=== PATIENT | female | born 1955 | race Caucasian/White ===

== ENCOUNTER → 2023-07-18 | Outpatient (CLI) | payer MEDICARE, SELFPAY ==
--- NOTE | 2023-07-18 15:58 | MRI_ITS ---
STUDY: MRI LUMBAR SPINE WITHOUT CONTRAST REASON FOR EXAM: Female, 68 years old. L3 fracture, fell x1wk ago, pain, please compare to CT TECHNIQUE: Standardized fat and water weighted pulse sequences were obtained in the sagittal and axial planes. COMPARISON: CT of the lumbar spine July 12, 2023 FINDINGS: T12-L1: Normal endplates. Normal disc height, hydration and morphology. Normal bilateral facet joints. Normal central canal and bilateral lateral recesses. Normal bilateral intervertebral neural foramina. Normal lumbar lordosis. There is no substantial scoliosis. Normal conus medullaris that terminates at T12-L1 L1-2: Degenerative endplate changes... Narrowed disc space with desiccation of the disc and minimal annular bulge. Normal bilateral facet joints. Normal central canal and bilateral lateral recesses. Normal bilateral intervertebral neural foramina. L2-3: Normal endplates. Normal disc height, hydration and morphology. Normal bilateral facet joints. Normal central canal and bilateral lateral recesses. Normal bilateral intervertebral neural foramina. L3-4: There is a burst fracture of the L3 vertebral body demonstrating intramedullary bone marrow edema. There is no retropulsion of bony fragments however there is small amount of fluid in within the anterior epidural space possibly representing prominence of the epidural vein.. Normal disc height, desiccation and normal morphology. Normal bilateral facet joints. Normal central canal and bilateral lateral recesses. Normal bilateral intervertebral neural foramina. L4-5: Normal endplates. Normal disc height, desiccation and minimal annular bulge with bilateral foraminal disc protrusions slightly larger on the left.. Facet arthropathy and mild thickening of ligamenta flava more pronounced on the left.. Normal central canal and bilateral lateral recesses. Moderate bilateral neural foraminal stenosis. L5-S1: Normal endplates. Normal disc height, hydration and morphology. Mild facet arthropathy. Normal central canal and bilateral lateral recesses. Normal bilateral intervertebral neural foramina. Normal visualized sacral ala. Normal visualized paraspinous soft tissue structures. The appearance of the L3 fracture is not changed appreciably since previous study. MRI/Spine Lumbar (Routine) IMPRESSION: Findings consistent with recent burst fracture of L3 with small amount of fluid in the anterior epidural space possibly representing prominence of the epidural vein. Spinal stenosis at L4-5 secondary to disc disease and facet arthropathy Electronically Signed: Clifford Elmore MD at 17:26 EST ,
== END | disposition home or self-care (01) ==
PROVIDERS: PCP Internal Medicine; Referring Provider Orthopaedic Surgery Orthopaedic Surgery of the Spine; Visit Provider Orthopaedic Surgery Orthopaedic Surgery of the Spine
DX: S32.039A Unspecified fracture of third lumbar vertebra, initial encounter for closed fracture (principal)
CPT/HCPCS: 72148

== ENCOUNTER 2023-07-24 05:41 | Day surgery (SDC) | payer MEDICARE, SELFPAY ==
--- NOTE | 2023-07-24 06:29 | EKG12_ITS ---
Test Reason : PRE-OP Blood Pressure : / mmHG Vent. Rate : 058 BPM Atrial Rate : 058 BPM P-R Int : 134 ms QRS Dur : 088 ms QT Int : 426 ms P-R-T Axes : -26 017 139 degrees QTc Int : 418 ms Sinus bradycardia with Premature atrial complexes T wave abnormality, consider lateral ischemia Abnormal ECG No previous ECGs available Confirmed by VANESSA SOLORIO, REZA ([id number]), scientific editor SNEHA DEAN ([id number]) on 07/26/2023 9:05:12 AM Referred By: Valente Willis Confirmed By:REZA MENDEZ MD
[2023-07-24 06:35] VITALS: BP 136/86; PULSE 55; RESP 16; TEMP 36.6; O2SAT 99; BMI 32.0
[2023-07-24] MEDS: Lactated Ringers 1,000 ML 15 ML IV (06:58)
--- NOTE | 2023-07-24 07:37 | PCM.HP.BLA ---
History and Physical MR#: [id number] Acct: [id number] Name: MARU DODSON Rep #: [id number] : 1955 Provider: Dr. Valente Willis MD Age/Sex: 68/F Location: [facility] [place].MELINDA Status: Signed Intake Vital Signs 07/14/2309:25 07/20/2410:25 Height 5 ft 2 in 5 ft 2 in Weight: 175 lb 4 oz BMI 32.0 Intake Visit Reasons: LUMBAR SPINE Chief Complaint: MRI review Is patient in pain?: Yes (lumbar spine ) Pain scale (1-10): 10 Allergies ciprofloxacin [From Cipro] Allergy (Mild, Verified 07/21/23 10:51) HivesPenicillins Allergy (Mild, Verified 07/21/23 10:51) Hives Medications amlodipine 5 mg tablet mg PO 07/14/23 [History Confirmed 07/21/23] atorvastatin 80 mg tablet mg PO 07/14/23 [History Confirmed 07/21/23] ezetimibe 10 mg tablet mg PO 07/14/23 [History Confirmed 07/21/23] levothyroxine 125 mcg tablet mcg PO 07/14/23 [History Confirmed 07/21/23] metoprolol tartrate 25 mg tablet mg PO 07/14/23 [History Confirmed 07/21/23] pantoprazole 40 mg tablet,delayed release mg PO 07/14/23 [History Confirmed 07/21/23] paroxetine HCl 10 mg tablet mg PO 07/14/23 [History Confirmed 07/21/23] polysaccharide iron complex 150 mg iron capsule mg PO 07/14/23 [History Confirmed 07/21/23] ramipril 2.5 mg capsule mg PO 07/14/23 [History Confirmed 07/21/23] acetaminophen 500 mg tablet (Tylenol Extra Strength) 1,000 mg PO Q6H PRN 07/21/23 [History Confirmed 07/21/23] oxycodone 5 mg tablet 5 mg PO Q8H PRN pain 5 days #15 tabs 07/21/23 [Rx Confirmed 07/21/23] PFSH Medical History Cancer of neck Hypertension Hypothyroid Surgical History History of open heart surgery Social History Smoking Status: Current every day smoker alcohol intake: current HPI LUMBAR SPINE Details: This documentation accurately reflects the service provided and the decisions made by me, Dr. Valente Willis MD 07/21/23 1050. Part of today?s visit was documented by [ ], acting as scribe. MARU DODSON is a 68 year old F here today for lumbar spine MRI review. She reports being in severe pain that is interfering with her daily activities. She is unable to stand, sit or lay down for periods due to the pain. She would like to discuss MRI results and next steps. Maru has had worsening pain over the last week. She is still waiting to receive the LSO brace. She continues to have pain which is midline and paraspinal in the lumbar spine. She denies any radiating pain. She has trouble getting up and standing up but when she stands up she is able to walk some distance. She is here in a wheelchair today. She was seen by me last week with the following history. 07/14/23: She reports on [facility] that she fell while fluffing a blanket and landed on her back on the hard wood floor. She complains of pain low back pain that radiates down into her right hip. The pain is constant, she has been using a heating pad and the pain medication from the ER. She reports pain with sitting and ambulation. She denies any previous low back surgery. She fell backwards. She denies any previous fractures. 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 She was seen in the ER and was investigated with a CT scan which showed a fracture and was asked to follow-up. No MRI has been done. She has history of throat cancer which was treated with chemotherapy and radiation in 2008. She is nondiabetic, non-smoker. She underwent heart surgery about a year ago. She is on baby aspirin. Ortho Exam General General: Yes no acute distress Neurologic: Yes alert and Yes oriented x3 Spine SPINE TESTING CERVICAL THORACIC LUMBAR Musculoskeletal Strength 0=absent - 5=normal Details: Examination of the back shows midline tenderness in the mid lumbar spine. Neurologic evaluation of lower extremity shows 5 x 5 power in all muscles normal sensations in all dermatomes. Coding Level of Care Code Off vis,est,level 3 Diagnoses Compression fracture of L3 vertebra, initial encounter S32.030A Encounter type: initial encounter Time Spent (min) 40 Assessment and Plan Assessment and Plan (1) Compression fracture of third lumbar vertebra: Status: Acute Qualifiers: Encounter type: initial encounter Qualified Code(s): S32.030A - Wedge compression fracture of third lumbar vertebra, initial encounter for closed fracture Medications: New oxycodone 5 mg PO Q8H 5 days PRN 15 tabs 0RF pain S32.030A - Wedge compression fracture of third lumbar vertebra, initial encounter for closed fracture Plan I again reviewed x-rays done last week and repeated new x-rays today. She also underwent MRI of lumbar spine which I reviewed. This shows L3 compression fracture without any additional pathology other than osteopenia. New x-rays show slight reduction in the height of the vertebral body at L3. In presence of severe worsening pain, I recommended option of cement augmentation with kyphoplasty. Her pain is not improving with rest analgesics and bracing. Although she did not get the LSO brace she has tried a lumbar belt by herself. I prescribed oxycodone 5 mg every 8 hour to help with the pain now. I will schedule her for kyphoplasty on an urgent basis likely Monday. All risk benefits and alternatives were discussed in detail. The risks include but are not limited to infection, bleeding, hematoma formation, cement embolism, cement extravasation, hypotension, cardiopulmonary event, DVT, pulm embolism, future additional fractures, need for future procedures, need for further procedures, incomplete pain relief, need for bracing. Patient understands and agrees to the procedure.
--- NOTE | 2023-07-24 07:45 | BONBX_PTH ---
PATHOLOGY RESULTS PATIENT: LESLEY DODSON LOC: [facility] [place] U#:[id number] AGE/SX: 68/F ROOM: RE07/24/[address]: Dr. Valente Willis MD : 1955 BED: DIS: 07/24/2023 SPEC #: [id number] RECD: 07/24/23 11:49 STATUS: FLAVIO REDannie #: [id number] LESLEY: 07/24/23 07:[address]: Valente Willis DEPT: SURGICAL PATHOLOGY RECD BY: Dena Kerr ENTERED: 07/24/23 11:51 SP TYPE: Bone OTHR DR: Dr. Almaz Chavez MD Tissues: Vertebra, NOS Procedures: Decalcification bone/plaque Surgery Specimen Level V HEADER OPERATION: Kyphoplasty PRE-OP DIAGNOSIS: Compression fracture of third lumbar vertebra TISSUE SUBMITTED: Bone biopsy left L3 MICROSCOPIC DIAGNOSIS L3 bone, core biopsy: A piece of bone with extensive callus formation and reactive changes. Negative for malignancy. See comment. AGATHA:charlie 07/25/2023 COMMENT Trilineage hematopoiesis is also noted. Clinical correlation and appropriate follow up are necessary. MICROSCOPIC DESCRIPTION Slides are reviewed. GROSS DESCRIPTION Received in fixative is one container labeled with the patient's name and designated bone biopsy L3. The specimen consists of a piece of bone with blood clot. The bone measures 1.0 cm in length and 0.2 cm in diameter. The blood clot measures 1.5 x 0.1 x 0.1 cm. The entire specimen is submitted in one cassette after decalcification. / AGATHA:charlie 07/24/2023 TC:5 CPT: 26385, 18284
[2023-07-24] MEDS: Clindamycin 600 MG/50 ML BAG 100 MG IV (08:51)
--- NOTE | 2023-07-24 08:55 | RAD_ITS ---
PROCEDURE: Fluoroscopy for vertebroplasty DATE OF EXAMINATION: 07/24/2023, 9:33 AM INDICATION: Female, 68 years old. Fluoroscopy was provided for vertebroplasty FLUOROSCOPY TIME (if supplied): (137.1 seconds) RADIATION DOSAGE (If Supplied By Facility): = ( 69.1 ) mGy FINDINGS: 3 views of the upper lumbar spine were obtained during procedure for vertebroplasty. No radiologist was present. Examination was not performed for diagnostic purposes and is not diagnostic. RAD/Lumbar Spine 2 or 3 Views IMPRESSION: Intraprocedural exam as described above. Electronically Signed: Anderson Quigley MD at 10:47 EST ,
[2023-07-24] MEDS: Lidocaine 1% (30 ml sdv) 30 ML Vial (09:45)
[2023-07-24] MEDS: Bupivacaine 0.25% 30 ML Vial (09:45)
--- NOTE | 2023-07-24 09:55 | PCM.OPRPT ---
Report of Operation Date of Procedure: 07/24/23 Description of Surgical Findings:: ATTENDING SURGEON: Valente Willis MD TEST DESIGN ENGINEER: none PREOPERATIVE DIAGNOSIS: L3 compression fracture POSTOPERATIVE DIAGNOSIS: L3 compression fracture PROCEDURE PERFORMED: L3 kyphoplasty CPT 20875 INDICATIONS FOR THE PROCEDURE: The patient is a 68-year-old lady, who presents with back pain after an injury. Imaging showed L3 compression fracture with osteopenia. After failing conservative management, the patient requested cement augmentation with kyphoplasty. Risk benefits were discussed in detail. The risks include but are not limited to infection, bleeding, hematoma formation, nerve or spinal cord injury, DVT, pulmonary embolism, cement Mollison, hypertension, cardiac arrest, persistent pain, need for further procedures, cement extravasation, future insufficiency fractures. After a discussion of the risks and benefits of the procedure, consent was signed for the procedure. DETAILS OF PROCEDURE: Patient was met in the preoperative holding area and the correct site was marked. The patient was brought back to the operative suite. Timeout was performed. Patient was carefully positioned flat James table with pillows. MAC anesthesia sedation was performed. Back was prepped and draped in usual fashion. Timeout was again performed. C-arm AP and lateral view was then taken. 2 C-arms were positioned in a way that L3 was centralized and superior endplate was parallel to the beams. Spinous process was centered between the pedicles. Point of entry was marked with skin marker. local anesthetic was injected subcutaneously. Small stab incision was placed to allow Jamshidi needle. The Jamshidi needle was then taken down up to the lateral edge of the pedicle seen on AP view and confirmed the lateral view. Jamshidi needle was then malleted into the bone up to the medial wall of the pedicle seen on AP view and confirmed on lateral view to be inside the body. This was then advanced to the anterior third of the vertebral bodies. This was done on both sides. Stylette was removed. Core biopsy was performed. Drill was utilized up to balloon size. Balloon was inserted. The balloon was inflated with radiopaque dye and evaluated on AP lateral C-arm images. Once adequate expansion of the balloon was noticed, the balloons were emptied and removed. Cement was mixed. Once the cement consistency was putty like, this was slowly inserted into the vertebral body through both Jamshidi needles. AP lateral views were confirmed to make sure no cement extravasation occurs. Once adequate cement was placed, time was given to allow cement setting. Jamshidi needles were then removed. Steri-Strips were applied along with 4 x 4 and Tegaderm. AP lateral views showed good cement fill. Patient was then taken to PACU in stable condition and will be discharged from their home. I was present for the entire case. Admit VTE Documentation VTE Mechan Device Prophylaxis: SCD's Reason prophylaxis not ordered:: Treatment Not Indicated Procedures Musculoskeletal 20xxx-29xxx: Other Procedure See Report
[2023-07-24 10:00] VITALS: BP 110/94; BP 136/86; PULSE 69; RESP 16; TEMP 36.2; O2SAT 93
[2023-07-24 10:05] VITALS: BP 101/75; BP 136/86; PULSE 76; RESP 16; O2SAT 98
[2023-07-24 10:10] VITALS: BP 116/86; BP 136/86; PULSE 74; RESP 16; O2SAT 94
[2023-07-24 10:20] VITALS: BP 112/89; BP 136/86; PULSE 75; RESP 16; TEMP 36.6; O2SAT 97
[2023-07-24] MEDS: oxyCODONE 5 MG Tablet PO (11:02)
[2023-07-24 11:08] VITALS: BP 118/75; BP 136/86; PULSE 74; RESP 16; TEMP 36.3; O2SAT 95
== END 2023-07-24 11:18 | disposition home or self-care (01) ==
LOC: SDC 05:43 → AC 05:44
PROVIDERS: PCP Internal Medicine; Referring Provider Orthopaedic Surgery Orthopaedic Surgery of the Spine; Visit Provider Orthopaedic Surgery Orthopaedic Surgery of the Spine
PROC: (CPT 22514; principal; 2023-07-24 07:30)
DX: M80.88XA Other osteoporosis with current pathological fracture, vertebra(e), initial encounter for fracture (principal); I10 Essential (primary) hypertension; E03.9 Hypothyroidism, unspecified; F41.9 Anxiety disorder, unspecified; E78.00 Pure hypercholesterolemia, unspecified; K21.9 Gastro-esophageal reflux disease without esophagitis; F32.A Depression, unspecified; I25.2 Old myocardial infarction; W19.XXXA Unspecified fall, initial encounter; Z79.899 Other long term (current) drug therapy; Z87.891 Personal history of nicotine dependence
CPT/HCPCS: 22514; 01942; 72100; 76000; 88307; 88311; 93005; J7120; J2405

== ENCOUNTER 2023-12-06 11:33 | Day surgery (SDC) | payer MEDICARE, SELFPAY ==
[2023-12-06] VITALS (9 sets, daily range): BP systolic 76–138; BP diastolic 61–97; PULSE 64–81; RESP 16; TEMP 36.6–37; O2SAT 93–100; BMI 30.7
[2023-12-06 12:06] LABS: Hematocrit 39.5 % (37-47); Mean Corp Hgb Conc 32.9 g/dL (32-36); Mean Corpuscular Hgb 29.2 pg (27.0-32.0); Mean Corpuscular Volume 88.8 fL (81-99); Platelet Count 236 K/mm3 (150-450); RBC Distribution Width CV 13.2 % (11.6-14.6); RBC Distribution Width SD 42.5 fl (35.1-43.9); Red Blood Count 4.45 M/mm3 (4.2-5.4); White Blood Count 5.7 K/mm3 (4.4-11.0)
[2023-12-06] MEDS: Lactated Ringers 1,000 ML 15 ML IV ×2 (12:10→15:48)
[2023-12-06 12:34] LABS: Anion Gap 7 (5-15); BUN 14 mg/dL (7-18); BUN/Creat Ratio 15.5 RATIO (10-20); Calcium,Total 9.5 mg/dL (8.5-10.1); Chloride 112 mmol/L (98-107); EST Glomerular Filtration Rate 66 mL/min (>60); Est Glom Filt Rate - Afr Amer 80 mL/min (>60); Estimated Creatinine Clearance 57.18 ml/min; Glucose 112 mg/dL (74-106); Potassium 4.2 mmol/L (3.5-5.1); Sodium Level 141 mmol/L (136-145); Thyroid Stim Hormone (TSH) 0.02 uIU/mL (0.358-3.74)
--- NOTE | 2023-12-06 12:58 | HP.PCM_ITS ---
HPI - General HPI Narrative LESLEY DODSON, is a 68 F who presents for left ankle open reduction internal fixation. Almost a malunion at this point. Need to correct fibular alignment. No changes to h and p. OK to proceed. Left ankle marked. RAB, post op instructions and narcotic counselling. OK to proceed, no further concerns or questions. MR#: [id number] Acct: [id number] Name: LESLEY DODSON Rep #: [id number] : 1955 Provider: Dr. Mariusz Calloway MD Age/Sex: 68/F Location: [facility] [place].MELINDA Status: Signed Intake Vital Signs 07/24/2405:35 11/27/2408:36 Height 5 ft 2 in 5 ft 2 in Weight: 160 lb BMI 29.2 Intake Visit Reasons: LEFT LEG Chief Complaint: Left Ankle/ foot Accompanied by: Granddaughter Is patient in pain?: Yes Pain scale (1-10): 1 Allergies ciprofloxacin (From Cipro) Allergy (Mild, Verified 11/28/23 09:42) HivesPenicillins Allergy (Mild, Verified 11/28/23 09:42) Hives Medications ?Medication ?Instructions ?Recorded ?Confirmed ?Type amlodipine 5 mg tablet 5 mg PO DAILY 07/14/23 11/28/23 History atorvastatin 80 mg tablet 80 mg PO QHS 07/14/23 11/28/23 History ezetimibe 10 mg tablet 10 mg PO DAILY 07/14/23 11/28/23 History levothyroxine 125 mcg tablet 125 mcg PO DAILY 07/14/23 11/28/23 History metoprolol tartrate 25 mg tablet 25 mg PO BID 07/14/23 11/28/23 History pantoprazole 40 mg tablet,delayed 40 mg PO DAILY 07/14/23 11/28/23 History release paroxetine HCl 10 mg tablet 10 mg PO DAILY 07/14/23 11/28/23 History polysaccharide iron complex 150 mg 150 mg PO BID 07/14/23 11/28/23 History iron capsule ramipril 2.5 mg capsule 2.5 mg PO DAILY 07/14/23 11/28/23 History acetaminophen 500 mg tablet 1,000 mg PO Q6H PRN pain 07/21/23 11/28/23 History (Tylenol Extra Strength) alendronate 70 mg tablet (Fosamax) 70 mg PO WE 07/21/23 11/28/23 History aspirin 81 mg tablet,delayed 81 mg PO DAILY 07/21/23 11/28/23 History release (Adult Low Dose Aspirin) cholecalciferol (vitamin D3) 50 6,000 unit PO DAILY 07/21/23 11/28/23 History mcg (2,000 unit) tablet (Vitamin D3) [facility] Medical History (Updated 11/28/23 @ 10:34 by Mariusz Calloway MD) Bimalleolar fracture of left ankle Wears dentures Post-menopausal Cancer Depression Anxiety Low iron High cholesterol Injury of back Gastric reflux Former smoker History of pain when walking History of echocardiogram History of stress test Cardiology follow-up encounter History of heart attack Fall Hypothyroid Hypertension Cancer of neck Surgical History Hx of colonoscopy History of cardiac catheterization History of neck dissection History of open heart surgery Social History Smoking Status: Former smoker alcohol intake: current HPI LEFT LEG Details: This documentation accurately reflects the service provided and the decisions made by me, Dr. Mariusz Calloway MD 11/28/23 0936. Part of today?s visit was documented by [ ], acting as scribe. LESLEY DODSON is a 68 year old F here today for L ankle fracture. was putting on a bathing suit 4 weeks ago, Ortho Exam General General: Yes no acute distress Neurologic: Yes alert and Yes oriented x3 Psychologic: Yes reasonable and appropriate Left Foot/Ankle Skin: Yes CDI and Soft Tissue Swelling; No Ecchymosis or Erythema Exam: Yes Soft tissue swelling, TTP Lateral Malleolus and TTP Medial Malleolus; No Ecchymosis, Erythema, TTP Deltoid Ligament or TTP distal 5th metatarsal Dorsiflexion 0-20: 0 degrees Plantar Flexion 0-40: 30 degrees Motor: Ankle Dorsiflextion: 4, Ankle Plantar Flexion: 4, Ankle Eversion: 4, Ankle Inversion: 4 and EHL: 4 Sensation: Deep Peroneal Nerve: I, Superficial Peroneal Nerve: I, Tibial Nerve: I, Sural Nerve: I and Saphenous Nerve: I Pulses: Dorsalis Pedis: 2 Supplemental Info X-rays of the left ankle 3 views reviewed from 11/26/2023 at outside facility 3 views of the ankle reveal displaced bimalleolar ankle fracture Marshall B of the distal fibula oblique fracture as well as a transverse medial malleoli fracture with a slight lateral talar shift. Coding Level of Care Code Off vis,new,level 4 Diagnoses Bimalleolar fracture of left ankle S82.842A Assessment and Plan Assessment and Plan (1) Bimalleolar fracture of left ankle: Status: Acute Plan: 60-year-old female with a 4 weeks old bimalleolar displaced ankle fracture on the left side. We went over the diagnosis prognosis different treatment options including doing nothing versus surgery. With nonsurgical treatment and further conservative management patient does have a lateral talar shift and displacement of the fibula fracture that would most likely predispose the patient to increased contact pressures on the cartilage of the talus and quickly developing ankle arthritis. That being said open reduction internal fixation of the left ankle fractures does have its own set of risks especially as it is already been 4 weeks this is essentially nearly a malunion at this point. Surgery would be in the form of open left ankle open reduction internal fixation. This would be to take down the callous that is already formed to correct the alignment of the fractures. The patient would have to get a cardiac clearance they do have a vp customer development as well prior to doing surgery so we will likely plan this for next week. Patient understands they will try to be nonweightbearing and elevate the ankle until that time and we will give the patient a short orthosis boot for some more support today. They understood no further questions or concerns. Pros and cons risks and benefits were discussed with the patient including but not limited to infection, pain, stiffness, bleeding, damage to surrounding structures, neurovascular injury, recurrence or retear, failure or wear of hardware or fixation, instability, fracture, deep vein thrombosis and pulmonary embolism, anesthetic risks, , patient dissatisfaction, need for further surgery and other risks. Patient understood and wished to proceed with surgery, and signed the informed consent documentation. [facility] Medical History (Updated 11/28/23 @ 10:34 by Mariusz Calloway MD) Bimalleolar fracture of left ankle Wears dentures Post-menopausal Cancer Depression Anxiety Low iron High cholesterol Injury of back Gastric reflux Former smoker History of pain when walking History of echocardiogram History of stress test Cardiology follow-up encounter History of heart attack Fall Hypothyroid Hypertension Cancer of neck Home Medications ?Medication ?Instructions ?Recorded ?Last Taken ?Type amlodipine 5 mg tablet 5 mg PO DAILY 07/14/23 12/06/23 06:00 History atorvastatin 80 mg tablet 80 mg PO QHS 07/14/23 Unknown History ezetimibe 10 mg tablet 10 mg PO DAILY 07/14/23 Unknown History levothyroxine 125 mcg tablet 125 mcg PO DAILY 07/14/23 12/06/23 03:00 History metoprolol tartrate 25 mg tablet 25 mg PO BID 07/14/23 12/06/23 06:00 History pantoprazole 40 mg tablet,delayed 40 mg PO DAILY 07/14/23 12/06/23 06:00 History release paroxetine HCl 10 mg tablet 10 mg PO DAILY 07/14/23 Unknown History polysaccharide iron complex 150 mg 150 mg PO BID 07/14/23 Unknown History iron capsule ramipril 2.5 mg capsule 2.5 mg PO DAILY 07/14/23 12/06/23 06:00 History acetaminophen 500 mg tablet 1,000 mg PO Q6H PRN pain 07/21/23 Unknown History (Tylenol Extra Strength) alendronate 70 mg tablet (Fosamax) 70 mg PO WE 07/21/23 Unknown History aspirin 81 mg tablet,delayed 81 mg PO DAILY 07/21/23 07/21/23 History release (Adult Low Dose Aspirin) cholecalciferol (vitamin D3) 50 6,000 unit PO DAILY 07/21/23 Unknown History mcg (2,000 unit) tablet (Vitamin D3) Allergy/AdvReac Type Severity Reaction Status Date / Time ciprofloxacin (From Cipro) Allergy Mild Hives Verified 12/06/23 12:02 Penicillins Allergy Mild Hives Verified 12/06/23 12:02 Surgical History (Updated 12/04/23 @ 08:28 by Kecia Goff) Hx of kyphoplasty Hx of colonoscopy History of cardiac catheterization History of neck dissection History of open heart surgery Social History Smoking Status: Former smoker alcohol intake: current Vital Signs Vital Signs Vital Signs: 12/06/23 12:04 12/06/23 12:04 Temperature 98.6 F Temperature Source Temporal Pulse Rate 64 Respiratory Rate 16 Respiratory Pattern Normal Blood Pressure 138/61 H Blood Pressure Mean 86 Blood Pressure Source Monitor Blood Pressure Position Semi-Fowlers Blood Pressure Location Left Arm Pulse Ox 100 Oxygen Delivery Method Room Air Weight Weight: 168 lb Body Mass Index (BMI) 30.7 Results Lab / Micro Data 12/06/23 11:57 12/06/23 11:57 Labs: Laboratory Results - last 24 hr 12/06/23 11:57: WBC 5.7, RBC 4.45, Hgb 13.0, Hct 39.5, MCV 88.8, MCH 29.2, MCHC 32.9, RDW Std Deviation 42.5, RDW Coeff of Gustavo 13.2, Plt Count 236, MPV 10.0, Sodium 141, Potassium 4.2, Chloride 112 H, Carbon Dioxide 22.0, Anion Gap 7, BUN 14, Creatinine 0.90, Estim Creat Clear Calc 57.18, Est GFR (MDRD) Af Amer 80, Est GFR (MDRD) Non-Af 66, BUN/Creatinine Ratio 15.5, Glucose 112 H, Calcium 9.5, TSH 0.02 L
[2023-12-06] MEDS: Cefazolin 2 GM in 0.9% Normal Saline (100mL Bag) 100 ML IV (13:34)
--- NOTE | 2023-12-06 13:48 | RAD_ITS ---
STUDY: X-RAY - LEFT ANKLE REASON FOR EXAM: Female, 68 years old. LEFT ANKLE OPEN REDUCTION INTERNAL FIXATION TECHNIQUE: 5 fluoroscopic spot films of the left ankle were obtained. COMPARISON: Left ankle radiographs dated 11/26/2023. FINDINGS: There are 2 new partially threaded screws traversing through the previously seen medial malleolar fracture. There is a new metallic reconstruction plate along the lateral aspect of the fibula, with multiple fixation screws, bridging the previously seen distal fibular fracture. Normal visualized talus and calcaneus. RAD/Ankle 2 Views IMPRESSION: New ORIF hardware in the distal tibia and fibula. Electronically Signed: Juan Simpson MD at 15:16 EDT ,
--- NOTE | 2023-12-06 15:10 | OP.PCM_ITS ---
Problems Associated Problem List Diagnoses (1) Bimalleolar fracture of left ankle: Report of Operation Date of Procedure: 12/06/23 Pre-Operative Diagnosis: L ankle fracture elizabeth (malunion) Post-Operative Diagnosis: same Surgery/Procedure Performed:: Left ankle open reduction internal fixation, take down malunion Surgeon: Mariusz Calloway Type of Anesthesia: Block,Regional and General Anesthesiologist: Dimitry Pike Estimated Blood Loss (mL): 50 Description of Procedure: Patient brought to operating room theater. Placed supine on the table. General anesthesia induced. 2 g IV Ancef administered prior to the start of the procedure. All bony prominences padded. SCD on the nonoperative leg. Tourniquet applied to the left thigh appropriately padded. Lower extremity prepped and draped in the usual sterile fashion chlorhexidine-based prep solution allowing over 3 minutes drying time prior to draping. Bump on the left hip and left lower extremity bumped up on towels. Preoperative timeout performed on the site patient and the surgery. Began by taking intraoperative radiograph to confirm the fracture site and the malunion. Slight posterior lateral incision over the distal fibula carried dissection down through skin and subcutaneous tissue achieved meticulous hemostasis. Identified the previous fracture site took down the malunion callus formation. Recreated the fracture. Next I turned my attention medially. Made a small curvilinear incision over the medial malleolus carried the dissection down through skin and subcutaneous tissue to meticulous hemostasis. Protected the saphenous vein retracted this anteriorly. Again identified the fracture site recreated that took down any callus thoroughly irrigated and debrided the fracture sites. First turned my attention of the distal fibula. Selected a Arthrex precontoured lateral distal fibular locking plate placed this on bone use direct manual pressure to reduce the fibula had to place the plate anteriorly to get good purchase into the relatively small distal fragment. Use direct visualization as well as intraoperative fluoroscopy to achieve good length of the fibula fracture. Placed 4 fully threaded 3.5mm cortical screws proximally as well as 4 locking screws distally into the distal fragment. This achieved good reduction of the mortise with no lateral talar shift and good reduction of the fibula. I then turned my attention medially. I drilled a small 2.0 mm cortical hole unicortical just proximal to the transverse medial malleolus fracture site. I used a reduction forcep clamp across this achieved good reduction and compression at the fracture site took radiographs to confirm reduction. I plac ed 2 cannulated wires colinear on both AP and lateral radiographs. I overdrilled the proximal cortex and then placed 2, 48 mm long Arthrex partially- threaded cancellous lag screws 4.0 millimeter screws. Remove the guidewires took final radiographs AP lateral and mortise view. I then did the external rotation stress test direct lateral manipulation test as well as cotton test these were all negative for syndesmosis instability or widening. Case terminated tourniquet let down wounds thoroughly irrigated. Hemostasis achieved. Subcutaneous tissue closed with 2-0 Vicryl suture skin with citlali. Skin cleaned with wet and dry dressing followed application of Adaptic 4 x 4 gauze ABD dressing sterile cast padding and a posterior fiberglass slab prefabricated posteriorly with the ankle in neutral overwrapped loosely with Felipe wrap. This was allowed to harden patient woken up from the general anesthetic transferred off the operating table and taken to postanesthetic care unit in stable condition. All sponge needle return counts were correct no complications. CPT 86592?+ [id number]? Complications none Admit VTE Documentation VTE Present on Admission: No VTE Mechan Device Prophylaxis: SCD's VTE Pharm Prophylaxis ordered?: No Reason prophylaxis not ordered:: Treatment Not Indicated Procedures Musculoskeletal [id number]: Other Procedure See Report
--- NOTE | 2023-12-06 15:21 | DCINST_ITS ---
Discharge Instructions Diet Discharge Diet: No restrictions Activity Ice area for (Minutes): 10 Weight Bearing Status: No weight bearing Keep extremity elevated above heart level: Operative Extremity Dressing / Incision Call your doctor if your incision/area has: Continuous Slow Oozing, Sudden Increased Bleeding, Increased Pain/ Swelling, Increased Redness, Foul Smelling Discharge and Swelling at the incision site Change Dressing in: leave in place till F/U Follow Up Care Please Follow Up With: Mariusz Calloway MD When: 2 days Test Results: Test results from this visit will be discussed in further detail at your follow- up appointment, if applicable. Discharge Plan Admission Attending Provider: Mariusz Calloway Primary Care Provider: Almaz Chavez Instructions Print Language: [place] Discharge Orders/Prescriptions Prescriptions: New oxycodone-acetaminophen [Percocet] 5-325 mg tablet 1 tab PO Q4H MDD 6 PRN (Reason: pain) 4 Days Qty: 20 0RF No Action ezetimibe 10 mg tablet 10 mg PO DAILY ramipril 2.5 mg capsule 2.5 mg PO DAILY Patient Comments: TAKE 1 CAPSULE BY MOUTH ONCE DAILY levothyroxine 125 mcg tablet 125 mcg PO DAILY Patient Comments: TAKE 1 TABLET BY MOUTH EVERY DAY amlodipine 5 mg tablet 5 mg PO DAILY Patient Comments: TAKE 1 TABLET BY MOUTH EVERY DAY atorvastatin 80 mg tablet 80 mg PO QHS Patient Comments: TAKE 1 TABLET BY MOUTH EVERYDAY AT BEDTIME metoprolol tartrate 25 mg tablet 25 mg PO BID Patient Comments: TAKE 1 TABLET BY MOUTH TWICE A DAY pantoprazole 40 mg tablet,delayed release (DR/EC) 40 mg PO DAILY Patient Comments: TAKE 1 TABLET BY MOUTH EVERY DAY polysaccharide iron complex 150 mg iron capsule 150 mg PO BID Patient Comments: 1 CAP(S) ORALLY 2 TIMES A DAY 30 MINUTES AFTER A MEAL paroxetine HCl 10 mg tablet 10 mg PO DAILY Patient Comments: TAKE 1 TABLET BY MOUTH EVERY DAY acetaminophen [Tylenol Extra Strength] 500 mg tablet 1,000 mg PO Q6H PRN (Reason: pain) cholecalciferol (vitamin D3) [Vitamin D3] 50 mcg (2,000 unit) tablet 6,000 unit PO DAILY alendronate [Fosamax] 70 mg tablet 70 mg PO WE aspirin [Adult Low Dose Aspirin] 81 mg tablet,delayed release (DR/EC) 81 mg PO DAILY Referrals / Follow Up: Almaz Chavez MD [Primary Care Provider] - Mariusz Calloway MD [Med Staff - Active Staff] - Disposition Disposition (needs filled in before D/C Order can be placed): Home, Self Care
== END 2023-12-06 16:45 | disposition home or self-care (01) ==
LOC: SDC 11:35 → AC 11:35
PROVIDERS: Anesthesiology; PCP Internal Medicine; Referring Provider Orthopaedic Surgery Sports Medicine; Visit Provider Orthopaedic Surgery Sports Medicine
PROC: (CPT 27726; principal; 2023-12-06 12:55)
DX: S82.842A Displaced bimalleolar fracture of left lower leg, initial encounter for closed fracture (principal); S32.030A Wedge compression fracture of third lumbar vertebra, initial encounter for closed fracture; I10 Essential (primary) hypertension; Z87.891 Personal history of nicotine dependence; E78.00 Pure hypercholesterolemia, unspecified; Z79.82 Long term (current) use of aspirin; F41.9 Anxiety disorder, unspecified; E03.9 Hypothyroidism, unspecified; I25.2 Old myocardial infarction
CPT/HCPCS: 27726; 27720; 01392; 73600; 76000; 80048; 84443; 85027; C1713; J7120; J2405

== ENCOUNTER → 2024-12-30 | Outpatient (CLI) | payer MEDICARE, SELFPAY ==
--- OUTSIDE RECORDS SUMMARY | 2024-12-30 06:25 | XMS RPT_ITS | CCD ---
Author Organization [facility] Care Team Providers [employer] Teacher Name Role Phone Scott Brasher Unavailable Unavailable Flo Pretty Unavailable Unavailable Bib Jovanni Unavailable Unavailable Scott Brasher Unavailable Unavailable Flo Pretty Unavailable Unavailable Unavailable Flo Pretty MD Primary Care Provider SHAY BRENNER Admitting Unavailable SHAY BRENNER Attending Unavailable FLO PRETTY Primary Care Unavailable JUAN MANUEL ROSA MD Consulting UnavailFlo Fitzpatrick MD Primary Care Provider Unavailable Primary Care Provider Unavailjuan suarez Unavailable Primary Care Provider UnavailMD AMRIT Bell Admitting Unavailable MD AMRIT MALONE Attending Unavailable Dr. Flo Pretty Primary Care Unavailable Dr. Flo Pretty Primary Care Unavailable MD AMRIT MALONE Admitting Unavailable MD AMRIT MALONE Attending Unavailable MD AMRIT MALONE Admitting Unavailable MD AMRIT MALONE Attending Unavailable Dr. Flo Pretty Primary Care Unavailable Dr. Flo Pretty Primary Care Unavailable SCOTT BRASHER Attending Unavailable SCOTT BRASHER Referring Unavailable Dr. Valente Willis Attending Provider Dr. Wallace Rayo Attending Provider [phone] Almaz Chavez Primary Care Provider Dr. Almaz Chavez Referring Provider [phone] Flo Pretty MD Primary Care Provider Unavailab bulmaro Mccartney MD, Jovanni Unavailable Unavailable Amrit Malone MD Unavailable FLO PRETTY Referring Unavailable FLO PRETTY Primary Care Unavailable SUKHWINDER, YATISH Referring Unavailable SUKHWINDER, YATISH Primary Care Unavailable SUKHWINDER, YATISH Primary Care Unavailable CALDERON DOMINGUEZ Attending Unavailable SUKHWINDER, YATISH Primary Care Unavailable GIRISH SOTO Attending Unavailable Sukhwinderharris SOLORIO, Ayde Unavailable Unavailable Primary Care Provider Unavailabl e Sukhwinder SOLORIO, [facility] Primary Care Provider Yasmany Malone MDh Unavailable Sukhwinder SOLORIO, Ayde Unavailable SCOTT BRASHER Attending Unavailable SUKHWINDER, YATISH Primary Care Unavailable JOSE ANGEL, AMRIT Attending Unavailable JOSE ANGEL, AMRIT Referring Unavailable SUKHWINDER, YATISH Primary Care Unavailable SUKHWINDER, YATISH Primary Care Unavailable JOSE ANGEL, AMRIT Attending Unavailable JOSE ANGEL, AMRIT Referring Unavailable SUKHWINDER, YATISH Primary Care Unavailable ELZA YUSUF MD Attending Unavail able SUKHWINDERHARRIS SOLORIO, [facility] Primary Care Unavailable SUKHWINDERHARRIS SOLORIO, [facility] Primary Care Unavailable SUKHWINDERHARRIS SOLORIO, [facility] Primary Care Unavailable ELZA YUSUF MD Attending Unavail able Sukhwinderharris SOLORIO, [facility] Primary Care Provider JOSE ANGEL, AMRIT Referring Unavailable SUKHWINDER, YATISH Primary Care Unavailable JOSE ANGEL, AMRIT Referring Unavailable SUKHWINDER, YATISH Primary Care Unavailable SUKHWINDER, YATISH Primary Care Unavailable SUKHWINDER, YATISH Referring Unavailable SUKHWINDER, YATISH Primary Care Unavailable Dr. Almaz Chavez MD Primary Care Provider Dr. Almaz Chavez MD Referring Provider Parisa Belcher Attending Provider Dr. Wallace Rayo MD Attending Provider [phone] [place], Almaz Primary Care Unavailable Wallace Rayo Attending Unavailable [place], Almaz Referring Unavailable [place], Almaz Primary Care Unavailable Maruisz Calloway Attending Unavailable [place], Almaz Primary Care Unavailable Wallace Rayo Attending Unavailable [place], Almaz Referring Unavailable [place], Almaz Primary Care Unavailable Mariusz Calloway Attending Unavailable Wallace Rayo Attending Unavailable [place], Almaz Primary Care Unavailable [place], Almaz Referring Unavailable Parisa Salinas Attending Unavailable Almaz Chavez Primary Care Unavailable Parisa Salinas Referring Unavailable Parisa Salinas Attending Unavailable FLO PRETTY Primary Care Unavailable Allergies Allergy Classification Reported Allergen(s) Allergy Type Date of Onset Reaction(s) Facility (20 sources) Ciprofloxacin; Translations: [Cipro TABS] Drug Allergy 11-30-19 11 Unknown, Hives, Other, [facility] (10 sources) Penicillins; Translations: [Penicillins] drug allergy 01-09-20 04 [facility] Repository (20 sources) cashew nut allergenic extract; Translations: [CASHEW NUT] Drug Allergy 04-18-20 22 [facility] Work Phone: (20 sources) Glucocorticoid preparation; Translations: [CORTICOSTEROIDS (GLUCOCORTICOIDS)] Propensity to adverse reactions 01-08-20 04 [facility] (20 sources) Penicillins Propensity to adverse reactions 01-09-[address] [facility] (8 sources) Ciprofloxacin; Translations: [CIPROFLOXACIN] Drug Allergy 11-30-19 11 [facility] Other [place] [facility] (3 sources) Penicillins Allergy to substance 07-21-19 24 [facility] (8 sources) tree nut, unspecified; Translations: [TREE NUTS] Drug Allergy 07-12-20 23 [facility] Work Phone: (3 sources) Penicillins Drug Allergy 01-09-20 04 [facility] Work Phone: (1 source) Penicillins Drug allergy (disorder) 12-14-19 25 [facility] Repository Medications Current Medications Medication Drug Class(es) Dates Sig (Normalized) Sig (Original) acetaminophen 500 mg oral tablet (20 sources) Start: 07-21-2023 take 2 tablets by mouth every six hours as needed for pain Acetaminophen (Tylenol Extra Strength) 500 mg tablet Active 1000 mg PO EVERY 6 HOURS as needed for pain July 21, 2023 1:00am Start: 05-17-2022 take 2 tablets enter al route every six hours as needed acetaminophen (TYLENOL) 500 mg tablet 2 tablets by ORAL/FEEDING TUBE route every 6 hours as needed for pain for up to 200 doses. 200 tablet 05/17/2022 Active Start: 05-17-2022 take 2 tablets by mo uth every six hours as needed acetaminophen (TYLENOL) 500 mg tablet 2 tablets by ORAL/FEEDING TUBE route every 6 hours as needed for pain for up to 200 doses. 200 tablet 0 05/17/2022 Active Comment on above: 2 tablets by ORAL/FE EDING TUBE route every 6 hours as needed for pain for up to 200 doses. alendronic acid 70 mg oral tablet (20 sources) Bisphosphonate Start: 03-02-2022 alendronate 70 mg tbef 70 mg. 03/02/2022 Active Start: 03-02-2022 alendronate 70 mg tablet, effervescent 70 mg. 03/02/2022 Active Start: 08-03-2021 End: 04-18-2024 Alendronate (Fosamax) 70 mg tablet Active 70 mg PO WE July 21, 2023 1:00am End: 10-10-2023 take 1 tablet by mouth in the morning alendronate (Fosamax) 70 mg tablet Take 1 tablet (70 mg) by mouth every 7 days. Take in the morning with a full glass of water, on an empty stomach, and do not take anything else by mouth or lie down for the next 30 min. 0 10/10/2023 Discontinued (Med List Cleanup) Comment on above: 70 mg. amLODIPine 5 mg oral tablet (20 sources) Dihydropyridine Calcium Channel Chavez Start: take 1 tablet by mouth once daily Amlodipine 5 mg tablet Active 5 mg PO DAILY July 14, 2023 1:00am Start: 09-05-2017 amLODIPine (No rvasc) 10 mg tablet 09/05/2017 Active End: 05-17-2022 take 2.5 mg by mouth once daily amLODIPine (NORVASC) 5 mg tablet Take 2.5 mg by mouth once daily. 0 05/17/2022 Discontinued Comment on above: Take 2.5 mg by mouth once daily. Take 5 mg by mouth o nce daily. aspirin 81 mg delayed release oral tablet (20 sources) Platelet Aggregation Inhibitor, Nonsteroidal Anti-inflammatory Drug Start: 07-21-2023 Aspirin (Adult Low Dose Aspirin) 81 mg tablet,delayed release (DR/EC) Active 81 mg PO DAILY July 21, 2023 1:00am Start: 05-17-2022 End: 10-10-2023 take 2 tablets by mouth once daily aspirin 81 mg chewable tablet Take 2 tablets by mouth once daily. 180 tablet 3 05/17/2022 Active Start: 05-01-2012 End: 10-10-2023 aspirin 81 mg capsule Take b y mouth. 0 05/01/2012 10/10/2023 Discontinued (Med List Cleanup) End: 05-17-2022 aspirin 81 mg chewable table t Chew 1 tablet (81 mg) once daily. Active Comment on above: Take 81 mg by mouth once daily. Take 2 tablets by mo uth once daily. atorvastatin 80 mg oral tablet (20 sources) HMG-CoA Reductase Inhibitor Start: take 1 tablet by mouth at bedtime Atorvastatin 80 mg tablet Active 80 mg PO AT BEDTIME July 14, 2023 1:00am Start: 01-09-2004 End: 05-17-2022 atorvastatin (LIPITOR) 80 mg tablet 80 mg. 10/17/2012 Active Comment on above: po qd 80 mg. 120 actuat budesonide 0.16 mg/actuat / formoterol fumarate 0.0048 mg/actuat / glycopyrrolate 0.009 mg/actuat metered dose inhaler (2 sources) Corticosteroid, beta2-Adrenergic Agonist Start: 05-19-2022 End: 10-10-2023 vzsmvrklrt-xoptbphq-belb oterol (Breztri Aerosphere) 160-9-4.8 mcg/actuation HFA aerosol inhaler Inhale. 0 05/19/2022 10/10/2023 Discontinued (Med List Cleanup) calcium citrate 1500 mg / cholecalciferol 200 unt oral tablet (5 sources) Vitamin D Start: 10-06-2020 calcium citrate-vitamin D3 (Citracal+D) 315 mg-5 mcg (200 unit) tablet 10/06/2020 Active ebkddvt-bksabypq-E4-K2-silic on 200 mg calcium- 200 unit tablet (4 sources) Start: 10-27-2020 End: 10-10-2023 gqcktst-qeomxxud-H0-K2-s ilicon 200 mg calcium- 200 unit tablet 630 mg. 0 10/27/2020 10/10/2023 Discontinued (Med List Cleanup) Start: 10-27-2020 calcium-minera rk-H3-T1-silicon 200 mg calcium- 200 unit tablet 630 mg. 0 10/27/2020 Active Start: 10-06-2020 End: 10-10-2023 hwuuwgj-ppwfovxg-B2-K2-silic on 200 mg calcium- 200 unit tablet Take by mouth. 0 10/06/2020 10/10/2023 Discontinued (Med List Cleanup) Start: 10-06-2020 calcium-minera tp-D5-Z7-silicon 200 mg calcium- 200 unit tablet Take by mouth. 0 10/06/2020 Active cholecalciferol 0.05 mg oral tablet (8 sources) Vitamin D Start: 07-21-2023 take 1 tablet by mouth once daily Cholecalciferol (Vitamin D3) (Vitamin D3) 50 mcg (2,000 unit) tablet Active 6000 U PO DAILY July 21, 2023 1:00am Start: 10-06-2020 cholecalcifero l (Vitamin D-3) 50 mcg (2,000 unit) capsule Take by mouth. 10/06/2020 Active docusate sodium 100 mg oral capsule (20 sources) Start: 05-17-2022 take 1 capsule by mouth every twelve hours as needed docusate sodium (COLACE) 100 mg capsule Take 1 capsule by mouth twice daily as needed for constipation. 30 capsule 05/17/2022 Active Start: 05-17-2022 take 1 capsule by [facility] every twelve hours docusate sodium (Colace) 100 mg capsule Take 1 capsule (100 mg) by mouth every 12 hours if needed. 05/17/2022 Active Comment on above: Take 1 capsule by mo [facility] twice daily as needed for constipation. esomeprazole 40 mg delayed release oral capsule (8 sources) Proton Pump Inhibitor Start: 014 take 1 capsule by mouth once daily esomeprazole (NexIUM) [address] capsule Take 1 capsule (40 mg) by mouth once daily. 08/27/2013 Active ezetimibe 10 mg oral tablet (20 sources) Dietary Cholesterol Absorption Inhibitor Start: 006 take 1 tablet by mouth once daily Ezetimibe 10 mg tablet Active 10 mg PO DAILY July 14, 2023 1:00am Comment on above: Take one(1) tablet d aily ferrous sulfate 325 mg oral tablet (9 sources) Start: End: take 1 tablet by mouth once daily ferrous sulfate 325 mg (65 mg iron) tablet Take 1 tablet by mouth once daily. 30 tablet 0 05/18/2022 06/17/2022 Active Comment on above: Take 1 tablet by mague th once daily. ibandronic acid 150 mg oral tablet (7 sources) Bisphosphonate Start: 014 ibandronate (Boniva) 150 mg tablet Take by mouth. 08/27/2013 Active iron polysaccharide complex (POLY-IRON ORAL) (5 sources) Start: 016 iron polysaccharide complex (POLY-IRON ORAL) 150, BID, Date: 05/23/2016 01:41:00 EST 05/23/2016 Active Start: 05-23-2016 iron polysacch aride complex (POLY-IRON ORAL) 150, BID, Date: 05/23/2016 01:41:00 EST 0 05/23/2016 Active iv contrast (will be provided with radiology test) (2 sources) Start: 04-29-2022 End: 04-30-2022 inject 1 dose intravenously once iv contrast (will be provided with radiology test) CTA CHEST - No IV access, insert saline lock prior to the sedation, infusion, injection for imaging exam. Discontinue saline lock post exam. If Pt. has a central line or IVAD, may access for administration according to line specific nursing protocol. Once exam is complete flush line and de-access according to line specific nursing protocol in the CT contrast administration guidelines link. 1 Each 0 04/29/2022 04/30/2022 Active Comment on above: CTA CHEST - No IV ac cess, insert saline lock prior to the sedation, infusion, injection for imaging exam. Discontinue saline lock post exam. If Pt. has a central line or IVAD, may access for administration according to line specific nursing protocol. Once exam is complete flush line and de-access according to line specific nursing protocol in the CT contrast administration guidelines link. levothyroxine sodium 0.125 mg oral tablet (20 sources) l-Thyroxine Start: 01-09-2023 End: 10-10-2023 take 1 tablet by mouth once daily Levothyroxine 125 mcg tablet Active 125 ug PO DAILY July 14, 2023 1:00am Start: 08-27-2013 take 1 tablet by mague th once daily Synthroid 112 MCG Oral Tablet TAKE 1 TABLET DAILY DIRECTED. Quantity: 0 Refills: 0 Ordered: 27-Aug-2013 DO Start : 27-Aug-2013 Active levothyroxine (S YNTHROID) 125 mcg tablet Take 112 mcg by mouth daily before breakfast. Active take 1 tablet by mague th once daily before breakfast levothyroxine (SYNTHROID) 125 mcg tablet Indications: hypothyroidism Take 125 mcg by mouth daily before breakfast. Indications: HYPOTHYROIDISM 0 Active Comment on above: Take 125 mcg by mout h daily before breakfast. Indications: HYPOTHYROIDISM Take 112 mcg by mout h daily before breakfast. metoprolol tartrate 25 mg oral tablet (20 sources) beta-Adrenergic Chavez Start: take 1 tablet by mouth twice daily Metoprolol Tartrate 25 mg tablet Active 25 mg PO TWICE A DAY July 14, 2023 1:00am Start: 05-17-2022 End: 08-15-2022 take 1 tablet by mouth every twelve hours metoprolol tartrate, short acting, (LOPRESSOR) 25 mg tablet Take 1 tablet by mouth every 12 hours. 60 tablet 2 05/17/2022 Active Start: 05-17-2022 metoprolol tar trate (Lopressor) 25 mg tablet Take 2.5 mg by mouth. 05/17/2022 Active Start: 01-09-2004 End: 05-17-2022 TOPROL XL 100MG TABLET [facility] ke one(1) tablet daily. 0 01/09/2004 05/17/2022 Discontinued End: 04-18-2024 metoprolol succinate XL (Top rol-XL) 100 mg 24 hr tablet 04/18/2024 Discontinued (Therapy completed) Comment on above: Take one(1) tablet d aily. Take 1 tablet by mague th every 12 hours. pantoprazole 40 mg delayed release oral tablet (20 sources) Proton Pump Inhibitor Start: 07-27-19 take 1 tablet by mouth once daily Pantoprazole 40 mg tablet,delayed release (DR/EC) Active 40 mg PO DAILY July 14, 2023 1:00am Comment on above: Take 40 mg by mouth once daily. PARoxetine hydrochloride 10 mg oral tablet (20 sources) Serotonin Reuptake Inhibitor Start: 05-21-20 End: 04-18-20 take 1 tablet by mouth once daily Paroxetine Hcl 10 mg tablet Active 10 mg PO DAILY July 14, 2023 1:00am Comment on above: Take one(1) tablet d aily. polysaccharide iron complex 150 mg oral capsule (9 sources) Start: 05-10-20 End: 09-15-19 take 1 capsule by mouth twice daily Polysaccharide Iron Complex 150 mg iron capsule Active 150 mg PO TWICE A DAY July 14, 2023 1:00am Start: 12-02-2021 take 1 capsule by [facility] twice daily 30 minutes after mealtime Polysaccharide Iron Complex 150 MG Oral Capsule 1 CAP(S) ORALLY 2 TIMES A DAY 30 MINUTES AFTER A MEAL Quantity: 180 Refills: 0 Ordered: 17-Jun-2022 DO Start : 02-Dec-2021 Active ramipril 2.5 mg oral capsule (20 sources) Angiotensin Converting Enzyme Inhibitor Start: 07-14-2023 take 1 capsule by mouth once daily Ramipril 2.5 mg capsule Active 2.5 mg PO DAILY July 14, 2023 1:00am Start: 06-06-2022 End: 12-03-2022 take 1 capsule by mouth once daily ramipril (ALTACE) 2.5 mg capsule Take 1 capsule by mouth once daily. 30 capsule 5 06/06/2022 Active Start: 08-02-2005 End: 04-18-2024 ramipril (Altace) 10 mg caps ule 1 capsule (10 mg). 10/17/2012 04/18/2024 Discontinued (Therapy completed) Comment on above: Take one (1) capsule daily Take 1 capsule by [facility] once daily. zolpidem tartrate 5 mg oral tablet (6 sources) gamma-Aminobutyric Acid-ergic Agonist Start: 05-10-2021 zolpidem (Ambien) 5 mg tablet 05/10/2021 Active Completed/Discontinued Medications Medication Drug Class(es) Dates Sig (Normalized) Sig (Original) acetaminophen 325 mg / oxyCODONE hydrochloride 5 mg oral tablet (7 sources) Opioid Agonist Start: 12-14-2023 End: 12-19-2023 Oxycodone-Acetamino phen (Percocet) 5-325 mg tablet Discontinued 1 {tbl} PO Q8H as needed for pain 14 5 December 14, 2023 December 18, 2023 12:00am December 19, 2023 12:04am Start: 12-06-2023 End: 01-16-2024 Oxycodone-Acetaminophen (Per cocet) 5-325 mg tablet Discontinued 1 {tbl} PO Q4H as needed for pain 03 11December 06, 2023 January 16, 2024 9:44am Start: 07-14-2023 End: 07-21-2023 Oxycodone-Acetaminophen 5-32 5 mg tablet Discontinued {tbl} PO July 14, 2023 1:00am July 21, 2023 11:51am Start: 07-14-2023 End: 07-21-2023 Oxycodone-Acetaminophen Disc ontinued TABLET PO July 14, 2023 12:00am July 21, 2023 10:51am aspirin 81 mg / calcium carbonate 777 mg oral tablet (3 sources) Platelet Aggregation Inhibitor, Nonsteroidal Anti-inflammatory Drug Start: 08-27-2013 End: 04-18-2024 take 1 tablet by mouth once daily aspirin-calcium carbonate 81 mg-300 mg calcium(777 mg) tablet Take 1 tablet by mouth once daily. 08/27/2013 04/18/2024 Discontinued (Duplicate order) clopidogrel 75 mg oral tablet (6 sources) [id number] Platelet Inhibitor Start: 08-27-2013 End: 04-18-2024 take 1 tablet by mouth once daily clopidogrel (Plavix) 75 mg tablet Take 1 tablet (75 mg) by mouth once daily. 08/27/2013 04/18/2024 Discontinued (Ineffective) doxycycline monohydrate 100 mg oral tablet (1 source) Tetracycline-class Drug Start: 12-14-2021 take 1 tablet by mouth twice daily Doxycycline Monohydrate 100 MG Oral Tablet TAKE 1 TABLET BY MOUTH TWICE A DAY Quantity: 14 Refills: 0 Ordered: 14-Dec-2021 DO Start : 14-Dec-2021 Active Ferrex 150 CAPS (1 source) Ferrex 150 CAPS Quantity: 0 Refills: 0 Ordered: 09-Aug-2022 DO Active meloxicam 7.5 mg oral tablet (2 sources) Nonsteroidal Anti-inflammatory Drug Start: 01-16-2024 End: 12-13-2024 take 1 tablet by mouth twice daily as needed for pain Meloxicam 7.5 mg tablet Discontinued 7.5 mg PO TWICE A DAY as needed for pain 30 January 16, 2024 12:00am December 13, 2024 12:55pm metoprolol tartrate, bulk, 100 % powder (3 sources) Start: 06-15-2022 End: 04-18-2024 metoprolol tartrate, bulk, 100 % powder 25 mg. 06/15/2022 04/18/2024 Discontinued (Therapy completed) Start: 06-15-2022 metoprolol tar trate, bulk, 100 % powder 25 mg. 0 06/15/2022 Active nitroglycerin 0.3 mg sublingual tablet (20 sources) Nitrate Vasodilator Start: 03-02-2022 Nitroglyce rin 0.3 MG Sublingual Tablet Sublingual DISSOLVE 1 TABLET UNDER THE TONGUE NEEDED FOR CHEST PAIN- MAY REPEAT EVERY 5 MINUTES IF NEEDED ( MAX 3 DOSES.- IF NO RELIEF CALL 911) Quantity: 100 Refills: 0 Ordered: 19-Mar-2022 DO Start : 02-Mar-2022 Active nitroglycerin (N itrolinguaL) 400 mcg/spray spray Place 1 spray under the tongue. Active End: 05-17-2022 nitroglycerin (NITROLINGUAL) 400 mcg/spray spray Dissolve 1 Allison under the tongue every 5 minutes as needed for Chest Pain. 0 05/17/2022 Discontinued Comment on above: Dissolve 1 Allison und er the tongue every 5 minutes as needed for Chest Pain. oxyCODONE hydrochloride 5 mg oral tablet (20 sources) Opioid Agonist Start: 4 End: take 1 tablet by mouth every eight hours as needed for pain Oxycodone 5 mg tablet Discontinued 5 mg PO Q8H as needed for pain 15 5 July 21, 2023 July 25, 2023 1:00am July 26, 2023 1:05am Start: 06-02-2022 End: 06-23-2022 take 1 tablet by mouth every six hours as needed for pain oxyCODONE IR (ROXICODONE) 5 mg immediate release tablet Indications: Acute post-operative pain Take 1 tablet by mouth every 6 hours as needed for pain. 28 tablet 06/02/2022 Active Start: 05-17-2022 End: 05-30-2022 take 1 tablet by mouth every six hours as needed for pain oxyCODONE IR (ROXICODONE) 5 mg immediate release tablet Indications: Acute post-operative pain Take 1 tablet by mouth every 6 hours as needed for pain for up to 7 days. 28 tablet 0 05/23/2022 05/30/2022 Active Comment on above: 1 tablet by ORAL/FEE DING TUBE route every 6 hours as needed for pain for up to 7 days. Take 1 tablet by mague th every 6 hours as needed for pain for up to 7 days. Take 1 tablet by mague th every 6 hours as needed for pain. polyethylene glycol [id number] [id number] mg / potassium chloride 2970 mg / sodium bicarbonate 6740 mg / sodium chloride 5860 mg / sodium sulfate 80230 mg powder for oral solution (3 sources) Osmotic Laxative Start: 01-03-20 End: 04-18-20 GaviLyte-G 236-22.74-6.74 -5.86 gram solution DIRECTED 01/02/2023 04/18/2024 Discontinued (Therapy completed) promethazine hydrochloride 25 mg oral tablet (3 sources) Phenothiazine Start: 01-03-20 End: 04-18-20 take 1 tablet by mouth every four to six hours as needed promethazine (Phenergan) 25 mg tablet TAKE 1 TABLET BY MOUTH EVERY FOUR TO SIX HOURS NEEDED FOR 1 DAY 01/02/2023 04/18/2024 Discontinued (Therapy completed) temazepam 15 mg oral capsule (6 sources) Benzodiazepine Start: 07-24-19 Temazepam 15 MG Oral Capsule Quantity: 30 Refills: 0 Ordered: 24-Jul-2022 DO Start : 24-Jul-2022 Active Start: 11-15-2021 temazepam (Res toril) 15 mg capsule Take by mouth. 11/15/2021 Active vitamin D3-vitamin K2 1,250- 200 mcg capsule (3 sources) Start: 03-02-2022 End: 04-18-2024 vitamin D3-vitamin K2 1,250- 200 mcg capsule 25 mcg. 03/02/2022 04/18/2024 Discontinued (Therapy completed) Start: 03-02-2022 vitamin D3-vit whalen K2 1,250-200 mcg capsule 25 mcg. 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] Onset: 1 07-12-2023 Chronic Congestive heart failure; nonhypertensive (20 sources) Congestive heart failure; Translations: [Heart failure, unspecified] Onset: 4 01-09-2004 Chronic Coronary atherosclerosis and other heart disease (20 sources) Coronary atherosclerosis; Translations: [Atherosclerotic heart disease of [place] coronary artery without angina pectoris] Onset: 6 08-02-2005 Chronic Deficiency and other anemia (8 sources) Iron deficiency anemia due to blood loss; Translations: [Iron deficiency anemia secondary to blood loss (chronic)] Onset: 3 09-15-2023 Chronic Deficiency and other anemia (3 sources) Iron deficiency anemia secondary to blood loss (chronic); Translations: [Iron deficiency anemia secondary to blood loss (chronic)] Onset: 3 Chronic Disorders of lipid metabolism (20 sources) Hyperlipidemia; Translations: [Hyperlipidemia, unspecified] Onset: 6 07-28-2005 Chronic Esophageal disorders (20 sources) Gastroesophageal reflux disease; Translations: [Gastro-esophageal reflux disease without esophagitis] Onset: 6 07-28-2005 Chronic Essential hypertension (11 sources) Essential (primary) hypertension; Translations: [Essential hypertension] Onset: 9 07-12-2023 Chronic Hypertension with complications and secondary hypertension (20 sources) Benign hypertensive heart disease without congestive heart failure; Translations: [Hypertensive heart disease without heart failure] Onset: 6 07-28-2005 Chronic Nutritional deficiencies (7 sources) Vitamin D deficiency; Translations: [Vitamin D deficiency, unspecified] Onset: 2 07-12-2023 Chronic Occlusion or stenosis of precerebral arteries (20 sources) Carotid artery stenosis; Translations: [Occlusion and stenosis of unspecified carotid artery] Onset: 2 05-06-2022 Chronic Osteoporosis (2 sources) Age-related osteoporosis without current pathological fracture; Translations: [Age-related osteoporosis without current pathological fracture] Onset: 4 Chronic Other and ill-defined heart disease (5 sources) Left ventricular cardiac dysfunction; Translations: [Heart disease, unspecified] Onset: 3 07-12-2023 Chronic Other circulatory disease (2 sources) Stenosis of left subclavian artery; Translations: [Stricture of artery] Chronic Other circulatory disease (6 sources) Personal history of other diseases of circulatory system; Translations: [Coronary Artery Disease] Episodic Other circulatory disease (3 sources) H/O: hypertension; Translations: [Personal history of other diseases of circulatory system] Episodic Other diseases of bladder and urethra (8 sources) Disorder of bladder; Translations: [Unspecified disorder of bladder] Onset: 3 07-12-2023 Chronic Other fractures (3 sources) Fracture of third lumbar vertebra; Translations: [Wedge compression fracture of third lumbar vertebra, initial encounter for closed fracture] 07-14-2023 Episodic Comment on above: Patient needs LSO br ning to facilitate healing of L3 compression fracture. Other fractures (2 sources) Wedge compression fracture of third lumbar vertebra, initial encounter for closed fracture; Translations: [Closed fracture of lumbar vertebra without mention of spinal cord injury] 07-14-2023 Episodic Other gastrointestinal disorders (1 source) Intestinal malabsorption, unspecified; Translations: [Intestinal malabsorption, unspecified] Onset: 3 Chronic Other gastrointestinal disorders (5 sources) Intestinal malabsorption; Translations: [Intestinal malabsorption, unspecified] Onset: 8 07-12-2023 Chronic Other nervous system disorders (1 source) Disease of spinal cord, unspecified; Translations: [Disease of spinal cord, unspecified] Onset: 5 Chronic Other nervous system disorders (1 source) Other acute postprocedural pain; Translations: [Acute postoperative pain] Onset: 2 Episodic Other nervous system disorders (3 sources) Acute postoperative pain; Translations: [Other acute postprocedural pain] Episodic Other nervous system disorders (2 sources) Abnormal gait; Translations: [Unspecified abnormalities of gait and mobility] 11-05-2024 Episodic Other nervous system disorders (2 sources) Impairment of balance; Translations: [Other abnormalities of gait and mobility] 11-05-2024 Episodic Other non-traumatic joint disorders (2 sources) Disorder of hip; Translations: [Other symptoms and signs involving the musculoskeletal system] 11-05-2024 Episodic Other nutritional; endocrine; and metabolic disorders (3 sources) H/O: raised blood lipids; Translations: [Personal history of other endocrine, metabolic, and immunity disorders] Episodic Other screening for suspected conditions (not mental disorders or infectious disease) (4 sources) Encounter for observation for other suspected diseases and conditions ruled out; Translations: [Suspected malignancy] Onset: 4 Episodic Peripheral and visceral atherosclerosis (2 sources) Atherosclerosis of aorta; Translations: [Atherosclerosis of aorta] Chronic Residual codes; unclassified (3 sources) Personal history of other specified conditions; Translations: [History of heartburn] Episodic Residual codes; unclassified (1 source) Postoperative state; Translations: [Other specified postprocedural states] Episodic Spondylosis; intervertebral disc disorders; other back problems (4 sources) Low back pain; Translations: [Low back pain] Onset: 5 07-14-2023 Episodic Thyroid disorders (12 sources) Hypothyroidism; Translations: [Unspecified acquired hypothyroidism] Onset: 1 07-12-2023 Chronic Unclassified (1 source) PT Eval Onset: 5 Unclassified (1 source) Low back pain, unspecified; Translations: [Low back pain, unspecified] Onset: 5 Past or Other Problems Problem Classification Problem Date Documented Da te Episodic/Chronic Deficiency and other anemia (20 sources) Iron deficiency anemia; Translations: [Iron deficiency anemia, unspecified] Onset: 8 05-06-2022 Episodic Deficiency and other anemia (1 source) Iron deficiency anemia, unspecified; Translations: [Iron deficiency anemia, unspecified] Onset: 3 Episodic Deficiency and other anemia (5 sources) Anemia; Translations: [Anemia, unspecified] Onset: 3 07-12-2023 Episodic Diabetes mellitus without complication (5 sources) Impaired fasting glycemia; Translations: [Impaired fasting glucose] Onset: 2 07-12-2023 Episodic Fracture of lower limb (7 sources) Unspecified fracture of lower end of left tibia, initial encounter for closed fracture; Translations: [Other fracture of upper and lower end of left fibula, initial encounter for closed fracture] Onset: 4 Episodic Gastrointestinal hemorrhage (18 sources) Gastrointestinal hemorrhage; Translations: [Gastrointestinal hemorrhage, unspecified] Onset: 7 Resolved: 2 03-28-2017 Episodic Other bone disease and musculoskeletal deformities (2 sources) Other specified disorders of bone density and structure, multiple sites; Translations: [Other specified disorders of bone density and structure, multiple sites] Onset: 4 Episodic Other fractures (2 sources) Stable burst fracture of unspecified lumbar vertebra, initial encounter for closed fracture; Translations: [Stable burst fracture of unspecified lumbar vertebra, initial encounter for closed fracture (Multi)] Onset: 3 Episodic Other nutritional; endocrine; and metabolic disorders (18 sources) Obesity; Translations: [Obesity, unspecified] Onset: 6 Resolved: 2 07-28-2005 Chronic Residual codes; unclassified (5 sources) Insomnia; Translations: [Insomnia, unspecified] Onset: 2 07-12-2023 Episodic Residual codes; unclassified (5 sources) Suspected malignancy; Translations: [Other general symptoms and signs] Onset: 3 07-12-2023 Episodic Screening and history of mental health and substance abuse codes (20 sources) Tobacco use and exposure - finding; Translations: [Personal history of nicotine dependence] Onset: 6 07-28-2005 Episodic Unclassified (4 sources) Onset: 4 Resolved: 5 10-10-2023 NEGATED: Highlighted row has not occurred!Residual codes; unclassified (3 sources) Disease Episodic Results Test Name Value Interpretation Reference Range Facility Cerv Spine 4 or 5 Viewson Cerv Spine 4 or 5 Views [facility] [address] [place] [address] Cerv Spine 4 or 5 Views MR#: [id number] Acct: [id number] Name: LESLEY DODSON Rep #: [id number] : 1955 F 69 From: Shorty Combs PCP: Dr. Almaz Chavez MD Status: DEP AMB Study: Cerv Spine 4 or 5 Views Date of Exam: 12/13/24 Exam# [id number] Ordering Dr: Parisa Salinas PROCEDURE: CERV SPINE 4 OR 5 VIEWS 12/13/2024 REASON FOR EXAM: CHRONIC PAIN TECHNIQUE: Five views of the cervical spine including flexion and extension views. COMPARISON: None FINDINGS: The cervical vertebral bodies are normal in height, without evidence of fracture or collapse. The cervical intervertebral discs are normal in height. Alignment is physiologic. There is no abnormal motion on flexion and extension views. The atlantoaxial relation is within normal limits to the extent visualized. Facet joint arthropathy is most pronounced in the left C4-C5 facet joint. RAD/Cerv Spine 4 or 5 Views IMPRESSION: Facet joint arthropathy is most pronounced on the left C4-C5. Reading Location: [facility] CC: MUNIR Macias; Dr. Almaz Chavez MD Business Services Officer: Signed [facility] L/S Spine Min 4 Viewson 11-16 L/S Spine Min 4 Views [facility] [address] [place] [address] L/S Spine Min 4 Views MR#: [id number] Acct: [id number] Name: LESLEY DODSON Rep #: [id number] : 1955 F 69 From: Maurilio Magaña MD PCP: Dr. Almaz Chavez MD Status: DEP AMB Study: L/S Spine Min 4 Views Date of Exam: 12/13/24 Exam# [id number] Ordering Dr: Parisa Salinas PROCEDURE: L/S SPINE MIN 4 VIEWS 12/13/2024 REASON FOR EXAM: ONGOING PAIN TECHNIQUE: Four views; AP, lateral and flexion-extension COMPARISON: None available FINDINGS: Mdwnfdvn-sr-mlwqm hiatal hernia noted. 5 xpo-gne-ootwqin lumbar vertebral body types identified. The patient appears to be leaning to the left. L3 vertebral body severe compression fracture deformity status post vertebroplasty. Faint high density along the anterior margin may represent some heterotopic bone formation. Mild step like retrolisthesis L2 on 3 and L3 on 4. L1-2 moderate disc space narrowing with degenerative endplate changes. Anterior osteophyte formation L2-3 severe disc space narrowing with degenerative endplate changes and mild retrolisthesis L3-4 severe disc space narrowing with mild retrolisthesis noted L4-5 moderate disc space narrowing with degenerative endplate changes appears greater towards the left side. Anterior osteophyte formation. Multilevel lower lumbar facet degenerative changes. No evidence of instability. Aortic atherosclerotic calcifications. RAD/L/S Spine Min 4 Views IMPRESSION: L3 vertebral body severe compression fracture deformity status post vertebroplasty. Faint high density along the anterior margin may represent some heterotopic bone formation. Multilevel spondylosis/discogenic change with spondylolisthesis as above. Bhcgryyu-fv-lvhrc hiatal hernia noted. Reading Location: [id number] CC: MUNIR Macias; Dr. Almaz Chavez MD Business Services Officer: Signed [facility] Orthopedic Visit Reporton Orthopedic Visit Report [facility] [address] [place] [address] OFFICE VISIT Date of Service: 12/13/24 MR#: [id number] Acct: [id number] Name: LESLEY DODSON Rep #: [id number] : 1955 Provider: MUNIR Macias Age/Sex: 69/F Location: [facility] – [place].MELINDA Status: Signed Intake Vital Signs 12/06/23 12:04 12/13/24 12:54 Height 5 ft 2 in 5 ft 2 in Weight: 177 lb 4 oz BMI 32.4 Intake Visit Reasons: LUMBAR SPINE Allergies ciprofloxacin (From Cipro) Allergy (Mild, Verified 12/13/24 12:54) Hives Penicillins Allergy (Mild, Verified 12/13/24 12:54) Hives Medications ???Medication ???Instructions ???Recorded ???Confirmed ???Type amlodipine 5 mg tablet 5 mg PO DAILY 07/14/23 12/13/24 Hi story atorvastatin 80 mg tablet 80 mg PO QHS 07/14/23 12/13/24 His tory ezetimibe 10 mg tablet 10 mg PO DAILY 07/14/23 12/13/24 H istory levothyroxine 125 mcg tablet 125 mcg PO DAILY 07/14/23 12/13/24 History metoprolol tartrate 25 mg tablet 25 mg PO BID 07/14/23 12/13/24 His tory pantoprazole 40 mg tablet,delayed 40 mg PO DAILY 07/14/23 12/13/24 History release paroxetine HCl 10 mg tablet 10 mg PO DAILY 07/14/23 12/13/24 H istory polysaccharide iron complex 150 mg 150 mg PO BID 07/14/23 12/13/24 History iron capsule ramipril 2.5 mg capsule 2.5 mg PO DAILY 07/14/23 12/13/24 History acetaminophen 500 mg tablet 1,000 mg PO Q6H PRN pain 07/21/23 12/13/24 History (Tylenol Extra Strength) alendronate 70 mg tablet (Fosamax) 70 mg PO WE 07/21/23 12/13/24 Hi story aspirin 81 mg tablet,delayed 81 mg PO DAILY 07/21/23 12/13/24 H istory release (Adult Low Dose Aspirin) cholecalciferol (vitamin D3) 50 6,000 unit PO DAILY 07/21/2312/13 History mcg (2,000 unit) tablet (Vitamin D3) Have you fallen in the past year?: No PFSH Medical History Bimalleolar fracture of left ankle Wears dentures Post-menopausal Cancer Depression Anxiety Low iron High cholesterol Injury of back Gastric reflux Former smoker History of pain when walking History of echocardiogram History of stress test Cardiology follow-up encounter History of heart attack Fall Hypothyroid Hypertension Cancer of neck Surgical History Hx of kyphoplasty Hx of colonoscopy History of cardiac catheterization History of neck dissection History of open heart surgery Social History Smoking Status: Former smoker alcohol intake: current HPI LUMBAR SPINE Details: This documentation accurately reflects the service provided and the decisions made by me, MUNIR Macias 12/13/24 3061. Part of today???s visit was documented by Antonia SHEPARD, acting as scribe. LESLEY DODSON is a 69 year old F here today for low back pain that she has been having for about 6 months now that only occurs when she is standing or walking. Patient presented today in a wheelchair. Says that it has been staying the same since that time. Dr. Willis did do her previous surgery on 07/24/23 L3 kyphoplasty. Says that after the kyphoplasty she had symptoms relief for 6 months. She presents in a wheelchair today but can walk with a walker and with the walker she is not limited to how much she can walk. Without her walker she is unable to hardly stand or walk. She has been having balance issues that started around the same time she started having pain. She says that the balance issues has been worsening over the last 6 months. She denies any neck pain or radicular symptoms that extend into her arms. Her lower back pain is across her lower back but more on the right side. Denies numbness, tingling or other associated symptoms. She denies having leg pain. She does have leg weakness as well as her back. About a month ago she did see a physical therapist who suggested she see a neurologist which scared her so she didn't go back. She did not go to see a neurologist. She denies injections. She denies recent imaging of her lumbar spine. Right sided low back pain denies any pain down the legs. No falls or trips. No diabetes, hx of open heart surgery, takes a baby aspirin. Takes Fosamax for osteoporosis and has been on it for the last 3 years. No dexterity issues. Midline abdominal incision. 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 Ortho Exam General General: Yes no acute distress Neurologic: Yes alert and Yes oriented x3 Spine SPINE TESTING CERVICAL THORACIC LUMBAR Musculoskeletal Strength 0=absent - 5=normal Details: Neurological exam of the upper and lower extremities shows 5X5 power. Normal sensation across all dermatomes. No hyperreflexia. Teresa's negative. No midline or par (more content not included)... [facility] CALCIUM, 24 HR URINEon 11-19 Calcium (24H U) [Mass/Time] 69.3 mg/24 hr Low 100.0-250.0 [facility] Comment on above: Order Comment: Speci men Type: URINE SPECIMEN Ordering Facility: [facility] Address: [address] [place] [address] Performed By: #### U CALCD, UCRD #### [facility] CLIA [id number] [address] [facility] CLIA [id number] [address] [place] [address] PERIOD (HRS) 24 hr Normal [facility] Comment on above: Order Comment: Speci men Type: URINE SPECIMEN Ordering Facility: [facility] Address: [address] [place] [address] Performed By: #### U CALCD, UCRD #### [facility] CLIA [id number] [address] [facility] CLIA [id number] [address] [place] [address] Performed By: #### 2 889-4 #### [facility] CLIA [id number] [address] Specimen volume (24H U) 1.1 L Normal [facility] Comment on above: Order Comment: Speci men Type: URINE SPECIMEN Ordering Facility: [facility] Address: [address] [place] [address] Performed By: #### U CALCD, UCRD #### [facility] CLIA [id number] [address] [facility] CLIA [id number] [address] [place] [address] Performed By: #### 2 889-4 #### [facility] CLIA [id number] [address] CREATININE, 24 HOUR URINEon 11-19-2024 Creatinine renal clearance/1.73 sq M (24H U+S/P) [Vol rate/Area] 0.516 g/24 hr Low 0.595-2.113 [facility] Comment on above: Order Comment: Speci men Type: URINE SPECIMEN Ordering Facility: [facility] Address: [address] [place] [address] Performed By: #### U CALCD, UCRD #### [facility] CLIA [id number] [address] STATES OF [facility] CLIA [id number] [address] [place] MONOCLONAL PROT UR W/INTERPo n 11-19-2024 STAFF REVIEW ([facility]) Reviewed by [place] M.D. Normal [facility] Comment on above: Order Comment: Speci men Type: BLOOD SPECIMEN Ordering Facility: [facility] Address: [address] [place] [address] Performed By: #### L [id number] #### [facility] CLIA [id number] [address] [place] [address] UMPA RESULT No M protein is identified. Normal No M protein is identified. [facility] Comment on above: Order Comment: Speci men Type: BLOOD SPECIMEN Ordering Facility: [facility] Address: [address] [place] [address] Performed By: #### L [id number] #### [facility] CLIA [id number] [address] [place] [address] Prot 24h Ur-mRateon 11-20-19 25 Protein (24H U) [Mass/Time] 0.06 g/24 Hr Normal <0.15 [facility] Comment on above: Order Comment: Speci men Type: URINE SPECIMEN Ordering Facility: [facility] Address: [address] [place] [address] Result Comment: Adul t Proteinuria Categories: <0.15 g/24 hours is considered normal to mildly increased 0.15 - 0.50 g/24 hours is considered moderately increased >0.50 g/24 hours is considered severely increased KDIGO. (2013). KDIGO 2012 Clinical Practice Guideline for the Evaluation and Management of Chronic Kidney Disease. Official Journal of the International Society of Nephrology, 3(1), 1-150. Performed By: #### 2 889-4 #### [facility] CLIA [id number] [address] URINE FREE CORTISOL BY LC-MS /MSon 11-19-2024 CORTISOL UG/G TEACHER EDUCATION DIRECTOR, UR (UFRCRT) 17.39 ug/g TEACHER EDUCATION DIRECTOR Normal [facility] Comment on above: Order Comment: Speci men Type: URINE SPECIMEN Ordering Facility: [facility] Address: [address] [place] [address] Result Comment: Refe rence Interval: Cortisol ug/g air launch weapons technician Female Prepubertal: Less than 25 ug/g air launch weapons technician 18 years and older: Less than 24 ug/g air launch weapons technician : Less than 59 ug/g air launch weapons technician Male Prepubertal: Less than 25 ug/g air launch weapons technician 18 years and older: Less than 32 ug/g air launch weapons technician Performed By: #### U CALCD, UCRD #### [facility] CLIA [id number] [address] [facility] CLIA [id number] [address] [place] [address] [place] CREATININE, URINE PER 24H 539 mg/d Normal 500-1400 [facility] Comment on above: Order Comment: Speci men Type: URINE SPECIMEN Ordering Facility: [facility] Address: [address] [place] [address] Performed By: #### U CALCD, UCRD #### [facility] CLIA [id number] [address] OF [facility] CLIA [id number] [address] [place] [address] [place] CREATININE, URINE PER VOLUME 49 mg/dL Normal [facility] Comment on above: Order Comment: Speci men Type: URINE SPECIMEN Ordering Facility: [facility] Address: [address] [place] [address] Performed By: #### U CALCD, UCRD #### [facility] CLIA [id number] [address] OF [facility] CLIA [id number] [address] [place] [address] [place] FREE CORTISOL UG/DAY, URINE 9.4 ug/d Normal <=45.0 [facility] Comment on above: Order Comment: Speci men Type: URINE SPECIMEN Ordering Facility: [facility] Address: [address] [place] [address] Performed By: #### U CALCD, UCRD #### [facility] CLIA [id number] [address] [facility] CLIA [id number] [address] [place] [address] [place] FREE CORTISOL UG/L, URINE 8.52 ug/L Normal [facility] Comment on above: Order Comment: Speci men Type: URINE SPECIMEN Ordering Facility: [facility] Address: [address] [place] [address] Performed By: #### U CALCD, UCRD #### [facility] CLIA [id number] [address] [facility] CLIA [id number] [address] [place] [address] HOURS COLLECTED 24 hr Normal [facility] Comment on above: Order Comment: Speci men Type: URINE SPECIMEN Ordering Facility: [facility] Address: [address] [place] [address] Result Comment: Per 24h calculations are provided to aid interpretation for collections with a duration of 24 hours and an average daily urine volume. For specimens with notable deviations in collection time or volume, ratios of analytes to a corresponding urine creatinine concentration may assist in result interpretation. Performed By: #### U CALCD, UCRD #### [facility] CLIA [id number] [address] [facility] CLIA [id number] [address] [place] [address] OF [facility] TOTAL VOLUME 1100 mL Normal [facility] Comment on above: Order Comment: Speci men Type: URINE SPECIMEN Ordering Facility: [facility] Address: [address] [place] [address] Performed By: #### U CALCD, UCRD #### [facility] CLIA [id number] [address] [facility] CLIA [id number] [address] [place] [address] UR SKIP FREE INTERP See Note Normal [facility] Comment on above: Order Comment: Speci men Type: URINE SPECIMEN Ordering Facility: [facility] Address: [address] [place] [address] Result Comment: INTE RPRETIVE INFORMATION: Cortisol Urine Free by LC-MS/MS Access complete set of age- and/or gender-specific reference intervals for this test in the [facility] Test Directory ([employer]). This test was developed and its performance characteristics determined by [employer]. It has not been cleared or approved by the [place] Food and Drug Administration. This test was performed in a CLIA certified laboratory and is intended for clinical purposes. Performed By: [facility] [facility] [address] [place] [address] Customer Experience Consultant: Kaiden Cotton MD, PhD CLIA Number: [id number] Performed By: #### Sid FELIZ [facility] #### [facility] CLIA [id number] [address] [facility] CLIA [id number] [address] URINE PROTEIN ELECTROPHORESI S RANDOM (P)on 11-19-2024 Albumin Elph (U) [Mass fraction] 59.69 % Normal [facility] Comment on above: Order Comment: Speci men Type: BLOOD SPECIMEN Ordering Facility: [facility] Address: [address] [place] [address] Performed By: #### L [id number] #### [facility] CLIA [id number] [address] [place] [address] [place] Alpha 1 globulin Elph (U) [Mass fraction] 6.52 % Normal [facility] Comment on above: Order Comment: Speci men Type: BLOOD SPECIMEN Ordering Facility: [facility] Address: [address] [place] [address] Performed By: #### L [id number] #### [facility] CLIA [id number] [address] [place] [address] [place] Alpha 2 globulin Elph (U) [Mass fraction] 12.43 % Normal [facility] Comment on above: Order Comment: Speci men Type: BLOOD SPECIMEN Ordering Facility: [facility] Address: [address] [place] [address] Performed By: #### L [id number] #### [facility] CLIA [id number] [address] [place] [address] [place] Beta globulin Elph (U) [Mass fraction] 14.96 % Normal [facility] Comment on above: Order Comment: Speci men Type: BLOOD SPECIMEN Ordering Facility: [facility] Address: [address] [place] [address] Performed By: #### L [id number] #### [facility] CLIA [id number] [address] [place] [address] [place] Gamma globulin Elph (U) [Mass fraction] 6.41 % Normal [facility] Comment on above: Order Comment: Speci men Type: BLOOD SPECIMEN Ordering Facility: [facility] Address: [address] [place] [address] Performed By: #### L [id number] #### [facility] CLIA [id number] [address] [place] [address] [place] Protein Fractions Elph Sergei (U) [Interp] No definitive M protein is identified on protein electrophoresis. Normal No definitive M protein is identified on protein electrophores is. [facility] Comment on above: Order Comment: Speci men Type: BLOOD SPECIMEN Ordering Facility: [facility] Address: [address] [place] [address] Performed By: #### L [id number] #### [facility] CLIA [id number] [address] [place] [address] OF [place] STAFF REVIEW (URINE ELECTRO) Reviewed by [place] M.D. [facility] Comment on above: Order Comment: Speci men Type: BLOOD SPECIMEN Ordering Facility: [facility] Address: [address] [place] [address] Performed By: #### L [id number] #### [facility] CLIA [id number] [address] [place] [address] [place] Calcium.ionized [Moles/Vol]o n 11-18-2024 Calcium.ionized (Bld) [Mass/Vol] 1.16 mmol/L Normal 1.08-1.30 [facility] Comment on above: Order Comment: Speci men Type: BLOOD SPECIMEN Ordering Facility: [facility] Address: [address] [place] [address] Performed By: #### 1 995-0 #### [facility] CLIA [id number] [address] [place] [address] [place] Calcium.ionized adjusted to pH 7.4 (Bld) [Moles/Vol] 1.18 mmol/L Normal 1.08-1.30 [facility] Comment on above: Order Comment: Speci men Type: BLOOD SPECIMEN Ordering Facility: [facility] Address: [address] [place] [address] Performed By: #### 1 995-0 #### [facility] CLIA [id number] [address] [place] [address] [place] Collagen crosslinked C-telop eptide [Mass/Vol]on 11-18-2024 C TELOPEPTIDE, BETA CROSS LINKED 208 pg/mL Normal 171-970 [facility] Comment on above: Order Comment: Speci men Type: BLOOD SPECIMEN Ordering Facility: [facility] Address: [address] [place] [address] Performed By: #### 4 1171-0 #### [facility] CLIA [id number] [address] [place] [place] [address] OF [place] IMMUNOFIXATION SCREEN, SERUM on 11-18-2024 MPA RESULT No M protein is identified. Normal No M protein is identified. [facility] Comment on above: Order Comment: Speci men Type: BLOOD SPECIMEN Ordering Facility: [facility] Address: [address] [place] [address] Performed By: #### I FES #### [facility] CLIA [id number] [address] [place] [address] OF [place] STAFF REVIEW (MPA) Reviewed by Dr. Jose Baez MD Normal [facility] Comment on above: Order Comment: Speci men Type: BLOOD SPECIMEN Ordering Facility: [facility] Address: [address] [place] [address] Performed By: #### I [facility] #### [facility] CLIA [id number] [address] [place] [address] [place] Magnesium SerPl-mCncon 11-18 Magnesium [Mass/Vol] 2.0 mg/dL Normal 1.7-2.3 [facility] Comment on above: Order Comment: Speci men Type: BLOOD SPECIMEN Ordering Facility: [facility] Address: [address] [place] [address] Performed By: #### L [id number] #### [facility] CLIA [id number] [address] [place] [address] [place] PROTEIN ELECTROPHORESIS SERU M (P)on 11-18-2024 Albumin [Mass/Vol] 3.79 g/dL Normal 3.43-5.41 [facility] Comment on above: Order Comment: Speci men Type: BLOOD SPECIMEN Ordering Facility: [facility] Address: [address] [place] [address] Performed By: #### L [id number] #### [facility] CLIA [id number] [address] [place] [address] [place] Alpha 1 globulin Elph [Mass/Vol] 0.36 g/dL Normal 0.18-0.43 [facility] Comment on above: Order Comment: Speci men Type: BLOOD SPECIMEN Ordering Facility: [facility] Address: [address] [place] [address] Performed By: #### L [id number] #### [facility] CLIA [id number] [address] [place] [address] [place] Alpha 2 globulin Elph [Mass/Vol] 0.70 g/dL Normal 0.42-0.98 [facility] Comment on above: Order Comment: Speci men Type: BLOOD SPECIMEN Ordering Facility: [facility] Address: [address] [place] [address] Performed By: #### L [id number] #### [facility] CLIA [id number] [address] [place] [address] [place] Beta globulin Elph [Mass/Vol] 0.71 g/dL Normal 0.61-1.17 [facility] Comment on above: Order Comment: Speci men Type: BLOOD SPECIMEN Ordering Facility: [facility] Address: [address] [place] [address] Performed By: #### L [id number] #### [facility] CLIA [id number] [address] [place] [address] [place] Gamma globulin Elph [Mass/Vol] 0.45 g/dL Low 0.53-1.51 [facility] Comment on above: Order Comment: Speci men Type: BLOOD SPECIMEN Ordering Facility: [facility] Address: [address] [place] [address] Performed By: #### L [id number] #### [facility] CLIA [id number] [address] [place] [address] [place] INTERPRETATION COMMENT FOR PROTEIN ELECTROPHORESIS Hypogammaglobulinemia is present, which can be seen in the setting of monoclonal gammopathy. If clinically indicated, monoclonal protein analysis and serum free light chain analysis are suggested to evaluate further for monoclonal gammopathy. Normal [facility] Comment on above: Order Comment: John mili Type: BLOOD SPECIMEN Ordering Facility: [facility] Address: [address] [place] [address] Performed By: #### L [id number] #### [facility] CLIA [id number] [address] [place] [address] [place] M-PROTEIN LOCATION Normal [facility] Comment on above: Order Comment: Speci mili Type: BLOOD SPECIMEN Ordering Facility: [facility] Address: [address] [place] [address] Result Comment: Not Applicable. Performed By: #### L [id number] #### [facility] CLIA [id number] [address] [place] [address] [place] Protein Fractions [Interp] No definitive M protein is identified on protein electrophoresis. Normal No definitive M protein is identified on protein electrophores is. [facility] Comment on above: Order Comment: Speci men Type: BLOOD SPECIMEN Ordering Facility: [facility] Address: [address] [place] [address] Performed By: #### L [id number] #### [facility] CLIA [id number] [address] [place] [address] [place] Protein.monoclonal Elph [Mass/Vol] 0.00 g/dL Normal <=0.00 [facility] Comment on above: Order Comment: Speci men Type: BLOOD SPECIMEN Ordering Facility: [facility] Address: [address] [place] [address] Performed By: #### L [id number] #### [facility] CLIA [id number] [address] [place] [address] [place] SPE STAFF REVIEW Reviewed by Dr. Jose Baez MD [facility] Comment on above: Order Comment: Speci men Type: BLOOD SPECIMEN Ordering Facility: [facility] Address: [address] [place] [address] Performed By: #### L [id number] #### [facility] CLIA [id number] [address] [place] [address] [place] PTH-Intact SerPl-mCncon 05-0 Parathyrin.intact [Mass/Vol] 57 pg/mL Normal 15-65 [facility] Comment on above: Order Comment: Speci men Type: BLOOD SPECIMEN Ordering Facility: [facility] Address: [address] [place] [address] Result Comment: Test methodology for this assay has moved from Siemens Centaur XP to Gen ariela 8000 effective April 19, 2022. Please note there may be a change in the reporting units and/or reference range. Performed By: #### 2 731-8 #### [facility] CLIA [id number] [address] [place] [address] [place] Prot SerPl-mCncon 11-18-2024 Protein [Mass/Vol] 6.0 g/dL Low 6.3-8.0 [facility] Comment on above: Order Comment: Speci men Type: URINE SPECIMEN Ordering Facility: [facility] Address: [address] [place] [address] Performed By: #### [facility] #### [facility] CLIA [id number] [address] [place] [address] [place] [facility] CLIA [id number] [address] [place] [address] [facility] Renal function 2000 panelon 11-18-2024 Albumin [Mass/Vol] 4.0 g/dL Normal 3.9-4.9 [facility] Comment on above: Order Comment: Speci men Type: BLOOD SPECIMEN Ordering Facility: [facility] Address: [address] [place] [address] Performed By: #### L [id number] #### [facility] CLIA [id number] [address] [place] [address] [place] Anion gap [Moles/Vol] 13 mmol/L Normal 8-15 [facility] Comment on above: Order Comment: Speci men Type: BLOOD SPECIMEN Ordering Facility: [facility] Address: [address] [place] [address] Performed By: #### L [id number] #### [facility] CLIA [id number] [address] [place] [address] [place] Calcium [Mass/Vol] 9.6 mg/dL Normal 8.5-10.2 [facility] Comment on above: Order Comment: Speci men Type: BLOOD SPECIMEN Ordering Facility: [facility] Address: [address] [place] [address] Performed By: #### L [id number] #### [facility] CLIA [id number] [address] [place], [place] [address] [place] Chloride [Moles/Vol] 104 mmol/L Normal 98-107 [facility] Comment on above: Order Comment: Speci men Type: BLOOD SPECIMEN Ordering Facility: [facility] Address: [address] [place] [address] Performed By: #### L [id number] #### [facility] CLIA [id number] [address] [place] [id number] [place] CO2 [Moles/Vol] 23 mmol/L Normal 22-30 [facility] Comment on above: Order Comment: John garces Type: BLOOD SPECIMEN Ordering Facility: [facility] Address: [address] [place] [address] Performed By: #### L [id number] #### [facility] CLIA [id number] [address] [place] [address] [place] Creatinine [Mass/Vol] 1.06 mg/dL High 0.58-0.96 [facility] Comment on above: Order Comment: Brandyi men Type: BLOOD SPECIMEN Ordering Facility: [facility] Address: [address] [place] [address] Performed By: #### L [id number] #### [facility] CLIA [id number] [facility] [address] [place] Creatinine and Glomerular filtration rate.predicted panel (S/P/Bld) 57 mL/min/1.73m??? Low >=60 [facility] Comment on above: Order Comment: John garces Type: BLOOD SPECIMEN Ordering Facility: [facility] Address: [address] [place] [address] Result Comment: Tova mated Glomerular Filtration Rate (eGFR) is calculated using the 2020 CKD-EPI creatinine equation. This equation utilizes serum creatinine, sex, and age as parameters. The creatinine assay has traceable calibration to isotope dilution-mass spectrometry. Refer to KDIGO guidelines for clinical interpretation. In patients with unstable renal function, e.g. those with acute kidney injury, the eGFR may not accurately reflect actual GFR. Performed By: #### L [id number] #### [facility] CLIA [id number] [address] [place] [address] [place] Glucose [Mass/Vol] 113 mg/dL High 74-99 [facility] Comment on above: Order Comment: Brandyi mili Type: BLOOD SPECIMEN Ordering Facility: [facility] Address: [address] [place] [address] Result Comment: The [place] Diabetes Association (ADA) provides guidance for cutoff values for fasting glucose and random glucose. The ADA defines fasting as no caloric intake for at least 8 hours. Fasting plasma glucose results between 100 to 125 mg/dL indicate increased risk for diabetes (prediabetes). Fasting plasma glucose results greater than or equal to 126 mg/dL meet the criteria for diagnosis of diabetes. In the absence of unequivocal hyperglycemia, results should be confirmed by repeat testing. In a patient with classic symptoms of hyperglycemia or hyperglycemic crisis, random plasma glucose results greater than or equal to 200 mg/dL meet the criteria for diagnosis of diabetes. Reference: Standards of Medical Care in Diabetes 2016, [place] [employer] Association. Diabetes Care. 2016.39(Suppl 1). Performed By: #### L [id number] #### [facility] CLIA [id number] [address] [place] [address] [place] Phosphate [Mass/Vol] 3.0 mg/dL Normal 2.7-4.8 [facility] Comment on above: Order Comment: John garces Type: BLOOD SPECIMEN Ordering Facility: [facility] Address: [address] [place] [address] Performed By: #### L [id number] #### [facility] CLIA [id number] [address] [place] [address] [place] Potassium [Moles/Vol] 4.2 mmol/L Normal 3.7-5.1 [facility] Comment on above: Order Comment: John garces Type: BLOOD SPECIMEN Ordering Facility: [facility] Address: [address] [place] [address] Performed By: #### L [id number] #### [facility] CLIA [id number] [facility] [place] [address] [place] Sodium [Moles/Vol] 140 mmol/L Normal 136-144 [facility] Comment on above: Order Comment: John men Type: BLOOD SPECIMEN Ordering Facility: [facility] Address: [address] [place] [address] Performed By: #### L [id number] #### [facility] CLIA [id number] [address] [place], [place] [address] [place] Urea nitrogen [Mass/Vol] 11 mg/dL Normal 7-21 [facility] Comment on above: Order Comment: Speci men Type: BLOOD SPECIMEN Ordering Facility: [facility] Address: [address] [place] [address] Performed By: #### L [id number] #### [facility] CLIA [id number] [address] [place], [place] [address] [place] [id number] 11-05-2024 [id number] HNO ID: [id number] Author: KIRT BUTTS PT Service: ? Author Type: Physical Therapist Type: [id number] Filed: 11/05/2024 18:16 Note Text: [facility] Physical Therapy Plan of Care Certification Patient Name: Lesley Dodson : 1955 [facility] #: [id number] Date: 11/05/2024 To: Flo Pretty MD From Therapist: Kirt Butts PT RE: Patient Certification/ Recertification Your review, approval and electronic signature are required in order to comply with Payor: [facility] MEDICARE / Plan: [employer] MEDICARE HMO / Product Type: HMO / regulations. The identified Physical Therapy PLAN OF CARE for the patient is as follows: R26.9 Abnormality of gait (primary encounter diagnosis) R29.898 Weakness of both hips R26.89 Imbalance PLAN OF CARE: Assessment: Lesley Dodson presents with chief complaint of gait and balance deficits that interferes with rising from a chair, standing, walking, physical activities, recreational activities . The patient presents with impairments in ADL's, balance, gait, independence in exercise, overall function, and strength. PROMIS? (Patient-Reported Outcomes Measurement Information System) scores were reviewed and identified as a rehabilitation concern. Prognosis for therapy is Good due to: positive past response to therapy, good support system/ coping skills Fair due to: clinical presentation, multiple co- morbidities, chronic nature of impairments, limited tolerance to activity, poor understanding of deficits . She is referred to PT by PCP for diagnosis of lumbar spondylosis but she presents with complaints AND deficits of LE weakness, impaired balance AND gait deficits with difficulty walking due to abnormal/ataxic gait. The patient will benefit from skilled therapy services to meet the goals established for this plan of care as noted below. She may also benefit from further assessment AND/or testing, neuro consult recommended. Goals for Episode of Care: established 11/05/24 Patient reported outcome of physical function and self-efficacy will increase T-score by a minimum 5 points. [place] in home exercise program. Patient will demonstrate increase in B LE strength to 5/5 during manual muscle testing in order to improve function for basic self-care tasks, home management tasks, leisure / recreation skills, and prior functional tasks. Normal gait. Patient will increase balance to Good/Normal with static/dynamic standing balance , 10 seconds for single limb stance on RLE and LLE, and allow patient to demonstrate appropriate balance strategies to reduce risk for falls. Patient will complete 12 reps on 30 second chair stand test to decrease risk of falls. Patient Goals: walk, get back to normal Time Frame for Goals and Treatment : 02/03/25 Planned Interventions, Frequency, and Duration: Current Frequency: 2x/week (1-2x/wk) Duration: 12 weeks Total Number of Visits Planned: 15 Planned Treatment Interventions: Therapeutic exercise (14578), Neuromuscular re-education (21774), Therapeutic activities (91905), Gait Training (96560), Patient/Family/Caregiver Education, General Conditioning PLAN FOR NEXT VISIT: address B hip strength, gait AND balance. further assess balance AND fxl performance tests Patient demonstrates good understanding of plan of care and treatment. The above goals and plan of care were discussed and agreed upon by patient/family. For further details regarding this patient refer to the Physical Therapy electronically documented visit dated 11/05/2024. Provider Attestation I have reviewed the treatment plan for Lesley Dodson, CCF# [id number] for the period of 11/05/24 -- 02/03/25, established on 11/05/2024. Signature certifies the need for therapy services. Normal [facility] CNTHERAPYon 11-05-2024 CNTHERAPY OT/PT/Speech Visit (LDPT) -------- IVORYLESLEY Moran ([id number]) 1955 F Date Time Provider Department 11/05/24 3:45 PM KIRT BUTTS Date Time Provider Department Center 11/05/2024 3:45 PM [id number] BUTTS [facility] Reason for Visit: PT Eval [747] Primary Visit Diagnosis:Abnormality of gait [R26.9] Other Visit Diagnoses:Weakness of both hips [R29.898] Imbalance [R26.89] Allergies As of Date: 11/05/2024 Noted Allergy Reaction CASHEW NUT 04/18/2022 4 - Hives CIPROFLOXACIN 11/30/2010 16 - Unknown CORTICOSTEROIDS (GLUCOCORTICOIDS) 01/09/2004 4 - Hives PENICILLINS 01/09/2004 4 - Hives Date Reviewed: 10/23/2023 Reviewed by: Jenny Lorenzo, CRYSTAL - Fully Assessed Prescriptions as of 11/05/2024 - amLODIPine (NORVASC) 5 mg tablet Take 5 mg by mouth once daily. - ramipril (ALTACE) 2.5 mg capsule Take 1 capsule by mouth once daily. - oxyCODONE IR (ROXICODONE) 5 mg immediate release tablet Take 1 tablet by mouth every 6 hours as needed for pain. - aspirin 81 mg chewable tablet Take 2 tablets by mouth once daily. - acetaminophen (TYLENOL) 500 mg tablet 2 tablets by ORAL/FEEDING TUBE route every 6 hours as needed for pain for up to 200 doses. - docusate sodium (COLACE) 100 mg capsule Take 1 capsule by mouth twice daily as needed for constipation. - metoprolol tartrate, short acting, (LOPRESSOR) 25 mg tablet Take 1 tablet by mouth every 12 hours. - atorvastatin (LIPITOR) 80 mg tablet 80 mg. - alendronate 70 mg tbef 70 mg. - pantoprazole DR (PROTONIX) 40 mg tablet Take 40 mg by mouth once daily. - levothyroxine (SYNTHROID) 125 mcg tablet Take 112 mcg by mouth daily before breakfast. - ZETIA 10 MG TAB Take one(1) tablet daily - PAXIL 10MG TABLET Take one(1) tablet daily. Letter Text Normal [facility] Office-Progress Notes-Pr glorychao 10-29-2024 [facility] Office-Progress Notes-Provider LESLEY DODSON :1955 Registration Date:10/23/2024 Chief Complaint: 6 MONTH CHECK UP History of Present Illness: Disclaimer: The content of this note was generated by an artificial intelligence (AI) language model version [email or web address] This is a follow-up visit for Mrs. Dodson and she has coronary artery disease CABG hypertension and hyperlipidemia. Back Pain The patient reports ongoing back pain at the site of a previous back fracture. She is scheduled to start physical therapy on November 05. She has been prescribed muscle relaxers and steroids. Parathyroid Issues and Cancer History The patient is under the care of an district manager in training for parathyroid issues. She suspects that her parathyroid may not be producing enough calcium, as she has been advised to consume four servings of yogurt daily. She is currently taking calcium and vitamin D3 supplements. Physical Activity Limitations Due to her back pain, the patient has not been engaging in much physical activity but she is planning a vacation to [facility]. She denies any chest pain jaw pain shoulder pain. No orthopnea no nocturnal dyspnea. No dizziness or lightheadedness. No history of any edema of the legs. She seems to be compliant with her diet and medications. Currently she weighs 175 pounds. Her blood pressure is 112/72 today ASSESSMENT AND PLAN; 1. CAD (coronary artery disease) I25.10 2. S/P CABG x 1 Z95.1: BENAVIDES-LAD 3 .History of LLV dysfunction I51.9: Her EF was 55% in 2021:clinically not in failure 4. HTN (hypertension) I10 5. HLD (hyperlipidemia) E78.5 6. She will continue current medications as specified below and see her again in six months Physical Exam: Vitals & Measurements Temperature Temporal (F): 98.5 degF (10/23/24 13:46:00) Apical Heart Rate: 73 bpm (10/23/24 13:46:00) Height/Length Measured: 157 cm (10/23/24 13:46:00) Weight Measured: 78 kg (10/23/24 13:46:00) Body Mass Index Measured: 31.64 kg/m2 (10/23/24 13:46:00) Weight Measured - lbs2: 175 lb (10/23/24 13:46:00) Height/Length Measured - in2: 62 in (10/23/24 13:46:00) Body Mass Index Measured English2: 32 kg/m2 (10/23/24 13:46:00) BSA: 1.86 m2 (10/23/24 13:46:00) Ht/Wt Measurement Refused by Patient?2: No (10/23/24 13:46:00) Depression Screening Scores: Initial Depression Screen Score: 0 (10/23/24 13:46:00) Fall Risk Assessment: Is the patient ambulatory (mobile): Yes (10/23/24:46:00) Have you had a fall within the past: No (10/23/24:46:00) Have you had 2 or more falls in the past: No (10/23/24 13:46:00) NECK: JVP is not elevated: Good carotid pulses and no bruit CVS; Normal heart sounds. No murmur and no gallop. No rub BP: 112/72 mm Hg LUNGS: No rhonchi and no wheeze: Clear breath sounds ADOMEN: Benign EXTREMITIES: Good distal pulses. No edema of legs Medication Reconciliation: What How Much When Why Instructions Unchanged amLODIPine (amLODIPine 5 mg oral tablet) 1 Tabs Oral DAILY Unchanged aspirin (aspirin 81 mg oral tablet) 1 Tabs Oral DAILY WITH EVENING MEAL Unchanged atorvastatin (Lipitor 80 mg oral tablet) 1 Tabs Oral DAILY WITH EVENING MEAL Unchanged calcium citrate 630 Milligram Oral TWICE A DAY Unchanged cholecalciferol (Vitamin D3 25 mcg (1000 intl units) oral tablet) 1 Tabs Oral DAILY Unchanged ezetimibe (Zetia 10 mg oral tablet) 1 Tabs Oral DAILY WITH EVENING MEAL Unchanged iron polysaccharide = Niferex-150 (Poly Iron) 150 TWICE A DAY Unchanged levothyroxine (Synthroid 112 mcg (0.112 mg) oral tablet) 1 Tabs Oral DAILY Unchanged metoprolol (Metoprolol Tartrate 25 mg oral tablet) 1 Tabs Oral TWICE A DAY Unchanged nitroglycerin (Nitrostat 0.3 mg sublingual tablet) 1 Tabs Sublingual EVERY FIVE MINUTES as needed for as needed for chest pain CAD (coronary artery disease) Duration: 30 Days Unchanged pantoprazole (Protonix 40 mg oral delayed release tablet) 1 Tabs Oral DAILY WITH EVENING MEAL Unchanged PARoxetine (Paxil 10 mg oral tablet) 1 Tabs Oral DAILY WITH EVENING MEAL Unchanged ramipril (ramipril 2.5 mg oral capsule) 1 Capsules Oral DAILY Problem List/Past Medical History: Ongoing Acute myocardial infarction Anemia Anxiety CAD (coronary artery disease) Carcinoma of submandibular gland Congestive heart failure Coronary atherosclerosis Disorder of bladder Gastroesophageal reflux disease Gastrointestinal hemorrhage HLD (hyperlipidemia) HLD (hyperlipidemia) HTN (hypertension) Hypothyroidism Intestinal malabsorption Iron deficiency anemia LV dysfunction Obesity S/P CABG x 1 Tobacco use and exposure - finding Procedure/Surgical History: Left Heart Catheterization, left ventriculogram.: 04/06/22 Screening mammography, bilateral (2-view study of each breast), including computer-aided detection (CAD) when performed: 05/05/20 DXA BONE DENSITY STUDY 1+ SITS AXIAL SKEL: 05/04/20 Coronary Angiograms.: 05/23/16 Percutaneous Coronary Angioplasty.: (more content not included)... Normal [facility] Provider Letter - Ambulatory on 10-29-2024 Provider Letter - Ambulatory FLO PRETTY MD [address] [place] [address] RE: LESLEY DODSON - 1955 10/23/2024 Dear FLO PRETTY MD This document is confidential and intended solely for the use of the individual or entity to which they are addressed. If you are not the named addressee, please disregard and do not disseminate, distribute or copy this information. If you are not the intended recipient you are notified that any disclosure of this information and its contents are strictly prohibited. If you have any questions about this document, please contact the office. Sincerely, Zeina Hill MA [facility] The following document(s) were included in the letter: October 23, 2024 09:29:00 EDT - (10/23/2024) *.AMB Office Visit Note Normal [facility] 25(OH)D3 SerPl-mCncon 2024 25-hydroxyvitamin D3 [Mass/Vol] 46.9 ng/mL Normal >=30.0 [facility] Comment on above: Order Comment: Speci men Type: BLOOD SPECIMEN Ordering Facility: [facility] Address: [address] [place] [address] Result Comment: Clas sification of 25 OH Vitamin D status: Deficiency: <= 20.0 ng/ml. Insufficiency: 21.0-29.0 ng/ml. Sufficiency: >= 30.0 ng/ml. Performed By: #### L [id number] #### [facility] CLIA [id number] [address] [place] [address] CELIAC SCREENon 10-08-2024 GLIAD DEAMIDATED IGA QUAL Negative Normal Negative, Test not Indicated [facility] Comment on above: Order Comment: John garces Type: URINE SPECIMEN Ordering Facility: [facility] Address: [address] [place] [address] Result Comment: This is used as an aid in diagnosis of celiac disease. Clinical correlation is required. The following results were obtained with an Upstream QUANTA Lite Gliadin IgA DENISE Gliadin. Gliadin IgA values obtained with different manufacturers' assay methods may not be used interchangeably. The magnitude of the reported IgA levels cannot be correlated to an endpoint titer. Performed By: #### U CALCD, UCRD #### [facility] CLIA [id number] [address] [facility] CLIA [id number] [address] [place] [address] Gliadin peptide IgA Qn (S) 2 Units Normal <20 [facility] Comment on above: Order Comment: John garces Type: URINE SPECIMEN Ordering Facility: [facility] Address: [address] [place] [address] Performed By: #### U CALCD, UCRD #### [facility] CLIA [id number] [address] [facility] CLIA [id number] [address] [place] [address] INTERPRETATION No serological evide nce of celiac disease, however, if celiac disease is clinically suspected and patient is not on gluten-free diet, histological diagnosis may be considered. HLA testing may help with risk assessment. Normal [facility] Comment on above: Order Comment: Speci men Type: URINE SPECIMEN Ordering Facility: [facility] Address: [address] [place] [address] Performed By: #### U CALCD, UCRD #### [facility] CLIA [id number] [address] [facility] CLIA [id number] [address] [place] [address] TRANSGLUTAMINASE IGA ABS INTERPRETATION Negative Normal Negative [facility] Comment on above: Order Comment: Speci men Type: URINE SPECIMEN Ordering Facility: [facility] Address: [address] [place] [address] Result Comment: The following results were obtained with [employer] Innotase R h-tTG IgA DENISE.???R h-tTG IgA values obtained with different manufacturers' assay methods may not be used interchangeably. The magnitude of the reported IgA levels cannot be corelated to an endpoint???concentration. This is used as an aid in diagnosis of celiac disease. Clinical correlation is required. Performed By: #### U CALCD, UCRD #### [facility] CLIA [id number] [address] [facility] CLIA [id number] [address] [place] [address] tTG IgA Qn (S) <2 Normal <4 [facility] Comment on above: Order Comment: Speci men Type: URINE SPECIMEN Ordering Facility: [facility] Address: [address] [place] [address] Performed By: #### U CALCD, UCRD #### [facility] CLIA [id number] [address] [facility] CLIA [id number] [address] [place] [address] Calcium.ionized [Moles/Vol]o n 10-08-2024 Calcium.ionized (Bld) [Mass/Vol] 1.21 mmol/L Normal 1.08-1.30 [facility] Comment on above: Order Comment: Speci men Type: BLOOD SPECIMEN Ordering Facility: [facility] Address: [address] [place] [address] Performed By: #### L [id number] #### [facility] CLIA [id number] [address] [place] [address] [place] Calcium.ionized adjusted to pH 7.4 (Bld) [Moles/Vol] 1.19 mmol/L Normal 1.08-1.30 [facility] Comment on above: Order Comment: Speci men Type: BLOOD SPECIMEN Ordering Facility: [facility] Address: [address] [place] [address] Performed By: #### L [id number] #### [facility] CLIA [id number] [address] [place] [address] [place] Collagen crosslinked C-telop eptide [Mass/Vol]on 10-08-2024 C TELOPEPTIDE, BETA CROSS LINKED 226 pg/mL Normal 171-970 [facility] Comment on above: Order Comment: Speci men Type: BLOOD SPECIMEN Ordering Facility: [facility] Address: [address] [place] [address] Performed By: #### 4 1171-0 #### [facility] CLIA [id number] [address] [place] [address] [place] IgA SerPl-mCncon 10-08-2024 IgA [Mass/Vol] 99 mg/dL Normal 70-400 [facility] Comment on above: Order Comment: Speci men Type: BLOOD SPECIMEN Ordering Facility: [facility] Address: [address] [place] [address] Performed By: #### 2 458-8 #### [facility] CLIA [id number] [address] [place], [place] [id number] [place] PTH-Intact SerPl-mCncon 09-15 Parathyrin.intact [Mass/Vol] 50 pg/mL Normal 15-65 [facility] Comment on above: Order Comment: Speci men Type: URINE SPECIMEN Ordering Facility: [facility] Address: [address] [place] [address] Result Comment: Test methodology for this assay has moved from Siemens MolecuLightaur XP to SUPR ariela 8000 effective April 19, 2022. Please note there may be a change in the reporting units and/or reference range. Performed By: #### U SHARON FELIZRD #### [facility] CLIA [id number] [address] [place] [address] [place] [facility] CLIA [id number] [address] [place] [address] [place] Phosphate SerPl-mCncon 10-08 Phosphate [Mass/Vol] 2.6 mg/dL Low 2.7-4.8 [facility] Comment on above: Order Comment: Speci men Type: BLOOD SPECIMEN Ordering Facility: [facility] Address: [address] [place] [address] Performed By: #### L [id number] #### [facility] CLIA [id number] [address] [place] [address] [place] AMB CARD Physician Progress Noteon 04-30-2024 AMB CARD Physician Progress Note LESLEY DODSON :1955 Registration Date:04/23/2024 Chief Complaint CAD, CHF History of Present Illness Mrs. Dodson is here for FUV for coronary artery disease s/p CABG, hypertension, hyperlipidemia and LV dysfunctiion. She also has known diabetes. She has no chest pain or shortness of breath no dizziness lightheadedness. She reports that she went to [place] and fell and broke her ankle, requiring surgery. SHe is back walking with a cane and report she is doing well. She is now planning a trip with family to [place]. Most recent echo in 06/07 with EF 55%. She is due for labs with Dr. Pretty in June. Blood Pressure is 114/74. She denies any chest pain jaw pain shoulder pain no lightheadedness dizziness or palpitations. Physical Exam Vitals & Measurements Temperature Temporal (F): 98.2 degF (04/23/24 16:05:00) Apical Heart Rate: 74 bpm (04/23/24 16:05:00) Height/Length Measured: 157 cm (04/23/24 16:05:00) Weight Measured: 77 kg (04/23/24 16:05:00) Body Mass Index Measured: 31.24 kg/m2 (04/23/24 16:05:00) Weight Measured - lbs2: 169 lb (04/23/24 16:05:00) Height/Length Measured - in2: 62 in (04/23/24 16:05:00) Body Mass Index Measured English2: 30.91 kg/m2 (04/23/24 16:05:00) BSA: 1.83 m2 (04/23/24 16:05:00) Ht/Wt Measurement Refused by Patient?2: No (04/23/24 16:05:00) Depression Screening Scores Initial Depression Screen Score: 0 (04/23/24 16:05:00) Fall Risk Assessment Is the patient ambulatory (mobile): Yes (04/23/24 16:05:00) Have you had a fall within the past: No (04/23/24 16:05:00) Have you had 2 or more falls in the past: No (04/23/24 16:05:00) NECK: JVP is not elevated. Good carotid pulses and no bruit. CVS: Normal heart sounds. No murmur and no gallop. No rub. LUNGS: No rhonchi and no wheeze. Clear breath sounds. ABDOMEN: Benign. EXTREMITIES: Good distal pulses. No edema of legs. Medication Reconciliation What How Much When Why Instructions Unchanged amLODIPine (amLODIPine 5 mg oral tablet) 1 Tabs Oral DAILY Contact prescribing physician if questions or concerns Unchanged aspirin (aspirin 81 mg oral tablet) 1 Tabs Oral DAILY WITH EVENING MEAL Contact prescribing physician if questions or concerns Unchanged atorvastatin (Lipitor 80 mg oral tablet) 1 Tabs Oral DAILY WITH EVENING MEAL Contact prescribing physician if questions or concerns Unchanged calcium citrate 630 Milligram Oral TWICE A DAY Contact prescribing physician if questions or concerns Unchanged cholecalciferol (Vitamin D3 25 mcg (1000 intl units) oral tablet) 1 Tabs Oral DAILY Contact prescribing physician if questions or concerns Unchanged ezetimibe (Zetia 10 mg oral tablet) 1 Tabs Oral DAILY WITH EVENING MEAL Contact prescribing physician if questions or concerns Unchanged iron polysaccharide = Niferex-150 (Poly Iron) 150 TWICE A DAY Contact prescribing physician if questions or concerns Unchanged levothyroxine (Synthroid 112 mcg (0.112 mg) oral tablet) 1 Tabs Oral DAILY Contact prescribing physician if questions or concerns Unchanged metoprolol (Metoprolol Tartrate 25 mg oral tablet) 1 Tabs Oral TWICE A DAY Contact prescribing physician if questions or concerns Unchanged nitroglycerin (Nitrostat 0.3 mg sublingual tablet) 1 Tabs Sublingual EVERY FIVE MINUTES as needed for as needed for chest pain CAD (coronary artery disease) Duration: 30 Days Contact prescribing physician if questions or concerns Unchanged pantoprazole (Protonix 40 mg oral delayed release tablet) 1 Tabs Oral DAILY WITH EVENING MEAL Contact prescribing physician if questions or concerns Unchanged PARoxetine (Paxil 10 mg oral tablet) 1 Tabs Oral DAILY WITH EVENING MEAL Contact prescribing physician if questions or concerns Unchanged ramipril (Altace 10 mg oral capsule) 1 Capsules Oral DAILY WITH EVENING MEAL Contact prescribing physician if questions or concerns Unchanged ramipril (ramipril 2.5 mg oral capsule) 1 Capsules Oral DAILY Contact prescribing physician if questions or concerns Assessment/Plan This Visit Diagnosis 1. CAD (coronary artery disease) I25.10 Stable on asa, statin, beta chavez as listed above. Ordered: 2. S/P CABG x 1 Z95.1 BENAVIDES to LAD Ordered: 3. HTN (hypertension) I10 Well controlled on amlodipine, ramipril, metoprolol Ordered: 4. HLD (hyperlipidemia) E78.2 Labs with [facility] in June. Ordered: 5. LV dysfunction I51.9 Last EF recovered at 55%. FUV 6 months. Ordered: AMB Office/Outpt Est Pt Mod MDM / 30 min 50021, 04/23/2024 16:13:00 EDT, CAD (coronary artery disease) / S/P CABG x 1 / HTN (hypertension) / HLD (hyperlipidemia) / LV dysfunction Encounter for immunization Z23 Problem List/Past Medical History Ongoing Acute myocardial infarction Anemia Anxiety CAD (coronary artery disease) Carcinoma of submandibular gland Congestive heart failure Coronary atherosclerosis Disorder of bladder Gastroesophageal reflux disease Gastroi (more content not included)... Normal [facility] Calcidiolon 04-26-2024 25-hydroxyvitamin D3 [Mass/Vol] 36 ng/mL Normal 30-100 [facility] Comment on above: Order Comment: Defic iency: < 20 ng/ml Insufficiency: 20-29 ng/ml Sufficiency: 30-100 ng/ml This assay accurately quantifies the sum of Vitamin D3, 25-Hydroxy and Vitamin D2,25-Hydroxy. Performed By: #### 1 989-3 #### GLEN GUILLEN ([id number]) [facility] ([facility]) [address] [place] [address] Collagen crosslinked C-telop eptideon 04-26-2024 Collagen crosslinked C-telopeptide [Mass/Vol] 403 pg/mL Normal [facility] Comment on above: Result Comment: Premenopausal Females: 136-689 pg/mL Postmenopausal Females: 177-1015 pg/mL REFERENCE INTERVAL: C-Telopeptide, Njkt-Uqqiy-Kyxhat, Serum Access complete set of age- and/or gender-specific reference intervals for this test in the [facility] Test Directory ([employer]). Performed By: [employer] [address] [place] [address] Customer Experience Consultant: Kaiden Cotton MD, PhD CLIA Number: [id number] Performed By: #### 4 1171-0 #### [employer] ([employer]) ([id number]) [address] [place] [address] Parathyrin.intacton 04-26-20 24 Parathyrin.intact [Mass/Vol] 112.5 pg/mL High 18.5-88.0 [facility] Comment on above: Performed By: #### 2 731-8 #### MANDIE Goyal ([id number]) [facility] ([facility]) [address] [place] [address] 31375 Renal function 2000 panelon 04-26-2024 Albumin BCP dye [Mass/Vol] 4.3 g/dL Normal 3.4-5.0 [facility] Comment on above: Performed By: #### 2 4362-6 #### GLEN GUILLEN ([id number]) [facility] ([facility]) [address] [place] [address] 16562 Anion gap [Moles/Vol] 13 mmol/L Normal 05-05 [facility] Comment on above: Performed By: #### 2 4362-6 #### GLEN GUILLEN ([id number]) [facility] ([facility]) [address] [place] [address] 86027 Calcium [Mass/Vol] 9.9 mg/dL Normal 8.6-10.3 [facility] Comment on above: Performed By: #### 2 4362-6 #### GLEN GUILLEN ([id number]) [facility] ([facility]) [address] [place] [address] 66216 Chloride [Moles/Vol] 106 mmol/L Normal 98-107 [facility] Comment on above: Performed By: #### 2 4362-6 #### GLEN GUILLEN ([id number]) [facility] ([facility]) [address] [place] [address] 77098 CO2 [Moles/Vol] 27 mmol/L Normal 21-32 [facility] Comment on above: Performed By: #### 2 4362-6 #### GLEN GUILLEN ([id number]) [facility] ([facility]) [address] [place] [address] 78719 Creatinine [Mass/Vol] 0.92 mg/dL Normal 0.50-1.05 [facility] Comment on above: Performed By: #### 2 4362-6 #### GLEN GUILLEN ([id number]) [facility] ([facility]) [address] [place] [address] 77519 Glomerular filtration rate/1.73 sq M.predicted 68 mL/min/1.73m*2 Normal >60 [facility] Comment on above: Result Comment: Calc ulations of estimated GFR are performed using the 2020 CKD-EPI Study Refit equation without the race variable for the IDMS-Traceable creatinine methods. https://jasn.asnjournals.org/content/early//ASN.1334252 988 Performed By: #### 2 4362-6 #### GLEN GUILLEN ([id number]) [facility] ([facility]) [address] [place] [address]25 Glucose [Mass/Vol] 101 mg/dL High 74-99 [facility] Comment on above: Performed By: #### 2 4362-6 #### GLEN GUILLEN ([id number]) [facility] ([facility]) [address] [place] [address] Phosphate [Mass/Vol] 3.9 mg/dL Normal 2.5-4.9 [facility] Comment on above: Result Comment: The performance characteristics of phosphorus testing in heparinized plasma have been validated by the individual laboratory site where testing is performed. Testing on heparinized plasma is not approved by the FDA; however, such approval is not necessary. Performed By: #### 2 4362-6 #### GLEN GUILLEN ([id number]) [facility] ([facility]) [address] [place] [address] 46790 Potassium [Moles/Vol] 4.8 mmol/L Normal 3.5-5.3 [facility] Comment on above: Performed By: #### 2 4362-6 #### GLEN GUILLEN ([id number]) [facility] ([facility]) [address] [place] [address] 14537 Sodium [Moles/Vol] 141 mmol/L Normal 136-145 [facility] Comment on above: Performed By: #### 2 4362-6 #### GLEN GUILLEN ([id number]) [facility] ([facility]) [address] [place] [address] 42824 Urea nitrogen [Mass/Vol] 17 mg/dL Normal 6-23 [facility] Comment on above: Performed By: #### 2 4362-6 #### GLEN GUILLEN ([id number]) [facility] ([facility]) [address] [place] [address] 46701 Comprehensive Intake - Texto n 04-23-2024 Comprehensive Intake - Text Comprehensive Intake Entered On: 04/23/2024 16:07 EDT Performed On: 04/23/2024 16:05 EDT by Zeina iHll MA Summary Chief Complaint : CAD, CHF Advance Directive : No Bladder Control Issues? : No Urine Leakage? : No Presence or absence of urinary incontinence assessed : Yes CPT-II Medication list doc'd in medical record : Yes Influenza immunization administered or previously received : Yes Pneumococcal vaccine administered or previously received : Yes Zeina Hill MA - 04/23/2024 16:05 EDT Measurements Ht/Wt Measurement Refused by Patient? : No Weight Measured : 77 kg(Converted to: 169 lb 12 oz, 169.756 lb) Height/Length Measured : 157 cm(Converted to: 5 ft 2 in, 61.81 in) Body Mass Index Measured : 31.24 kg/m2 Body Mass Index documented : Yes Weight Measured - lbs : 169 lb(Converted to: 169 lb 0 oz, 77 kg) Height/Length Measured - in : 62 in(Converted to: 5 ft 2 in, 157 cm) Body Mass Index Measured Qatari : 30.91 kg/m2 BSA Qatari : 1.83 m2 Kathryn Hill MAh - 04/23/2024 16:05 EDT Vitals Require BP : No Apical Heart Rate : 74 bpm Temperature Temporal (F) : 98.2 degF(Converted to: 37 degC) Pain Present : No actual or suspected pain Pain : 0 Pain severity quantified : No pain present Libra Hill MAorah - 04/23/2024 16:05 EDT Infection Screening Travel outside [place] within past 21 days : No Positive COVID test in the last 10 days? : No Exposure to and/or close contact with a person who has a laboratory-confirmed COVID test within the last 48 hours. : No Sergio IYERZeina - 04/23/2024 16:05 EDT Depression Screening Is patient currently : None of the Below Feeling Down, Depressed, Hopeless : Not at all Little Interest - Pleasure in Activities : Not at all Initial Depression Screen Score : 0 Depression Screening Score 0 : No Libra Hill MAorah - 04/23/2024 16:05 EDT Problems (As Of: 04/23/2024 16:07:09 EDT) Problems(Active) Acute myocardial infarction (SNOMED CT :81429201 ) Name of Problem: Acute myocardial infarction ; Onset Date: 12/24/2003 ; Recorder: Hina Drake MA; Confirmation: Confirmed ; Classification: Medical ; Code: [id number] ; Contributor System: PolySuite ; Last Updated: 11/04/2019 10:12 EDT ; Life Cycle Date: 11/04/2019 ; Life Cycle Status: Active ; Responsible Provider: Hina Drake MA; Vocabulary: SNOMED CT Anemia (SNOMED CT :772282193 ) Name of Problem: Anemia ; Recorder: BAHMAN SOLORIO, ELZA; Confirmation: Confirmed ; Classification: Medical ; Code: [id number] ; Contributor System: PowerChart ; Last Updated: 05/31/2016 13:23 EST ; Life Cycle Date: 05/31/2016 ; Life Cycle Status: Active ; Responsible Provider: ELZA YUSUF MD; Vocabulary: SNOMED CT Anxiety (SNOMED CT :14780238 ) Name of Problem: Anxiety ; Recorder: Hina Drake MA; Confirmation: Confirmed ; Classification: Medical ; Code: [id number] ; Contributor System: PowerChart ; Last Updated: 10/27/2020 13:33 EDT ; Life Cycle Date: 10/27/2020 ; Life Cycle Status: Active ; Responsible Provider: Hina Drake MA; Vocabulary: SNOMED CT At risk for falls (SNOMED CT :104780668 ) Name of Problem: At risk for falls ; Recorder: SYSTEM; Confirmation: Confirmed ; Classification: Nursing ; Code: [id number] ; Last Updated: 05/23/2016 00:57 EST ; Life Cycle Date: 05/23/2016 ; Life Cycle Status: Active ; Vocabulary: SNOMED CT ; Comments: 05/23/2016 0:57 - SYSTEM Problem added automatically by system based on documentation of a admission to the hospital. CAD (coronary artery disease) (SNOMED CT :9333034262 ) Name of Problem: CAD (coronary artery disease) ; Recorder: ELZA YUSUF MD; Confirmation: Confirmed ; Classification: Medical ; Code: [id number] ; Contributor System: PowerChart ; Last Updated: 05/31/2016 13:22 EST ; Life Cycle Date: 05/31/2016 ; Life Cycle Status: Active ; Responsible Provider: ELZA YUSUF MD; Vocabulary: SNOMED CT Carcinoma of submandibular gland (SNOMED CT :164891393 ) Name of Problem: Carcinoma of submandibular gland ; Recorder: Hina Drake MA; Confirmation: Confirmed ; Classification: Medical ; Code: [id number] ; Contributor System: Txt4Chart ; Last Updated: 10/27/2020 13:33 EDT ; Life Cycle Date: 10/27/2020 ; Life Cycle Status: Active ; Responsible Provider: Hina Drake MA; Vocabulary: SNOMED CT Congestive heart failure (SNOMED CT :46384445 ) Name of Problem: Congestive heart failure ; Recorder: Hina Drake MA; Confirmation: Confirmed ; Classification: Medical ; Code: [id number] ; Contributor System: PolySuite ; Last Updated: 11/04/2019 10:12 EDT ; Life Cycle Date: 11/04/2019 ; Life Cycle Status: Active ; Responsible Provider: Hina Drake MA; Vocabulary: SNOMED CT Coronary atherosclerosis (SNOMED CT :5421209209 ) Name of Problem: Coronary atherosclerosis ; Onset Date: 07/28/2005 ; Recorder: Hina Drake MA; Confirmation: Confirmed ; Classification: Medical ; Code: [id number] ; Contributor Syst (more content not included)... Normal [facility] Ankle min 3 Viewson 02-20-20 Ankle min 3 Views [facility] [address] [place] [address] Ankle min 3 Views MR#: [id number] Acct: [id number] Name: LESLEY DODSON Dean Rep #: [id number] : 1955 F 68 From: [facility] PCP: Dr. Almaz Chavez MD Status: DEP AMB Study: Ankle min 3 Views Date of Exam: 02/20/24 Exam# [id number] Ordering Dr: Mariusz Calloway MD [id number] STUDY: X-RAY - LEFT ANKLE REASON FOR EXAM: Female, 68 years old. fu TECHNIQUE: 3 view(s) of the ankle. COMPARISON: January 16, 2024. FINDINGS: Placement screws distal fibula. 2 screws medial malleolar fracture. Nondisplaced fracture through the malleolus. Normal medial and lateral malleoli. Normal tibiotalar articulation and ankle mortise. Normal visualized talus and calcaneus. The visualized subtalar, talonavicular, calcaneocuboid and tarsal articulations are normal. The soft tissue structures are unremarkable. RAD/Ankle min 3 Views IMPRESSION: Status post ORIF bimalleolar fractures incompletely healed Electronically Signed: Tho Collazo MD at 23:33 EDT , CC: Dr. Almaz Chavez MD; Dr. Mariusz Calloway MD Business Services Officer: Signed [facility] Orthopedic Visit Reporton Orthopedic Visit Report [facility] [address] [place] [address] [address] [place] [address] OFFICE VISIT Date of Service: 02/20/24 MR#: [id number] Acct: [id number] Name: LESLEY DODSON Rep #: [id number] : 1955 Provider: Dr. Mariusz craven MD Age/Sex: 68/F Location: [facility] Status: Signed Intake Vital Signs 12/06/23 12:04 Height 5 ft 2 in Intake Visit Reasons: LEFT ANKLE Chief Complaint: post op Left Ankle Accompanied by: Self Is patient in pain?: No Allergies ciprofloxacin (From Cipro) Allergy (Mild, Verified 02/20/24 09:45) Hives Penicillins Allergy (Mild, Verified 02/20/24 09:45) Hives Medications ???Medication ???Instructions ???Recorded ???Confirmed ???Type amlodipine 5 mg tablet 5 mg PO DAILY 07/14/23 02/20/24 History atorvastatin 80 mg tablet 80 mg PO QHS 07/14/23 02/20/24 History ezetimibe 10 mg tablet 10 mg PO DAILY 07/14/23 02/20/24 History levothyroxine 125 mcg tablet 125 mcg PO DAILY 07/14/23 02/20/24 History metoprolol tartrate 25 mg tablet 25 mg PO BID 07/14/23 02/20/24 History pantoprazole 40 mg tablet,delayed 40 mg PO DAILY 07/14/23 02/20/24 History release paroxetine HCl 10 mg tablet 10 mg PO DAILY 07/14/23 02/20/24 History polysaccharide iron complex 150 mg 150 mg PO BID 07/14/23 02/20/24 History iron capsule ramipril 2.5 mg capsule 2.5 mg PO DAILY 07/14/23 02/20/24 History acetaminophen 500 mg tablet 1,000 mg PO Q6H PRN pain 07/21/23 02/20/24 History (Tylenol Extra Strength) alendronate 70 mg tablet (Fosamax) 70 mg PO WE 07/21/23 02/20/24 History aspirin 81 mg tablet,delayed 81 mg PO DAILY 07/21/23 02/20/24 History release (Adult Low Dose Aspirin) cholecalciferol (vitamin D3) 50 6,000 unit PO DAILY 07/21/23 02/20/24 History mcg (2,000 unit) tablet (Vitamin D3) meloxicam 7.5 mg tablet 7.5 mg PO BID PRN pain 2 weeks #30 01/16/24 02/20/24 Rx tabs Have you fallen in the past year?: Yes PFSH Medical History Bimalleolar fracture of left ankle Wears dentures Post-menopausal Cancer Depression Anxiety Low iron High cholesterol Injury of back Gastric reflux Former smoker History of pain when walking History of echocardiogram History of stress test Cardiology follow-up encounter History of heart attack Fall Hypothyroid Hypertension Cancer of neck Surgical History Hx of kyphoplasty Hx of colonoscopy History of cardiac catheterization History of neck dissection History of open heart surgery Social History Smoking Status: Former smoker alcohol intake: current HPI LEFT ANKLE Details: This documentation accurately reflects the service provided and the decisions made by me, Dr. Mariusz Calloway MD 02/20/24 0940. Part of today???s visit was documented by [ ], acting as scribe. LELSEY DODSON is a 68 year old F here today for 3 months follow-up left ankle open reduction internal fixation. Patient doing well walking normally some mild pain posteriorly in the ankle no crepitus catching or locking. The patient was walking independently. Happy with how things are going. Ortho Exam General General: Yes no acute distress Neurologic: Yes alert and Yes oriented x3 Psychologic: Yes reasonable and appropriate Left Foot/Ankle Skin: Yes CDI and healed; No Ecchymosis, Soft Tissue Swelling or Erythema Exam: Yes eversion normal and inversion normal; No Ecchymosis, Soft tissue swelling, Erythema, tender to palpate - over fracture site, TTP Lateral Malleolus, TTP ATFL, TTP Medial Malleolus, TTP Deltoid Ligament, TTP Lisfranc Joint or peroneal snapping Compartments: soft Dorsiflexion 0-20: 5 degrees Plantar Flexion 0-40: 40 degrees ROM: No pain with range of motion or crepitus with range of motion Anterior Drawer: 0 Tests: Hopson Test: 1 and Squeeze Test: 1 Motor: Ankle Dorsiflextion: 5, Ankle Plantar Flexion: 5, Ankle Eversion: 5, Ankle Inversion: 5 and EHL: 5 Sensation: Deep Peroneal Nerve: I, Superficial Peroneal Nerve: I, Tibial Nerve: I, Sural Nerve: I and Saphenous Nerve: I Pulses: Dorsalis Pedis: 2 and Posterior Tibial: 2 ANKLE: Normal gait no pain full range of motion Supplemental Info Radiographs show good alignment of the mortise and no change in the fracture alignment no hardware complications. Coding Level of Care Code Global Post Op Diagnoses Bimalleolar fracture of left ankle S82.842A Assessment and Plan Assessment and Plan (1) Bimalleolar fracture of left ankle: Status: Acute Plan: LESLEY DODSON is a 68 year old F here today for 3 months follow-up left ankle open reduction internal fixation. Patient doing well progressing as expected. Asked the p (more content not included)... [facility] Ankle min 3 Viewson 01-16-20 Ankle min 3 Views [facility] [address] [place] [address] Ankle min 3 Views MR#: [id number] Acct: [id number] Name: LESLEY DODSON Rep #: [id number] : 1955 F 68 From: Dale Connor MD PCP: Dr. Almaz Chavez MD Status: DEP AMB Study: Ankle min 3 Views Date of Exam: 01/16/24 Exam# [id number] Ordering Dr: Mariusz Calloway MD [id number] STUDY: X-RAY - LEFT ANKLE REASON FOR EXAM: Female, 68 years old. Follow-up surgery. TECHNIQUE: 3 view(s) of the ankle. COMPARISON: December 19, 2023 FINDINGS: Osteopenia with stable cancellus screw placement in the medial malleolus with near anatomic alignment at the fracture site and lateral plate and screw fixation of the distal fibula with anatomic alignment. No complicating features. Soft tissue swelling unchanged. RAD/Ankle min 3 Views IMPRESSION: Stable ORIF of ankle with no complicating features. Electronically Signed: Dale Connor MD at 10:35 EDT , CC: Dr. Almaz Chavez MD; Dr. Mariusz Calloway MD Business Services Officer: Signed [facility] Orthopedic Visit Reporton Orthopedic Visit Report [facility] [address] [place] [address] OFFICE VISIT Date of Service: 01/16/24 MR#: [id number] Acct: [id number] Name: LESLEY DODSON Rep #: [id number] : 1955 Provider: Dr. Mariusz craven MD Age/Sex: 68/F Location: [facility] [place].[facility] Status: Signed Intake Vital Signs 12/06/23 12:04 Height 5 ft 2 in Intake Visit Reasons: LEFT ANKLE Chief Complaint: post op Left Ankle Is patient in pain?: Yes (2-3) Allergies ciprofloxacin (From Cipro) Allergy (Mild, Verified 01/16/24 09:42) Hives Penicillins Allergy (Mild, Verified 01/16/24 09:42) Hives Medications ???Medication ???Instructions ???Recorded ???Confirmed ???Type amlodipine 5 mg tablet 5 mg PO DAILY 07/14/23 01/16/24 History atorvastatin 80 mg tablet 80 mg PO QHS 07/14/23 01/16/24 History ezetimibe 10 mg tablet 10 mg PO DAILY 07/14/23 01/16/24 History levothyroxine 125 mcg tablet 125 mcg PO DAILY 07/14/23 01/16/24 History metoprolol tartrate 25 mg tablet 25 mg PO BID 07/14/23 01/16/24 History pantoprazole 40 mg tablet,delayed 40 mg PO DAILY 07/14/23 01/16/24 History release paroxetine HCl 10 mg tablet 10 mg PO DAILY 07/14/23 01/16/24 History polysaccharide iron complex 150 mg 150 mg PO BID 07/14/23 01/16/24 History iron capsule ramipril 2.5 mg capsule 2.5 mg PO DAILY 07/14/23 01/16/24 History acetaminophen 500 mg tablet 1,000 mg PO Q6H PRN pain 07/21/23 01/16/24 History (Tylenol Extra Strength) alendronate 70 mg tablet (Fosamax) 70 mg PO WE 07/21/23 01/16/24 History aspirin 81 mg tablet,delayed 81 mg PO DAILY 07/21/23 01/16/24 History release (Adult Low Dose Aspirin) cholecalciferol (vitamin D3) 50 6,000 unit PO DAILY 07/21/23 01/16/24 History mcg (2,000 unit) tablet (Vitamin D3) Have you fallen in the past year?: No (??) PFSH Medical History Bimalleolar fracture of left ankle Wears dentures Post-menopausal Cancer Depression Anxiety Low iron High cholesterol Injury of back Gastric reflux Former smoker History of pain when walking History of echocardiogram History of stress test Cardiology follow-up encounter History of heart attack Fall Hypothyroid Hypertension Cancer of neck Surgical History Hx of kyphoplasty Hx of colonoscopy History of cardiac catheterization History of neck dissection History of open heart surgery Social History Smoking Status: Former smoker alcohol intake: current HPI LEFT ANKLE Details: This documentation accurately reflects the service provided and the decisions made by me, Dr. Mariusz Calloway MD 01/16/24 0937. Part of today???s visit was documented by [ ], acting as scribe. LESLEY DODSON is a 68 year old F here today for 6 weeks follow-up left ankle open reduction internal fixation for malunion. Patient is doing well the patient has some mild swelling about the ankle. The patient has begun trying to put a little bit more pressure through the ankle. Ortho Exam General General: Yes no acute distress Neurologic: Yes alert and Yes oriented x3 Psychologic: Yes reasonable and appropriate Left Foot/Ankle Skin: Yes CDI, healed and Soft Tissue Swelling; No Ecchymosis or Erythema Exam: Yes Soft tissue swelling, TTP Lateral Malleolus, TTP Medial Malleolus, eversion normal and inversion normal; No Ecchymosis, Erythema, TTP ATFL, TTP Deltoid Ligament, TTP Lisfranc Joint or peroneal snapping Compartments: soft Dorsiflexion 0-20: 5 degrees Plantar Flexion 0-40: 40 degrees ROM: No pain with range of motion or crepitus with range of motion Motor: Ankle Dorsiflextion: 4, Ankle Plantar Flexion: 4, Ankle Eversion: 4, Ankle Inversion: 4 and EHL: 4 Sensation: Deep Peroneal Nerve: I, Superficial Peroneal Nerve: I, Tibial Nerve: I, Sural Nerve: I and Saphenous Nerve: I Pulses: Dorsalis Pedis: 2 and Posterior Tibial: 2 Supplemental Info L ankle xr 3 views -fractures appear healed and well aligned. The fibular plate is slightly anterior on the lateral x-ray joint space is congruent no lateral talar shift Coding Level of Care Code Global Post Op Diagnoses Bimalleolar fracture of left ankle S82.842A Assessment and Plan Assessment and Plan (1) Bimalleolar fracture of left ankle: Status: Acute Plan: LESLEY DODSON is a 68 year old F here today for 6 weeks follow-up left ankle open reduction internal fixation for malunion. Radiographs appear stable there looks like progressive radiographic union at this point I recommend discontinuing the orthosis boot gradually over the next 6 weeks gradually increasing the weightbearing and follow-up at 6 weeks time. Patient understands no furth (more content not included)... [facility] ED Prov Noteon 11-26-2023 ED Prov Note ED PROVIDER NOTE [facility] EMERGENCY DEPARTMENT NAME: Lesley Dodson AGE: 68 y.o. : 1955 VISIT DATE: 11/26/2023 CSN: [id number] PCP: Flo Pretty MD Chief Complaint Patient presents with Ankle Pain History provided by: Patient Ankle Pain Location: Ankle Time since incident: 4 weeks Severity: Moderate and interfering with activities Ankle location: L ankle Pain details: Quality: Aching Severity: Mild Progression: Partially resolved Chronicity: New Associated symptoms: swelling Associated symptoms: no decreased ROM, no numbness, no stiffness and no tenderness Past Medical History: Diagnosis Date Cancer (HCC) Hypertension Myocardial infarction (HCC) Past Surgical History: Procedure Laterality Date APPENDECTOMY BACK SURGERY CARDIAC CATHETERIZATION CARDIAC SURGERY CHOLECYSTECTOMY HYSTERECTOMY (CERVIX REMAINS) History reviewed. No pertinent family history. Social History Socioeconomic History Marital status: Single Tobacco Use Smoking status: Never Smokeless tobacco: Never Vaping Use Vaping Use: Never used Substance and Sexual Activity Alcohol use: Not Currently Drug use: Never Previous Medications Medication Sig alendronate (FOSAMAX) 70 MG tablet Take 1 (one) tablet (70 mg total) by mouth every 7 days (full glass of water on an empty stomach). Remain upright and do not eat for next 30 min . amLODIPine (NORVASC) 2.5 MG tablet Take 1 (one) tablet (2.5 mg total) by mouth daily . aspirin 81 MG EC tablet Take 1 (one) tablet (81 mg total) by mouth daily . atorvastatin (LIPITOR) 80 MG tablet Take 1 (one) tablet (80 mg total) by mouth daily . cholecalciferol, vitamin D3, 1,000 unit tablet Take 1 (one) tablet (1,000 Units total) by mouth daily . ezetimibe (ZETIA) 10 mg tablet Take 1 (one) tablet (10 mg total) by mouth daily . ferrous sulfate 134 mg (27 mg iron) Tab Take 1 (one) tablet (134 mg total) by mouth 2 (two) times a day with meals . levothyroxine (SYNTHROID, LEVOTHROID) 112 MCG tablet Take 1 (one) tablet (112 mcg total) by mouth once daily . metoprolol tartrate (LOPRESSOR) 25 MG tablet Take 1 (one) tablet (25 mg total) by mouth 2 (two) times a day . pantoprazole (PROTONIX) 40 MG tablet Take 1 (one) tablet (40 mg total) by mouth daily . PARoxetine (PAXIL) 10 MG tablet Take 1 (one) tablet (10 mg total) by mouth daily . ramipriL (ALTACE) 10 MG capsule Take 1 (one) capsule (10 mg total) by mouth daily . Allergies Allergen Reactions Ciprofloxacin Rash Penicillins Rash Review of Systems Musculoskeletal: Negative for stiffness. Patient Vitals for the past 24 hrs: BP Temp Temp src Pulse Resp SpO2 Height Weight 11/26/23 1434 (!) 142/109 98.1 degrees F (36.7 degrees C) Temporal 88 18 98 % 5' 2 72.6 kg (160 lb) Physical Exam Vitals and nursing note reviewed. Constitutional: General: She is awake. She is not in acute distress. Appearance: Normal appearance. She is well-developed. She is not ill-appearing, toxic-appearing or diaphoretic. HENT: Head: Atraumatic. Nose: No congestion or rhinorrhea. Mouth/Throat: Mouth: Mucous membranes are moist. Eyes: General: No scleral icterus. Right eye: No discharge. Left eye: No discharge. Extraocular Movements: Extraocular movements intact. Conjunctiva/sclera: Conjunctivae normal. Neck: Trachea: No tracheal deviation. Cardiovascular: Rate and Rhythm: Normal rate and regular rhythm. Pulses: Normal pulses. Musculoskeletal: General: Swelling present. No tenderness, deformity or signs of injury. Cervical back: Normal range of motion. Right lower leg: No edema. Left lower leg: No edema. Left ankle: Swelling present. No deformity, ecchymosis or lacerations. No tenderness. Normal range of motion. Anterior drawer test negative. Normal pulse. Left Achilles Tendon: Normal. No tenderness or defects. Hopson's test negative. Pulmonary: Effort: Pulmonary effort is normal. No respiratory distress. Breath sounds: No stridor. Abdominal: General: There is no distension. Skin: General: Skin is warm and dry. Capillary Refill: Capillary refill takes less than 2 seconds. Coloration: Skin is not pale. Findings: No erythema. Neurological: General: No focal deficit present. Mental Status: She is alert. Motor: No abnormal muscle tone. Coordination: Coordination normal. Comments: Awake, alert and appropriate. Psychiatric: Mood and Affect: Mood normal. Behavior: Behavior normal. Behavior is cooperative. Thought Content: Thought content normal. Judgment: Judgment normal. . Laboratory & Radiographic Imaging (if done): No results found for this visit on 11/26/23. XR Ankle Left 3+ Views (Standard) Final Result Medial and lateral malleolar fractures with horizontal fracture through the medial malleolus and Marshall B fracture of the lateral malleolus. There is asymmetric widening of the medial clear sp (more content not included)... [facility] XR ANKLE LEFT 3+ VIEWS (EL AHUMADA)on 11-26-2023 XR ANKLE LEFT 3+ VIEWS (STANDARD) EXAMINATION: XR ANKLE LEFT 3+ VIEWS (STANDARD) HISTORY: Injury/Trauma or Illness?:Injury/Trauma How long have you had these symptoms (acute/chronic)?:Acute ORDERING SYSTEM PROVIDED HISTORY: ankle injury, TECHNOLOGIST PROVIDED HISTORY: Injury/Trauma Reason for exam: injury Cancer History: n Surgery, RadiationHistory: n Encounter Type: Initial Mechanism of injury: Left ankle pain x 4 weeks from rolling it on vacation. ORDERING SYSTEM PROVIDED DIAGNOSIS CODES: COMPARISON: None. IMPRESSION: Medial and lateral malleolar fractures with horizontal fracture through the medial malleolus and Marshall B fracture of the lateral malleolus. There is asymmetric widening of the medial clear space and narrowing of the lateral clear space. Small avulsion fragment near the tip of the lateral malleolus. Soft tissue swelling. Workstation ID: [id number] Dictated by: CALDERON BLANCO on [place] November 26, 2023 3:17:43 PM EDT Transcribed by: CALDERON BLANCO on [place] November 26, 2023 3:17:43 PM EDT Finalized by: CALDERON BLANCO on [place] November 26, 2023 3:17:43 PM EDT [facility] Comment on above: Order Comment: Injur y/Trauma or Illness?:Injury/Trauma How long have you had these symptoms (acute/chronic)?:Acute Reason for exam?:injury History of cancer?:n Surgeries, chemotherapy, or radiation?:n Type of Exam?:Initial Mechanism of injury?:Left ankle pain x 4 weeks from rolling it on vacation. CNCOon 10-26-2023 [facility] HNO ID: [id number] Author: COORDINATOR, MAMMOGRAPHY, ? Service: ? Author Type: Physician Type: Letter Filed: 10/26/2023 15:31 Note Text: October 27, 2023 PID: [id number] Lesley Dodson [address] [place] [address] Dear Ms. Dodson, We are pleased to inform you that the results of your recent breast imaging exam on 10/25/2023 are normal. Early detection of cancer is very important. We also understand recommendations regarding breast cancer screening are controversial. Please discuss with your primary care provider which strategy is best for you and whether a mammogram is right for you. Your imaging studies and report will be kept on file at [facility] as part of your permanent medical record and are available for your continuing care. Thank you for allowing us to help in meeting your health care needs. Sincerely, Dr. Baez Interpreting Radiologist [facility] (Normal over 40) Normal [facility] BD DXA - AXIAL SKELETONon BD DXA - AXIAL SKELETON * * *Final Report* * * DATE OF EXAM: Oct 25 2023 4:02PM CYNTHIA [id number] - BD DXA - AXIAL SKELETON B / PROCEDURE REASON: M81.0 age related osteoporosis w/o current pathological fracture * * * * Physician Interpretation * * * * EXAMINATION: DXA BONE DENSITOMETRY BD DXA - AXIAL SKELETON PATIENT DEMOGRAPHICS: Age: 68 years, Gender: Female SCANNER INFORMATION: DXA Model: My Own Crown [id number] Date Scanned: 10/25/2023 4:02 PM CLINICAL HISTORY: DIAGNOSTIC M81.0 age related osteoporosis w/o current pathological fracture. RISK FACTORS FOR OSTEOPOROSIS AND ASSOCIATED FRACTURES REPORTED BY THIS PATIENT: Please refer to Bone Health Questionnaire in the EMR CURRENT THERAPY: Please refer to Bone Health Questionnaire in the EMR TECHNICAL LIMITATIONS: Sclerotic appearing L3 vertebra. RESULTS: Lumbar Spine (L1, L2, L4): Total BMD: 0.982 g/cm2, T-score: -1.6 , Z-score: -0.3 Right Femoral Neck: 0.731 g/cm2 , T-score -2.2, Z-score -0.9 Right Total Hip: 0.796 g/cm2 , T-score -1.7, Z-score -0.6 Left Femoral Neck: 0.652 , T-score -2.8, Z-score -1.4 Left Total Hip: 0.755 g/cm2 , T-score -2.0 , Z-score -0.9 Forearm, Distal 1/3 of Radius: 0.687 g/cm2 , T-score -2.2 , Z-score -0.5 No comparison data - the patient has not had a previous bone density in the [facility] or the previous bone density was performed on a different DXA machine (new, updated model or different location) within the [facility]. VERTEBRAL FRACTURE ASSESSMENT Not performed. TRABECULAR BONE ASSESSMENT TBS score: 1.145 Bone micro-architecture: : degraded (< or = 1.230) IMPRESSION: Sclerotic appearing L3 vertebra, not present on previous abdominal image. This could be due to compression fracture, vertebral augmentation or hardware. Please correlate clinically and/or obtained lumbar series for correlation. THE LOWEST T-SCORE IS -2.8 IN THE LEFT HIP 1) DIAGNOSIS (based on BMD alone): OSTEOPOROSIS Caution: Medical conditions other than osteoporosis may cause low bone density, such as osteomalacia or renal osteodystrophy. Clinical correlation is necessary. 2) FRACTURE RISK (Based on TBS adjusted FRAX): 10-year absolute fracture risk: - major osteoporotic fracture =18.3 % - hip fracture = 5.2 % - A diagnosis of Osteoporosis, a 10 year probability of hip fracture greater than or equal to 3% or a 10 year probability of any major osteoporosis-related fracture greater than or equal to 20% should be considered for treatment. - DXA scanner generated FRAX calculations may slightly differ from online FRAX calculations due to differences in software versions. - All recommendations and calculations are to be considered as guidelines and should not replace sound clinical judgement - Caution: Fracture risk may be increased independent of BMD in patients with corticosteroid use, age greater than 65 years, or a history of prior fragility fracture. RECOMMENDATIONS: Follow-up in 2 years or as clinically indicated. Patients that are taking corticosteroids, are transplant recipients or have hyperparathyroidism should have annual follow-up. Follow-up scans should always be done on the same machine for accurate comparison. FOR MORE INFORMATION ABOUT DIAGNOSIS AND TREATMENT: [facility] Center for Osteoporosis and Metabolic Bone Disease:? www.ccf.org/arthritis/os hali National Osteoporosis Foundation:? www.nof.org International Society of Clinical Densitometry www.iscd.org Business Services Officer: KAYLEN Transcribe Date/Time: Oct 26 2023 8:02A Dictated by : SANCHEZ BOWER MD This examination was interpreted and the report reviewed and electronically signed by: SANCHEZ BOWER MD on Oct 26 2023 8:19AM EST [id number] Normal [facility] SCREENINGon 10-25-2023 [facility] SCREENING * * *Final Report* * * DATE OF EXAM: Oct 25 2023 4:02PM RICKEY [id number] - [facility] SCREENING / PROCEDURE REASON: Z12.31 SCREENING MAMMOGRAM * * * * Physician Interpretation * * * * #[id number] - [facility] SCREENING BILATERAL DIGITAL SCREENING MAMMOGRAM WITH CAD: 10/25/2023 HISTORY: Z12.31 Screening Mammogram / Screening Mammogram-Patient reports NO symptoms. RESULT: TECHNIQUE: The study was acquired using full field digital technology and interpreted from soft copy. Current study was also evaluated with a Computer Aided Detection (CAD). Comparison is made to exams dated: 05/05/2020 mammogram - [facility] and 03/06/2019 mammogram - [facility]. The breasts are almost entirely fatty. There are benign calcifications in both breasts. No significant masses, calcifications, or other findings are seen in either breast. There has been no significant interval change. IMPRESSION: BENIGN FINDING There is no mammographic evidence of malignancy. A 1 year screening mammogram is recommended. Luba Baez M.D., jr/rolanda:10/26/2023 15:31:21 Surgical Nurse(s): RT Barbara(Dean)(M), [facility] letter sent: Normal over 40 Mammogram BI-RADS: 2 Benign finding Multiple national specialty organizations have released breast cancer screening guidelines for women at average risk for developing breast cancer - guidelines that are based on both evidence and opinion, yet differ on when to start and how often to screen for breast cancer. With representation from Breast Imaging, Internal Medicine, Women's Health, Family Medicine, and Medical/Surgical Oncology, the [facility] has carefully reviewed the data and reached the following consensus: 1) All women should engage in shared decision-making with their providers to decide when to start and how often to screen; 2) All women should have the opportunity to start screening mammography at age 40; 3) For women ages 45-55, we recommend annual screening mammograms; 4) For women ages 55 and over, we support both the transition from an annual to a biennial interval if this aligns more with patient's values and preferences, or continuation with annual screening; 5) All women should discuss with their providers when to stop screening mammograms. Business Services Officer: Rolanda Transcribe Date/Time: Oct 25 2023 3:00P Dictated by : LUBA BAEZ MD This examination was interpreted and the report reviewed and electronically signed by: LUBA BAEZ MD on Oct 26 2023 3:31PM EST [id number] [facility] CT LUMBAR SPINE WO IV CONTRA STon 07-12-2023 CT LUMBAR SPINE WO IV CONTRAST STUDY: CT Lumbar Spine without IV Contrast; 07/12/2023, 10:03AM. INDICATION: Low back pain post fall. COMPARISON: None. ACCESSION NUMBER(S): [id number] ORDERING CLINICIAN: GIRISH SOTO TECHNIQUE: CT of the lumbar spine was performed without intravenous or intrathecal contrast. Sagittal and coronal reconstructions were generated. Automated mA/kV exposure control was utilized and patient examination was performed in strict accordance with principles of ALARA. FINDINGS: The alignment is anatomic. There is a burst fracture involving the L3 vertebral body with accompanying 40-50% loss of height centrally 4 to 5 mm of posterior retropulsion of the inferior endplate of L3 posteriorly.. Moderate to severe disc space narrowing at L4-5 and L1-2. No significant central canal stenosis is demonstrated. Broad-based disc bulges throughout the lumbar spine. Mild neuroforaminal narrowing at L4-5 bilaterally.. The paravertebral soft tissues are within normal limits. The visualized abdomen is unremarkable. IMPRESSION: Burst fracture involving the L3 vertebral body with accompanying 40-50% loss of height centrally 4 to 5 mm of posterior retropulsion of the inferior endplate of L3 posteriorly. Signed by Catarino Rojas MD [facility] XR HIP RIGHT WITH PELVIS WHE N PERFORMED 2 OR 3 VIEWSon 07-12-2023 XR HIP RIGHT WITH PELVIS WHEN PERFORMED 2 OR 3 VIEWS STUDY: Pelvis and Right Hip Radiographs; 07/12/2023, 10:06AM. INDICATION: Pain post fall. COMPARISON: None. ACCESSION NUMBER(S): [id number] ORDERING CLINICIAN: GIRISH SOTO TECHNIQUE: AP view of the pelvis and two view(s) of the right hip. FINDINGS: PELVIS: The pelvic ring is intact. There is no acute fracture. RIGHT HIP: There is no displaced fracture. The alignment is anatomic. No soft tissue abnormality is seen. IMPRESSION: No acute osseous abnormality. Signed by Catarino Rojas MD [facility] Clinic Note - Heme Onc Sched roshnion 02-02-2023 Clinic Note - Heme Onc Scheduling Retrieve Patient Instructions: Patient Instructions: Patient Instructions: RetrievePatient Instructions Instructions Typenutrition Instructions CBC, CMP, Iron indices, VitB12, Folate, RTC 6 months Return Appointment: Physician/Dept/ServiceDr Daxa Malone Appointment Date & [id number] 01:00 [phone] Comments6 Month Follow up/arrive at 12:40 for intake Treatment Center Appointment: Commentslabs to be done prior to next MD appt End of Visit Documentation: Clinic Location/Phone Number: Clinic Location/Phone Number: [place] [phone] End Of Visit MU Report Item: Visit Summary given or mailed to patientyes Electronic Signatures: Yolette Valdes (Rev Cycl Spec) (Signed 02-Feb-2023 13:43) Authored: Retrieve Patient Instructions, RETURN VISITS, TREATMENT CENTER APPOINTMENTS, End of Visit Documentation Last Updated: 02-Feb-2023 13:43 by Yolette Valdes (Rev Cycl Spec) Normal [facility] Clinic Note - Heme Onc-Follo w Up Visiton 02-02-2023 Clinic Note - Heme Onc-Follow Up Visit Patient Visit Information: Visit Type: Follow Up Visit History of Present Illness: ID Statement: LESLEY DODSON is a 67 year old Female Chief Complaint: follow-up Interval History: The patient had come for a follow up on 02/02/23 regarding her history of LEYLA. She is on oral iron replacement therapy and is feeling better compared to previous evaluation. Denies any new symptoms. The patient is sad due to recent demise of her sister in a car accident. Past medical history: 1. Hypertension 2. Hyperlipidemia 3. Anemia 4. Coronary artery disease with anterior wall myocardial infarction, left ventricular ejection fraction 40-45%. Status post CABG in May 2022 Past surgical history/procedure history 1. Coronary angiogram on May 23, 2016 at 60 years 2. Percutaneous coronary angioplasty on May 23, 2016 at 60 years 3. Drug eluting stent on May 23, 2016 at 60 years 4. Neck dissection 5. Appendectomy 6. Cholecystectomy 7. Hysterectomy 8. Right rotator cuff surgery 9. CABG on May 02, 2022. Colonoscopy: January 30, 2023 Review of Systems: System ReviewAll other systems have been reviewed and are negative for complaint. ConstitutionalNEGATIVE: Fever, Chills, Anorexia, Weight Loss, Malaise EyesNEGATIVE: Blurry Vision, Drainage, Diploplia, Redness, Vision Loss/ Change ENMTNEGATIVE: Nasal Discharge, Nasal Congestion, Ear Pain, Mouth Pain, Throat Pain RespiratoryNEGATIVE: Dry Cough, Productive Cough, Hemoptysis, Wheezing, Shortness of Breath CardiologyNEGATIVE: Chest Pain, Dyspnea on Exertion, Orthopnea, Palpitations, Syncope GastrointestinalNEGATIVE : Abdominal Pain, Constipation, Diarrhea, Nausea, Vomiting GenitourinaryNEGATIVE: Discharge, Dysuria, Flank Pain, Frequency, Hematuria MusculoskeletalNEGATIVE: Decreased ROM, Pain, Swelling, Stiffness, Weakness NeurologicalNEGATIVE: Dizziness, Confusion, Headache, Seizures, Syncope PsychiatricNEGATIVE: Mood Changes, Anxiety, Hallucinations, Sleep Changes, Suicidal Ideas SkinNEGATIVE: Mass, Pain, Pruritus, Rash, Ulcer EndocrineNEGATIVE: Heat Intolerance, Cold Intolerance, Sweat, Polyuria, Thirst Hematologic/LymphNEGATIV E: Anemia, Bruising, Easy Bleeding, Night Sweats, Petechiae Allergic/ImmunologicNEGA TIVE: Anaphylaxis, Itchy/ Teary Eyes, Itching, Sneezing, Swelling BreastNEGATIVE: Pain, Mass, Discharge, Nipple Itching, Gynecomastia Allergies and Intolerances: Allergies: penicillin: Drug, Rash, Active Cipro: Drug, Swelling/Edema, Facial Swelling, Rash, Hives/Urticaria, Active Outpatient Medication Profile: * Patient Currently Takes Medications as of 12-Aug-2022 14:31 documented in Structured Notes Ferrex-150 oral capsule: 1 cap(s) orally 2 times a day 30 minutes after a meal , Start Date: 02-Dec-2021 Vitamin D3 2000 intl units (50 mcg) oral tablet: One tab, once a day. amLODIPine 2.5 mg oral tablet: 1 tab(s) orally once a day Zetia 10 mg oral tablet: 1 tab(s) orally once a day Lipitor 80 mg oral tablet: 1 tab(s) orally once a day (at bedtime) pantoprazole 40 mg oral delayed release tablet: 1 tab(s) orally once a day PARoxetine 10 mg oral tablet: 1 tab(s) orally once a day ramipril 10 mg oral capsule: 1 cap(s) orally once a day Boniva 150 mg oral tablet: 1 tab(s) orally once a month aspirin 81 mg oral tablet: 1 tab(s) orally once a day metoprolol tartrate 100 mg oral tablet: 1 tab(s) orally once a day Feraheme: 510 milligram(s) intravenous x2 doses Medical History: Hiatal hernia: ICD-10: K44.9, Status: Active CAD (coronary artery disease): ICD-10: I25.10, Status: Active HLD (hyperlipidemia): ICD-10: E78.5, Status: Active HTN (hypertension): ICD-10: I10, Status: Active Iron deficiency anemia: ICD-10: D50.9, Status: Active Surg History: H/O: hysterectomy: ICD-10: Z90.710, Status: Active History of appendectomy: ICD-10: Z90.49, Status: Active Social History: Social Substance History: Social Historydenies smoking, alcohol and drug use Smoking Statusnever smoker (1) Tobacco Usedenies Alcohol Usedenies Drug Usedenies Physical Exam: Constitutional: Well developed, awake/alert/oriented x3, no distress, alert and cooperative Eyes: PERRL, EOMI, clear sclera ENMT: mucous membranes moist, no apparent injury, no lesions seen Head/Neck: Neck supple, no apparent injury, thyroid without mass or tenderness, No JVD, trachea midline, no bruits Respiratory/Thorax: Patent airways, CTAB, normal breath sounds with good chest expansion, thorax symmetric Cardiovascular: Regular, rate and rhythm, no murmurs, 2+ equal pulses of the extremities, normal S 1and S 2 Gastrointestinal: Nondistended, soft, non-tender, no rebound tenderness or guarding, no masses palpable, no organomegaly, +BS, no bruits Genitourinary: No Discharge, vesicles or other abnormalities Musculoskeletal: ROM intact, no joint swelling, n (more content not included)... Normal [facility] Clinic Note - Intakeon 02-02 Clinic Note - Intake Patient Visit Information: Visit TypeFollow Up Visit Patient Statesfollow up Source of Informationpatient Admission Information: Admission Since Last VisitNo Vital Signs: Temp (degrees C)36.5 degrees C Temperaturecore Heart Rate (beats/min)73 beats per minute Respiration (breaths/min)20 breath per minute BP Systolic (mm Hg)Image has been removed. 186 mmHg BP Diastolic (mm Hg)Image has been removed. 103 mmHg BP Mean (mm Hg)Image has been removed. 130 mmHg Height in cm154 centimeter(s) Heightstanding Weight in kg80.1 kilogram(s) Weightstanding BMI (kg/m2)33.7 kg/M2 BSA (m2)1.85 M2 Second Set of Vitals/Vitals Ohgbiww482/92 manual Last 3 Weights & HeightsDate: Weight/Scale Type:Height: 12-Aug-2022 14:1876.3 kg 154 cm 25-Mar-2022 13:2473.5 kg 154 cm SpO2 (%)99 % SpO2 Patient Onroom air Pain Screening: Patient States Painno (0) [employer] Manager for intimate exam offered to patient: Patient hasdeclined Allergies: penicillin: Drug, Rash, Active Cipro: Drug, Swelling/Edema, Facial Swelling, Rash, Hives/Urticaria, Active Outpatient Medication Profile: * Patient Currently Takes Medications as of 02-Feb-2023 13:37 documented in Structured Notes Ferrex-150 oral capsule: Last Dose Taken: , 1 cap(s) orally 2 times a day 30 minutes after a meal , Start Date: 02-Dec-2021 Vitamin D3 2000 intl units (50 mcg) oral tablet: Last Dose Taken: , One tab, once a day. amLODIPine 2.5 mg oral tablet: Last Dose Taken: , 1 tab(s) orally once a day Zetia 10 mg oral tablet: Last Dose Taken: , 1 tab(s) orally once a day Lipitor 80 mg oral tablet: Last Dose Taken: , 1 tab(s) orally once a day (at bedtime) pantoprazole 40 mg oral delayed release tablet: Last Dose Taken: , 1 tab(s) orally once a day PARoxetine 10 mg oral tablet: Last Dose Taken: , 1 tab(s) orally once a day ramipril 10 mg oral capsule: Last Dose Taken: , 1 cap(s) orally once a day Boniva 150 mg oral tablet: Last Dose Taken: , 1 tab(s) orally once a month aspirin 81 mg oral tablet: Last Dose Taken: , 1 tab(s) orally once a day metoprolol tartrate 100 mg oral tablet: Last Dose Taken: , 1 tab(s) orally once a day Feraheme: Last Dose Taken: , 510 milligram(s) intravenous x2 doses Notification: NotificationsAnnual Screens Due Dates Advanced Directives: Aug 12, 2023 Family Violence: Aug 12, 2023 Depression (Due every 6 months for ONC only; all others use Annual date): Feb 08, 2023 Substance Use - Alcohol: Aug 12, 2023 Substance Use - Drugs: Aug 12, 2023 Nutrition: Feb 02, 2024 Learning: Feb 02, 2024 Travel History: COVID-19 Screening Completedno exposure or symptoms Travel or ExposureNO travel to International locations in the past 30 days Falls: Have you fallen in the last 6 monthsno Do you have a fear of fallingno Do you feel you need assistanceno Is the patient using an assistive deviceno Not a falls riskimplement environmental risk factors interventions Oncology Nutrition: During the past 2 weeks, weight has(0) not changed Intake past month, compared to normal intake(0) unchanged Problems keeping me from eating past 2 weeks (0) no problem eating In the past month, my activity/functioning rating is(0) normal with no limitations Clinician notifiedno Score 6 or > notify clinician0 Nutrition/Learning: In the past month, was there any day when you or anyone in your family went hungry because you didn't have enough foodno Primary LanguageEnglish Do you, or others today, need extra help due to problems with hearing,speaking, seeing, moving around or learningno Electronic Signatures: Zully Marti) (Signed 02-Feb-2023 13:38) Authored: Patient Visit Information, Vital Signs, [employer] Manager, Allergies, Outpatient Medication Profile, Notification, Travel History, Falls, Oncology Nutrition, Nutrition/Learning Mandie Elizabeth) (Signed 02-Feb-2023 13:42) Authored: Vital Signs, Notification Last Updated: 02-Feb-2023 13:42 by Mandie ElizabethRN) Normal [facility] CBC AND DIFFERENTIALon 11-16 % AUTOMATED IMMATURE GRAN 0.4 % Normal 0.0 - 0.9 [facility] Comment on above: Result Comment: Gme ture Granulocyte Count (IG) includes promyelocytes, myelocytes and metamyelocytes but does not include bands. Percent differential counts (%) should be interpreted in the context of the absolute cell counts (cells/L). Performed By: #### C BCDF #### [address] [address] Basophils (Bld) [#/Vol] 0.04 10*3/uL Normal 0.00 - 0.10 [facility] Comment on above: Performed By: #### C BCDF #### [address] [address] Basophils/100 WBC (Bld) 0.7 % Normal 0.0 - 2.0 [facility] Comment on above: Performed By: #### C BCDF #### [address] [address] Eosinophils (Bld) [#/Vol] 0.06 10*3/uL Normal 0.00 - 0.70 [facility] Comment on above: Performed By: #### C BCDF #### [address] [address] Eosinophils/100 WBC (Bld) 1.1 % Normal 0.0 - 6.0 [facility] Comment on above: Performed By: #### C BCDF #### [address] [address] Erythrocyte distribution width (RBC) [Ratio] 14.8 % High 11.5 - 14.5 [facility] Comment on above: Performed By: #### C BCDF #### [address] [address] Hematocrit (Bld) [Volume fraction] 40.4 % Normal 36.0 - 46.0 [facility] Comment on above: Performed By: #### C BCDF #### [address] [address] Hemoglobin (Bld) [Mass/Vol] 12.8 g/dL Normal 12.0 - 16.0 [facility] Comment on above: Performed By: #### C BCDF #### [address] [address] Lymphocytes (Bld) [#/Vol] 0.93 10*3/uL Low 1.20 - 4.80 [facility] Comment on above: Performed By: #### C BCDF #### [address] [address] Lymphocytes/100 WBC (Bld) 16.9 % Normal 13.0 - 44.0 [facility] Comment on above: Performed By: #### C BCDF #### [address] [address] MCHC (RBC) [Mass/Vol] 31.7 g/dL Low 32.0 - 36.0 [facility] Comment on above: Performed By: #### C BCDF #### [address] [address] MCV (RBC) [Entitic vol] 84 fL Normal 80 - 100 [facility] Comment on above: Performed By: #### C BCDF #### [address] [address] Monocytes (Bld) [#/Vol] 0.52 10*3/uL Normal 0.10 - 1.00 [facility] Comment on above: Performed By: #### C BCDF #### [address] [address] Monocytes/100 WBC (Bld) 9.4 % Normal 2.0 - 10.0 [facility] Comment on above: Performed By: #### C BCDF #### [address] [address] Neutrophils (Bld) [#/Vol] 3.94 10*3/uL Normal 1.20 - 7.70 [facility] Comment on above: Result Comment: Perc ent differential counts (%) should be interpreted in the context of the absolute cell counts (cells/L). Performed By: #### C BCDF #### [address] [address] Neutrophils/100 WBC (Bld) 71.5 % Normal 40.0 - 80.0 [facility] Comment on above: Performed By: #### C BCDF #### [address] [address] Platelets (Bld) [#/Vol] 265 10*3/uL Normal 150 - 450 [facility] Comment on above: Performed By: #### C BCDF #### [address] [address] RBC 4.81 x10E12/L Normal 4.00 - 5.20 [facility] Comment on above: Performed By: #### C BCDF #### [address] [address] WBC (Bld) [#/Vol] 5.5 10*3/uL Normal 4.4 - 11.3 [facility] Comment on above: Performed By: #### C BCDF #### [address] [address] COMPREHENSIVE PANELon 2022 Albumin [Mass/Vol] 4.1 g/dL Normal 3.4 - 5.0 [facility] Comment on above: Performed By: #### C MP ####[address] [address] ALP [Catalytic activity/Vol] 87 U/L Normal 33 - 136 [facility] Comment on above: Performed By: #### C MP ####[address] [address] ALT [Catalytic activity/Vol] 16 U/L Normal 7 - 45 [facility] Comment on above: Result Comment: Belem ents treated with Sulfasalazine may generate falsely decreased results for ALT. Performed By: #### C MP ####[address] [address] Anion gap [Moles/Vol] 11 mmol/L Normal 10 - 20 [facility] Comment on above: Performed By: #### C MP ####[address] [address] AST [Catalytic activity/Vol] 16 U/L Normal 9 - 39 [facility] Comment on above: Performed By: #### C MP ####[address] [address] Bilirubin [Mass/Vol] 0.5 mg/dL Normal 0.0 - 1.2 [facility] Comment on above: Performed By: #### C MP ####[address] [address] Calcium [Mass/Vol] 9.7 mg/dL Normal 8.6 - 10.3 [facility] Comment on above: Performed By: #### C MP ####[address] [address] Chloride [Moles/Vol] 103 mmol/L Normal 98 - 107 [facility] Comment on above: Performed By: #### C MP ####[address] [address] Creatinine [Mass/Vol] 0.87 mg/dL Normal 0.50 - 1.05 [facility] Comment on above: Performed By: #### C MP ####[address] [address] GFR/1.73 sq M.predicted among non-blacks MDRD (S/P/Bld) [Vol rate/Area] 73 mL/min/{1.73_m2} Normal >90 [facility] Comment on above: Result Comment: CALC ULATIONS OF ESTIMATED GFR ARE PERFORMED USING THE 2020 CKD-EPI STUDY REFIT EQUATION WITHOUT THE RACE VARIABLE FOR THE IDMS-TRACEABLE CREATININE METHODS. https://jasn.asnjournals.org/content/early//ASN.9185872 988 Performed By: #### C MP ####[address] [address] Glucose [Mass/Vol] 94 mg/dL Normal 74 - 99 [facility] Comment on above: Performed By: #### C MP ####[address] [address] HCO3 (Bld) [Moles/Vol] 30 mmol/L Normal 21 - 32 [facility] Comment on above: Performed By: #### C MP ####[address] [address] Potassium [Moles/Vol] 4.5 mmol/L Normal 3.5 - 5.3 [facility] Comment on above: Performed By: #### C MP ####[address] [address] Protein [Mass/Vol] 6.9 g/dL Normal 6.4 - 8.2 [facility] Comment on above: Performed By: #### C MP ####[address] [address] Sodium [Moles/Vol] 139 mmol/L Normal 136 - 145 [facility] Comment on above: Performed By: #### C MP ####[address] [address] Urea nitrogen [Mass/Vol] 17 mg/dL Normal 6 - 23 [facility] Comment on above: Performed By: #### C MP ####[address] [address] FERRITINon 11-16-2022 FERRITIN 27 ug/L Normal 8 - 150 [facility] Comment on above: Performed By: #### F ERRI #### [address] [address] IRON + TIBCon 11-16-2022 % SATURATION 18 % Low 25 - 45 [facility] Comment on above: Performed By: #### I RONT #### [address] [address] Iron [Mass/Vol] 69 ug/dL Normal 35 - 150 [facility] Comment on above: Performed By: #### I RONT #### [address] [address] TIBC 373 ug/dL Normal 240 - 445 [facility] Comment on above: Performed By: #### I SERENA #### [id number] [place] [address] Clinic Note - Heme Onc Sched ulingon 08-12-2022 Clinic Note - Heme Onc Scheduling Retrieve Patient Instructions: Patient Instructions: Patient Instructions: RetrievePatient Instructions Instructions Typenutrition Instructions CBC, CMP, iron indices RTC 4 months. Please have lab work done one week prior to doctor visit Return Appointment: Physician/Dept/YahairaIn ammy & Dr Malone Appointment Date & [id number] 12:40 [facility] Documentation: Clinic Location/Phone Number: Clinic Location/Phone Number: [place] End Of Visit MU Report Item: Visit Summary given or mailed to patientyes Given to patient Electronic Signatures: Arianne Mauricio (SEC) (Signed 12-Aug-2022 14:57) Authored: Retrieve Patient Instructions, RETURN VISITS, End of Visit Documentation Last Updated: 12-Aug-2022 14:57 by Arianne Mauricio (SEC) [facility] Clinic Note - Heme Onc-Follo w Up Visiton 08-12-2022 Clinic Note - Heme Onc-Follow Up Visit Patient Visit Information: Visit Type: Follow Up Visit History of Present Illness: ID Statement: LESLEY DODSON is a 67 year old Female Chief Complaint: follow-up Interval History: The patient had come for a follow up on 08/12/22 regarding her history of LEYLA. She is on oral iron replacement therapy and is feeling better compared to previous evaluation. Denies any new symptoms. The patient is sad due to recent demise of her sister in a car accident. Review of systems: Gen.: No weight loss, fever, chills, or night sweats. EENT: No visual changes, eye pain, ear pain, changes in hearing, sore throat, or hoarseness. Cardiac: No chest pain or palpitations. Pulmonary: No shortness of breath, wheezing, or cough. Heme: No easy bleeding or bruising. GI: No abdominal pain. No n/v/d. : No burning with urination or increased frequency. No hematuria. Musculoskeletal: No joint swelling or joint pains. Skin: No rashes or lesions. Neck: No lumps or swollen glands. Breast: No lumps or pain. Neuro: No headaches, seizures, or tremor. Psychiatry: No anxiety, depression, or insomnia. Past medical history: 1. Hypertension 2. Hyperlipidemia 3. Anemia 4. Coronary artery disease with anterior wall myocardial infarction, left ventricular ejection fraction 40-45%. Status post CABG in May 2022 Past surgical history/procedure history 1. Coronary angiogram on May 23, 2016 at 60 years 2. Percutaneous coronary angioplasty on May 23, 2016 at 60 years 3. Drug eluting stent on May 23, 2016 at 60 years 4. Neck dissection 5. Appendectomy 6. Cholecystectomy 7. Hysterectomy 8. Right rotator cuff surgery Review of Systems: System ReviewAll other systems have been reviewed and are negative for complaint. ConstitutionalNEGATIVE: Fever, Chills, Anorexia, Weight Loss, Malaise EyesNEGATIVE: Blurry Vision, Drainage, Diploplia, Redness, Vision Loss/ Change ENMTNEGATIVE: Nasal Discharge, Nasal Congestion, Ear Pain, Mouth Pain, Throat Pain RespiratoryNEGATIVE: Dry Cough, Productive Cough, Hemoptysis, Wheezing, Shortness of Breath CardiologyNEGATIVE: Chest Pain, Dyspnea on Exertion, Orthopnea, Palpitations, Syncope GastrointestinalNEGATIVE : Abdominal Pain, Constipation, Diarrhea, Nausea, Vomiting GenitourinaryNEGATIVE: Discharge, Dysuria, Flank Pain, Frequency, Hematuria MusculoskeletalNEGATIVE: Decreased ROM, Pain, Swelling, Stiffness, Weakness NeurologicalNEGATIVE: Dizziness, Confusion, Headache, Seizures, Syncope PsychiatricNEGATIVE: Mood Changes, Anxiety, Hallucinations, Sleep Changes, Suicidal Ideas SkinNEGATIVE: Mass, Pain, Pruritus, Rash, Ulcer EndocrineNEGATIVE: Heat Intolerance, Cold Intolerance, Sweat, Polyuria, Thirst Hematologic/LymphNEGATIV E: Anemia, Bruising, Easy Bleeding, Night Sweats, Petechiae Allergic/ImmunologicNEGA TIVE: Anaphylaxis, Itchy/ Teary Eyes, Itching, Sneezing, Swelling BreastNEGATIVE: Pain, Mass, Discharge, Nipple Itching, Gynecomastia Allergies and Intolerances: Allergies: penicillin: Drug, Rash, Active Cipro: Drug, Swelling/Edema, Facial Swelling, Rash, Hives/Urticaria, Active Outpatient Medication Profile: * Patient Currently Takes Medications as of 12-Aug-2022 14:31 documented in Structured Notes Ferrex-150 oral capsule: Last Dose Taken: , 1 cap(s) orally 2 times a day 30 minutes after a meal , Start Date: 02-Dec-2021 Vitamin D3 2000 intl units (50 mcg) oral tablet: Last Dose Taken: , One tab, once a day. amLODIPine 2.5 mg oral tablet: Last Dose Taken: , 1 tab(s) orally once a day Zetia 10 mg oral tablet: Last Dose Taken: , 1 tab(s) orally once a day Lipitor 80 mg oral tablet: Last Dose Taken: , 1 tab(s) orally once a day (at bedtime) pantoprazole 40 mg oral delayed release tablet: Last Dose Taken: , 1 tab(s) orally once a day PARoxetine 10 mg oral tablet: Last Dose Taken: , 1 tab(s) orally once a day ramipril 10 mg oral capsule: Last Dose Taken: , 1 cap(s) orally once a day Boniva 150 mg oral tablet: Last Dose Taken: , 1 tab(s) orally once a month aspirin 81 mg oral tablet: Last Dose Taken: , 1 tab(s) orally once a day metoprolol tartrate 100 mg oral tablet: Last Dose Taken: , 1 tab(s) orally once a day Feraheme: Last Dose Taken: , 510 milligram(s) intravenous x2 doses Medical History: Hiatal hernia: ICD-10: K44.9, Status: Active CAD (coronary artery disease): ICD-10: I25.10, Status: Active HLD (hyperlipidemia): ICD-10: E78.5, Status: Active HTN (hypertension): ICD-10: I10, Status: Active Iron deficiency anemia: ICD-10: D50.9, Status: Active Surg History: H/O: hysterectomy: ICD-10: Z90.710, Status: Active History of appendectomy: ICD-10: Z90.49, Status: Active Family History: No Family History items are recorded in the problem list. Social History: Social Substance History: Social Historydenies smoking, alcohol and drug us (more content not included)... Normal [facility] Clinic Note - Intakeon 08-12 Clinic Note - Intake Patient Visit Information: Visit TypeFollow Up Visit Patient Statesfollow up Source of Informationpatient Admission Information: Admission Since Last VisitNo Vital Signs: Temp (degrees C)36.8 degrees C Temperaturecore Heart Rate (beats/min)64 beats per minute Respiration (breaths/min)16 breath per minute BP Systolic (mm Hg)Image has been removed. 167 mmHg BP Diastolic (mm Hg)Image has been removed. 104 mmHg BP Mean (mm Hg)Image has been removed. 125 mmHg Height in cm154 centimeter(s) Heightstanding Weight in kg76.3 kilogram(s) Weightstanding BMI (kg/m2)32.1 kg/M2 BSA (m2)1.8 M2 Last 3 Weights & HeightsDate: Weight/Scale Type:Height: 25-Mar-2022 13:2473.5 kg 154 cm 02-Dec-2021 13:4172.7 kg 154 cm SpO2 (%)100 % SpO2 Patient Onroom air Pain Screening: Patient States Painno (0) [employer] Manager for intimate exam offered to patient: Patient hasdeclined Allergies: penicillin: Drug, Rash, Active Cipro: Drug, Swelling/Edema, Facial Swelling, Rash, Hives/Urticaria, Active Outpatient Medication Profile: * Patient Currently Takes Medications as of 12-Aug-2022 14:31 documented in Structured Notes Ferrex-150 oral capsule: Last Dose Taken: , 1 cap(s) orally 2 times a day 30 minutes after a meal , Start Date: 02-Dec-2021 Vitamin D3 2000 intl units (50 mcg) oral tablet: Last Dose Taken: , One tab, once a day. amLODIPine 2.5 mg oral tablet: Last Dose Taken: , 1 tab(s) orally once a day Zetia 10 mg oral tablet: Last Dose Taken: , 1 tab(s) orally once a day Lipitor 80 mg oral tablet: Last Dose Taken: , 1 tab(s) orally once a day (at bedtime) pantoprazole 40 mg oral delayed release tablet: Last Dose Taken: , 1 tab(s) orally once a day PARoxetine 10 mg oral tablet: Last Dose Taken: , 1 tab(s) orally once a day ramipril 10 mg oral capsule: Last Dose Taken: , 1 cap(s) orally once a day Boniva 150 mg oral tablet: Last Dose Taken: , 1 tab(s) orally once a month aspirin 81 mg oral tablet: Last Dose Taken: , 1 tab(s) orally once a day metoprolol tartrate 100 mg oral tablet: Last Dose Taken: , 1 tab(s) orally once a day Feraheme: Last Dose Taken: , 510 milligram(s) intravenous x2 doses Notification: NotificationsAnnual Screens Due Dates Advanced Directives: Aug 12, 2023 Family Violence: Aug 12, 2023 Depression (Due every 6 months for ONC only; all others use Annual date): Feb 08, 2023 Substance Use - Alcohol: Aug 12, 2023 Substance Use - Drugs: Aug 12, 2023 Nutrition: Aug 12, 2023 Learning: Aug 12, 2023 Travel History: COVID-19 Screening Completedno exposure or symptoms Travel or ExposureNO travel to International locations in the past 30 days Falls: Have you fallen in the last 6 monthsno Do you have a fear of fallingno Do you feel you need assistanceno Is the patient using an assistive deviceno Not a falls riskimplement environmental risk factors interventions Spiritual/Procedural: Spiritual/cultural/relig ious practices important for us to knowno Oncology Nutrition: During the past 2 weeks, weight has(0) not changed Intake past month, compared to normal intake(0) unchanged Problems keeping me from eating past 2 weeks (0) no problem eating In the past month, my activity/functioning rating is(0) normal with no limitations Clinician notifiedno Score 6 or > notify clinician0 Adv Dir: Living [facility] POAyes Living Will Formsdocument already in EMR Healthcare POA Formsdocument already in EMR Violence: Are you or have you been threatened or abused physically,emotionally or sexually abused by anyoneno Do you feel UNSAFE going back to the place you are livingno Depression: Past 2 wks: Crozier down, depressed or hopelessno Past 2 wks: Crozier little interest/pleasure doing thingsno Any Thoughts of Harming Othersno In the Past Month: Have you wished you were or could go to sleep and not wake upno In the Past Month: Have you had any actual thoughts of killing yourselfno Substance: How many times in the past year have you had 4 or more drinks within 24 hours0 How many times in past year have you used recreational or prescription drugs for non-medical reasons0 Nutrition/Learning: In the past month, was there any day when you or anyone in your family went hungry because you didn't have enough foodno Primary LanguageEnglish Do you, or others today, need extra help due to problems with hearing,speaking, seeing, moving around or learningno Electronic Signatures: Zully Marti) (Signed 12-Aug-2022 14:34) Authored: Patient Visit Information, Vital Signs, [employer], Allergies, Outpatient Medication Profile, Notification, Travel History, Falls, Spiritual/Procedural, Oncology Nutrition, Adv Dir, Violence, Depression, Substance, Nutrition/Learning Last Updated: 12-Aug-2022 14:34 by Zully Marti) Normal [facility] Established Visit (Otolaryng ology)on 08-09-2022 Established Visit (Otolaryngology) Diagnoses/Problems 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 Hypothyroidism for which she is on Synthroid. I will see her in one year. Provider Impressions No obvious evidence of any recurrence of the patient's previously treated submandibular gland cancer. Hypothyroidism for which she is on Synthroid. I will see her in one year. 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 This was treated surgically followed by radiation therapy. She has no issues are related to the head neck. She is hypothyroid and takes Synthroid the 112 mcg. her TSH is being followed at home. The last TSH in April 2022 was normal. She had a chest x-ray in May 2022 which was negative. Since I last saw her she had heart surgery. She seems to be recovering well. 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) Hypothyroidism (244.9) (E03.9) Observation for suspected malignant neoplasm (V71.1) (Z03.89) Past Medical History History of Acute Myocardial Infarction (V12.59) History of Anxiety (300.00) (F41.9) History of Bladder disorder (596.9) (N32.9) History of Coronary Artery Disease (V12.59) History of heartburn (V12.79) (Z87.898) History of hyperlipidemia (V12.29) (Z86.39) History of hypertension (V12.59) (Z86.79) Surgical History History of Appendectomy History of Cath Stent Placement Resolved Date: 24 Dec 2003 History of Gallbladder Surgery History of Hysterectomy History of Surgery Excision Of Parotid Tumor/Gland History of Tonsillectomy Family History Family history of Arthritis (V17.7) Family history of Gastric Rupture Family history of Respiratory Arrest Family history of Laryngeal Cancer (V16.2) Family history of Alcohol Family history of Arthritis (V17.7) Family history of Drug Use prescription drugs Family history of Fibromyalgia Family history of Stroke Syndrome (V17.1) Family history of Systemic Lupus Erythematosus Family history of Family Health Status Of Father - Family history of Family Health Status Of Mother - Family history of Family Health Status Of Sister - Social History Being A Social Drinker Former smoker (V15.82) (Z87.891) Marital History - (V61.03) 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 Boniva 150 MG TABSTAKE 1 TABLET ONCE MONTHLY. [facility] Aspirin Adult Low Dose 81 MG Oral Tablet ChewableTAKE 2 TABLETS BY MOUTH EVERY DAY Docusate Sodium 100 MG Oral CapsuleTAKE 1 CAPSULE BY MOUTH TWICE DAILY NEEDED FOR CONSTIPATION. Doxycycline Monohydrate 100 MG Oral TabletTAKE 1 TABLET BY MOUTH TWICE A DAY Ferrous Sulfate 325 (65 Fe) MG Oral TabletTAKE 1 TABLET BY MOUTH EVERY DAY Lipitor 80 MG Oral TabletTAKE 1 TABLET DAILY. Metoprolol Tartrate 25 MG Oral TabletTAKE 1 TABLET BY MOUTH EVERY 12 HOURS NexIUM 40 MG Oral Capsule Delayed ReleaseTAKE 1 CAPSULE DAILY. Nitroglycerin 0.3 MG Sublingual Tablet SublingualDISSOLVE 1 TABLET UNDER THE TONGUE NEEDED FOR CHEST PAIN- MAY REPEAT EVERY 5 MINUTES IF NEEDED ( MAX 3 DOSES.- IF NO RELIEF CALL 911) oxyCODONE HCl - 5 MG Oral TabletTAKE 1 TABLET BY MOUTH EVERY 6 HOURS NEEDED FOR PAIN FOR UP TO 7 DAYS. Paxil 10 MG Oral TabletTAKE 1 TABLET DAILY DIRECTED. Plavix 75 MG Oral TabletTAKE 1 TABLET DAILY. Polysaccharide Iron Complex 150 MG Oral Capsule1 CAP(S) ORALLY 2 TIMES A DAY 30 MINUTES AFTER A MEAL Ramipril 2.5 MG Oral CapsuleTAKE 1 CAPSULE BY MOUTH ONCE DAILY Synthroid 112 MCG Oral TabletTAKE 1 TABLET DAILY DIRECTED. Temazepam 15 MG Oral Capsule Zetia 10 MG Oral TabletTAKE 1 TABLET DAILY. Zolpidem Tartrate 5 MG Oral TabletTAKE 1 TABLET BY MOUTH EVERY DAY AT BEDTIME Physical Exam On examination the oral cavity and oropharynx are within normal limits. Palpation of the parotid and neck fails to show any worrisome masses or adenopathies. She does have weakness of the marginal branch of the facial which has been present all along. She is status post neck dissection on the left side. 'Scores and Scales' Signatures Electronically signed by : Scott Brasher MD; Aug 09 2022 8:59AM EST (Author) Normal [employer] Tobacco Screening.on 023 Fall risk assessment a) No falls within the last year [facility]-Otolaryng ology-[facility] Work Phone: Tobacco use status [facility] b) No Break Media-Otolaryng ology-[facility] Work Phone: CBC AND DIFFERENTIALon 08-08 % AUTOMATED IMMATURE GRAN 0.2 % Normal 0.0 - 0.9 [facility] Comment on above: Result Comment: Gem ture Granulocyte Count (IG) includes promyelocytes, myelocytes and metamyelocytes but does not include bands. Percent differential counts (%) should be interpreted in the context of the absolute cell counts (cells/L). Performed By: #### C BCDF #### [address] [address] Basophils (Bld) [#/Vol] 0.07 10*3/uL Normal 0.00 - 0.10 [facility] Comment on above: Performed By: #### C BCDF #### [address] [address] Basophils/100 WBC (Bld) 1.3 % Normal 0.0 - 2.0 [facility] Comment on above: Performed By: #### C BCDF #### [address] [address] Eosinophils (Bld) [#/Vol] 0.09 10*3/uL Normal 0.00 - 0.70 [facility] Comment on above: Performed By: #### C BCDF #### [address] [address] Eosinophils/100 WBC (Bld) 1.7 % Normal 0.0 - 6.0 [facility] Comment on above: Performed By: #### C BCDF #### [address] [address] Erythrocyte distribution width (RBC) [Ratio] 12.4 % Normal 11.5 - 14.5 [facility] Comment on above: Performed By: #### C BCDF #### [address] [address] Hematocrit (Bld) [Volume fraction] 39.6 % Normal 36.0 - 46.0 [facility] Comment on above: Performed By: #### C BCDF #### [address] [address] Hemoglobin (Bld) [Mass/Vol] 12.4 g/dL Normal 12.0 - 16.0 [facility] Comment on above: Performed By: #### C BCDF #### [address] [address] Lymphocytes (Bld) [#/Vol] 0.99 10*3/uL Low 1.20 - 4.80 [facility] Comment on above: Performed By: #### C BCDF #### [address] [address] Lymphocytes/100 WBC (Bld) 18.5 % Normal 13.0 - 44.0 [facility] Comment on above: Performed By: #### C BCDF #### [address] [address] MCHC (RBC) [Mass/Vol] 31.3 g/dL Low 32.0 - 36.0 [facility] Comment on above: Performed By: #### C BCDF #### [address] [address] MCV (RBC) [Entitic vol] 87 fL Normal 80 - 100 [facility] Comment on above: Performed By: #### C BCDF #### [address] [address] Monocytes (Bld) [#/Vol] 0.55 10*3/uL Normal 0.10 - 1.00 [facility] Comment on above: Performed By: #### C BCDF #### [address] [address] Monocytes/100 WBC (Bld) 10.3 % Normal 2.0 - 10.0 [facility] Comment on above: Performed By: #### C BCDF #### [address] [address] Neutrophils (Bld) [#/Vol] 3.65 10*3/uL Normal 1.20 - 7.70 [facility] Comment on above: Result Comment: Perc ent differential counts (%) should be interpreted in the context of the absolute cell counts (cells/L). Performed By: #### C BCDF #### [address] [address] Neutrophils/100 WBC (Bld) 68.0 % Normal 40.0 - 80.0 [facility] Comment on above: Performed By: #### C BCDF #### [address] [address] Platelets (Bld) [#/Vol] 268 10*3/uL Normal 150 - 450 [facility] Comment on above: Performed By: #### C BCDF #### [address] [address] RBC 4.57 x10E12/L Normal 4.00 - 5.20 [facility] Comment on above: Performed By: #### C BCDF #### [address] [address] WBC (Bld) [#/Vol] 5.4 10*3/uL Normal 4.4 - 11.3 [facility] Comment on above: Performed By: #### C BCDF #### [address] [address] COMPREHENSIVE PANELon 2022 Albumin [Mass/Vol] 4.1 g/dL Normal 3.4 - 5.0 [facility] Comment on above: Performed By: #### C MP #### [address] [address] ALP [Catalytic activity/Vol] 97 U/L Normal 33 - 136 [facility] Comment on above: Performed By: #### C MP #### [address] [address] ALT [Catalytic activity/Vol] 15 U/L Normal 7 - 45 [facility] Comment on above: Result Comment: Belem ents treated with Sulfasalazine may generate falsely decreased results for ALT. Performed By: #### C MP #### [address] [address] Anion gap [Moles/Vol] 10 mmol/L Normal 10 - 20 [facility] Comment on above: Performed By: #### C MP #### [address] [address] AST [Catalytic activity/Vol] 15 U/L Normal 9 - 39 [facility] Comment on above: Performed By: #### C MP #### [address] [address] Bilirubin [Mass/Vol] 0.4 mg/dL Normal 0.0 - 1.2 [facility] Comment on above: Performed By: #### C MP #### [address] [address] Calcium [Mass/Vol] 9.9 mg/dL Normal 8.6 - 10.3 [facility] Comment on above: Performed By: #### C MP #### [address] [address] Chloride [Moles/Vol] 106 mmol/L Normal 98 - 107 [facility] Comment on above: Performed By: #### C MP #### [address] [address] Creatinine [Mass/Vol] 0.88 mg/dL Normal 0.50 - 1.05 [facility] Comment on above: Performed By: #### C MP #### [address] [address] GFR/1.73 sq M.predicted among non-blacks MDRD (S/P/Bld) [Vol rate/Area] 72 mL/min/{1.73_m2} Normal >90 [facility] Comment on above: Result Comment: CALC ULATIONS OF ESTIMATED GFR ARE PERFORMED USING THE 2020 CKD-EPI STUDY REFIT EQUATION WITHOUT THE RACE VARIABLE FOR THE IDMS-TRACEABLE CREATININE METHODS. https://jasn.asnjournals.org/content/early//ASN.7605128 988 Performed By: #### C MP #### [address] [address] Glucose [Mass/Vol] 81 mg/dL Normal 74 - 99 [facility] Comment on above: Performed By: #### C MP #### [address] [address] HCO3 (Bld) [Moles/Vol] 28 mmol/L Normal 21 - 32 [facility] Comment on above: Performed By: #### C MP #### [address] [address] Potassium [Moles/Vol] 4.1 mmol/L Normal 3.5 - 5.3 [facility] Comment on above: Performed By: #### C MP #### [address] [address] Protein [Mass/Vol] 6.6 g/dL Normal 6.4 - 8.2 [facility] Comment on above: Performed By: #### C MP #### [address] [address] Sodium [Moles/Vol] 140 mmol/L Normal 136 - 145 [facility] Comment on above: Performed By: #### C MP #### [address] [address] Urea nitrogen [Mass/Vol] 15 mg/dL Normal 6 - 23 [facility] Comment on above: Performed By: #### C MP #### [facility] [address] [id number] Complete Blood Count + Diffe james 08-08-2022 Basophils/100 WBC (Bld) 1.3 % 0.0 - 2.0 [facility]jani[facility] Micaela peterson Work Phone: Erythrocyte distribution width (RBC) [Ratio] 12.4 % See Below [facility]-Otjaniyag travis-Barbara peterson Work Phone: Comment on above: Reference Range: 11. 5 - 14.5 Hematocrit (Bld) [Volume fraction] 39.6 % See Below NewvemGildag travis-Barbara peterson Work Phone: Comment on above: Reference Range: 36. 0 - 46.0 Hemoglobin (Bld) [Mass/Vol] 12.4 g/dL See Below [employer]-Ottrinaynjose robles-Barbara peterson Work Phone: Comment on above: Reference Range: 12. 0 - 16.0 Lymphocytes/100 WBC (Bld) 18.5 % See Below evolsoTriny roblesNewvemBarbara peterson Work Phone: Comment on above: Reference Range: 13. 0 - 44.0 MCHC (RBC) [Mass/Vol] 31.3 g/dL below low threshold See Below MG-Otjaniyag Micaela peterson Work Phone: Comment on above: Reference Range: 32. 0 - 36.0 MCV (RBC) [Entitic vol] 87 fL 80 - 100 -Otcory roblesNewvemBarbara peterson Work Phone: Monocytes/100 WBC (Bld) 10.3 % 2.0 - 10.0 [facility]-Otolaryng travis-Barbara peterson Work Phone: Neutrophils/100 WBC (Bld) 68.0 % See Below MGNewvemGildag travisNewvemBarbara peterson Work Phone: Comment on above: Reference Range: 40. 0 - 80.0 Platelets (Bld) [#/Vol] 268 10*3/uL 150 - 450 VetCloudcory SchoolnethectorNewvemBarbara peterson Work Phone: RBC (Bld) [#/Vol] 4.57 {x10E12/L} See Below Lakalacory bondChorushectorNewvemBarbara peterson Work Phone: Comment on above: Reference Range: 4.0 0 - 5.20 WBC (Bld) [#/Vol] 5.4 10*3/uL 4.4 - 11.3 VetCloudformerly [facility] MValve technologiesjoseNewvemBarbara lensgen Work Phone: Complete Blood Count + Differential 0.07 {x10E9/L} See Below VetCloudcory bondChorushectorNewvemBarbara peterson Work Phone: Comment on above: Reference Range: 0.0 0 - 0.10 Complete Blood Count + Differential 0.09 {x10E9/L} See Below VetCloudtrinaMississippi ALF Investorjose [place] Mul[employer] CompanyBarbara lensgen Work Phone: Comment on above: Reference Range: 0.0 0 - 0.70 Complete Blood Count + Differential 0.55 {x10E9/L} See Below VetCloudcory [place] Mul[employer] CompanyBarbara lensgen Work Phone: Comment on above: Reference Range: 0.1 0 - 1.00 Complete Blood Count + Differential 0.99 {x10E9/L} below low threshold See Below VetCloudtrinaIEC Technology CoBarbara lensgen Work Phone: Comment on above: Reference Range: 1.2 0 - 4.80 Complete Blood Count + Differential 3.65 {x10E9/L} See Below HabetBarbara lensgen Work Phone: Comment on above: Reference Range: 1.2 0 - 7.70 Percent differential counts (%) should be interpreted in the context of the absolute cell counts (cells/L). Complete Blood Count + Differential 1.7 % 0.0 - 6.0 [facility] Work Phone: Complete Blood Count + Differential 0.2 % 0.0 - 0.9 [facility] Work Phone: [phone] Comment on above: Immature Granulocyte Count (IG) includes promyelocytes, myelocytes and metamyelocytes but does not include bands. Percent differential counts (%) should be interpreted in the context of the absolute cell counts (cells/L). FERRITINon 08-08-2022 FERRITIN 17 ug/L Normal 8 - 150 [facility] Comment on above: Performed By: #### F ERRI #### [address] [address] Ferritin, Serumon 08-08-2022 Ferritin [Mass/Vol] 17 ug/L 8 - 150 [facility] Work Phone: IRON + TIBCon 08-08-2022 % SATURATION 16 % Low 25 - 45 [facility] Comment on above: Performed By: #### I SERENA ####[address] [address] Iron [Mass/Vol] 62 ug/dL Normal 35 - 150 [facility] Comment on above: Performed By: #### I SHERIET ####[address] [address] TIBC 380 ug/dL Normal 240 - 445 [facility] Comment on above: Performed By: #### I SERENA ####[address] [address] Laboratory - Chemistry and C hemistry - challengeon 08-08-2022 Albumin BCP dye [Mass/Vol] 4.1 g/dL 3.4 - 5.0 [facility] Work Phone: ALP [Catalytic activity/Vol] 97 U/L 33 - 136 [facility] Work Phone: ALT With P-5'-P [Catalytic activity/Vol] 15 U/L 7 - 45 [facility] Work Phone: Comment on above: Patients treated wit h Sulfasalazine may generate falsely decreased results for ALT. Anion gap [Moles/Vol] 10 mmol/L 10 - 20 [facility]tolaryng olnortheastern [facility]ahGigantt[facility] Work Phone: AST With P-5'-P [Catalytic activity/Vol] 15 U/L 9 - 39 [facility]-Otolaryng MValve technologiesnortheastern health system [facility]ahGigantt[facility] Work Phone: Bilirubin [Mass/Vol] 0.4 mg/dL 0.0 - 1.2 MG-O tolaryng MValve technologiesnortheastern health system [facility]ahGigantt[facility] Work Phone: Calcium [Mass/Vol] 9.9 mg/dL 8.6 - 10.3 MG-[place] laryng MValve technologiesnortheastern health [facility]ahGigantt[facility] Work Phone: Chloride [Moles/Vol] 106 mmol/L 98 - 107 MG-O tolaryng MValve technologiesnortheastern health system [facility]ahG[facility] Work Phone: CO2 [Moles/Vol] 28 mmol/L 21 - 32 MG-Otolar yng MValve technologiesnortheastern health system [facility]ahG[facility] Work Phone: Creatinine [Mass/Vol] 0.88 mg/dL See Below MG-Otolaryng MValve technologiesNOC2 Healthcarevirgin[facility] Work Phone: Comment on above: Reference Range: 0.5 0 - 1.05 Glucose [Mass/Vol] 81 mg/dL 74 - 99 [facility]-[place] laryng olyGiganttmn lensgen Work Phone: Iron [Mass/Vol] 62 ug/dL 35 - 150 MG-Otolar yng MValve technologiesnort[facility] Work Phone: Iron binding capacity [Mass/Vol] 380 ug/dL 240 - 445 MG-Otolaryng MValve technologiesnortheastern health system – tahlequahGiganttmn lensgen Work Phone: Potassium [Moles/Vol] 4.1 mmol/L 3.5 - 5.3 MG-Otolaryng MValve technologiesnortheastern health system [facility]ahG[facility] Work Phone: Protein [Mass/Vol] 6.6 g/dL 6.4 - 8.2 [facility] laryng ology-Westla ke Work Phone: Sodium [Moles/Vol] 140 mmol/L 136 - 145 [facility] laryng ology-[facility] ke Work Phone: Urea nitrogen [Mass/Vol] 15 mg/dL 6 - 23 [facility]-Otolaryng ology-Westla nicholas Work Phone: No Panel Informationon 08-08 16 % below low threshold 25 - 45 [facility]-Otolaryng ology-[facility] Work Phone: 72 {mL/min/1.73m2} >90 [facility] laryng ology-Westla ke Work Phone: Comment on above: CALCULATIONS OF TOVA MATED GFR ARE PERFORMED USING THE 2020 CKD-EPI STUDY REFIT EQUATION WITHOUT THE RACE VARIABLE FOR THE IDMS-TRACEABLE CREATININE METHODS.https://jasn.asnjournals.org/content/early/ASN .5361659663 XR CHEST 2V FRONTAL/LATon [facility] XR CHEST 2V FRONTAL/LATon [facility] ALLIED HEALTHon 05-17-2022 ALLIED HEALTH HNO ID: [id number] Author: RT Nohemi(Dean) Service: ? Author Type: Technologist Type: Allied Health Filed: 05/17/2022 1:08 PM Note Text: Radiology Service Progress Note PATIENT NAME: Lesley Dodson DATE OF SERVICE: May 17, 2022 TIME: 1:08 PM PATIENT IDENTITY VERIFICATION COMPLETED USING TWO (2) IDENTIFIERS: Name and Date of confirmed by patient verbally and Name and Date of confirmed by identification band. FALL SCREENING: Has the patient had 2 falls in the last year or 1 fall with injury or currently using an Ambulatory Assistive Device (Walker, Cane, Wheelchair, Crutches, etc.)? Inpatient: Screened on floor PATIENT GENDER DATA: Female. status: : No status: NO. PATIENT RELEVANT IMPLANT DATA REVIEWED: Not Applicable RADIOLOGY DEPARTMENT: General X-ray: Exam(s) Completed: Chest X-Ray PERIPHERAL IV DATA: Not applicable SIGNED BY: RT Nohemi(R) May 17, 2022 1:08 PM Normal [facility] CASE MANAGEMon 05-17-2022 CASE MANAGEM HNO ID: [id number] Author: DARRICK Olson Service: ? Author Type: Vehicle Service Attendant Type: Care Mgt Progress Note Filed: 05/17/2022 12:18 PM Note Text: CARE MANAGEMENT PROGRESS NOTE SERVICE DATE: 05/17/2022 SERVICE TIME: 12:16 PM LOS: 5 days Admission Date: 05/12/2022 DISCHARGE ARRANGEMENT (list agency and phone number) Discharge Arrangement: Home with Home Health Provider Name: Dr. Pretty CAREGIVER ASSESSMENT: Caregiver is ready, willing and able to meet the patient's needs as recommended by the inter-professional team:: Yes HANDOFF COMMUNICATION: Handoff to: Primary Care Physician Primary Care Physician Name/Phone: Dr. Pretty [phone] TRANSPORTATION ARRANGEMENTS: Transportation Arrangements: Car ADDITIONAL CONTACT RESOURCES: Discharge Information Row Name Admission (Current) from 05/12/[address] [facility] ready for discharge. Pt will start care with [facility]. Will need f2f prior to discharge. Family will transport. SIGNATURE: DARRICK Olson PATIENT NAME: Lesley Dodson DATE: May 17, 2022 TIME: 12:16 PM PAGER/CONTACT #: [phone] Normal [facility] CBC panel Auto (Bld)on 05-17 Erythrocyte distribution width (RBC) [Ratio] 13.6 % Normal 11.5-15.0 [facility] Comment on above: Order Comment: Speci men Type: BLOOD SPECIMENOrdering Facility: [facility] Address: [address] [place], [place] [id number] Performed By: #### 5 8410-2 ####[facility] LABORATORYCLIA [id number] [place] [address] [place] Hematocrit (Bld) [Volume fraction] 24.3 % Low 36.0-46.0 [facility] Comment on above: Order Comment: Speci men Type: BLOOD SPECIMENOrdering Facility: [facility] Address: [address] [place] [address] Performed By: #### 5 8410-2 ####[facility] LABORATORYCLIA [id number] [address] Hemoglobin (Bld) [Mass/Vol] 8.2 g/dL Low 11.5-15.5 [facility] Comment on above: Order Comment: Speci men Type: BLOOD SPECIMENOrdering Facility: [facility] Address: [address] [address] Performed By: #### 5 8410-2 ####[facility] LABORATORYCLIA [id number] [address] MCH (RBC) [Entitic mass] 29.6 pg Normal 26.0-34.0 [facility] Comment on above: Order Comment: Speci men Type: BLOOD SPECIMENOrdering Facility: [facility] Address: [address] [address] Performed By: #### 5 8410-2 ####[facility] LABORATORYCLIA [id number] [address] MCHC (RBC) [Mass/Vol] 33.7 g/dL Normal 30.5-36.0 [facility] Comment on above: Order Comment: Speci men Type: BLOOD SPECIMENOrdering Facility: [facility] Address: [address] [place] [address] Performed By: #### 5 8410-2 ####[facility]ERIN LABORATORYCLIA [id number] [address] [place] [facility] MCV (RBC) [Entitic vol] 87.7 fL Normal 80.0-100.0 [facility] Comment on above: Order Comment: Speci men Type: BLOOD SPECIMENOrdering Facility: [facility] Address: [address] [place] [address] Performed By: #### 5 8410-2 ####KATHERIN LABORATORYCLIA [id number] [place] [address] [place] Nucleated RBC (Bld) [#/Vol] 0.02 10*3/uL High <0.01 [facility] Comment on above: Order Comment: Speci men Type: BLOOD SPECIMENOrdering Facility: [facility] Address: [address] [address] Performed By: #### 5 8410-2 ####[facility] LABORATORYCLIA [id number] [place] [id number] [place] Platelet mean volume (Bld) [Entitic vol] 10.0 fL Normal 9.0-12.7 [facility] Comment on above: Order Comment: Speci men Type: BLOOD SPECIMENOrdering Facility: [facility] Address: [address] [place] [address] Performed By: #### 5 8410-2 ####[facility] LABORATORYCLIA [id number] [place] [address] [place] Platelets (Bld) [#/Vol] 168 10*3/uL Normal 150-400 [facility] Comment on above: Order Comment: Speci men Type: BLOOD SPECIMENOrdering Facility: [facility] Address: [address] [address] Performed By: #### 5 8410-2 ####[facility] LABORATORYCLIA [id number] [place] [address] [place] RBC (Bld) [#/Vol] 2.77 10*6/uL Low 3.90-5.20 [facility] Comment on above: Order Comment: Speci men Type: BLOOD SPECIMENOrdering Facility: [facility] Address: [address] [address] Performed By: #### 5 8410-2 ####[facility] LABORATORYCLIA [id number] [place] [address] [place] WBC (Bld) [#/Vol] 5.25 10*3/uL Normal 3.70-11.00 [facility] Comment on above: Order Comment: Speci men Type: BLOOD SPECIMENOrdering Facility: [facility] Address: [address] [place] [address] Performed By: #### 5 8410-2 ####[facility] [id number] [address] CNDSon 05-17-2022 CNDS HNO ID: [id number] Author: Dulce Burrell PA-C Service: Cardiac Surgery Author Type: Physician Hardwood Sawyer Type: Discharge Summary Filed: 05/17/2022 3:43 PM Note Text: -------- Attestation signed by Shay Brenner MD at 05/19/2022 2:33 PM Attending Note I have personally performed a face to face assessment of the patient and have reviewed the LACHELLE note. Signature: Shay Brenner MD Date: 05/19/2022 Time: 2:33 PM -------- Department of Cardiothoracic Surgery Discharge Summary (Template ID [id number]) PATIENT NAME: Lesley Dodson ADMISSION DATE: 05/12/2022 DISCHARGE DATE: 05/17/2022 Attending Physician/Surgeon: Shay Brenner MD Primary Service: Code Status: Not on file [facility] Primary Mine Supervisor: Juan Manuel Rosa MD Admission Diagnosis: CAD Discharge Diagnosis: CAD s/p CABG Reason for Hospitalization: This 66-year-old patient with known history of coronary artery disease with stent placement to the LAD x2, presented with recurrent exertional chest pain. Coronary angiography showed slight in-stent restenosis and she was recommended to undergo bypass surgery. The risks and benefits of this were discussed with her and she consented to proceed. Operations during Hospitalization: Coronary artery bypass grafting x1 with BENAVIDES to LAD (on pump) Hospital Course: * How was the Reason for Hospitalization Addressed: Patient underwent coronary artery bypass grafting x 1 with BENAVIDES to LAD (on pump) on 05/12/22, without complication. Patient admitted post-operatively to ICU for hemodynamic monitoring, require pressor support for blood pressure. Progressed out of ICU to nursing floor POD #2. Chest tubes and epicardial pacing wires removed POD #2. Patient experienced 2 successive instances of 3 second SVT run while coughing. Cardiology consulted with recommendation of increase in Lopressor dosage, as tolerated. No recurrence for remainder of inpatient stay. Patient walking the halls with minimal assistance, not requiring supplemental oxygen, eating meals, and moving bowels. Patient is medically cleared as discussed and approved by the attending physician, and will be discharged home with [facility] [facility] on in stable condition. Patient discharged on ASA, beta chavez, and anti-lipid therapy. Thorough discharge instructions were provided and personally reviewed with the patient. * What were the Active Issues: Hypotension, anemia * Surgical Pathology/Microbiology: N/A * Hospital Course Complicated by: N/A * Extended Hospital Stay Due to: N/A * Specific Medication Changes: See complete list of medication changes below * Pain: Controlled. PO pain medication on discharge * Surgical Incisions/Wounds: c/d/I without signs of infection, dehiscence, or discharge * Patient Condition at Discharge: Stable * Disposition: Home with Home Health Home with Home Health Problem List: Patient Active Hospital Problem List: CAD in quileute artery (05/12/2022) General: AANDO x 3, NAD, cooperative Skin: Skin color and texture normal. No rashes or lesions Sternum: Stable. Sternotomy incision c/d/i without signs of infection or dehiscence Cardiovascular: RRR w/o murmur, rub, or gallop. No LE pitting edema Pulmonary: Bibasilar rales. No rhonchi or wheeze Abd: Soft, non-tender, no distention, BS x 4 Extremities: Warm, good capillary refill Neuro: Grossly normal cognition, motor/sensory function DATA: Recent Labs 05/17/22 0758 05/16/22 0557 05/15/22 0646 WBC 5.25 4.84 7.51 HB 8.2* 8.5* 8.6* HCT 24.3* 24.5* 25.6* PLT 168 151 91* NA -- -- 134* K -- -- 4.2 CHLOR -- -- 103 CO2 -- -- 23 BUN -- -- 9 CREAT -- -- 0.76 GLUC -- -- 125* CA -- -- 8.4* MG -- -- 2.0 Recent Labs 05/17/22 1215 05/17/22 0835 05/16/22202605/16/22 1706 05/16/22 1211 05/16/22 0950 05/15/22203505/15/22 1708 PCGLUCOSE 120* 105* 116* 134* 126* 105* 117* 102* Consults: Cardiology Procedures Performed and Major Radiology: Chest tube and epicardial pacing wire removal Information Provided to the Patient: Patient given copy of After Visit Summary which included activity instructions, diet instructions, wound care instructions, medication instructions and follow up appointment. Weight AND Temperature: -Take your temperature and weigh yourself before brushing teeth, eating, or drinking at the same time every morning for 2 weeks. -Record your weight and temperature on the log provided and bring the log with you to your follow-up appointment -Call cardiothoracic surgery office if there is an increase of 2 lbs or more in 24 hours, or if you experience a temperature of 101 or more for two days Blood Pressure: Check BP multiple times a day. If systolic blood pressure (top number) is 140 or greater, please call clinic office numb (more content not included)... [facility] NURSING PROGon 05-17-2022 NURSING PROG HNO ID: [id number] Author: Nayely Lopez, RN Service: Nursing Author Type: Registered Nurse Type: Nursing Progress Note Filed: 05/17/2022 4:37 PM Note Text: Other: 1540- pk 214 - Lesley Dodson- I saw you added ATB for pt. it was reconciled in d/c. do you want pt on this medication? if so can ya reconcile and get it sent to pharmacy. thanks Nayely [phone] 1636- pt d/c via wheelchair with transport. Discharge instructions discussed. Belongings in hand. No further questions or concerns. Prescription given. [facility] XR CHEST 2V FRONTAL/LATon XR CHEST 2V FRONTAL/LAT * * *Final Report* * * DATE OF EXAM: May 17 2022 1:08PM FVX [id number] - XR CHEST 2V FRONTAL/LAT / PROCEDURE REASON: Post-operative / post-procedure assessment, asymptomatic * * * * Physician Interpretation * * * * EXAMINATION: CHEST RADIOGRAPH (2 VIEW FRONTAL and LATERAL) CLINICAL HISTORY: Post-operative / post-procedure assessment, asymptomatic MQ: [id number]_6 EXAM DATE/TIME: 05/17/2022 1:08 PM COMPARISON: X-ray 05/15/2022 RESULT: Lines, tubes, and devices: Sternotomy wires Lungs and pleura: Trace left apical pneumothorax appears mildly improved since prior study. Small bilateral pleural effusions. No focal consolidation. Possible hiatal hernia Cardiomediastinal silhouette: Cardiomegaly Bones and soft tissues: Degenerative changes of the thoracic spine. IMPRESSION: 1. Trace left apical pneumothorax, improved from prior study. 2. Trace pleural effusions. Business Services Officer: PSCLinda Transcribe Date/Time: May 17 2022 2:11P Dictated by : MIGDALIA CHIU MD This examination was interpreted and the report reviewed and electronically signed by: MIGDALIA CHIU MD on May 17 2022 2:13PM EST [id number] Normal [facility] CBC panel Auto (Bld)on 05-16 Erythrocyte distribution width (RBC) [Ratio] 13.6 % Normal 11.5-15.0 [facility] Comment on above: Order Comment: Speci men Type: BLOOD SPECIMEN [facility] Address: [address] [place] [address] Performed By: #### 5 8410-2 #### [facility] CLIA [id number] [address] [place] [address] [place] Hematocrit (Bld) [Volume fraction] 24.5 % Low 36.0-46.0 [facility] Comment on above: Order Comment: Speci men Type: BLOOD SPECIMEN [facility]ing Facility: [facility] Address: [address] [place] [address] Performed By: #### 5 8410-2 #### [facility] CLIA [id number] [address] [place] [address] OF [facility] Hemoglobin (Bld) [Mass/Vol] 8.5 g/dL Low 11.5-15.5 [facility] Comment on above: Order Comment: Speci men Type: BLOOD SPECIMEN [facility]ing Facility: [facility] Address: [address] [address] Performed By: #### 5 8410-2 #### [facility] CLIA [id number] [address] [place] [address] [place] MCH (RBC) [Entitic mass] 29.9 pg Normal 26.0-34.0 [facility] Comment on above: Order Comment: Speci men Type: BLOOD SPECIMEN [facility] Facility: [facility] Address: [address] [place] [address] Performed By: #### 5 8410-2 #### [facility] CLIA [id number] [address] [place] [address] MCHC (RBC) [Mass/Vol] 34.7 g/dL Normal 30.5-36.0 [facility] Comment on above: Order Comment: Speci men Type: BLOOD SPECIMEN [facility]: [facility] Address: [address] [place] [address] Performed By: #### 5 8410-2 #### [facility] CLIA [id number] [address] [place] [address] MCV (RBC) [Entitic vol] 86.3 fL Normal 80.0-100.0 [facility] Comment on above: Order Comment: Speci men Type: BLOOD SPECIMEN [facility]: [facility] Address: [address] [place] [address] Performed By: #### 5 8410-2 #### [facility] CLIA [id number] [address] [place] [address] Nucleated RBC (Bld) [#/Vol] 10*3/uL Normal <0.01 [facility] Comment on above: Order Comment: Speci men Type: BLOOD SPECIMEN [facility] Facility: [facility] Address: [address] [place] [address] Performed By: #### 5 8410-2 #### [facility] CLIA [id number] [address] [place] [address] [place] Platelet mean volume (Bld) [Entitic vol] 11.1 fL Normal 9.0-12.7 [facility] Comment on above: Order Comment: Speci men Type: BLOOD SPECIMEN [facility]: [facility] Address: [address] [place] [address] Performed By: #### 5 8410-2 #### [facility] CLIA [id number] [address] [place] [address] [place] Platelets (Bld) [#/Vol] 151 10*3/uL Normal 150-400 [facility] Comment on above: Order Comment: Speci men Type: BLOOD SPECIMEN [facility]: [facility] Address: [address] [place] [address] Performed By: #### 5 8410-2 #### [facility] CLIA [id number] [address] [place] [address] [place] RBC (Bld) [#/Vol] 2.84 10*6/uL Low 3.90-5.20 [facility] Comment on above: Order Comment: Speci men Type: BLOOD SPECIMEN [facility] Address: [address] [place] [address] Performed By: #### 5 8410-2 #### [facility] CLIA [id number] [address] [place] [address] [place] WBC (Bld) [#/Vol] 4.84 10*3/uL Normal 3.70-11.00 [facility] Comment on above: Order Comment: Speci men Type: BLOOD SPECIMEN [facility] Address: [address] [place] [address] Performed By: #### 5 8410-2 #### [facility] CLIA [id number] [place] [address] OF [place] CONSULTon 05-16-2022 CONSULT HNO ID: [id number] Author: Luc Lemus MD Service: Cardiovascular Medicine Author Type: Physician Type: Consults Filed: 05/16/2022 3:58 PM Note Text: CONSULT: CARDIOLOGY SERVICE SERVICE DATE: 05/16/2022 SERVICE TIME: 2:04 PM CONSULTING PHYSICIAN: Flora Faith PCP: Flo Pretty MD ATTENDING: Shay Brenner MD REASON FOR CONSULT: post op CABG Subjective CHIEF COMPLAINT: CAD (coronary artery disease) [I25.10] CAD in quileute artery [I25.10] HISTORY OF PRESENT ILLNESS: Ms. Dodson is a 66 year old female who presents for past medical history of VT, CAD sp stents to LAD in 2003, 2016,HFpEF, GERD, GIB, HTN, HLD, hypothyroid, chronic anemia who presented to for elective cardiac bypass surgery on 05/12/[address] Brenner for Cabg x 1 with BENAVIDES to LAD. Patient had chest tubes removed today. C/o non productive cough. Telemetry show bursts of SVT, she denies palpitations, lightheadedness, dizziness. Up ambulating in unit with walker, tolerating well. PAST MEDICAL HISTORY Diagnosis Date Acute myocardial infarction, unspecified site 12/24/2003 Myocardial Infarction CAD (coronary artery disease) Carcinoma of submandibular gland (HCC) CHF (congestive heart failure) (HCC) Disorder of bladder Esophageal reflux Gastroesophageal reflux Former smoker Gastrointestinal hemorrhage 2016 Generalized anxiety disorder GERD (gastroesophageal reflux disease) HLD (hyperlipidemia) HTN (hypertension) Hypothyroidism Intestinal malabsorption Iron deficiency anemia PAST SURGICAL HISTORY Procedure Laterality Date ANGIOPLASTY PCI 2016 LAD - HECTOR CHOLECYSTECTOMY 07/17/1976 Cholecystectomy CHOLECYSTECTOMY HX HYSTERECTOMY HX PAST SURGICAL HISTORY OF 07/17/1987 removal of parotid gland tumor PERC TRANSL COR ANGIO o stenting x2 LAD and first diagn TOTAL ABDOMINAL HYSTERECT W/WO RMVL TUBE OVARY Hysterectomy, partial FAMILY HISTORY Problem Relation Age of Onset other (other) Mother 79 bowel obstruction Heart Father [place] Age 63 Cancer Father 70 esophageal Stroke Sister 45 Drug abuse Sister 63 Drug abuse Brother No Known Problems Brother No Known Problems Brother Social History Tobacco Use Smoking status: Former Packs/day: 0.50 Types: Cigarettes Quit date: 11/17/2003 Years since quittin.5 Passive exposure: Past Smokeless tobacco: Never Substance Use Topics Alcohol use: Yes Comment: social Prior to Admission Medications Prescriptions Last Dose Informant Patient Reported? Taking? ALTACE 10 MG CAP 05/11/2022 No Yes Sig: Take one (1) capsule daily LIPITOR 80MG TABLET 05/11/2022 No Yes Sig: po qd PAXIL 10MG TABLET 05/11/2022 No Yes Sig: Take one(1) tablet daily. TOPROL XL 100MG TABLET SA 05/11/2022 No Yes Sig: Take one(1) tablet daily. ZETIA 10 MG TAB 05/11/2022 No Yes Sig: Take one(1) tablet daily alendronate 70 mg tbef 05/11/2022 Yes Yes Si mg. amLODIPine (NORVASC) 5 mg tablet 05/11/2022 Yes Yes Sig: Take 2.5 mg by mouth once daily. aspirin 81 mg chewable tablet 05/11/2022 Yes Yes Sig: Take 81 mg by mouth once daily. atorvastatin (LIPITOR) 80 mg tablet 05/11/2022 Yes Yes Si mg. levothyroxine (SYNTHROID) 125 mcg tablet 05/12/2022 Yes Yes Sig: Take 112 mcg by mouth daily before breakfast. nitroglycerin (NITROLINGUAL) 400 mcg/spray spray Yes No Sig: Dissolve 1 Allison under the tongue every 5 minutes as needed for Chest Pain. pantoprazole DR (PROTONIX) 40 mg tablet 05/11/2022 Yes Yes Sig: Take 40 mg by mouth once daily. Facility-Administered Medications: None Current Facility-Administered Medications Medication Dose Route Frequency levothyroxine 112 mcg tab(s) (SYNTHROID) 112 mcg ORAL BEFORE BREAKFAST DAILY sodium chloride 0.9 % (flush) 3-5 mL (BD POSIFLUSH) 3-5 mL INTRAVENOUS q 12 H dextrose 10% iv bolus 12.5-25 g INTRAVENOUS PRN dextrose 40 % 15 g 15 g ORAL PRN Or glucagon 1 mg injection 1 mg INTRAMUSCULAR PRN Or dextrose 10% iv bolus 12.5 g INTRAVENOUS PRN albuterol 2.5 mg /3 mL (0.083 %) 2.5 mg (PROVENTIL) 2.5 mg INHALATION q 2 H PRN docusate sodium 100 mg cap(s) (COLACE) 100 mg ORAL BID pantoprazole [address] 40 mg tab(s) (PROTONIX) 40 mg ORAL DAILY (6 AM) Or pantoprazole 40 mg oral liquid (PROTONIX) 40 mg ORAL/FEEDING TUBE DAILY (6 AM) ondansetron (PF) 4 mg injection (ZOFRAN) 4 mg INTRAVENOUS q 6 H PRN acetaminophen 1,000 mg tab(s) (TYLENOL) 1,000 mg ORAL/FEEDING TUBE q 6 HR atorvastatin 80 mg tab(s) (LIPITOR) 80 mg ORAL/FEEDING TUBE DAILY ezetimibe 10 mg tab(s) (ZETIA) 10 mg ORAL/FEEDING TUBE DAILY PARoxetine 10 mg tab(s) (PAXIL) 10 mg ORAL/FEEDING TUBE DAILY aluminum-magnesium hydroxide-simethicone 200-200-20 mg/5 mL 30 mL (MAALOX,MYLANTA,MAG-AL PLUS) 30 mL ORAL q 4 H PRN magnesium hydroxide 400 mg/5 mL 30-60 mL (MOM) 30-60 mL ORAL q 8 H PRN bisacodyl 10 mg suppository (DULCOLAX) 10 mg RECTAL PRN insulin lispro injection (rapid acting) (ADMELOG) SUBCUTANEOUS w MEALS (more content not included)... Normal [facility] NURSING PROGon 05-16-2022 NURSING PROG HNO ID: [id number] Author: Amaris Ha RN Service: ? Author Type: Registered Nurse Type: Nursing Progress Note Filed: 05/16/2022 7:44 PM Note Text: 1420: Pt had 2 short episodes of SVT (3 secs) while coughing without any symptoms. Denies any palpitations or dizziness or lightheadedness. BP 125/67. And pt remains in [place] 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 Wanted to given pt an extra dose of Metoprolol 12.5 and increase the doses to 25mg q12h, but Cardiothoracic PA (Oralia Burrell) updated and ordered to hold the medication for now, and he would check her BP later today and see if he wants to increase the doses, as pt has a historically soft BP. Will continue to observe. 1930: No further episodes of SVT since the last. Pt stated that she was coughing when it happened. Pt had several soft large BMs this afternoon (had MOM 60cc early am for constipation). Lungs clear with diminished bases. + pedals with no noted edema. Abdomen soft with active BSP x 4 quads. MUNIR Chew removed her prevena this afternoon. No noted bleeding or leakage along incision site. CT dressing clean, dry and intact. Given Oxy IR 5mg po twice today for c/o incisional pain. Will continue as ordered. [facility] NUTRITIONon 05-16-2022 NUTRITION HNO ID: [id number] Author: Chely Alfaro DTR Service: Nutrition Therapy Author Type: Preventive Medicine Officer Type: Nutrition Filed: 05/16/2022 11:42 AM Note Text: NUTRITION THERAPY [employer] NOTE SERVICE DATE: 05/16/2022 SERVICE TIME: 10:00 AM Visit Type: Length of Stay;Diet Education Plan of Care: Follow[facility]: [facility] Reassessment Nursing Admission Assessment Malnutrition Score: 0 Nutrition Intake: Diet Orders (From admission, onward) Start Ordered 05/15/221714 DIET HEART HEALTHY START NOW Question: Heart Healthy Answer: 4 GM SODIUM (LOW SAT FAT) 05/15/221709 Appetite: Good Supplements: declined GI Symptoms: None Anthropometrics: Weight: 78.6 kg (173 lb 4.8 oz) Body mass index is 33.85 kg/m?. Loss of lean body mass/visual muscle wasting: No Weight Change: Stable MNT Billing: $ Routine Care : 16-30 minutes SIGNATURE: Chely Alfaro DTR PATIENT NAME: Lesley Dodson DATE: May 16, 2022 TIME: 11:41 AM [facility] PT EDon 05-16-2022 PT ED HNO ID: [id number] Author: Chely Alfaro DTR Service: Nutrition Therapy Author Type: Preventive Medicine Officer Type: Patient Education Filed: 05/16/2022 11:43 AM Note Text: NUTRITION THERAPY PATIENT EDUCATION SERVICE DATE: 05/16/2022 SERVICE TIME: 10:00 AM TOPIC: Diet: Heart Healthy LEARNING ASSESSMENT Individuals Assessed: Patient Preferred Learning Method: No Preference Barriers to Learning: None Evident LEARNING RESPONSE Instruction Provided to: Patient Patient / Family Response: Verbalizes Understanding Method of Instruction: Written instruction - handouts Verbal instruction Material(s) Provided to Patient: Mediterranean Diet Guidelines Follow-Up Plan: Patient instructed to call with any further issues Referral (Recommendation): Nutrition - Inpatient and Nutrition - Outpatient MNT Billing: $ Routine Care : 16-30 minutes SIGNATURE: Chely Alfaro DTR PATIENT NAME: Lesley Dodson DATE: May 16, 2022 TIME: 11:42 AM PAGER: [facility] PT ED HNO ID: [id number] Author: Mikayla Remy RN Service: Cardiac Rehab Author Type: Registered Nurse Type: Patient Education Filed: 05/16/2022 11:09 AM Note Text: CARDIAC REHABILITATION PATIENT EDUCATION PROGRESS NOTE Name: Lesley Dodson Date of Service: 05/16/2022 Time of Service: 11:07 AM ASSESSMENT: Risk Factors Identified: Hyperlipidemia Hypertension Smoker: # of packs per day: 1/2. Total Years of Smoking: ?. Reformed Smoker: Year Quit: 2003. Significant Medical History: VT, CHF, GERD, PCI x 2 RECOMMENDATIONS: Patient interested in Phase II Outpatient Cardiac Rehab: Yes. Facility Preferred: [facility] DIAGNOSIS: Open Heart Surgery: CABG Open Heart Surgery Teaching Points: -Basic Anatomy and Disease Process -Personal Modifiable Risk Factor Identification -Activity/Physical Exercise Recommendations -Prescribed Medication Reviewed -When patient should call provider -Outpatient Cardiac Rehabilitation READINESS TO LEARN: Cognitive Ability: Alert and Oriented Motivation to Learn: Interested Family Support: None - Unavailable/disintereste d Instruction Provided To: Patient Patient Learns Best By: Individual Instruction, Written Instruction - Hand-outs, and Verbal Instruction Factors Affecting Learning: None Physical Limitations Affecting Learning: None LEARNING RESPONSE: Method Of Instruction: Individual instruction Patient/Family Response: Verbalizes understanding of: all recommendations Follow-up Plan: No further educational needs identified at this time. Instructional Aids Used: Anatomical Model/Drawing Cardiac Rehabilitation Brochure Educational Binder [facility] Cardiac Rehab Programs Outpatient Diet/Nutrition Class Invitation Signature: Mikayla remy RN Pager: yamile Date: May 16, 2022 Time: 11:07 AM [facility] THERAPY NTon 05-16-2022 THERAPY NT HNO ID: [id number] Author: Maryam Patel PT Service: Physical Therapy Author Type: Physical Therapist Type: Therapy (PT/OT/Speech/Resp) Filed: 05/16/2022 2:00 PM Note Text: Physical Therapy Treatment SERVICE DATE: 05/16/2022 SERVICE TIME: 1324 to 1335 ROOM: [place] [address] Recommended Discharge Disposition: Home Anticipated Discharge Needs: Physical Assist at Home Physical Assist at Home for: Cleaning;Laundry;Shoppin g;Transportation;Meals Recommended Discharge Equipment: Wheeled Walker PT 6 Clicks Score: 24 Precautions/Activity Restrictions: Fall Risk;Lines/Tubes/Drains; Sternal;Cardiac Precaution/Activity Restriction Comments: mobilize pt Isolation Type: None Current Hospital Course: 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 Reason for Hospital Admission: Pt admitted for sx Relevant Past Medical History: HTN, HLD, CAD, CHF, VT, OA, refer to chart for full pmh Response to Therapy Interventions: Good participation in activities Continue skilled needs due to: Functional mobility/skill impairments Physical Therapy Problem List: Functional Mobility Impairment Treatment Interventions: Education;Strengthening; Functional Mobility Training;Balance Training;Energy Conservation Training Plan for next visit: Gait training, Standing Tolerance Home Environment Patient Lives With: Significant Other Assistance Available: Part-Time Entry To Home: Stairs;With Rail Number Of Stairs Into Home: 3 Number Of Stairs To Bed/Bath: 1st floor bed and bath Tub/Shower Type: tub shower Laundry: 1st floor Equipment Owned: Commode-Bedside Prior Functional Level: Within Functional Limits Prior Functional Level Comments: Ind ambulator without AD, ind with ADL's, and IADL's. Pt works Baseline Cognition: Oriented to self;Oriented to place;Oriented to time Patient Report: pt pleasant and cooperative CURRENT FUNCTIONAL STATUS: Most recent performance Current Functional Mobility Assist Level Additional Information Rolling Supine to Sit Sit to Supine Scooting Supervision Sit to Stand Supervision Stand to Sit Supervision Bed to Chair Toilet/Commode Supervision Gait Supervision Gait Device: Wheeled Walker Gait Distance (feet): 250' Stairs Supervision Stairs Device: Rail Number of Stairs: 4 Curb Step Car Transfer Blank pace indicate activity not attempted General Deviations/Observations: (slow and steady) Balance: Static Sitting;Static Standing;Dynamic Standing Static Sitting Balance: Good Patient able to maintain balance without handhold support, limited postural sway Static Standing Balance: Good Patient able to maintain balance without handhold support, limited postural sway Dynamic Standing Balance: Fair Patient accepts minimal challenge, able to maintain balance while turning head/trunk JH-HLM: 8: Walk 250 feet or more Learning/Educational Needs: Functional Activities/Mobility;Safe ty Goals for Plan of Care: Patient /Caregiver Goals: Go Home Goals: Patient will demonstrate progress with functional mobility to allow safe discharge to home with available support and/or physical assistance. Progress Toward Goals: Progressing as expected Rehab Potential: Excellent Patient will be discontinued from Physical Therapy when no further skilled needs are identified in this setting. PLAN: PT Frequency: 3 times per week (+1prn visit) Plan of Care developed with: Patient TREATMENT INTERVENTIONS: Therapy Diagnosis: General symptoms and signs-other Interventions Provided: Gait Training (87275) Gait Training (89937) Treatment Minutes: 11 $ Gait Training (41708) Billed Units: 1 unit Training AND education provided in: Assistive device use, Energy conservation, Gait pattern, reduction of deviations, Stair navigation, Precautions/restrictions , Home safety, Home set-up/modifications The following therapeutic skills were used: Activity dosing, Cues for sequencing/proper technique for activity, Postural alignment correction Timed Code Treatment (minutes): 11 Skilled Treatment Time (minutes): 11 Please see discipline specific clinical documentation flowsheet for complete details for this therapy evaluation/treatment. SIGNATURE: Maryam Patel PT PATIENT NAME: Lesley Dodson DATE: May 16, 2022 TIME: 2:00 PM [facility] 05-15-2022 [facility] HNO ID: [id number] Author: RT Varinder(R) Service: Radiology Author Type: Technologist Type: Allied Health Filed: 05/15/2022 1:16 PM Note Text: Radiology Service Progress Note PATIENT NAME: Lesley Dodson DATE OF SERVICE: May 15, 2022 TIME: 1:16 PM PATIENT IDENTITY VERIFICATION COMPLETED USING TWO (2) IDENTIFIERS: Name and Date of confirmed by patient verbally and Name and Date of confirmed by identification band. FALL SCREENING: Has the patient had 2 falls in the last year or 1 fall with injury or currently using an Ambulatory Assistive Device (Walker, Cane, Wheelchair, Crutches, etc.)? Inpatient: Screened on floor PATIENT GENDER DATA: Female. status: : No status: N/A PATIENT RELEVANT IMPLANT DATA REVIEWED: Not Applicable RADIOLOGY DEPARTMENT: General X-ray: Exam(s) Completed: Chest X-Ray PERIPHERAL IV DATA: Not applicable SIGNED BY: RT Varinder(R) May 15, 2022 1:16 PM [facility] Basic metabolic 2000 panelon 05-15-2022 Anion gap [Moles/Vol] 8 mmol/L Low 9-18 [facility] Comment on above: Order Comment: Speci men Type: BLOOD SPECIMENOrdering Facility: [facility] Address: [address] [place] [address] Performed By: #### 2 4321-2, ####[facility] LABORATORYCLIA [id number] [place] [id number] [place] Calcium [Mass/Vol] 8.4 mg/dL Low 8.5-10.2 [facility] Comment on above: Order Comment: Speci men Type: BLOOD SPECIMENOrdering Facility: [facility] Address: [address] [place] [address] Performed By: #### 2 432-2, ####[facility]ER[facility] LABORATORYCLIA [id number] [place] [address] [place] Chloride [Moles/Vol] 103 mmol/L Normal 97-105 [facility] Comment on above: Order Comment: Speci men Type: BLOOD SPECIMENOrdering Facility: [facility] Address: [address] [place] [address] Performed By: #### 2 2, ####[facility]ER[facility] LABORATORYCLIA [id number] [place] [address] [place] CO2 [Moles/Vol] 23 mmol/L Normal 22-30 [facility] Comment on above: Order Comment: Speci men Type: BLOOD SPECIMENOrdering Facility: [facility] Address: [address] [place] [address] Performed By: #### 2 2, ####K[facility]ER[facility] LABORATORYCLIA [id number] [place] [address] [place] Creatinine [Mass/Vol] 0.76 mg/dL Normal 0.58-0.96 [facility] Comment on above: Order Comment: Speci men Type: BLOOD SPECIMENOrdering Facility: [facility] Address: [address] [address] Performed By: #### 2 432 ####[facility] LABORATORYCLIA [id number] [place] [address] [place] ESTIMATED GLOMERULAR FILTRATION RATE 87 mL/min/1.73m??? Normal >=60 [facility] Comment on above: Order Comment: John garces Type: BLOOD SPECIMENOrdering Facility: [facility] Address: [address] [place] [address] Result Comment: Tova mated Glomerular Filtration Rate (eGFR) is calculated using the 2020 CKD-EPI creatinine equation. This equation utilizes serum creatinine, sex, and age as parameters. The creatinine assay has traceable calibration to isotope dilution-mass spectrometry. Refer to KDIGO guidelines for clinical interpretation. In patients with unstable renal function, e.g. those with acute kidney injury, the eGFR may not accurately reflect actual GFR. Performed By: #### 2 432-, ####[facility] LABORATORYCLIA [id number] [place] [address] [place] Glucose [Mass/Vol] 125 mg/dL High 74-99 [facility] Comment on above: Order Comment: John mili Type: BLOOD SPECIMENOrdering Facility: [facility] Address: [address] [place] [address] Result Comment: The [place] Diabetes Association (ADA) provides guidance for cutoff values for fasting glucose and random glucose. The ADA defines fasting as no caloric intake for at least 8 hours. Fasting plasma glucose results between 100 to 125 mg/dL indicate increased risk for diabetes (prediabetes). Fasting plasma glucose results greater than or equal to 126 mg/dL meet the criteria for diagnosis of diabetes. In the absence of unequivocal hyperglycemia, results should be confirmed by repeat testing. In a patient with classic symptoms of hyperglycemia or hyperglycemic crisis, random plasma glucose results greater than or equal to 200 mg/dL meet the criteria for diagnosis of diabetes. Reference: Standards of Medical Care in Diabetes 2016, [place] [employer]. Diabetes Care. 2016.39(Suppl 1). Performed By: #### 2 4320-2, ####K[facility] LABORATORYCLIA [id number] [place] [address] [place] Potassium [Moles/Vol] 4.2 mmol/L Normal 3.7-5.1 [facility] Comment on above: Order Comment: Speci men Type: BLOOD SPECIMENOrdering Facility: [facility] Address: [address] [address] Performed By: #### 2 4320-2, ####KATHERIN LABORATORYCLIA [id number] [place] [address] [place] Sodium [Moles/Vol] 134 mmol/L Low 136-144 [facility] Comment on above: Order Comment: Speci men Type: BLOOD SPECIMENOrdering Facility: [facility] Address: [address] [address] Performed By: #### 2 4320-2, ####KATHERIN LABORATORYCLIA [id number] [place] [address] [place] Urea nitrogen [Mass/Vol] 9 mg/dL Normal 7-21 [facility] Comment on above: Order Comment: Speci men Type: BLOOD SPECIMENOrdering Facility: [facility] Address: [address] [address] Performed By: #### 2 2, ####KATHERIN LABORATORYCLIA [id number] [place] [address] [place] CBC W Auto Differential pane l (Bld)on 05-15-2022 Basophils (Bld) [#/Vol] 0.00 10*3/uL Normal <0.11 [facility] Comment on above: Order Comment: Speci men Type: BLOOD SPECIMEN [facility] Address: [address] [address] Performed By: #### 2 4320-2, #### [facility] CLIA [id number] [place] [address] [place] Basophils/100 WBC (Bld) 0.0 % Normal [facility] Comment on above: Order Comment: Speci men Type: BLOOD SPECIMEN [facility]ing [facility]: [facility] Address: [address] [address] Performed By: #### 2 4320-2, #### [facility] CLIA [id number] [address] [place] [address] [place] Differential cell count method Nom (Bld) Manual Normal [facility] Comment on above: Order Comment: Speci men Type: BLOOD SPECIMEN [facility]: [facility] Address: [address] [place] [address] Performed By: #### 2 2, #### [facility] CLIA [id number] [address] [place] [address] [place] Eosinophils (Bld) [#/Vol] 0.00 10*3/uL Normal <0.46 [facility] Comment on above: Order Comment: Speci men Type: BLOOD SPECIMEN [facility] Facility: [facility] Address: [address] [place] [address] Performed By: #### 2 4320-08, #### [facility] CLIA [id number] [address] [place] [address] [place] Eosinophils/100 WBC (Bld) 0.0 % Normal [facility] Comment on above: Order Comment: Speci men Type: BLOOD SPECIMEN [facility]ing [facility]: [facility] Address: [address] [place] [address] Performed By: #### 2 4320-08, #### [facility] CLIA [id number] [address] [place] [address] [place] Erythrocyte distribution width (RBC) [Ratio] 13.3 % Normal 11.5-15.0 [facility] Comment on above: Order Comment: Speci men Type: BLOOD SPECIMEN [facility]: [facility] Address: [address] [place] [address] Performed By: #### 2 4320-08, #### [facility] CLIA [id number] [address] [place] [address] [place] Hematocrit (Bld) [Volume fraction] 25.6 % Low 36.0-46.0 [facility] Comment on above: Order Comment: Speci men Type: BLOOD SPECIMEN [facility]ing Facility: [facility] Address: [address] [place], [place] [address] Performed By: #### 2 4320-, #### [facility] CLIA [id number] [address] [place] [address] [place] Hemoglobin (Bld) [Mass/Vol] 8.6 g/dL Low 11.5-15.5 [facility] Comment on above: Order Comment: Speci men Type: BLOOD SPECIMEN [facility]ing Facility: [facility] Address: [address] [place] [address] Performed By: #### 2 4320-08, #### [facility] CLIA [id number] [address] [place] [address] [place] Lymphocytes (Bld) [#/Vol] 0.15 10*3/uL Low 1.00-4.00 [facility] Comment on above: Order Comment: Speci men Type: BLOOD SPECIMEN [facility]: [facility] Address: [address] [place] [address] Performed By: #### 2 4320-08, #### [facility] CLIA [id number] [address] [place] [address] [place] Lymphocytes/100 WBC (Bld) 2.0 % Normal [facility] Comment on above: Order Comment: Speci men Type: BLOOD SPECIMEN [facility]: [facility] Address: [address] [place] [address] Performed By: #### 2 4320-08, #### [facility] CLIA [id number] [address] [place] [address] [place] MCH (RBC) [Entitic mass] 29.6 pg Normal 26.0-34.0 [facility] Comment on above: Order Comment: Speci men Type: BLOOD SPECIMEN [facility]: [facility] Address: [address] [place] [address] Performed By: #### 2 4320-08, #### [facility] CLIA [id number] [address] [place], [place] [address] [place] MCHC (RBC) [Mass/Vol] 33.6 g/dL Normal 30.5-36.0 [facility] Comment on above: Order Comment: Speci men Type: BLOOD SPECIMEN [facility] Facility: [facility] Address: [address] [place] [address] Performed By: #### 2 4320-2, #### [facility] CLIA [id number] [address] [place] [address] [place] MCV (RBC) [Entitic vol] 88.0 fL Normal 80.0-100.0 [facility] Comment on above: Order Comment: Speci men Type: BLOOD SPECIMEN [facility] Facility: [facility] Address: [address] [place] [address] Performed By: #### 2 2, #### [facility] CLIA [id number] [address] [place] [address] [place] Monocytes (Bld) [#/Vol] 0.38 10*3/uL Normal <0.87 [facility] Comment on above: Order Comment: Speci men Type: BLOOD SPECIMEN [facility]ing Facility: [facility] Address: [address] [place] [address] Performed By: #### 2 4320-08, #### [facility] CLIA [id number] [address] [place] [address] [place] Monocytes/100 WBC (Bld) 5.0 % Normal [facility] Comment on above: Order Comment: Speci men Type: BLOOD SPECIMEN [facility]ing Facility: [facility] Address: [address] [place] [address] Performed By: #### 2 2, #### [facility] CLIA [id number] [address] [place] [address] [place] Neutrophils (Bld) [#/Vol] 6.98 10*3/uL Normal 1.45-7.50 [facility] Comment on above: Order Comment: Speci men Type: BLOOD SPECIMEN Order[facility] Facility: [facility] Address: [address] Performed By: #### 2 4320-08, #### [facility] CLIA [id number] [address] [place] [address] [place] Neutrophils/100 WBC (Bld) 93.0 % Normal [facility] Comment on above: Order Comment: Speci men Type: BLOOD SPECIMEN Order[facility] Facility: [facility] Address: [address] [place], [place] [address] Performed By: #### 2 4320-08, #### [facility] CLIA [id number] [address] [place] [address] [place] Nucleated RBC (Bld) [#/Vol] 10*3/uL Normal <0.01 [facility] Comment on above: Order Comment: Speci men Type: BLOOD SPECIMEN [facility] Facility: [facility] Address: [address] [place] [address] Performed By: #### 2 4320-08, #### [facility] CLIA [id number] [address] [place] [address] [place] Nucleated RBC/100 WBC (Bld) [Ratio] 0.0 /100 WBC Normal [facility] Comment on above: Order Comment: Speci men Type: BLOOD SPECIMEN [facility]: [facility] Address: [address] [place] [address] Performed By: #### 2 4320-08, #### [facility] CLIA [id number] [address] [place] [address] [place] Ovalocytes LM Ql (Bld) Few Normal [facility] Comment on above: Order Comment: Speci men Type: BLOOD SPECIMEN [facility]: [facility] Address: [address] [place], [place] [address] Performed By: #### 2 4320-08, #### [facility] CLIA [id number] [address] [place] [address] [place] Platelet mean volume (Bld) [Entitic vol] 10.9 fL Normal 9.0-12.7 [facility] Comment on above: Order Comment: Speci men Type: BLOOD SPECIMEN [facility]: [facility] Address: [address] [place] [address] Performed By: #### 2 4321-2, #### [facility] CLIA [id number] [address] [place] [address] [place] Platelets (Bld) [#/Vol] 91 10*3/uL Low 150-400 [facility] Comment on above: Order Comment: Speci men Type: BLOOD SPECIMEN [facility]: [facility] Address: [address] [place] [address] Result Comment: Plat elet count confirmed by manual review of peripheral blood smear. Sample checked for clot Performed By: #### 2 4321-2, #### [facility] CLIA [id number] [address] [place] [address] [place] Platelets Estimate (Bld) [#/Vol] Decreased Normal [facility] Comment on above: Order Comment: Speci men Type: BLOOD SPECIMEN [facility]: [facility] Address: [address] [place] [address] Performed By: #### 2 4320-2, #### [facility] CLIA [id number] [address] [place] [address] [place] RBC (Bld) [#/Vol] 2.91 10*6/uL Low 3.90-5.20 [facility] Comment on above: Order Comment: Speci men Type: BLOOD SPECIMEN [facility] Address: [address] [place] [address] Performed By: #### 2 4321-2, #### [facility] CLIA [id number] [address] [place] [address] [place] RED CELL MORPH Reviewed: see result s of individual morphologies Normal [facility] Comment on above: Order Comment: Speci men Type: BLOOD SPECIMEN [facility]ing Facility: [facility] Address: [address] [place] [address] Performed By: #### 2 4321-2, #### [facility] CLIA [id number] [address] [place] [id number] [place] WBC (Bld) [#/Vol] 7.51 10*3/uL Normal 3.70-11.00 [facility] Comment on above: Order Comment: Speci men Type: BLOOD SPECIMEN [facility] Facility: [facility] Address: [address] [place] [address] Performed By: #### 2 4321-2, #### [facility] CLIA [id number] [address] [place] [id number] [facility] ECG COMPLETEon 05-15-2022 ECG COMPLETE Ventricular Rate : 1 02 BPM Atrial Rate : 102 BPM P-R Interval : 145 ms QRS Duration : 81 ms Q-T Interval : 348 ms QTC Calculation(Bazett) : 454 ms Calculated P [place] : 29 degrees Calculated R [place] : 10 degrees Calculated T [place] : 34 degrees Sinus tachycardia Ventricular premature complex Low voltage, precordial leads Borderline T wave abnormalities Borderline ECG Confirmed by JUAN MANUEL ROSA MD ([id number]) on 05/22/2022 8:05:11 PM NAME : LESLEY DODSON PID : [id number] : 1955 Gender : Female Race : ORD : [id number] Procedure Date : May 15 2022 08:38:24 Edit Date : May 22 2022 20:05:14 Diagnosis: Sinus tachycardia Ventricular premature complex Low voltage, precordial leads Borderline T wave abnormalities Borderline ECG Confirmed by JUAN MANUEL ROSA MD ([id number]) on 05/22/2022 8:05:11 PM Test Reason : Post-OP Location : 400 : FVEKG PK2B Overread By : JUAN MANUEL ROSA MD Edited By : JUAN MANUEL ROSA MD Referred By : , Acquired by : LUCY CONNORS [facility] Magnesium SerPl-mCncon 05-15 Magnesium [Mass/Vol] 2.0 mg/dL Normal 1.7-2.3 [facility] Comment on above: Order Comment: Speci men Type: BLOOD SPECIMENOrdering Facility: [facility] Address: [address] [id number] Performed By: #### 2 4321-2, 93500-0 ####[facility]ATORYCLIA [id number] [address] [place] NURSING PROGon 05-15-2022 NURSING PROG HNO ID: [id number] Author: Edilma Hazel RN Service: ? Author Type: Registered Nurse Type: Nursing Progress Note Filed: 05/15/2022 6:15 PM Note Text: Daily Note: 0830: Pt tolerated swallowing pills whole in water. 1000: Pt upgraded to clear liquid diet, okay to increase diet if tolerated by patient per Dulce Burrell PA-C. 1230: Chest tubes and A-wires pulled on patient, pt on bedrest and telemon applied. 1700: Pt diet upgraded to heart healthy. Normal [facility] THERAPY NTon 05-15-2022 THERAPY NT HNO ID: [id number] Author: Yvrose Ayoub OT/L Service: Occupational Therapy Author Type: Occupational Therapist Type: Therapy (PT/OT/Speech/Resp) Filed: 05/15/2022 2:41 PM Note Text: Occupational Therapy Evaluation SERVICE DATE: 05/15/2022 SERVICE TIME: 1410 to 1433 ROOM: [place] [address] Recommended Discharge Disposition: Home Recommended Discharge Disposition Comments: with assist for IADLs as needed Anticipated Discharge Needs: Physical Assist at Home Physical Assist at Home for: Cleaning;Laundry;Shoppin g;Transportation;Meals Recommended Discharge Equipment: No equipment needs anticipated OT 6 Clicks Score: 24 Precautions/Activity Restrictions: Fall Risk;Lines/Tubes/Drains; Sternal;Cardiac Precaution/Activity Restriction Comments: mobilize pt Isolation Type: None Current Hospital Course: 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 Reason for Hospital Admission: Pt admitted for sx Relevant Past Medical History: HTN, HLD, CAD, CHF, VT, OA, refer to chart for full pmh Response to Therapy Interventions: Good participation in activities Occupational Therapy Problem List: Impaired Self Care;Functional Mobility Impairment Cognition/Communication Deficits Responsiveness: Awake, Alert Follows Commands: 3-step Commands Home Environment Patient Lives With: Significant Other Assistance Available: Part-Time Entry To Home: Stairs;With Rail Number Of Stairs Into Home: 3 Number Of Stairs To Bed/Bath: 1st floor bed and bath Tub/Shower Type: tub shower Laundry: 1st floor Equipment Owned: Commode-Bedside Prior Functional Level: Within Functional Limits Prior Functional Level Comments: Ind ambulator without AD, ind with ADL's, and IADL's. Pt works Baseline Cognition: Oriented to self;Oriented to place;Oriented to time Patient Report: I'll have help at home. CURRENT FUNCTIONAL STATUS: Most recent performance Current Activities of Daily Living Assist Level Additional Information Feeding Independent Grooming Modified Independent Bathing Upper Body Modified Independent Bathing Lower Body Stand By Assistance Dressing Upper Body Modified Independent Dressing Lower Body Stand By Assistance Toileting Stand By Assistance Instrumental Activities of Daily Living Assist Level Additional Information Meal/Beverage Prep Cleaning Laundry Medication Management with Strategies Functional Mobility Assist Level Additional Information Rolling Supine to Sit Modified Independent Sit to Supine Scooting Sit to Stand Supervision Stand to Sit Supervision Bed to Chair Supervision Stepping Toilet/Commode Shower Functional Mobility Stand By Assistance None Blank pace indicate activity not attempted Balance: Static Sitting;Dynamic Sitting;Static Standing;Dynamic Standing Static Sitting Balance: Normal Patient able to maintain steady balance without handhold support Dynamic Sitting Balance: Good Patient accepts moderate challenge, able to maintain balance while picking up object off floor Static Standing Balance: Good Patient able to maintain balance without handhold support, limited postural sway Dynamic Standing Balance: Fair Patient accepts minimal challenge, able to maintain balance while turning head/trunk Learning/Educational Needs: Discharge Plan Goals for Plan of Care: Patient will be discontinued from Occupational Therapy when no further skilled needs are identified in this setting. PLAN: OT Frequency: Discontinue therapy services Reasons Therapy Services Discontinued: Goals met Plan of Care developed with: Patient;Family TREATMENT INTERVENTIONS: Therapy Diagnosis: Reduced mobility-other;Decreased activities of daily living (ADL) Interventions Provided: Evaluation;Self Residential Management (86813) $ Evaluation-Moderate (48000) Billed Units: 1 unit Self Residential Management (09144) Treatment Minutes: 8 $ Self Residential Management (47412) Billed Units: 1 unit Training AND education provided in: Activity adaption / compensatory strategies, Benefits of in-hospital mobility, Discharge planning, Energy conservation, Lower extremity dressing, Precautions/restrictions , Role of Occupational Therapy, Sitting balance to improve independence with ADLs/self-care, Standing balance to improve independence with ADLs/self-care, Transfer - Bed to chair, Transfer - Sit to stand The following therapeutic skills were used: Cuing verbal, Activity dosing, Cues for sequencing/proper technique for activity, Cuing visual, Therapeutic use of self, Dual task activities Timed Code Treatment (minutes): 8 Skilled Treatment Time (minutes): 23 Please see discipline specific clinical documentation flowsheet for complete details for this therapy evaluation/treatment. SIGNATURE: Yvrose Ayoub OT/L PATIENT NAME: Lesley Dodosn DATE: May 15, 2022 TIME: 2:41 PM [facility] XR CHEST 1V FRONTAL PORTon 1 XR CHEST 1V FRONTAL PORT * * *Final Report* * * DATE OF EXAM: May 15 2022 1:19PM FVX 5376 - XR CHEST 1V FRONTAL PORT / PROCEDURE REASON: Post-operative / post-procedure assessment, asymptomatic * * * * Physician Interpretation * * * * EXAMINATION: CHEST RADIOGRAPH (PORTABLE SINGLE VIEW AP) Exam Date/Time: 05/15/2022 1:19 PM CLINICAL HISTORY: Post-operative / post-procedure assessment, asymptomatic MQ: XCPR_5 Comparison: 05/14/2022 RESULT: Lines, tubes, and devices: The patient is status post sternotomy and CABG, stable. The right IJ Quinton-Shanelle catheter, left chest and mediastinal drainage tubes have been removed since 05/14/2022. Lungs and pleura: There is small left apical pneumothorax, new since 05/14/2022. There is mild bibasilar atelectasis, stable. Cardiomediastinal silhouette: Stable cardiomediastinal silhouette. Other: Large retrocardiac hiatal hernia is stable. IMPRESSION: SMALL LEFT APICAL PNEUMOTHORAX, NEW SINCE 05/14/2022. MILD BIBASILAR ATELECTASIS, STABLE. COMMUNICATION: COMMUNICATED WITH DULCE BURRELL ON 05/15/2022 1:52 PM VIA [employer] STAFF MESSAGE OR PHONE MESSAGE BY IMAGING SERVICES NAVIGATOR. Business Services Officer: KAYLEN Transcribe Date/Time: May 15 2022 1:49P Dictated by : RONAK BLANCA MD This examination was interpreted and the report reviewed and electronically signed by: RONAK BLANCA MD on May 15 2022 2:21PM EST [id number] Normal [facility] ALLIED HEALTHon 05-14-2022 ALLIED HEALTH HNO ID: [id number] Author: Loc Sauceda Service: ? Author Type: Horticulture Superintendent Type: Allied Health Filed: 05/14/2022 7:06 AM Note Text: Radiology Service Progress Note PATIENT NAME: Lesley Dodson DATE OF SERVICE: May 14, 2022 TIME: 7:06 AM PATIENT IDENTITY VERIFICATION COMPLETED USING TWO (2) IDENTIFIERS: Name and Date of confirmed by identification band. FALL SCREENING: Has the patient had 2 falls in the last year or 1 fall with injury or currently using an Ambulatory Assistive Device (Walker, Cane, Wheelchair, Crutches, etc.)? Inpatient: Screened on floor PATIENT GENDER DATA: Female. status: : No status: NO. PATIENT RELEVANT IMPLANT DATA REVIEWED: Not Applicable RADIOLOGY DEPARTMENT: General X-ray: Exam(s) Completed: Chest X-Ray PERIPHERAL IV DATA: Not applicable SIGNED BY: Loc Sauceda May 14, 2022 7:06 AM Normal [facility] Basic metabolic 2000 panelon 05-14-2022 Anion gap [Moles/Vol] 9 mmol/L Normal 9-18 [facility] Comment on above: Order Comment: Speci men Type: BLOOD SPECIMENOrdering Facility: [facility] Address: [address] [place] [address] Performed By: #### 2 432 ####[facility] LABORATORYCLIA [id number] [place] [address] [place] Calcium [Mass/Vol] 8.2 mg/dL Low 8.5-10.2 [facility] Comment on above: Order Comment: Speci men Type: BLOOD SPECIMENOrdering Facility: [facility] Address: [address] [address] Performed By: #### 2 43207-18, ####[facility] LABORATORYCLIA [id number] [place] [address] [place] Chloride [Moles/Vol] 104 mmol/L Normal 97-105 [facility] Comment on above: Order Comment: Speci men Type: BLOOD SPECIMENOrdering Facility: [facility] Address: [address] [address] Performed By: #### 2 2, ####[facility] LABORATORYCLIA [id number] [place] [id number] [place] CO2 [Moles/Vol] 22 mmol/L Normal 22-30 [facility] Comment on above: Order Comment: Speci men Type: BLOOD SPECIMENOrdering Facility: [facility] Address: [address] [address] Performed By: #### 2 2, ####[facility] LABORATORYCLIA [id number] [place] [address] [place] Creatinine [Mass/Vol] 0.71 mg/dL Normal 0.58-0.96 [facility] Comment on above: Order Comment: Speci men Type: BLOOD SPECIMENOrdering Facility: [facility] Address: [address] [place] [address] Performed By: #### 2 4320-08, ####[facility] LABORATORYCLIA [id number] [place] [address] [place] ESTIMATED GLOMERULAR FILTRATION RATE 94 mL/min/1.73m??? Normal >=60 [facility] Comment on above: Order Comment: Speci men Type: BLOOD SPECIMENOrdering Facility: [facility] Address: [address] [place] [address] Result Comment: Tova mated Glomerular Filtration Rate (eGFR) is calculated using the 2020 CKD-EPI creatinine equation. This equation utilizes serum creatinine, sex, and age as parameters. The creatinine assay has traceable calibration to isotope dilution-mass spectrometry. Refer to KDIGO guidelines for clinical interpretation. In patients with unstable renal function, e.g. those with acute kidney injury, the eGFR may not accurately reflect actual GFR. Performed By: #### 2 1-2, ####[facility] LABORATORYCLIA [id number] [place] [id number] [place] Glucose [Mass/Vol] 127 mg/dL High 74-99 [facility] Comment on above: Order Comment: Speci men Type: BLOOD SPECIMENOrdering Facility: [facility] Address: [address] [id number] Result Comment: The [place] Diabetes [employer] (ADA) provides guidance for cutoff values for fasting glucose and random glucose. The ADA defines fasting as no caloric intake for at least 8 hours. Fasting plasma glucose results between 100 to 125 mg/dL indicate increased risk for diabetes (prediabetes). Fasting plasma glucose results greater than or equal to 126 mg/dL meet the criteria for diagnosis of diabetes. In the absence of unequivocal hyperglycemia, results should be confirmed by repeat testing. In a patient with classic symptoms of hyperglycemia or hyperglycemic crisis, random plasma glucose results greater than or equal to 200 mg/dL meet the criteria for diagnosis of diabetes. Reference: Standards of Medical Care in Diabetes 2016, [place] [employer]. Diabetes Care. 2016.39(Suppl 1). Performed By: #### 2 4320-, ####[facility] LABORATORYCLIA [id number] [place] [address] [place] Potassium [Moles/Vol] 4.2 mmol/L Normal 3.7-5.1 [facility] Comment on above: Order Comment: John mili Type: BLOOD SPECIMENOrdering Facility: [facility] Address: [address] Performed By: #### 2 4320-08, ####[facility] LABORATORYCLIA [id number] [place] [address] [place] Sodium [Moles/Vol] 135 mmol/L Low 136-144 [facility] Comment on above: Order Comment: Speci men Type: BLOOD SPECIMENOrdering Facility: [facility] Address: [address] Performed By: #### 2 4320-08, ####[facility] LABORATORYCLIA [id number] [place] [address] [place] Urea nitrogen [Mass/Vol] 9 mg/dL Normal 7-21 [facility] Comment on above: Order Comment: Speci men Type: BLOOD SPECIMENOrdering Facility: [facility] Address: [address] [address] Performed By: #### 2 4321-2, 82079-6 ####[facility] LABORATORYCLIA [id number] [address] OF [facility] CBC panel Auto (Bld)on 05-14 Erythrocyte distribution width (RBC) [Ratio] 13.6 % Normal 11.5-15.0 [facility] Comment on above: Order Comment: Speci men Type: BLOOD SPECIMEN [facility] Facility: [facility] Address: [address] [address] Performed By: #### 5 8410-2 #### [facility] CLIA [id number] [address] [place] [address] Hematocrit (Bld) [Volume fraction] 25.4 % Low 36.0-46.0 [facility] Comment on above: Order Comment: Speci men Type: BLOOD SPECIMEN [facility]ing Facility: [facility] Address: [address] [address] Performed By: #### 5 8410-2 #### [facility] CLIA [id number] [address] [place] [address] [place] Hemoglobin (Bld) [Mass/Vol] 8.5 g/dL Low 11.5-15.5 [facility] Comment on above: Order Comment: Speci men Type: BLOOD SPECIMEN [facility] Facility: [facility] Address: [address] [address] Performed By: #### 5 8410-2 #### [facility] CLIA [id number] [address] [place] [address] [place] MCH (RBC) [Entitic mass] 29.4 pg Normal 26.0-34.0 [facility] Comment on above: Order Comment: Speci men Type: BLOOD SPECIMEN [facility] Facility: [facility] Address: [address] [address] Performed By: #### 5 8410-2 #### [facility] CLIA [id number] [address] [place] [address] [place] MCHC (RBC) [Mass/Vol] 33.5 g/dL Normal 30.5-36.0 [facility] Comment on above: Order Comment: Speci men Type: BLOOD SPECIMEN [facility]: [facility] Address: [address] [address] Performed By: #### 5 8410-2 #### [facility] CLIA [id number] [address] [place] [address] [place] MCV (RBC) [Entitic vol] 87.9 fL Normal 80.0-100.0 [facility] Comment on above: Order Comment: Speci men Type: BLOOD SPECIMEN [facility]ing Facility: [facility] Address: [address] [address] Performed By: #### 5 8410-2 #### [facility] CLIA [id number] [address] [place] [address] [place] Nucleated RBC (Bld) [#/Vol] 10*3/uL Normal <0.01 [facility] Comment on above: Order Comment: Speci men Type: BLOOD SPECIMEN [facility] Facility: [facility] Address: [address] [address] Performed By: #### 5 8410-2 #### [facility] CLIA [id number] [address] [place] [address] [place] Platelet mean volume (Bld) [Entitic vol] 10.5 fL Normal 9.0-12.7 [facility] Comment on above: Order Comment: Speci men Type: BLOOD SPECIMEN [facility] Address: [address] [address] Performed By: #### 5 8410-2 #### [facility] CLIA [id number] [address] [place] [address] [place] Platelets (Bld) [#/Vol] 81 10*3/uL Low 150-400 [facility] Comment on above: Order Comment: Speci men Type: BLOOD SPECIMEN [facility] Address: [address] [place] [address] Result Comment: Resu lts checked and verified. No clot detected Performed By: #### 5 8410-2 #### [facility] CLIA [id number] [place] [address] [place] RBC (Bld) [#/Vol] 2.89 10*6/uL Low 3.90-5.20 [facility] Comment on above: Order Comment: Speci men Type: BLOOD SPECIMEN [facility] Address: [address] [place] [address] Performed By: #### 5 8410-2 #### [facility] [place] [id number] [address] [place] [address] [place] WBC (Bld) [#/Vol] 8.44 10*3/uL Normal 3.70-11.00 [facility] Comment on above: Order Comment: Speci men Type: BLOOD SPECIMEN [facility] Address: [address] [place] [address] Performed By: #### 5 8410-2 #### [facility] IA [id number] [address] [place] [address] [place] Magnesium SerPl-mCncon 05-14 Magnesium [Mass/Vol] 1.8 mg/dL Normal 1.7-2.3 [facility] Comment on above: Order Comment: Speci men Type: BLOOD SPECIMENOrdering Facility: [facility] Address: [address] [place] [address] Performed By: #### 2 4321-2, 39949-8 ####[facility] LABORATORYIA [id number] [place] [address] [place] NURSING PROGon 05-14-2022 NURSING PROG HNO ID: [id number] Author: Edilma Hazel RN Service: ? Author Type: Registered Nurse Type: Nursing Progress Note Filed: 05/14/2022 6:37 PM Note Text: Transfer Note: 1630: Patient transferred into room/unit [id number] in stable condition. Actions taken: pt oriented to call light and room. 1745: Pt c/o unable to swallow. Bedside swallow was performed, pt was unable to swallow and had to suction water from the back of her throat. Call out to CT surgery. 1800: Dulce Burrell PA-C, called back. Pt to be NPO except meds and sips of water. Ok to give patient meds crushed in applesauce/pudding if tolerated. Speech therapy consult placed. [facility] THERAPY NTon 05-14-2022 THERAPY NT HNO ID: [id number] Author: Truong Ramirez, PT Service: Physical Therapy Author Type: Physical Therapist Type: Therapy (PT/OT/Speech/Resp) Filed: 05/14/2022 2:06 PM Note Text: Physical Therapy Evaluation SERVICE DATE: 05/14/2022 SERVICE TIME: 899 to 937 ROOM: [place] [address] Recommended Discharge Disposition: Home PT Anticipated Discharge Needs: Physical Assist at Home Physical Assist at Home for: Cleaning;Laundry;Meals;S hopping;Transportation Recommended Discharge Equipment: To Be Determined PT 6 Clicks Score: 18 Precautions/Activity Restrictions: Fall Risk;Lines/Tubes/Drains; Sternal;Cardiac Precaution/Activity Restriction Comments: mobilize pt Current Hospital Course: 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 Reason for Hospital Admission: Pt admitted for sx Relevant Past Medical History: HTN, HLD, CAD, CHF, VT, OA, refer to chart for full pmh Response to Therapy Interventions: Good participation in activities Continue skilled needs due to: Functional mobility/skill impairments, Continued monitoring of vital signs during mobility required Physical Therapy Problem List: Decreased Activity Tolerance;Decreased Strength;Functional Mobility Impairment;Balance Impaired Treatment Interventions: Education;Strengthening; Functional Mobility Training;Balance Training;Energy Conservation Training Plan for next visit: Bed mobility, Gait training, Sit to Stand Transfers, Standing Balance, Standing Tolerance Home Environment Patient Lives With: Significant Other Assistance Available: Part-Time Entry To Home: Stairs;With Rail Number Of Stairs Into Home: 3 Number Of Stairs To Bed/Bath: 1st floor bed and bath Tub/Shower Type: tub Laundry: 1st floor Equipment Owned: Commode-Bedside Prior Functional Level: Within Functional Limits Prior Functional Level Comments: Ind ambulator without AD, ind with ADL's, and IADL's. Pt works CURRENT FUNCTIONAL STATUS: Most recent performance Current Functional Mobility Assist Level Additional Information Rolling Supine to Sit Sit to Supine Minimal Assistance Scooting Stand By Assistance Sit to Stand Contact Guard Assistance Stand to Sit Contact Guard Assistance Bed to Chair Toilet/Commode Gait Contact Guard Assistance Gait Device: Wheeled Walker Gait Distance (feet): 114 Stairs Curb Step Car Transfer Blank pace indicate activity not attempted General Deviations/Observations: Ruth decreased;Flexed trunk posture;Step length decreased (no LOB, O2 desaturation with exertion nut improved with rest) Balance: Static Sitting;Static Standing;Dynamic Standing Static Sitting Balance: Good Patient able to maintain balance without handhold support, limited postural sway Static Standing Balance: Good Patient able to maintain balance without handhold support, limited postural sway Dynamic Standing Balance: Fair Patient accepts minimal challenge, able to maintain balance while turning head/trunk -HLM: 7: Walk 25 feet or more Learning/Educational Needs: Functional Activities/Mobility Goals for Plan of Care: Patient /Caregiver Goals: Go Home Goals: Patient will demonstrate progress with functional mobility to allow safe discharge to home with available support and/or physical assistance. Rehab Potential: Excellent Patient will be discontinued from Physical Therapy when no further skilled needs are identified in this setting. PLAN: PT Frequency: 3 times per week (+1prn visit) Plan of Care developed with: Patient TREATMENT INTERVENTIONS: Therapy Diagnosis: Reduced mobility-other;Muscle Weakness (generalized) Interventions Provided: Evaluation;Gait Training (35102);Therapeutic Activity (06822) $ Evaluation-Moderate (82436) Billed Units: 1 unit Therapeutic Activity (27540) Treatment Minutes: 13 $ Therapeutic Activity (68554) Billed Units: 1 unit Gait Training (79128) Treatment Minutes: 10 $ Gait Training (28430) Billed Units: 1 unit Training AND education provided in: Assistive device use, Bed mobility, Benefits of in-hospital mobility, Discharge planning, Disease specific education, Energy conservation, Equipment, Exercise program, Handout issued, Gait pattern, reduction of deviations, Positioning, Precautions/restrictions , Pre-gait activities, Role of Physical Therapy, Standing balance, Transfers The following therapeutic skills were used: Activity dosing, Assessment of tolerance including vitals response to activity, Cues for sequencing/proper technique for activity, Cuing tactile, Cuing verbal, Cuing visual, Management of critical lines, tubes and/or drains, Physical assist Timed Code Treatment (minutes): 23 Skilled Treatment Time (minutes): 38 Please see discipline specific clinical documentation flowsheet for complete details for this therapy evaluation/treatment. SIGNATURE: Truong Ramirez, PT PATIENT NAME: Lesley Dodson DATE: May 14, 2022 TIME: 2:06 PM [facility] XR CHEST 1V FRONTAL PORTon 1 XR CHEST 1V FRONTAL PORT * * *Final Report* * * DATE OF EXAM: May 14 2022 6:27AM FVX 5376 - XR CHEST 1V FRONTAL PORT / PROCEDURE REASON: Post-operative / post-procedure assessment, asymptomatic * * * * Physician Interpretation * * * * EXAMINATION: CHEST RADIOGRAPH (PORTABLE SINGLE VIEW AP) Exam Date/Time: 05/14/2022 6:27 AM CLINICAL HISTORY: Post-operative / post-procedure assessment, asymptomatic MQ: XCPR_5 Comparison: Chest x-ray 05/13/2022 RESULT: Lines, tubes, and devices: Right-sided Quinton-Shanelle catheter tip overlying the main pulmonary artery. Left-sided chest tube. Mediastinal drain. Sternotomy wires. Lungs and pleura: No pneumothorax. Trace left pleural effusion. Atelectasis in the lung bases. Likely retrocardiac hiatal hernia. Cardiomediastinal silhouette: Cardiomegaly Other: . IMPRESSION: Trace left pleural effusion. Atelectasis in the lung bases. Life support devices. Business Services Officer: PSCB Transcribe Date/Time: May 14 2022 3:51P Dictated by : MIGDALIA CHIU MD This examination was interpreted and the report reviewed and electronically signed by: MIGDALIA CHIU MD on May 14 2022 3:53PM EST [id number] [facility] ALLIED HEALTHon 05-13-2022 ALLIED HEALTH HNO ID: [id number] Author: Chaplain Amparo Service: Spiritual Care Author Type: Cable Splicer Helper Type: Allied Health Filed: 05/13/2022 1:14 PM Note Text: SPIRITUALCARE Spiritual Care Visit- Brief Note Name: Lesley Dodson Date: May 13, 2022 Notes: While engaging in spiritual care rounds on the SICU unit, I visited the patient and I provided spiritual presence and bucolic support through empathetic care and through prayers at the bedside. Cable Splicer Helper Signature: Chaplain Amparo To contact the Spiritual Care Department: Please call [phone] or Page the On-Call Cable Splicer Helper at pager [phone]. Thank you for the opportunity to be of service. This is an electronically created document. IF PRINTED, PLEASE DO NOT REMOVE FROM THE CHART OR MODIFY PRINTED COPY. Normal [facility] ALLIED HEALTH HNO ID: [id number] Author: RT Luis(R) Service: Radiology Author Type: Technologist Type: Allied Health Filed: 05/13/2022 5:57 AM Note Text: Radiology Service Progress Note PATIENT NAME: Lesley Dodson DATE OF SERVICE: May 13, 2022 TIME: 5:57 AM PATIENT IDENTITY VERIFICATION COMPLETED USING TWO (2) IDENTIFIERS: Name and Date of confirmed by identification band and Name and Date of obtained from a relative, guardian or prior caregiver.. FALL SCREENING: Has the patient had 2 falls in the last year or 1 fall with injury or currently using an Ambulatory Assistive Device (Walker, Cane, Wheelchair, Crutches, etc.)? Inpatient: Screened on floor PATIENT GENDER DATA: Female. status: : No status: N/A PATIENT RELEVANT IMPLANT DATA REVIEWED: Not Applicable RADIOLOGY DEPARTMENT: General X-ray: Exam(s) Completed: Chest X-Ray PERIPHERAL IV DATA: Not applicable SIGNED BY: RT Luis(R) May 13, 2022 5:57 AM Normal [facility] Basic metabolic 2000 panelon 05-13-2022 Anion gap [Moles/Vol] 12 mmol/L Normal 9-18 [facility] Comment on above: Order Comment: John garces Type: BLOOD SPECIMEN Ordering Facility: [facility] Address: [address] [id number] Performed By: #### 2 4321-2, 42376-8 #### [facility] CLIA [id number] [address] [place] [address] [place] Calcium [Mass/Vol] 8.6 mg/dL Normal 8.5-10.2 [facility] Comment on above: Order Comment: John garces Type: BLOOD SPECIMEN Ordering Facility: [facility] Address: [address] Performed By: #### 2 4321-2, #### [facility] CLIA [id number] [address] [place] [address] [place] Chloride [Moles/Vol] 109 mmol/L High 97-105 [facility] Comment on above: Order Comment: Speci men Type: BLOOD SPECIMEN Ordering Facility: [facility] Address: [address] [place] [address] Performed By: #### 2 4321-2, #### [facility] CLIA [id number] [address] [place] [address] [place] CO2 [Moles/Vol] 21 mmol/L Low 22-30 [facility] Comment on above: Order Comment: Speci men Type: BLOOD SPECIMEN Ordering Facility: [facility] Address: [address] [place] [address] Performed By: #### 2 4321-2, #### [facility] CLIA [id number] [address] [place] [address] OF [facility] Creatinine [Mass/Vol] 0.73 mg/dL Normal 0.58-0.96 [facility] Comment on above: Order Comment: Speci men Type: BLOOD SPECIMEN Ordering Facility: [facility] Address: [address] [place] [address] Performed By: #### 2 4322, #### [facility] CLIA [id number] [address] [place] [address] ESTIMATED GLOMERULAR FILTRATION RATE 91 mL/min/1.73m??? Normal >=60 [facility] Comment on above: Order Comment: Speci men Type: BLOOD SPECIMEN Ordering Facility: [facility] Address: [address] [place] [address] Result Comment: Tova mated Glomerular Filtration Rate (eGFR) is calculated using the 2020 CKD-EPI creatinine equation. This equation utilizes serum creatinine, sex, and age as parameters. The creatinine assay has traceable calibration to isotope dilution-mass spectrometry. Refer to KDIGO guidelines for clinical interpretation. In patients with unstable renal function, e.g. those with acute kidney injury, the eGFR may not accurately reflect actual GFR. Performed By: #### 2 4320-08, #### [facility] CLIA [id number] [address] [place] [address] [place] Glucose [Mass/Vol] 109 mg/dL High 74-99 [facility] Comment on above: Order Comment: John garces Type: BLOOD SPECIMEN Ordering Facility: [facility] Address: [address] [place] [address] Result Comment: The [place] [employer] (ADA) provides guidance for cutoff values for fasting glucose and random glucose. The ADA defines fasting as no caloric intake for at least 8 hours. Fasting plasma glucose results between 100 to 125 mg/dL indicate increased risk for diabetes (prediabetes). Fasting plasma glucose results greater than or equal to 126 mg/dL meet the criteria for diagnosis of diabetes. In the absence of unequivocal hyperglycemia, results should be confirmed by repeat testing. In a patient with classic symptoms of hyperglycemia or hyperglycemic crisis, random plasma glucose results greater than or equal to 200 mg/dL meet the criteria for diagnosis of diabetes. Reference: Standards of Medical Care in Diabetes 2016, [place] [employer]. Diabetes Care. 2016.39(Suppl 1). Performed By: #### 2 4320-08, #### [facility] CLIA [id number] [address] [place] [address] [place] Potassium [Moles/Vol] 4.0 mmol/L Normal 3.7-5.1 [facility] Comment on above: Order Comment: John garces Type: BLOOD SPECIMEN Ordering Facility: [facility] Address: [address] [place] [address] Performed By: #### 2 4320-08, #### [facility] CLIA [id number] [address] [place] [address] [place] Sodium [Moles/Vol] 142 mmol/L Normal 136-144 [facility] Comment on above: Order Comment: John garces Type: BLOOD SPECIMEN Ordering Facility: [facility] Address: [address] [place] [address] Performed By: #### 2 #### [facility] CLIA [id number] [address] [place] [address] [place] Urea nitrogen [Mass/Vol] 9 mg/dL Normal 7-21 [facility] Comment on above: Order Comment: Speci men Type: BLOOD SPECIMEN Ordering Facility: [facility] Address: [address] [place] [address] Performed By: #### 2 432-2, #### [facility] CLIA [id number] [address] [place] [address] [place] CBC panel Auto (Bld)on 05-13 Erythrocyte distribution width (RBC) [Ratio] 13.5 % Normal 11.5-15.0 [facility] Comment on above: Order Comment: Speci men Type: BLOOD SPECIMEN Ordering Facility: [facility] Address: [address] [place] [address] Performed By: #### 2 2, #### [facility] CLIA [id number] [address] [place] [address] [place] Hematocrit (Bld) [Volume fraction] 25.6 % Low 36.0-46.0 [facility] Comment on above: Order Comment: Speci men Type: BLOOD SPECIMEN Ordering Facility: [facility] Address: [address] [place] [address] Performed By: #### 2 2, #### [facility] CLIA [id number] [address] [place] [address] [place] Hemoglobin (Bld) [Mass/Vol] 9.0 g/dL Low 11.5-15.5 [facility] Comment on above: Order Comment: Speci men Type: BLOOD SPECIMEN Ordering Facility: [facility] Address: [address] [place] [address] Performed By: #### 2 2, #### [facility] CLIA [id number] [address] [place] [address] [place] MCH (RBC) [Entitic mass] 29.9 pg Normal 26.0-34.0 [facility] Comment on above: Order Comment: Speci men Type: BLOOD SPECIMEN Ordering Facility: [facility] Address: [address] [place] [address] Performed By: #### 2 4320-08, #### [facility] CLIA [id number] [address] [place] [address] [facility] MCHC (RBC) [Mass/Vol] 35.2 g/dL Normal 30.5-36.0 [facility] Comment on above: Order Comment: Speci men Type: BLOOD SPECIMEN Ordering Facility: [facility] Address: [address] [place] [address] Performed By: #### 2 4320-08, #### [facility] CLIA [id number] [address] [place] [address] [place] MCV (RBC) [Entitic vol] 85.0 fL Normal 80.0-100.0 [facility] Comment on above: Order Comment: Speci men Type: BLOOD SPECIMEN Ordering Facility: [facility] Address: [address] [place] [address] Performed By: #### 2 4320-08, #### [facility] CLIA [id number] [address] [place] [address] [facility] Nucleated RBC (Bld) [#/Vol] 10*3/uL Normal <0.01 [facility] Comment on above: Order Comment: Speci men Type: BLOOD SPECIMEN Ordering Facility: [facility] Address: [address] [place] [address] Performed By: #### 2 4320-08, #### [facility] CLIA [id number] [address] [place] [address] [place] Platelet mean volume (Bld) [Entitic vol] 10.5 fL Normal 9.0-12.7 [facility] Comment on above: Order Comment: Speci men Type: BLOOD SPECIMEN Ordering Facility: [facility] Address: [address] [place] [address] Performed By: #### 2 4320-08, #### [facility] CLIA [id number] [address] [place] [address] [place] Platelets (Bld) [#/Vol] 121 10*3/uL Low 150-400 [facility] Comment on above: Order Comment: Speci men Type: BLOOD SPECIMEN Ordering Facility: [facility] Address: [address] [place] [address] Result Comment: Resu lts checked and verified. No clot detected Performed By: #### 2 4320-, #### [facility] CLIA [id number] [address] [place] [address] [place] RBC (Bld) [#/Vol] 3.01 10*6/uL Low 3.90-5.20 [facility] Comment on above: Order Comment: Speci men Type: BLOOD SPECIMEN Ordering Facility: [facility] Address: [address] [place] [address] Performed By: #### 2 4320-08, #### [facility] CLIA [id number] [address] [place] [address] [place] WBC (Bld) [#/Vol] 5.58 10*3/uL Normal 3.70-11.00 [facility] Comment on above: Order Comment: Speci men Type: BLOOD SPECIMEN Ordering Facility: [facility] Address: [address] [place] [address] Performed By: #### 2 4320-08, #### [facility] CLIA [id number] [address] [place] [address] [place] Magnesium SerPl-mCncon 05-13 Magnesium [Mass/Vol] 2.3 mg/dL Normal 1.7-2.3 [facility] Comment on above: Order Comment: Speci men Type: BLOOD SPECIMEN Ordering Facility: [facility] Address: [address] [place] [address] Performed By: #### 2 4320-08, #### [facility] CLIA [id number] [place] NURSING PROGon 05-13-2022 NURSING PROG HNO ID: [id number] Author: Miko Kincaid RN Service: ? Author Type: Registered Nurse Type: Nursing Progress Note Filed: 05/13/2022 7:41 AM Note Text: 1900 Received report from Xochilt ROJAS. 2000 Assessment and documentation in the flow sheet,open heart today, remain intubated overnight. 0000 Reassessment completed 0400 Reassessment completed 0700 Report given to kyler RN. [facility] THERAPY NTon 05-13-2022 THERAPY NT HNO ID: [id number] Author: Truong Ramirez PT Service: Physical Therapy Author Type: Physical Therapist Type: Therapy (PT/OT/Speech/Resp) Filed: 05/13/2022 5:24 PM Note Text: PHYSICAL THERAPY MISSED VISIT SERVICE DATE: 05/13/2022 SERVICE TIME: 0835 to 0835 ROOM: [place] [address] Patient not seen due to Illness. SIGNATURE: Truong Ramirez, PT PATIENT NAME: Lesley Dodson DATE: May 13, 2022 TIME: 5:23 PM [facility] XR CHEST 1V FRONTAL PORTon 1 XR CHEST 1V FRONTAL PORT * * *Final Report* * * DATE OF EXAM: May 13 2022 5:56AM FVX 5376 - XR CHEST 1V FRONTAL PORT / PROCEDURE REASON: Post-operative / post-procedure assessment, asymptomatic * * * * Physician Interpretation * * * * EXAMINATION: CHEST RADIOGRAPH (PORTABLE SINGLE VIEW AP) Exam Date/Time: 05/13/2022 5:56 AM CLINICAL HISTORY: Post-operative / post-procedure assessment, asymptomatic MQ: XCPR_5 Comparison: 05/12/2022 RESULT: Lines, tubes, and devices: The patient is status post sternotomy and CABG, stable. The endotracheal, nasogastric tubes, right IJ Quinton-Shanelle catheter, left chest and mediastinal drainage tubes are again identified. Lungs and pleura: There is small left pleural effusion and mild left basilar atelectasis, mildly improved since 05/12/2022. Cardiomediastinal silhouette: Stable cardiomediastinal silhouette. Other: No bony abnormalities. IMPRESSION: SMALL LEFT PLEURAL EFFUSION AND MILD LEFT BASILAR ATELECTASIS, MILDLY IMPROVED SINCE 05/12/2022. Business Services Officer: PSCB Transcribe Date/Time: May 13 2022 5:38P Dictated by : RONAK BLANCA MD This examination was interpreted and the report reviewed and electronically signed by: RONAK BLANCA MD on May 13 2022 5:39PM EST [id number] [facility] HNO ID: [id number] Author: RT Carlotta(R) Service: Radiology Author Type: Technologist Type: [facility] Filed: 05/12/2022 8:32 PM Note Text: Radiology Service Progress Note PATIENT NAME: Lesley Dodson DATE OF SERVICE: May 12, 2022 TIME: 8:31 PM PATIENT IDENTITY VERIFICATION COMPLETED USING TWO (2) IDENTIFIERS: Name and Date of confirmed by patient verbally and Name and Date of confirmed by identification band. FALL SCREENING: Has the patient had 2 falls in the last year or 1 fall with injury or currently using an Ambulatory Assistive Device (Walker, Cane, Wheelchair, Crutches, etc.)? Inpatient: Screened on floor PATIENT GENDER DATA: Female. status: : No status: NO. PATIENT RELEVANT IMPLANT DATA REVIEWED: Not Applicable RADIOLOGY DEPARTMENT: General X-ray: Exam(s) Completed: Chest X-Ray PERIPHERAL IV DATA: Not applicable SIGNED BY: RT Carlotta(R) May 12, 2022 8:31 PM [facility] HNO ID: [id number] Author: RT Дмитрий(R) Service: ? Author Type: Technologist Type: [facility] Filed: 05/12/2022 2:30 PM Note Text: Radiology Service Progress Note PATIENT NAME: Lesley Dodson DATE OF SERVICE: May 12, 2022 TIME: 2:30 PM PATIENT IDENTITY VERIFICATION COMPLETED USING TWO (2) IDENTIFIERS: Name and Date of confirmed by patient verbally. FALL SCREENING: Has the patient had 2 falls in the last year or 1 fall with injury or currently using an Ambulatory Assistive Device (Walker, Cane, Wheelchair, Crutches, etc.)? Inpatient: Screened on floor PATIENT GENDER DATA: Female. status: : No status: NO. PATIENT RELEVANT IMPLANT DATA REVIEWED: Not Applicable RADIOLOGY DEPARTMENT: General X-ray: Exam(s) Completed: Chest X-Ray Abdomen X-Ray: Abdomen PERIPHERAL IV DATA: Not applicable SIGNED BY: RT Дмитрий(R) May 12, 2022 2:30 PM [facility] HNO ID: [id number] Author: Sarah Armas Analytical Lab Technician Service: Cardiac Rehab Author Type: Analytical Lab Technician Type: [facility] Filed: 05/12/2022 6:54 AM Note Text: CARDIAC REHABILITATION PATIENT 5 METER WALK TEST NOTE Name: Lesley Dodson Date of Service: 05/12/2022 Time of Service: 6:40am ASSESSMENT: 5 Meter Walk Test 5 Meter Walk Test Completed: Yes Trial 1 # of Seconds: 4.2 Trial 1 Assistive Device: None Trial 2 # of Seconds: 4.08 Trial 2 Assistive Device: None Trial 3 # of Seconds: 4.16 Trial 3 Assistive Device: None Signature: Malick Acuna Physiologist Pager: [phone] Date: May 12, 2022 Time: 6:54 AM [facility] ANES POSTPROC EVALon ANES POSTPROC EVAL HNO ID: [id number] Author: Wilbert Nazario MD Service: Anesthesiology Author Type: Anesthesiologist Type: Anesthesia Postprocedure Evaluation Filed: 05/13/2022 12:30 PM Note Text: POST ANESTHESIA EVALUATION NOTE : 1955 Procedure Summary Date: 05/12/22 Room / Location: OR / OR Anesthesia Start: 817 Anesthesia Stop: 1356 Procedure: BYPASS GRAFT ARTERY CORONARY ON-PUMP SINGLE CORONARY ARTERIAL GRAFT (Cardiac) Diagnosis: CAD (coronary artery disease) (CAD (coronary artery disease) [I25.10]) Surgeons: Shay Brenner MD Responsible Provider: Wilbert Nazario MD Anesthesia Type: general ASA Status: 2 Anesthesia Type: general Airway Type: ETT Last Vitals Vitals Value Taken Time BP 92/64 05/13/22 1200 Temp 37.4 ?C (99.3 ?F) 05/13/22 1135 Pulse 88 05/13/22 1228 Resp 11 05/13/22 1228 SpO2 96 % 05/13/22 1228 Vitals shown include unvalidated device data. Post Anesthesia Patient Status Patient Evaluation: ICU. PACU/ICU Patient Condition: stable. Anticipated Disposition: ICU planned admission. Neurological Status: aware and responsive. Pulmonary Status: breathing comfortably on room air Airway Control: returned to baseline unsupported. Cardiovascular Status: stable. Pain Management: clinically adequate - multimodal analgesia pain management approach Postoperative Hydration: acceptable. Intraoperative Events: no significant anesthesia events Recommendation: continue current plan of care and further care per PACU/ICU/floor team. Anesthesia Observations No Documentation SIGNATURE: Wilbert Nazario MD PATIENT NAME: Lesley Dodson DATE: May 12, 2022 TIME: 2:29 PM CSN: [id number] [facility] ANES PRE-OPon 05-12-2022 ANES PRE-OP HNO ID: [id number] Author: Wilbert Nazario MD Service: Anesthesiology Author Type: Anesthesiologist Type: Anesthesia Preprocedure Evaluation Filed: 05/12/2022 7:36 AM Note Text: ANESTHESIOLOGY DAY OF SURGERY NOTE : 1955 Procedure Information Date/Time: 05/12/22 0800 Procedure: BYPASS GRAFT ARTERY CORONARY ON-PUMP SINGLE CORONARY ARTERIAL GRAFT (Cardiac) - CABG x 1 Rx: O.H. kit needed Location: [place] [address] / OR Surgeons: Shay Brenner MD Estimated body mass index is 32.61 kg/m? as calculated from the following: Height as of 05/06/22: 152.4 cm (5'). Weight as of 05/06/22: 75.8 kg (167 lb). Most recent hematocrit and potassium results: Hematocrit 45.3 04/27/2022 Potassium 4.6 04/27/2022 Relevant Problems CARDIO (+) Acute myocardial infarction, unspecified site (+) CHF (congestive heart failure) (HCC) (+) Carotid artery stenosis (+) Coronary Artery Disease GI (+) GERD I - PHYSICAL EVALUATION AIRWAY Patient intubated: No. Tracheostomy tube not present Mallampati: II. TM distance: >3 FB. Neck ROM: full ROM without neurological symptoms. Mouth opening: adequate. Short neck: no. Thick neck: no DENTAL Dental findings: teeth intact. Dentures, upper: complete. Dentures, lower: complete. Additional exam findings: no II - ANESTHESIA PLAN ASA Score: 2 Anesthetic Plan: general Airway type: ETT The patient is not a current smoker. NPO Status: adequate Monitoring plan: Standard ASA.Anesthetic plan additional comments: Symptoms of Sleep Apnea: Denies Previous Anesthesia: No history of adverse event Family history of anesthetic problems: None Functional Capacity Assessment: Chest pain at rest. Positive stress led to cath. History of GERD: Yes- Well controlled with no positional symptoms Most recent lab results: HGB 15.2 04/27/2022 Hematocrit 45.3 04/27/2022 Potassium 4.6 04/27/2022 Platelet Count 274 04/27/2022 PT Sec 9.8 04/27/2022 APTT 23.6 04/27/2022 PT INR 1.0 04/27/2022 Creatinine 0.94 04/27/2022 . Postoperative analgesic plan: parenteral or oral opioids and multimodal analgesia. Informed Consent Anesthetic risks, benefits, alternatives, personnel and consent discussed: yes. Patient / Responsible Democrat agrees to proceed: yes Patient / Surrogate agrees to blood products: yes DNR status not reviewed with patient and/or family prior to surgery. Significant changes in the patient condition since the History and Physical, not otherwise documented in primary service progress note: no. Potential Anesthesia issues that may suggest increased risk of complications or contraindication to planned procedure: none. Vitals Value Taken Time BP 138/93 05/12/22656 Pulse 95 05/12/22656 Resp 18 05/12/22656 Temp 37.1 ?C (98.8 ?F) 05/12/22656 SpO2 99 % 05/12/22656 No current facility-administered medications on file as of 05/12/2022. Outpatient Medications as of 05/12/2022 Medication Sig - atorvastatin (LIPITOR) 80 mg tablet 80 mg. - alendronate 70 mg tbef 70 mg. - amLODIPine (NORVASC) 5 mg tablet Take 2.5 mg by mouth once daily. - pantoprazole DR (PROTONIX) 40 mg tablet Take 40 mg by mouth once daily. - aspirin 81 mg chewable tablet Take 81 mg by mouth once daily. - levothyroxine (SYNTHROID) 125 mcg tablet Take 112 mcg by mouth daily before breakfast. - ALTACE 10 MG CAP Take one (1) capsule daily - ZETIA 10 MG TAB Take one(1) tablet daily - PAXIL 10MG TABLET Take one(1) tablet daily. - LIPITOR 80MG TABLET po qd - TOPROL XL 100MG TABLET SA Take one(1) tablet daily. - nitroglycerin (NITROLINGUAL) 400 mcg/spray spray Dissolve 1 Allison under the tongue every 5 minutes as needed for Chest Pain. I have interviewed and examined the patient. I have reviewed the medical record and/or the pre-anesthesia evaluation, pertinent labs, and test results. This contains updated information obtained within 48 hours of Surgery/Procedure. SIGNATURE: Wilbert Nazario MD PATIENT NAME: Lesley Dodson DATE: May 12, 2022 TIME: 7:33 AM CSN: [id number] Normal [facility] ARTERIAL BLOOD GASESon 05-12 Base deficit (BldA) [Moles/Vol] -5 mmol/L Low -2-0 [facility] Comment on above: Order Comment: Speci men Type: ARTERIAL BLOOD SPECIMEN Ordering Facility: [facility] Address: [address] [place] [address] Performed By: #### A LLBG #### [facility] CLIA [id number] [address] [place] [address] [place] Body temperature 97.16 [degF] Normal [facility] Comment on above: Order Comment: Speci men Type: ARTERIAL BLOOD SPECIMEN Ordering Facility: [facility] Address: [address] [place] [address] Performed By: #### A LLBG #### [facility] CLIA [id number] [address] [place] [address] [place] Calcium.ionized (Bld) [Mass/Vol] 1.26 mmol/L Normal 1.08-1.30 [facility] Comment on above: Order Comment: Speci men Type: ARTERIAL BLOOD SPECIMEN Ordering Facility: [facility] Address: [address] [address] Performed By: #### A LLBG #### [facility] CLIA [id number] [address] [place] [address] [place] Calcium.ionized adjusted to pH 7.4 (BldA) [Moles/Vol] 1.23 mmol/L Normal 1.08-1.30 [facility] Comment on above: Order Comment: Speci men Type: ARTERIAL BLOOD SPECIMEN Ordering Facility: [facility] Address: [address] [place] [address] Performed By: #### A LLBG #### [facility] CLIA [id number] [address] [place] [address] [place] Carboxyhemoglobin (BldA) [Mass fraction] <1.0 Normal 0.0-2.0 [facility] Comment on above: Order Comment: Speci men Type: ARTERIAL BLOOD SPECIMEN Ordering Facility: [facility] Address: [address] [place] [address] Result Comment: Carb oxyhemoglobin Reference Range for Smokers: 2.0-8.0% Performed By: #### A LLBG #### [facility] CLIA [id number] [address] [place] [address] [place] Chloride [Moles/Vol] 110 mmol/L High 97-105 [facility] Comment on above: Order Comment: Speci men Type: ARTERIAL BLOOD SPECIMEN Ordering Facility: [facility] Address: [address] [place] [address] Performed By: #### A LLBG #### [facility] CLIA [id number] [address] [place] [address] [place] CO2 (Bld) [Partial pressure] 36 mm Hg Normal 36-46 [facility] Comment on above: Order Comment: Speci men Type: ARTERIAL BLOOD SPECIMEN Ordering Facility: [facility] Address: [address] [place] [address] Performed By: #### A LLBG #### [facility] CLIA [id number] [address] [place] [address] [place] CO2 [Moles/Vol] 20 mmol/L Low 22-28 [facility] Comment on above: Order Comment: Speci men Type: ARTERIAL BLOOD SPECIMEN Ordering Facility: [facility] Address: [address] [place] [address] Performed By: #### A LLBG #### [facility] CLIA [id number] [address] [place] [address] [place] CO2 adjusted to patient's actual temperature (Bld) [Partial pressure] Normal [facility] Comment on above: Order Comment: Speci men Type: ARTERIAL BLOOD SPECIMEN Ordering Facility: [facility] Address: [address] [place] [address] Performed By: #### A LLBG #### [facility] CLIA [id number] [address] [place] [address] [place] Glucose [Mass/Vol] 132 mg/dL High 60-105 [facility] Comment on above: Order Comment: Speci men Type: ARTERIAL BLOOD SPECIMEN Ordering Facility: [facility] Address: [address] [place] [address] Performed By: #### A LLBG #### [facility] CLIA [id number] [address] [place] [address] [place] [place] HCO3 (Bld) [Moles/Vol] 19 mmol/L Low 22-26 [facility] Comment on above: Order Comment: Speci men Type: ARTERIAL BLOOD SPECIMEN Ordering Facility: [facility] Address: [address] [place] [address] Performed By: #### A LLBG #### [facility] CLIA [id number] [address] [place] [address] [place] Hematocrit (Bld) [Volume fraction] 30.3 % Low 36.0-46.0 [facility] Comment on above: Order Comment: Speci men Type: ARTERIAL BLOOD SPECIMEN Ordering Facility: [facility] Address: [address] [place] [address] Performed By: #### A LLBG #### [facility] CLIA [id number] [address] [place] [address] [place] Hemoglobin (Bld) [Mass/Vol] 9.8 g/dL Low 11.5-15.5 [facility] Comment on above: Order Comment: Speci men Type: ARTERIAL BLOOD SPECIMEN Ordering Facility: [facility] Address: [address] [place] [address] Performed By: #### A LLBG #### [facility] CLIA [id number] [address] [place] [address] [place] Lactate [Moles/Vol] 6.2 mmol/L High 0.5-2.2 [facility] Comment on above: Order Comment: Speci men Type: ARTERIAL BLOOD SPECIMEN Ordering Facility: [facility] Address: [address] [place] [address] Performed By: #### A LLBG #### [facility] CLIA [id number] [address] [place] [address] [place] Methemoglobin (Bld) [Mass fraction] 1.6 % High 0.0-1.5 [facility] Comment on above: Order Comment: Speci men Type: ARTERIAL BLOOD SPECIMEN Ordering Facility: [facility] Address: [address] [place] [address] Performed By: #### A LLBG #### [facility] [place] [id number] [address] [place] [address] [place] O2 THERAPY Ventilator Normal [facility] Comment on above: Order Comment: Speci men Type: ARTERIAL BLOOD SPECIMEN Ordering Facility: [facility] Address: [address] [place] [address] Performed By: #### A LLBG #### [facility] CLIA [id number] [address] [place] [address] [place] Oxygen (Bld) [Partial pressure] 226 mm Hg High 85-95 [facility] Comment on above: Order Comment: Speci men Type: ARTERIAL BLOOD SPECIMEN Ordering Facility: [facility] Address: [address] [place] [address] Performed By: #### A LLBG #### [facility] CLIA [id number] [address] [place] [address] [place] Oxygen adjusted to patient's actual temperature (Bld) [Partial pressure] Normal [facility] Comment on above: Order Comment: Speci men Type: ARTERIAL BLOOD SPECIMEN Ordering Facility: [facility] Address: [address] [place] [address] Performed By: #### A LLBG #### [facility] CLIA [id number] [address] [place] [address] [place] Oxyhemoglobin (BldA) [Mass fraction] 97 % Normal 95-98 [facility] Comment on above: Order Comment: Speci men Type: ARTERIAL BLOOD SPECIMEN Ordering Facility: [facility] Address: [address] [place] [address] Performed By: #### A LLBG #### [facility] CLIA [id number] [address] [place] [address] [place] pH (Bld) 7.35 [pH] Normal 7.35-7.45 [facility] Comment on above: Order Comment: Speci men Type: ARTERIAL BLOOD SPECIMEN Ordering Facility: [facility] Address: [address] [place] [address] Performed By: #### A LLBG #### [facility] CLIA [id number] [address] [place] [address] [place] pH adjusted to patient's actual temperature (Bld) Normal [facility] Comment on above: Order Comment: Speci men Type: ARTERIAL BLOOD SPECIMEN Ordering Facility: [facility] Address: [address] [place] [address] Performed By: #### A LLBG #### [facility] CLIA [id number] [address] [place] [address] [place] Potassium [Moles/Vol] 3.5 mmol/L Normal 3.5-5.0 [facility] Comment on above: Order Comment: Speci men Type: ARTERIAL BLOOD SPECIMEN Ordering Facility: [facility] Address: [address] [place] [address] Performed By: #### A LLBG #### [facility] CLIA [id number] [address] [place] [address] [place] Sodium [Moles/Vol] 140 mmol/L Normal 136-144 [facility] Comment on above: Order Comment: Speci men Type: ARTERIAL BLOOD SPECIMEN Ordering Facility: [facility] Address: [address] [place] [address] Performed By: #### A LLBG #### [facility] CLIA [id number] [address] [place] [address] [place] BRIEF OP NOTon 05-12-2022 BRIEF OP NOT HNO ID: [id number] Author: Shay Brenner MD Service: Cardiac Surgery Author Type: Physician Type: Brief Op Note Filed: 05/12/2022 1:12 PM Note Text: BRIEF OPERATIVE / PROCEDURE NOTE LOG ID: [id number] SURGERY/PROCEDURE DATE: 05/12/2022 INCISION/PROCEDURE START TIME: 9:35 AM INCISION CLOSE/PROCEDURE END TIME: SURGEON(S)/PROCEDURALIST (S) AND ADMITTING COORDINATOR(S): Surgeon(s) and Role: * Shay Brenner MD - Primary Physician Hardwood Sawyer: Golden Aviles PA-C; Bon Vazquez PA-C SURGERY/PROCEDURE(S): [id number] ANESTHESIA: General FINDINGS: cad ESTIMATED BLOOD LOSS: 200 mls SPECIMENS: None COMPLICATIONS: None PRE-OP/PRE-PROCEDURE DIAGNOSIS: cad POST-OP/POST-PROCEDURE DIAGNOSIS: Same as Preop SIGNATURE: Shay Brenner MD PATIENT NAME: Lesley Dodson DATE: May 12, 2022 TIME: 1:11 PM Normal [facility] Basic metabolic 2000 panelon 05-12-2022 Anion gap [Moles/Vol] 13 mmol/L Normal 9-18 [facility] Comment on above: Order Comment: Speci men Type: BLOOD SPECIMEN Ordering Facility: [facility] Address: [address] [place] [address] Performed By: #### 2 4321-2, 75480-9 #### [facility] CLIA [id number] [address] [place] [address] [place] Calcium [Mass/Vol] 8.7 mg/dL Normal 8.5-10.2 [facility] Comment on above: Order Comment: Speci men Type: BLOOD SPECIMEN Ordering Facility: [facility] Address: [address] [place] [address] Performed By: #### 2 4321-2, #### [facility] CLIA [id number] [address] [place] [address] [place] Chloride [Moles/Vol] 104 mmol/L Normal 97-105 [facility] Comment on above: Order Comment: Speci men Type: BLOOD SPECIMEN Ordering Facility: [facility] Address: [address] [place] [address] Performed By: #### 2 4321-2, #### [facility] CLIA [id number] [address] [place] [address] [place] CO2 [Moles/Vol] 19 mmol/L Low 22-30 [facility] Comment on above: Order Comment: Speci men Type: BLOOD SPECIMEN Ordering Facility: [facility] Address: [address] [place] [address] Performed By: #### 2 4321-2, #### [facility] CLIA [id number] [address] [place] [address] [place] [facility] Creatinine [Mass/Vol] 0.79 mg/dL Normal 0.58-0.96 [facility] Comment on above: Order Comment: Speci men Type: BLOOD SPECIMEN Ordering Facility: [facility] Address: [address] [place] [address] Performed By: #### 2 4322, #### [facility] CLIA [id number] [address] [place] [address] [place] ESTIMATED GLOMERULAR FILTRATION RATE 83 mL/min/1.73m??? Normal >=60 [facility] Comment on above: Order Comment: Speci men Type: BLOOD SPECIMEN Ordering Facility: [facility] Address: [address] [place] [address] Result Comment: Tova mated Glomerular Filtration Rate (eGFR) is calculated using the 2020 CKD-EPI creatinine equation. This equation utilizes serum creatinine, sex, and age as parameters. The creatinine assay has traceable calibration to isotope dilution-mass spectrometry. Refer to KDIGO guidelines for clinical interpretation. In patients with unstable renal function, e.g. those with acute kidney injury, the eGFR may not accurately reflect actual GFR. Performed By: #### 2 4320-08, #### [facility] CLIA [id number] [address] [place] [address] [place] Glucose [Mass/Vol] 151 mg/dL High 74-99 [facility] Comment on above: Order Comment: John garces Type: BLOOD SPECIMEN Ordering Facility: [facility] Address: [address] [place] [address] Result Comment: The [place] [employer] (ADA) provides guidance for cutoff values for fasting glucose and random glucose. The ADA defines fasting as no caloric intake for at least 8 hours. Fasting plasma glucose results between 100 to 125 mg/dL indicate increased risk for diabetes (prediabetes). Fasting plasma glucose results greater than or equal to 126 mg/dL meet the criteria for diagnosis of diabetes. In the absence of unequivocal hyperglycemia, results should be confirmed by repeat testing. In a patient with classic symptoms of hyperglycemia or hyperglycemic crisis, random plasma glucose results greater than or equal to 200 mg/dL meet the criteria for diagnosis of diabetes. Reference: Standards of Medical Care in Diabetes 2016, [place] [employer]. Diabetes Care. 2016.39(Suppl 1). Performed By: #### 2 #### [facility] CLIA [id number] [address] [place] [address] [place] Potassium [Moles/Vol] 4.2 mmol/L Normal 3.7-5.1 [facility] Comment on above: Order Comment: John garces Type: BLOOD SPECIMEN Ordering Facility: [facility] Address: [address] [place] [address] Performed By: #### 2 #### [facility] CLIA [id number] [address] [place] [address] [place] Sodium [Moles/Vol] 136 mmol/L Normal 136-144 [facility] Comment on above: Order Comment: John garces Type: BLOOD SPECIMEN Ordering Facility: [facility] Address: [address] [place] [address] Performed By: #### 2 4320-08, #### [facility] CLIA [id number] [address] [place] [address] [place] Urea nitrogen [Mass/Vol] 12 mg/dL Normal 7-21 [facility] Comment on above: Order Comment: Speci men Type: BLOOD SPECIMEN Ordering Facility: [facility] Address: [address] [place] [address] Performed By: #### 2 4321-2, #### [facility] CLIA [id number] [address] [place] [address] [place] Anion gap [Moles/Vol] 12 mmol/L Normal 9-18 [facility] Comment on above: Order Comment: Speci men Type: BLOOD SPECIMEN Ordering Facility: [facility] Address: [address] [place] [address] Performed By: #### 2 4321-2, #### [facility] CLIA [id number] [address] [place] [address] [place] Calcium [Mass/Vol] 8.9 mg/dL Normal 8.5-10.2 [facility] Comment on above: Order Comment: Speci men Type: BLOOD SPECIMEN Ordering Facility: [facility] Address: [address] [place] [address] Performed By: #### 2 4321-2, #### [facility] CLIA [id number] [address] [place] [address] [place] Chloride [Moles/Vol] 108 mmol/L High 97-105 [facility] Comment on above: Order Comment: Speci men Type: BLOOD SPECIMEN Ordering Facility: [facility] Address: [address] [place], [place] [address] Performed By: #### 2 4321-2, #### [facility] CLIA [id number] [address] [place] [address] [place] CO2 [Moles/Vol] 21 mmol/L Low 22-30 [facility] Comment on above: Order Comment: Speci men Type: BLOOD SPECIMEN Ordering Facility: [facility] Address: [address] [place] [address] Performed By: #### 2 4321-2, #### [facility] CLIA [id number] [address] [place] [id number] [place] Creatinine [Mass/Vol] 0.74 mg/dL Normal 0.58-0.96 [facility] Comment on above: Order Comment: John garces Type: BLOOD SPECIMEN Ordering Facility: [facility] Address: [address] [place] [address] Performed By: #### 2 432-2, #### [facility] CLIA [id number] [address] [place] [address] [place] ESTIMATED GLOMERULAR FILTRATION RATE 89 mL/min/1.73m??? Normal >=60 [facility] Comment on above: Order Comment: John garces Type: BLOOD SPECIMEN Ordering Facility: [facility] Address: [address] [place] [address] Result Comment: Tova mated Glomerular Filtration Rate (eGFR) is calculated using the 2020 CKD-EPI creatinine equation. This equation utilizes serum creatinine, sex, and age as parameters. The creatinine assay has traceable calibration to isotope dilution-mass spectrometry. Refer to KDIGO guidelines for clinical interpretation. In patients with unstable renal function, e.g. those with acute kidney injury, the eGFR may not accurately reflect actual GFR. Performed By: #### 2 432-2, #### [facility] CLIA [id number] [address] [place] [address] [place] Glucose [Mass/Vol] 118 mg/dL High 74-99 [facility] Comment on above: Order Comment: John garces Type: BLOOD SPECIMEN Ordering Facility: [facility] Address: [address] [place] [address] Result Comment: The [place] Diabetes Association (ADA) provides guidance for cutoff values for fasting glucose and random glucose. The ADA defines fasting as no caloric intake for at least 8 hours. Fasting plasma glucose results between 100 to 125 mg/dL indicate increased risk for diabetes (prediabetes). Fasting plasma glucose results greater than or equal to 126 mg/dL meet the criteria for diagnosis of diabetes. In the absence of unequivocal hyperglycemia, results should be confirmed by repeat testing. In a patient with classic symptoms of hyperglycemia or hyperglycemic crisis, random plasma glucose results greater than or equal to 200 mg/dL meet the criteria for diagnosis of diabetes. Reference: Standards of Medical Care in Diabetes 2016, [place] [employer]. Diabetes Care. 2016.39(Suppl 1). Performed By: #### 2 1-2, #### [facility] CLIA [id number] [place] [address] [place] Potassium [Moles/Vol] 4.8 mmol/L Normal 3.7-5.1 [facility] Comment on above: Order Comment: Speci men Type: BLOOD SPECIMEN Ordering Facility: [facility] Address: [address] [place] [address] Performed By: #### 2 4320-08, #### [facility] CLIA [id number] [address] [place] [address] [place] Sodium [Moles/Vol] 141 mmol/L Normal 136-144 [facility] Comment on above: Order Comment: Speci men Type: BLOOD SPECIMEN Ordering Facility: [facility] Address: [address] [place] [address] Performed By: #### 2 4320-08, #### [facility] CLIA [id number] [address] [place] [address] [place] Urea nitrogen [Mass/Vol] 12 mg/dL Normal 7-21 [facility] Comment on above: Order Comment: Speci men Type: BLOOD SPECIMEN Ordering Facility: [facility] Address: [address] [place] [address] Performed By: #### 2 4320-08, #### [facility] CLIA [id number] [address] [place] [address] [place] CBC panel Auto (Bld)on 05-12 Erythrocyte distribution width (RBC) [Ratio] 13.3 % Normal 11.5-15.0 [facility] Comment on above: Order Comment: Speci men Type: BLOOD SPECIMEN Ordering Facility: [facility] Address: [address] [place], [place] [id number] Performed By: #### 5 8410-2 #### [facility] CLIA [id number] [address] [place] [address] [place] Hematocrit (Bld) [Volume fraction] 30.8 % Low 36.0-46.0 [facility] Comment on above: Order Comment: Speci men Type: BLOOD SPECIMEN Ordering Facility: [facility] Address: [address] [place] [address] Performed By: #### 5 8410-2 #### [facility] CLIA [id number] [address] [place] [address] [place] Hemoglobin (Bld) [Mass/Vol] 10.9 g/dL Low 11.5-15.5 [facility] Comment on above: Order Comment: Speci men Type: BLOOD SPECIMEN Ordering Facility: [facility] Address: [address] [place] [address] Performed By: #### 5 8410-2 #### [facility] CLIA [id number] [address] [place] [address] [place] MCH (RBC) [Entitic mass] 29.8 pg Normal 26.0-34.0 [facility] Comment on above: Order Comment: Speci men Type: BLOOD SPECIMEN Ordering Facility: [facility] Address: [address] [place] [address] Performed By: #### 5 8410-2 #### [facility] CLIA [id number] [address] [place] [address] [place] MCHC (RBC) [Mass/Vol] 35.4 g/dL Normal 30.5-36.0 [facility] Comment on above: Order Comment: Speci men Type: BLOOD SPECIMEN Ordering Facility: [facility] Address: [address] [place] [address] Performed By: #### 5 8410-2 #### [facility] CLIA [id number] [address] [place] [address] [place] MCV (RBC) [Entitic vol] 84.2 fL Normal 80.0-100.0 [facility] Comment on above: Order Comment: Speci men Type: BLOOD SPECIMEN Ordering Facility: [facility] Address: [address] [place] [address] Performed By: #### 5 8410-2 #### [facility] CLIA [id number] [address] [place] [address] [place] Nucleated RBC (Bld) [#/Vol] 10*3/uL Normal <0.01 [facility] Comment on above: Order Comment: Speci men Type: BLOOD SPECIMEN Ordering Facility: [facility] Address: [address] [place] [address] Performed By: #### 5 8410-2 #### [facility] CLIA [id number] [address] [place] [address] [place] Platelet mean volume (Bld) [Entitic vol] 10.4 fL Normal 9.0-12.7 [facility] Comment on above: Order Comment: Speci men Type: BLOOD SPECIMEN Ordering Facility: [facility] Address: [address] [place] [address] Performed By: #### 5 8410-2 #### [facility] CLIA [id number] [address] [place] [address] [place] Platelets (Bld) [#/Vol] 175 10*3/uL Normal 150-400 [facility] Comment on above: Order Comment: Speci men Type: BLOOD SPECIMEN Ordering Facility: [facility] Address: [address] [place], [place] [id number] Performed By: #### 5 8410-2 #### [facility] CLIA [id number] [address] [place] [address] [place] RBC (Bld) [#/Vol] 3.66 10*6/uL Low 3.90-5.20 [facility] Comment on above: Order Comment: Speci men Type: BLOOD SPECIMEN Ordering Facility: [facility] Address: [address] [place] [address] Performed By: #### 5 8410-2 #### [facility] CLIA [id number] [address] [place], [place] [address] [facility] [place] WBC (Bld) [#/Vol] 12.17 10*3/uL High 3.70-11.00 [facility] Comment on above: Order Comment: Speci men Type: BLOOD SPECIMEN Ordering Facility: [facility] Address: [address] [place] [address] Performed By: #### 5 8410-2 #### [facility] CLIA [id number] OF [place] Erythrocyte distribution width (RBC) [Ratio] 13.2 % Normal 11.5-15.0 [facility] Comment on above: Order Comment: Speci men Type: BLOOD SPECIMENOrdering Facility: [facility] Address: [address] [place] [address] Performed By: #### 5 8410-2 ####[facility] [id number] [address] Hematocrit (Bld) [Volume fraction] 29.2 % Low 36.0-46.0 [facility] Comment on above: Order Comment: Speci men Type: BLOOD SPECIMENOrdering Facility: [facility] Address: [address] [place] [address] Performed By: #### 5 8410-2 ####[facility] [id number] [address] Hemoglobin (Bld) [Mass/Vol] 10.0 g/dL Low 11.5-15.5 [facility] Comment on above: Order Comment: Speci men Type: BLOOD SPECIMENOrdering Facility: [facility] Address: [address] [place] [address] Performed By: #### 5 8410-2 ####[facility] [id number] [address] MCH (RBC) [Entitic mass] 29.6 pg Normal 26.0-34.0 [facility] Comment on above: Order Comment: Speci men Type: BLOOD SPECIMENOrdering Facility: [facility] Address: [address] [place] [address] Performed By: #### 5 8410-2 ####[facility] [id number] [address] [place] [facility] MCHC (RBC) [Mass/Vol] 34.2 g/dL Normal 30.5-36.0 [facility] Comment on above: Order Comment: Speci men Type: BLOOD SPECIMENOrdering Facility: [facility] Address: [address] [place] [address] Performed By: #### 5 8410-2 ####[facility]IA [id number] [place] [address] [place] MCV (RBC) [Entitic vol] 86.4 fL Normal 80.0-100.0 [facility] Comment on above: Order Comment: Speci men Type: BLOOD SPECIMENOrdering Facility: [facility] Address: [address] [place] [address] Performed By: #### 5 8410-2 ####[facility]IA [id number] [place] [address] [place] Nucleated RBC (Bld) [#/Vol] 10*3/uL Normal <0.01 [facility] Comment on above: Order Comment: Speci men Type: BLOOD SPECIMENOrdering Facility: [facility] Address: [address] [place] [address] Performed By: #### 5 8410-2 ####[facility] [id number] [place] [address] [place] Platelet mean volume (Bld) [Entitic vol] 10.4 fL Normal 9.0-12.7 [facility] Comment on above: Order Comment: Speci men Type: BLOOD SPECIMENOrdering Facility: [facility] Address: [address] [place] [address] Performed By: #### 5 8410-2 ####[facility] [id number] [place] [address] [place] Platelets (Bld) [#/Vol] 123 10*3/uL Low 150-400 [facility] Comment on above: Order Comment: Speci men Type: BLOOD SPECIMENOrdering Facility: [facility] Address: [address] [place] [address] Performed By: #### 5 8410-2 ####[facility] [id number] [place] [address] [place] RBC (Bld) [#/Vol] 3.38 10*6/uL Low 3.90-5.20 [facility] Comment on above: Order Comment: Speci men Type: BLOOD SPECIMENOrdering Facility: [facility] Address: [address] [place] [address] Performed By: #### 5 8410-2 ####[facility] [id number] [address] OF [facility] WBC (Bld) [#/Vol] 11.96 10*3/uL High 3.70-11.00 [facility] Comment on above: Order Comment: Speci men Type: BLOOD SPECIMENOrdering Facility: [facility] Address: [address] [place] [address] Performed By: #### 5 8410-2 ####[facility] [id number] [address] ECG COMPLETEon 05-12-2022 ECG COMPLETE Ventricular Rate : 8 0 BPM Atrial Rate : 80 BPM P-R Interval : 179 ms QRS Duration : 87 ms Q-T Interval : 566 ms QTC Calculation(Bazett) : 654 ms Calculated R [place] : -9 degrees Calculated T [place] : 73 degrees Atrial-paced rhythm Anteroseptal infarct, age indeterminate Prolonged QT interval Abnormal ECG Confirmed by Luna SETH RAVISANKAR ([id number]) on 05/13/2022 6:44:57 PM NAME : LESLEY DODSON PID : [id number] : 1955 Gender : Female Race : ORD : [id number] Procedure Date : May 12 2022 13:53:45 Edit Date : May 13 2022 18:44:58 Diagnosis: Atrial-paced rhythm Anteroseptal infarct, age indeterminate Prolonged QT interval Abnormal ECG Confirmed by Luna SETH RAVISANKAR ([id number]) on 05/13/2022 6:44:57 PM Test Reason : POST-OP Location : 400 : FVEKG [id number] Overread By : Luna SETH RAVISANKAR Edited By : Luna SETH RAVISANKAR Referred By : , Acquired by : Ameena GARCIA [facility] HISTORY PHYSICALon 2 HISTORY PHYSICAL HNO ID: [id number] Author: Alek Meyer DO Service: Critical Care Author Type: Anesthesiologist Type: HANDP Filed: 05/12/2022 4:03 PM Note Text: SICU HANDP NOTE SERVICE DATE: 05/12/2022 SERVICE TIME: 2:03 PM Subjective HPI: Lesley Dodson is a 66 year old female with past medical history s/f HTN HLD CAD s/p LAD stenting x2 (2003, 2015) hypothyroidism CHF and SHAYAN who had been experiencing 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 She underwent LHC 04/06/22 which was r/f single vessel disease in the proximal LAD with 80-90% stenosis immediately proximal to prior stents; a TTE from 05/10/22 was also r/f EF 30% with akinesis of the LV. On May 12, 2022 she underwent CABG x1 (BENAVIDES-LAD). The case was uncomplicated however she did have difficulty coming off pump, specifically worsening with the addition of epi. She arrived to the SICU intubated and sedated requiring milrinone for inotropic support PAST MEDICAL HISTORY Diagnosis Date Acute myocardial infarction, unspecified site 12/24/2003 Myocardial Infarction CAD (coronary artery disease) Carcinoma of submandibular gland (HCC) CHF (congestive heart failure) (HCC) Disorder of bladder Esophageal reflux Gastroesophageal reflux Former smoker Gastrointestinal hemorrhage 2016 Generalized anxiety disorder GERD (gastroesophageal reflux disease) HLD (hyperlipidemia) HTN (hypertension) Hypothyroidism Intestinal malabsorption Iron deficiency anemia PAST SURGICAL HISTORY Procedure Laterality Date ANGIOPLASTY PCI 2016 LAD - HECTOR CHOLECYSTECTOMY 07/17/1976 Cholecystectomy CHOLECYSTECTOMY HX HYSTERECTOMY HX PAST SURGICAL HISTORY OF 07/17/1987 removal of parotid gland tumor PERC TRANSL COR ANGIO o stenting x2 LAD and first diagn TOTAL ABDOMINAL HYSTERECT W/WO RMVL TUBE OVARY Hysterectomy, partial FAMILY HISTORY Problem Relation Age of Onset other (other) Mother 79 bowel obstruction Heart Father [place] Age 63 Cancer Father 70 esophageal Stroke Sister 45 Drug abuse Sister 63 Drug abuse Brother No Known Problems Brother No Known Problems Brother Social History Tobacco Use Smoking status: Former Packs/day: 0.50 Types: Cigarettes Quit date: 11/17/2003 Years since quittin.4 Passive exposure: Past Smokeless tobacco: Never Substance Use Topics Alcohol use: Yes Comment: social PRIOR TO ADMISSION MEDICATIONS atorvastatin (LIPITOR) 80 mg tablet, 80 mg., Disp: , Rfl: , 05/11/2022 alendronate 70 mg tbef, 70 mg., Disp: , Rfl: , 05/11/2022 amLODIPine (NORVASC) 5 mg tablet, Take 2.5 mg by mouth once daily., Disp: , Rfl: , 05/11/[address] (PROTONIX) 40 mg tablet, Take 40 mg by mouth once daily., Disp: , Rfl: , 05/11/2022 aspirin 81 mg chewable tablet, Take 81 mg by mouth once daily., Disp: , Rfl: , 05/11/2022 levothyroxine (SYNTHROID) 125 mcg tablet, Take 112 mcg by mouth daily before breakfast., Disp: , Rfl: , 05/12/2022 ALTACE 10 MG CAP, Take one (1) capsule daily, Disp: 90, Rfl: 0, 05/11/2022 ZETIA 10 MG TAB, Take one(1) tablet daily, Disp: 30, Rfl: 5, 05/11/2022 PAXIL 10MG TABLET, Take one(1) tablet daily., Disp: , Rfl: 0, 05/11/2022 LIPITOR 80MG TABLET, po qd, Disp: , Rfl: 0, 05/11/2022 TOPROL XL 100MG TABLET SA, Take one(1) tablet daily., Disp: , Rfl: 0, 05/11/2022 nitroglycerin (NITROLINGUAL) 400 mcg/spray spray, Dissolve 1 Allison under the tongue every 5 minutes as needed for Chest Pain., Disp: , Rfl: ALLERGIES Allergen Reactions Cashew Nut Hives Ciprofloxacin Unknown Corticosteroids (Gl* Hives Penicillins Hives Objective VITAL SIGNS BP 138/93 Pulse 80 Temp 37.1 ?C (98.8 ?F) (Temporal) Resp 16 SpO2 97% There is no height or weight on file to calculate BMI. PHYSICAL EXAM GENERAL: No acute distress NEURO: Alert and oriented with no gross focal deficits CARDIAC: Regular rate and rhythm LUNGS: Non labored breathing ABDOMEN: Soft EXTREMITIES: Warm and well perfused DATA: Diagnostic tests reviewed for today's visit: Most recent labs and imaging reviewed. 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 She underwent LHC 04/06/22 which was r/f single vessel disease in the proximal LAD with 80-90% stenosis immediately proximal to prior stents; a TTE from 05/10/22 was also r/f EF 30% with akinesis of the LV. On May 12, 2022 she underwent CABG x1 (BENAVIDES-LAD). REASON FOR ICU ADMISSION: Postoperative hemodynamic and respiratory monitoring. Neuro: - Pain control: tylenol, fentanyl, oxycodone - Sedation: propofol, will wean a (more content not included)... Normal [facility] HISTORY PHYSICAL HNO ID: [id number] Author: Golden Aviles PA-C Service: Cardiac Surgery Author Type: Physician Hardwood Sawyer Type: HANDP Filed: 05/12/2022 7:24 AM Note Text: UPDATED HISTORY AND PHYSICAL EXAMINATION SERVICE DATE: 05/12/2022 SERVICE TIME: 7:22 AM PHYSICAL EXAM MUST BE COMPLETED ON ADMISSION The History and Physical (completed in the past 30 days) has been reviewed and the patient has been examined. The contents accurately reflect the patient's condition with the following additions or revisions since the HANDP was completed. Examination indicates no changes. This HANDP can be found in the Electronic Medical Record dated 05/06/2022. Patient presents DOS for elective CABG. She denies AC use. She took a sip of water with synthroid this AM otherwise nothing else to eat or drink. Allergic to pcn and cipro - severe hives. She denies recent cold, cough, fever, chills, chest pain, abdominal pain, n/v, or headaches. PHYSICAL EXAMINATION: General appearance: Well appearing, alert, in no acute distress, well-hydrated, well nourished. Skin: Skin color, texture, turgor normal, no suspicious rashes or lesions Head: Normocephalic, no masses, lesions, tenderness or abnormalities Neck: Supple, no adenopathy; thyroid symmetric, normal size, no bruits Lungs: Lungs clear to auscultation. No wheezing, rhonchi, rales. Heart: RRR without murmur, gallop, or rubs. No ectopy Abdomen: Normal abdominal exam, Abdomen soft, non-tender. Bowel sounds normal. No masses, organomegaly Extremities: No deformities, edema, skin discoloration, clubbing or cyanosis. Good capillary refill. Musculoskeletal: No joint swelling, deformity, or tenderness Peripheral pulses: Normal Neuro: Gait normal. Reflexes normal and symmetric. Sensation grossly intact. SIGNATURE: Golden Aviles PA-C PATIENT NAME: Lesley Dodson DATE: May 12, 2022 TIME: 7:22 AM Normal [facility] INTRAOPERATIVE ECHO PREon INTRAOPERATIVE ECHO PRE Echocardiography Report: Intraoperative Echo Pre (BETHANY) [facility] Date of service: 05/12/2022 7:12:40 AM Indication: Chest Pain Technologist: staff Interpreting physician: Wilbert Nazario MD PATIENT: Name: LESLEY ODDSON : 1955 Age: 66 years Gender: F (PRE PROCEDURE) Color Doppler was utilized to interrogate the cardiac valves assessed in this exam. MEASUREMENTS: (PRE PROCEDURE) Value Normal Ejection Fraction 55 % (visual est.) EF > 54 FINDINGS: (PRE PROCEDURE) LEFT VENTRICLE The left ventricle is normal in size. Left ventricular systolic function is mildly decreased. Wall Motion: Pre: The entire anterior septum and entire apex are akinetic. All remaining scored segments are normal. RIGHT VENTRICLE The right ventricle is normal in size. Right ventricular systolic function is normal. LEFT ATRIUM The left atrial cavity is mildly dilated. RIGHT ATRIUM The right atrial cavity is normal in size. MITRAL VALVE [place] mitral valve. There is trace mitral valve regurgitation. TRICUSPID VALVE [place] tricuspid valve. There is trace tricuspid valve regurgitation. AORTIC VALVE There is trace aortic valve regurgitation. Tricuspid aortic valve. PULMONIC VALVE There is trace pulmonic valve regurgitation. PERICARDIUM The pericardium is normal. FINDINGS: (POST PROCEDURE) Aorta intact post decannulation. CONCLUSIONS: (PRE PROCEDURE) - Exam indication: Chest Pain - The left ventricle is normal in size. Left ventricular systolic function is mildly decreased. EF = 55 5% (visual est.) - The right ventricle is normal in size. Right ventricular systolic function is normal. - The left atrial cavity is mildly dilated. Patient with history of gastric bypass. Unable to pass probe to stomach. Poor imaging. - The patient has not had a prior CC echocardiographic exam for comparison. CONCLUSIONS: (POST PROCEDURE) Post CBP LV EF unchanged. RV function hyperdynamic. Aorta intact. Final CC [facility] [facility] Image : [id number] D See Link below for Image Normal [facility] Magnesium SerPl-mCncon 05-12 Magnesium [Mass/Vol] 2.5 mg/dL High 1.7-2.3 [facility] Comment on above: Order Comment: John garces Type: BLOOD SPECIMEN Ordering Facility: [facility] Address: [address] [place] [address] Performed By: #### 2 432 #### [facility] CLIA [id number] [place] [address] [place] Magnesium [Mass/Vol] 2.9 mg/dL High 1.7-2.3 [facility] Comment on above: Order Comment: Speci mili Type: BLOOD SPECIMEN Ordering Facility: [facility] Address: [address] [place] [address] Performed By: #### 2 [id number], #### [facility] CLIA [id number] [place] [address] [place] NURSING PROGon 05-12-2022 NURSING PROG HNO ID: [id number] Author: June Cameron RN Service: ? Author Type: Registered Nurse Type: Nursing Progress Note Filed: 05/12/2022 7:00 AM Note Text: PATIENT EDUCATION TOPIC: PROCEDURE / SURGERY: Pre-op Teaching: Logistics Protocols PATIENT NAME: Lesley Dodson PATIENT LOCATION: [facility] OR POOL/FV OR POOL READINESS TO LEARN COGNITIVE ABILITY: Alert and oriented MOTIVATION TO LEARN: Eager FAMILY SUPPORT: None - Unavailable/disintereste d INSTRUCTION PROVIDED TO: Patient PATIENT LEARNS BEST BY: Individual Instruction FACTORS AFFECTING LEARNING: None PHYSICAL LIMITATIONS AFFECTING LEARNING: None LEARNING RESPONSE DIAGNOSIS: ADULT: Well Adult PATIENT/FAMILY RESPONSE: Verbalizes understanding of: PRE-OPERATIVE INSTRUCTIONS-Correct action to take to follow pre-operative instructions METHOD OF INSTRUCTION: Individual instruction FOLLOW-UP PLAN: Complete - No need for follow-up INSTRUCTIONAL AIDS USED: NA SUPPLEMENTAL MATERIAL PROVIDED TO PATIENT: None REFERRAL (RECOMMENDATION): None Electronically Signed By: June Cameron [facility] OPERATIVE NOon 05-12-2022 OPERATIVE NO HNO ID: [id number] Author: Shay Brennre MD Service: Cardiac Surgery Author Type: Physician Type: Operative Report Filed: 05/16/2022 3:02 PM Note Text: [facility] - Operative Report LESLEY DODSON : 1955 AGE: 66. SEX: F PATIENT TYPE: I HOSP SVC: ORCA LOCATION: [facility] ATTENDING PHYSICIAN: Shay Brenner M.D. CSN NUMBER: [id number] DATE OF SURGERY/PROCEDURE: 05/12/2022 INCISION/PROCEDURE START TIME: 9:35 AM INCISION CLOSE/PROCEDURE END TIME: 1:27 PM PREOPERATIVE DIAGNOSIS: Coronary artery disease. POSTOPERATIVE DIAGNOSIS: Coronary artery disease. SURGEON: Shay Brenner M.D. ADMITTING COORDINATOR: Bon Vazquez and Golden Aviles. SURGERY/PROCEDURE: Coronary artery bypass grafting x1 with BENAVIDES to LAD (on pump). ANESTHESIA: General ANESTHESIOLOGIST: Dr. Taveras. PERFUSION: Cornel Sen. HISTORY: This 66-year-old patient with known history of coronary artery disease with stent placement to the LAD x2, presented with recurrent exertional chest pain. Coronary angiography showed slight in-stent restenosis and she was recommended to undergo bypass surgery. The risks and benefits of this were discussed with her and she consented to proceed. DESCRIPTION OF PROCEDURE: The patient was prepped and draped in the usual fashion after orotracheal intubation and after right-sided internal jugular Quinton-Shanelle catheter and a left-sided radial arterial line had been placed. An intraoperative BETHANY was done that showed she had an ejection fraction of about 45% with no valvular abnormalities. After prepping and draping, a standard sternotomy was performed. Her left internal thoracic artery was dissected as a pedicle conduits and she was heparinized. The pericardial sac was opened. She had dense pericardial adhesions from previous pericarditis. These were carefully dissected out and she was heparinized and ascending aortic and 2 stage right atrial cannulation was carried out and she was put on cardiopulmonary bypass once her ACT became adequate. Aortic cross-clamping was done with a soft padded clamp and cold blood cardioplegia was given through the aortic root to bring about cardiac standstill. The left anterior descending artery was prepared and 2 fasciotomies were carried out and then it was anastomosed to the LAD in the middle 3rd of the LAD which measured about 1.75 mm. This was a very diseased vessel and the anastomosis was done with 8-0 running Prolene suture. Transonic flow measurements were done after the anastomosis was completed, today it was in excess of 60 mL/minute. The cross-clamp was removed. She started spontaneous myocardial contractions and was weaned off cardiopulmonary bypass uneventfully on a small dose of epinephrine. Standard decannulation followed. There was troublesome bleeding at both atriotomy and aortotomy and these were controlled with pledgeted (felt) sutures. All surgical sites were inspected and found to be intact. One mediastinal and one left pleural chest tube were placed prior to closure. Two atrial pacing wires were placed prior to closure. The sternum was closed with interrupted steel wires. It was further reinforced with 2 Biomet plates. The fascia, the subcutaneous tissue, and skin were closed in layers. At the time of closure, she had a heart rate of 80 per minute. She was atrially paced, blood pressure 110/70, and PA pressures of 35/10. She made excellent urine output throughout. No blood products were used and I was present throughout the procedure. Shay Brenner M.D. IG:[id number] /[id number] Normal [facility] PT panel Coag (PPP)on 2021 INR Coag (PPP) [Relative time] 1.1 {INR} Normal 0.9-1.3 [facility] Comment on above: Order Comment: John garces Type: BLOOD SPECIMEN Ordering Facility: [facility] Address: [address] [place] [id number] Result Comment: Ele min K Antagonist (VKA) Therapeutic Range: INR 2 to 3 (Target INR of 2.5) Note: For patients treated with VKA drugs, such as warfarin, the [place] [employer] 2012 Guideline recommends a therapeutic INR range of 2 to 3 (target INR of 2.5). This recommendation includes high-risk patients with antiphospholipid syndrome with previous arterial or venous thromboembolism, current-generation mechanical or bioprosthetic aortic heart valve replacement. Note: Patients with mechanical aortic valve replacement and additional risk factors for thromboembolic events (atrial fibrillation, previous thromboembolism, LV dysfunction, hypercoagulable conditions) or an older generation mechanical AVR (i.e., ball in-Cage) or any mechanical MVR should have a INR therapeutic range of 2.5 to 3.5 (target INR of 3). Ivettett GH, et al. Chest 2012, 141:7S-47S Pamela RA, et al. JAC 2017, 70: 252-289 Performed By: #### 1 4979-9, 10950-6 #### [facility] CLIA [id number] [place] [id number] [place] PT Coag (PPP) [Time] 11.6 s Normal 9.7-13.0 [facility] Comment on above: Order Comment: John garces Type: BLOOD SPECIMEN Ordering Facility: [facility] Address: [address] [place] [address] Performed By: #### 1 4979-9, 03148-1 #### [facility] CLIA [id number] [place] [id number] [place] XR ABDOMEN 1V SUPINEon 05-12 XR ABDOMEN 1V SUPINE * * *Final Report* * * DATE OF EXAM: May 12 2022 8:30PM FVX 5289 - XR ABDOMEN 1V SUPINE / PROCEDURE REASON: Evaluate tube, line or lead position * * * * Physician Interpretation * * * * EXAMINATION: XR ABDOMEN 1V SUPINE CLINICAL HISTORY: Evaluate tube, line or lead position Technique: XR ABDOMEN 1V SUPINE -- with 1 views on 2 images Comparison: X-ray 05/12/2022, CTA chest 05/02/2022 RESULT: Enteric tube has a tortuous path but appears to be below the hemidiaphragm, tortuous path likely due to hiatal hernia seen on prior CT scan. Nonobstructive bowel gas pattern. Consolidative opacity in left lung base. IMPRESSION: Enteric tube has a tortuous path but tip is below the hemidiaphragm. Tortuous path likely due to hiatal hernia seen on CT scan. Business Services Officer: [facility] Transcribe Date/Time: May 12 2022 8:36P Dictated by : MIGDALIA CHIU MD This examination was interpreted and the report reviewed and electronically signed by: MIGDALIA CHIU MD on May 12 2022 8:42PM EST [id number] [facility] XR ABDOMEN 1V SUPINE * * *Final Report* * * DATE OF EXAM: May 12 2022 2:29PM FVX 5289 - XR ABDOMEN 1V SUPINE / PROCEDURE REASON: Evaluate tube, line or lead position * * * * Physician Interpretation * * * * EXAMINATION: XR ABDOMEN 1V SUPINE CLINICAL HISTORY: Evaluate tube, line or lead position Technique: XR ABDOMEN 1V SUPINE -- with 2 views on 2 images Comparison: None RESULT: Enteric tube is seen above the hemidiaphragm, likely in a hiatal hernia seen on prior CT scan. Nonobstructive bowel gas pattern. IMPRESSION: Enteric tube is above the hemidiaphragms, possibly in a hiatal hernia seen on prior CT scan Business Services Officer: [facility] Transcribe Date/Time: May 12 2022 2:50P Dictated by : MIGDALIA CHIU MD This examination was interpreted and the report reviewed and electronically signed by: MIGDALIA CHIU MD on May 12 2022 2:51PM EST [id number] [facility] XR CHEST 1V FRONTAL PORTon 1 XR CHEST 1V FRONTAL PORT * * *Final Report* * * DATE OF EXAM: May 12 2022 2:29PM FVX 5376 - XR CHEST 1V FRONTAL PORT / PROCEDURE REASON: Post-operative / post-procedure assessment, asymptomatic * * * * Physician Interpretation * * * * EXAMINATION: CHEST RADIOGRAPH (PORTABLE SINGLE VIEW AP) Exam Date/Time: 05/12/2022 2:29 PM CLINICAL HISTORY: Post-operative / post-procedure assessment, asymptomatic MQ: XCPR_5 Comparison: Chest x-ray 04/23/2021 RESULT: Lines, tubes, and devices: Endotracheal tube 5.1 cm above the rigo. Bilateral chest tubes. Right-sided Quinton-Shanelle catheter with tip overlying the main pulmonary artery. Enteric tube has a tortuous course with tip above the hemidiaphragms possibly in a hiatal hernia seen on prior CT scan. Surgical clips in the left hilum. Lungs and pleura: Possible loculated small pneumothorax in the left lung base.. Left retrocardiac airspace disease. Possible trace left pleural effusion. Cardiomediastinal silhouette: Cardiomegaly Other: . IMPRESSION: 1. Enteric tube has a tortuous course with tip above the hemidiaphragms, possibly in a hiatal hernia seen on prior CT scan. 2. Other life-support devices as described in the body of the report. 3. Possible small left pleural effusion with left retrocardiac airspace disease opacity. 4. Possible small loculated pneumothorax in the left lung base. Business Services Officer: [facility] Transcribe Date/Time: May 12 2022 2:47P Dictated by : MIGDALIA CHIU MD This examination was interpreted and the report reviewed and electronically signed by: MIGDALIA CHIU MD on May 12 2022 2:50PM EST [id number] Normal [facility] aPTT PPPon 05-12-2022 aPTT Coag (PPP) [Time] 22.6 s Low 23.0-32.4 [facility] Comment on above: Order Comment: Speci men Type: BLOOD SPECIMEN Ordering Facility: [facility] Address: [address] [place] [id number] Performed By: #### 1 4979-9, 27546-7 #### [facility] CLIA [id number] [place] [address] [place] Established Visit (Otolaryng ology)on 05-10-2022 Established Visit (Otolaryngology) No report was sent Normal [facility] LUNG DIFFUSION CAPACITY (ERIC O)on 04-27-2022 [facility] SPIROMETRY - BASELINE AND PO ST DILATORon 04-27-2022 DLCO (ml/min/mmHg) 17.11 ml/min/mmHg [facility] DLCO/VA (ml/min/mmHg/L) 3.60 ml/min/mmHg/L [facility] JDI24-95% POST (L/S) 1.37 L/S [facility] CKN00-28% PRE (L/S) 1.23 L/S [facility] FEV1 PRE (L) 2.32 L [facility] FEV1/FVC POST (%) 70 % [facility] FEV1/FVC PRE (%) 67 % [facility] FEV1_POST (L) 2.37 L [facility] FVC POST (L) 3.38 L [facility] FVC PRE (L) 3.45 L [facility] PEF POST (L/S) 5.93 L/S [facility] PEF PRE (L/S) 5.33 L/S [facility] VA (L) 4.75 L [facility] Clinic Note - Heme Onc Sched ulingon 03-25-2022 Clinic Note - Heme Onc Scheduling Retrieve Patient Instructions: Patient Instructions: Patient Instructions: RetrievePatient Instructions Return Appointment: Physician/Dept/Julia Malone Appointment Date & [id number] 01:[phone] Comments4 month follow up/arrive at 12:40 for intake Treatment Center Appointment: Commentslabs to be done prior to next MD appt End of Visit Documentation: Clinic Location/Phone Number: Clinic Location/Phone Number: [place] [phone] End Of Visit MU Report Item: Visit Summary given or mailed to patientyes Electronic Signatures: Yolette Valdes (Rev Cycl Spec) (Signed 25-Mar-2022 14:08) Authored: Retrieve Patient Instructions, RETURN VISITS, TREATMENT CENTER APPOINTMENTS, End of Visit Documentation Last Updated: 25-Mar-2022 14:08 by Yolette Valdes (Rev Cycl Spec) Normal [facility] Clinic Note - Heme Onc-Follo w Up Visiton 03-25-2022 Clinic Note - Heme Onc-Follow Up Visit Patient Visit Information: Visit Type: Follow Up Visit History of Present Illness: ID Statement: LESLEY DODSON is a 66 year old Female Chief Complaint: follow-up Interval History: The patient had come for a follow up on 03/25/2022 regarding her history of LEYLA. She is on oral iron replacement therapy and is feeling better compared to previous evaluation. Denies any new symptoms. Review of systems: Gen.: No weight loss, fever, chills, or night sweats. EENT: No visual changes, eye pain, ear pain, changes in hearing, sore throat, or hoarseness. Cardiac: No chest pain or palpitations. Pulmonary: No shortness of breath, wheezing, or cough. Heme: No easy bleeding or bruising. GI: No abdominal pain. No n/v/d. : No burning with urination or increased frequency. No hematuria. Musculoskeletal: No joint swelling or joint pains. Skin: No rashes or lesions. Neck: No lumps or swollen glands. Breast: No lumps or pain. Neuro: No headaches, seizures, or tremor. Psychiatry: No anxiety, depression, or insomnia. Past medical history: 1. Hypertension 2. Hyperlipidemia 3. Anemia 4. Coronary artery disease with anterior wall myocardial infarction, left ventricular ejection fraction 40-45% Past surgical history/procedure history 1. Coronary angiogram on May 23, 2016 at 60 years 2. Percutaneous coronary angioplasty on May 23, 2016 at 60 years 3. Drug eluting stent on May 23, 2016 at 60 years 4. Neck dissection 5. Appendectomy 6. Cholecystectomy 7. Hysterectomy 8. Right rotator cuff surgery Review of Systems: System ReviewAll other systems have been reviewed and are negative for complaint. ConstitutionalNEGATIVE: Fever, Chills, Anorexia, Weight Loss, Malaise EyesNEGATIVE: Blurry Vision, Drainage, Diploplia, Redness, Vision Loss/ Change ENMTNEGATIVE: Nasal Discharge, Nasal Congestion, Ear Pain, Mouth Pain, Throat Pain RespiratoryNEGATIVE: Dry Cough, Productive Cough, Hemoptysis, Wheezing, Shortness of Breath CardiologyNEGATIVE: Chest Pain, Dyspnea on Exertion, Orthopnea, Palpitations, Syncope GastrointestinalNEGATIVE : Abdominal Pain, Constipation, Diarrhea, Nausea, Vomiting GenitourinaryNEGATIVE: Discharge, Dysuria, Flank Pain, Frequency, Hematuria MusculoskeletalNEGATIVE: Decreased ROM, Pain, Swelling, Stiffness, Weakness NeurologicalNEGATIVE: Dizziness, Confusion, Headache, Seizures, Syncope PsychiatricNEGATIVE: Mood Changes, Anxiety, Hallucinations, Sleep Changes, Suicidal Ideas SkinNEGATIVE: Mass, Pain, Pruritus, Rash, Ulcer EndocrineNEGATIVE: Heat Intolerance, Cold Intolerance, Sweat, Polyuria, Thirst Hematologic/LymphNEGATIV E: Anemia, Bruising, Easy Bleeding, Night Sweats, Petechiae Allergic/ImmunologicNEGA TIVE: Anaphylaxis, Itchy/ Teary Eyes, Itching, Sneezing, Swelling BreastNEGATIVE: Pain, Mass, Discharge, Nipple Itching, Gynecomastia Allergies and Intolerances: Allergies: penicillin: Drug, Rash, Active Cipro: Drug, Swelling/Edema, Facial Swelling, Rash, Hives/Urticaria, Active Outpatient Medication Profile: * Patient Currently Takes Medications as of 25-Mar-2022 13:32 documented in Structured Notes Ferrex-150 oral capsule: Last Dose Taken: , 1 cap(s) orally 2 times a day 30 minutes after a meal , Start Date: 02-Dec-2021 Vitamin D3 2000 intl units (50 mcg) oral tablet: Last Dose Taken: , One tab, once a day. Zetia 10 mg oral tablet: Last Dose Taken: , 1 tab(s) orally once a day Lipitor 80 mg oral tablet: Last Dose Taken: , 1 tab(s) orally once a day (at bedtime) pantoprazole 40 mg oral delayed release tablet: Last Dose Taken: , 1 tab(s) orally once a day PARoxetine 10 mg oral tablet: Last Dose Taken: , 1 tab(s) orally once a day ramipril 10 mg oral capsule: Last Dose Taken: , 1 cap(s) orally once a day amLODIPine 5 mg oral tablet: Last Dose Taken: , 1 tab(s) orally once a day Boniva 150 mg oral tablet: Last Dose Taken: , 1 tab(s) orally once a month aspirin 81 mg oral tablet: Last Dose Taken: , 1 tab(s) orally once a day metoprolol tartrate 100 mg oral tablet: Last Dose Taken: , 1 tab(s) orally once a day Feraheme: Last Dose Taken: , 510 milligram(s) intravenous x2 doses Medical History: Hiatal hernia: ICD-10: K44.9, Status: Active CAD (coronary artery disease): ICD-10: I25.10, Status: Active HLD (hyperlipidemia): ICD-10: E78.5, Status: Active HTN (hypertension): ICD-10: I10, Status: Active Iron deficiency anemia: ICD-10: D50.9, Status: Active Surg History: H/O: hysterectomy: ICD-10: Z90.710, Status: Active History of appendectomy: ICD-10: Z90.49, Status: Active Social History: Social Substance History: Social Historydenies smoking, alcohol and drug use Smoking Statusnever smoker (1) Tobacco Usedenies Alcohol Usedenies Drug Usedenies Performance: ECOG Performance Status: 0 Fully Active Vitals and Measurements: (more content not included)... Normal [facility] Clinic Note - Intakeon 03-25 Clinic Note - Intake Patient Visit Information: Visit TypeFollow Up Visit Source of Informationpatient Admission Information: Admission Since Last VisitNo Vital Signs: Temp (degrees C)35.9 degrees C Temperatureskin Heart Rate (beats/min)70 beats per minute Respiration (breaths/min)18 breath per minute BP Systolic (mm Hg)Image has been removed. 166 mmHg BP Diastolic (mm Hg)Image has been removed. 95 mmHg BP Mean (mm Hg)Image has been removed. 118 mmHg Height in cm154 centimeter(s) Heightstanding Weight in kg73.5 kilogram(s) Weightstanding BMI (kg/m2)30.9 kg/M2 BSA (m2)1.77 M2 SpO2 (%)98 % SpO2 Patient Onroom air Pain Screening: Patient States Painno (0) Allergies: penicillin: Drug, Rash, Active Cipro: Drug, Swelling/Edema, Facial Swelling, Rash, Hives/Urticaria, Active Outpatient Medication Profile: * Patient Currently Takes Medications as of 25-Mar-2022 13:32 documented in Structured Notes Ferrex-150 oral capsule: Last Dose Taken: , 1 cap(s) orally 2 times a day 30 minutes after a meal , Start Date: 02-Dec-2021 Vitamin D3 2000 intl units (50 mcg) oral tablet: Last Dose Taken: , One tab, once a day. Zetia 10 mg oral tablet: Last Dose Taken: , 1 tab(s) orally once a day Lipitor 80 mg oral tablet: Last Dose Taken: , 1 tab(s) orally once a day (at bedtime) pantoprazole 40 mg oral delayed release tablet: Last Dose Taken: , 1 tab(s) orally once a day PARoxetine 10 mg oral tablet: Last Dose Taken: , 1 tab(s) orally once a day ramipril 10 mg oral capsule: Last Dose Taken: , 1 cap(s) orally once a day amLODIPine 5 mg oral tablet: Last Dose Taken: , 1 tab(s) orally once a day Boniva 150 mg oral tablet: Last Dose Taken: , 1 tab(s) orally once a month aspirin 81 mg oral tablet: Last Dose Taken: , 1 tab(s) orally once a day metoprolol tartrate 100 mg oral tablet: Last Dose Taken: , 1 tab(s) orally once a day Feraheme: Last Dose Taken: , 510 milligram(s) intravenous x2 doses Notification: NotificationsAnnual Screens Due Dates Advanced Directives: Apr 01, 2022 Family Violence: Apr 01, 2022 Depression (Due every 6 months for ONC only; all others use Annual date): Sep 28, 2021 Substance Use - Alcohol: Apr 01, 2022 Substance Use - Drugs: Apr 01, 2022 Nutrition: December 02, 2022 Learning: December 02, 2022 Travel History: COVID-19 Screening Completedno exposure or symptoms Travel or ExposureNO travel to International locations in the past 30 days Falls: Have you fallen in the last 6 monthsno Do you have a fear of fallingno Electronic Signatures: Pao Maldonado) (Signed 25-Mar-2022 13:32) Authored: Patient Visit Information, Vital Signs, Allergies, Outpatient Medication Profile, Notification, Travel History, Falls Last Updated: 25-Mar-2022 13:32 by Pao Maldonado) Normal [facility] Tobacco Screening.on 021 Fall risk assessment a) No falls within the last year [facility]: Tobacco use status [facility] b) No [facility] SCREEN[facility]on 05-05-2020 [facility] SCREENING Final Report DATE OF EXAM: May 05 2020 3:15PM LDW [id number] - [facility] SCREENING / PROCEDURE REASON: Screening Physician Interpretation #[id number] - [facility] SCREENING BILATERAL DIGITAL SCREENING MAMMOGRAM WITH CAD: 05/05/2020 HISTORY: /Screening Mammogram-patient reports no symptoms. RESULT: TECHNIQUE: The study was acquired using full field digital technology and interpreted from soft copy. Current study was also evaluated with a Computer Aided Detection (CAD). Comparison is made to exams dated: 03/06/2019 mammogram, 05/06/2016 mammogram, 05/03/2014 mammogram, 10/01/2012 mammogram, and 09/10/2011 mammogram - [facility]. The tissue of both breasts is predominantly fatty. There are benign calcifications in both breasts. No significant masses, calcifications, or other findings are seen in either breast. There has been no significant interval change. IMPRESSION: BENIGN FINDING There is no mammographic evidence of malignancy. A 1 year screening mammogram is recommended. Tyler Andres M.D. ls/penrad:05/05/2020 16:09:45 Surgical Nurse(s): Huma Real (Dean)(M), [facility] letter sent: Normal over 40 Mammogram BI-RADS: 2 Benign finding Multiple national specialty organizations have released breast cancer screening guidelines for women at average risk for developing breast cancer - guidelines that are based on both evidence and opinion, yet differ on when to start and how often to screen for breast cancer. With representation from Breast Imaging, Internal Medicine, Women's Health, Family Medicine, and Medical/Surgical Oncology, the [facility] has carefully reviewed the data and reached the following consensus: 1) All women should engage in shared decision-making with their providers to decide when to start and how often to screen; 2) All women should have the opportunity to start screening mammography at age 40; 3) For women ages 45-55, we recommend annual screening mammograms; 4) For women ages 55 and over, we support both the transition from an annual to a biennial interval if this aligns more with patient's values and preferences, or continuation with annual screening; 5) All women should discuss with their providers when to stop screening mammograms. Business Services Officer: Rolanda Transcribe Date/Time: May 05 2020 3:00P Dictated by : TYLER ANDRES MD This examination was interpreted and the report reviewed and electronically signed by: TYLER ANDRES MD on May 05 2020 4:09PM EST Normal [facility] VITAMIN D 1,25-DIHYDROXYon 0 03-20-2020 VITAMIN D 1,25-DIHYDROXY 38.8 pg/mL Normal 19.9-79.3 [facility] Comment on above: Result Comment: INTE RPRETIVE INFORMATION: Vitamin D, 1,25-Dihydroxy This test is primarily indicated during patient evaluation for hypercalcemia and renal failure. A normal result does not rule out Vitamin D deficiency. The recommended test for diagnosing Vitamin D deficiency is Vitamin D 25-hydroxy. Performed By: [facility] [address] [place] [address] Customer Experience Consultant: Jolie Crouch MD Performed By: #### V TDDI #### [employer] [address] [place] [address] CALCIUM,URINE 24HRon 020 CALCIUM, URINE 8.8 mg/dL Normal Not Established [facility] Comment on above: Performed By: #### C ALUR #### [address] [address] CALCIUM,URINE 24HR 150 mg/24h Normal 100 - 300 [facility] Comment on above: Performed By: #### C ALUR #### [address] [address] CREATININE, 24HR 0.88 g/24h Normal 0.67 - 1.59 [facility] Comment on above: Performed By: #### C ALUR #### [address] [address] CREATININE, URINE 52.0 mg/dL Normal 20.0 - 320.0 [facility] Comment on above: Performed By: #### C ALUR #### [address] [address] COLLECTION PERIOD 24 hrs Normal [facility] Comment on above: Performed By: #### C ALUR #### [address] [address] URINE VOLUME 1700 mL Normal [facility] Comment on above: Performed By: #### C ALUR #### [address] [address] PARATHYROID HORMONE,INTACTon 03-17-2020 PARATHYROID HORMONE,INTACT 68.1 pg/mL Normal 18.5 - 88.0 [facility] Comment on above: Performed By: #### P TH #### [facility] [address] [place] [address] RENAL FUNCTION PANELon 03-17 Albumin [Mass/Vol] 4.1 g/dL Normal 3.4 - 5.0 [facility] Comment on above: Performed By: #### R ENAL #### [address] [address] Anion gap [Moles/Vol] 14 mmol/L Normal 10 - 20 [facility] Comment on above: Performed By: #### R ENAL #### [address] [address] Calcium [Mass/Vol] 9.5 mg/dL Normal 8.6 - 10.3 [facility] Comment on above: Performed By: #### R ENAL #### [address] [address] Chloride [Moles/Vol] 106 mmol/L Normal 98 - 107 [facility] Comment on above: Performed By: #### R ENAL #### [address] [address] Creatinine [Mass/Vol] 0.82 mg/dL Normal 0.50 - 1.05 [facility] Comment on above: Performed By: #### R ENAL #### [address] [address] GFR- AM. >60 Normal >60 [facility] Comment on above: Result Comment: CALC ULATIONS OF ESTIMATED GFR ARE PERFORMED USING THE MDRD STUDY EQUATION FOR THE IDMS-TRACEABLE CREATININE METHODS. CLIN CHEM 2007;53:766-72 Performed By: #### R ENAL #### [address] [address] GFR-NON AM. >60 Normal >60 [facility] Comment on above: Performed By: #### R ENAL #### [address] [address] Glucose [Mass/Vol] 104 mg/dL High 74 - 99 [facility] Comment on above: Performed By: #### R ENAL #### [place] [id number] HCO3 (Bld) [Moles/Vol] 25 mmol/L Normal 21 - 32 [facility] Comment on above: Performed By: #### R ENAL #### [address] [address] Phosphate [Mass/Vol] 3.2 mg/dL Normal 2.5 - 4.9 [facility] Comment on above: Result Comment: The performance characteristics of phosphorus testing in heparinized plasma have been validated by the individual laboratory site where testing is performed. Testing on heparinized plasma is not approved by the FDA; however, such approval is not necessary. Performed By: #### R ENAL #### [address] [address] Potassium [Moles/Vol] 4.5 mmol/L Normal 3.5 - 5.3 [facility] Comment on above: Performed By: #### R ENAL #### [address] [address] Sodium [Moles/Vol] 140 mmol/L Normal 136 - 145 [facility] Comment on above: Performed By: #### R ENAL #### [address] [address] Urea nitrogen [Mass/Vol] 12 mg/dL Normal 6 - 23 [facility] Comment on above: Performed By: #### R ENAL #### [address] [address] US THYROIDon 03-17-2020 US THYROID Patient Name: LESLEY DODSON STUDY: US THYROID; 03/17/2020 10:54 am INDICATION: HYPOTHYROIDISM. COMPARISON: None. ACCESSION NUMBER(S): [id number] ORDERING CLINICIAN: KANG GREENBERG TECHNIQUE: Grayscale and color Doppler ultrasound of the thyroid. FINDINGS: Heterogenous hypoechoic thyroid gland. No nodules are demonstrated. RIGHT LOBE: 3.6 x 0.9 x 0.8 cm LEFT LOBE: 3.6 x 1.0 x 1.1 cm ISTHMUS: 0.2 cm IMPRESSION: Heterogeneous, atrophic appearing thyroid gland is consistent in appearance with a chronic, nonspecific thyroiditis. No nodules are demonstrated. Electronically signed by: ÁNGEL ROSE MD [facility] [Catalytic activity/Vol] 101 U/L Normal 45-117 [facility] Comment on above: Performed By: #### P 14 #### [facility] [address] [place], [place] [address] Bilirubin [Mass/Vol] 0.5 mg/dL Normal 0.2-1.0 [facility] Comment on above: Performed By: #### P 14 #### [facility] [address] [place], [place] [address] Protein [Mass/Vol] 7.1 g/dL Normal 6.4-8.2 [facility] Comment on above: Performed By: #### P 14 #### [facility] [address] [place], [place] [address] ALT [Catalytic activity/Vol] 30 U/L Normal 12-78 [facility] Comment on above: Performed By: #### P 14 #### [facility] [address] [place], [place] [address] AST [Catalytic activity/Vol] 19 U/L Normal 15-37 [facility] Comment on above: Performed By: #### P 14 #### [facility] [address] [place], [place] [address] Creatinine [Mass/Vol] 0.75 mg/dL Normal 0.51-0.95 [facility] Comment on above: Performed By: #### P 14 #### [facility] [address] [place], [place] [address] Albumin [Mass/Vol] 4.0 g/dL Normal 3.4-5.0 [facility] Comment on above: Performed By: #### P 14 #### [facility] [address] [place], [place] [address] Anion gap [Moles/Vol] 13 mmol/L Normal 8-16 [facility] Comment on above: Performed By: #### P 14 #### [facility] [address] [place], [place] [address] CO2 [Moles/Vol] 27 mmol/L Normal 21-32 [facility] Comment on above: Performed By: #### P 14 #### [facility] [address] [place], [place] [address] Glucose [Mass/Vol] 108 mg/dL High 70-99 [facility] Comment on above: Performed By: #### P 14 #### [facility] [address] [place], [place] [address] Urea nitrogen [Mass/Vol] 13 mg/dL Normal 7-18 [facility] Comment on above: Performed By: #### P 14 #### [facility] [address] [place], [place] [address] Calcium [Mass/Vol] 10.2 mg/dL High 8.5-10.1 [facility] Comment on above: Performed By: #### P 14 #### [facility] [address] [place], [place] [address] Chloride [Moles/Vol] 104 mmol/L Normal 98-107 [facility] Comment on above: Performed By: #### P 14 #### [facility] [address] [place], [place] [address] Potassium [Moles/Vol] 4.4 mmol/L Normal 3.5-5.1 [facility] Comment on above: Performed By: #### P 14 #### [facility] [address] [place], [place] [address] Sodium [Moles/Vol] 140 mmol/L Normal 136-145 [facility] Comment on above: Performed By: #### P 14 #### [facility] [address] [place], [place] [address] Hemogram/Diffon 06-07-2019 Abs. Baso 0.05 thou/cmm Normal 0.00-0.08 [facility] Comment on above: Performed By: #### L CBCD #### [facility] [address] [place], [place] [address] Abs. Becker 0.77 thou/cmm Normal 0.20-1.00 [facility] Comment on above: Performed By: #### L CBCD #### [facility] [address] [place], [place] [address] Abs. Neut (ANC) 5.14 thou/cmm Normal 3.00-5.67 [facility] Comment on above: Performed By: #### L CBCD #### [place] [address] Basophils/100 WBC (Bld) 0.7 % Normal [facility] Comment on above: Performed By: #### L CBCD #### [place] [address] Eosinophils (Bld) [#/Vol] 0.05 thou/cmm Normal 0.00-0.41 [facility] Comment on above: Performed By: #### L CBCD #### [place] [address] Eosinophils/100 WBC (Bld) 0.7 % Normal [facility] Comment on above: Performed By: #### L CBCD #### [place] [address] Erythrocyte distribution width (RBC) [Ratio] 14.1 % Normal 11.5-15.9 [facility] Comment on above: Performed By: #### L CBCD #### [place] [address] Hematocrit (Bld) [Volume fraction] 43.3 % Normal 37.0-47.0 [facility] Comment on above: Performed By: #### L CBCD #### [place] [address] Hemoglobin (Bld) [Mass/Vol] 14.7 g/dL Normal 12.0-16.0 [facility] Comment on above: Performed By: #### L CBCD #### [place] [address] Lymphocytes (Bld) [#/Vol] 1.09 thou/cmm Low 1.50-3.65 [facility] Comment on above: Performed By: #### L CBCD #### [facility] [address] [place], [place] [address] Lymphocytes/100 WBC (Bld) 15.4 % Normal [facility] Comment on above: Performed By: #### L CBCD #### [facility] [address] [place] [address] MCH (RBC) [Entitic mass] 30.7 pg Normal 27.0-31.0 [facility] Comment on above: Performed By: #### L CBCD #### [facility] [address] [place] [address] MCHC (RBC) [Mass/Vol] 33.9 % Normal 32.0-36.0 [facility] Comment on above: Performed By: #### L CBCD #### [place] [address] MCV (RBC) [Entitic vol] 90.4 fL Normal 81.0-99.0 [facility] Comment on above: Performed By: #### L CBCD #### [place] [address] Monocytes/100 WBC (Bld) 10.9 % Normal [facility] Comment on above: Performed By: #### L CBCD #### [place] [address] Platelet mean volume (Bld) [Entitic vol] 10.8 fL High 7.1-10.5 [facility] Comment on above: Performed By: #### L CBCD #### [facility] [address] [place] [address] Platelets (Bld) [#/Vol] 225 thou/cmm Normal 150-400 [facility] Comment on above: Performed By: #### L CBCD #### [place] [address] RBC (Bld) [#/Vol] 4.79 mil/cmm Normal 4.20-5.40 [facility] Comment on above: Performed By: #### L CBCD #### [facility] [address] [place], [place] [address] Seg Neutrophil 72.3 % Normal [facility] Comment on above: Performed By: #### L CBCD #### [facility] [address] [place], [place] [address] WBC (Bld) [#/Vol] 7.1 thou/cmm Normal 4.8-10.5 [facility] Comment on above: Performed By: #### L CBCD #### [facility] [address] [place], [place] [address] MDRD GFRon 06-07-2019 GFR/1.73 sq M predicted among non-blacks MDRD (S/P/Bld) [Vol rate/Area] mL/min/{1.73_m2} Normal >60mL/min/1.7 3m2 [facility] Comment on above: Result Comment: If t he patient is , multiply the result by 1.210. Performed By: #### G FR #### [facility] [address] [place], [place] [address] Vital Signs Date Time Vital Sign Value Performing Clinician Tee regalado 12-13-2024 12:54-0400 Body height 157.[address] Almaz Chavez MD Work Phone: [facility] 12-13-2024 12:54-0400 Body mass index (BMI) [Ratio] 32.4 kg/m2 Dr. Almaz Chavez MD Work Phone: [facility] 12-13-2024 12:54-0400 Body weight 80.[address] Almaz Chavez MD Work Phone: [facility] 10-18-2024 13:00-0400 Body mass index (BMI) [Ratio] 32.34 kg/m2 Amrit Malone MD Work Phone: [facility] 10-18-2024 13:00-0400 Body temperature 97.5 [degF] Amrit Malone MD Work Phone: [facility] 10-18-2024 13:00-0400 Body weight 80.2 kg Amrit Malone MD Work Phone: [facility] 10-18-2024 13:00-0400 Diastolic blood pressure 83 mm[Hg] Amrit Malone MD Work Phone: [facility] 10-18-2024 13:00-0400 Heart rate 87 /min Amrit Malone MD Work Phone: [facility] 10-18-2024 13:00-0400 Respiratory rate 16 /min Amrit Malone MD Work Phone: [facility] 10-18-2024 13:00-0400 SaO2% (BldA) [Mass fraction] 96 % Amrit Malone MD Work Phone: [facility] 10-18-2024 13:00-0400 Systolic blood pressure 141 mm[Hg] Amrit Malone MD Work Phone: [facility] 10-08-2024 09:56-0400 Body height 157.5 cm Scott Brasher MD Work Phone: [facility] 10-08-2024 09:56-0400 Body mass index (BMI) [Ratio] 29.63 kg/m2 Scott Brasher MD Work Phone: [facility] 10-08-2024 09:56-0400 Body weight 73.48 kg Scott Brasher MD Work Phone: [facility] 04-18-2024 14:50-0400 Body mass index (BMI) [Ratio] 30.08 kg/m2 Amrit Malone MD Work Phone: [facility] 04-18-2024 14:50-0400 Body temperature 98.6 [degF] Amrit Malone MD Work Phone: [facility] 04-18-2024 14:50-0400 Body weight 73.4 kg Amrit Malone MD Work Phone: [facility] 04-18-2024 14:50-0400 Diastolic blood pressure 104 mm[Hg] Amrit Malone MD Work Phone: [facility] 04-18-2024 14:50-0400 Heart rate 86 /min Amrit Malone MD Work Phone: [facility] 04-18-2024 14:50-0400 Respiratory rate 16 /min Amrit Malone MD Work Phone: [facility] 04-18-2024 14:50-0400 SaO2% (BldA) [Mass fraction] 97 % Amrit Malone MD Work Phone: [facility] 04-18-2024 14:50-0400 Systolic blood pressure 159 mm[Hg] Amrit Malone MD Work Phone: [facility] 10-10-2023 08:05-0400 Body height 156.2 cm Scott Brasher MD Work Phone: [facility] 10-10-2023 08:05-0400 Body mass index (BMI) [Ratio] 32.36 kg/m2 Scott Brasher MD Work Phone: [facility] 10-10-2023 08:05-0400 Body weight 78.97 kg Scott Brasher MD Work Phone: [facility] 09-15-2023 10:07-0500 Body mass index (BMI) [Ratio] 31.43 kg/m2 Amrit Malone MD Work Phone: [facility] 09-15-2023 10:07-0500 Body temperature 97.9 [degF] Amrit Malone MD Work Phone: [facility] 09-15-2023 10:07-0500 Body weight 77.95 kg Amrit Malone MD Work Phone: [facility] 09-15-2023 10:07-0500 Diastolic blood pressure 81 mm[Hg] Amrit Malone MD Work Phone: [facility] 09-15-2023 10:07-0500 Heart rate 72 /min Amrit Malone MD Work Phone: [facility] 09-15-2023 10:07-0500 Respiratory rate 16 /min Amrit Malone MD Work Phone: [facility] 09-15-2023 10:07-0500 SaO2% (BldA) [Mass fraction] 97 % Amrit Malone MD Work Phone: [facility] 09-15-2023 10:07-0500 Systolic blood pressure 133 mm[Hg] Amrit Malone MD Work Phone: [facility] 07-20-2023 11:25-0500 Body height 157.[address] Almaz Chavez Work Phone: [facility] 07-14-2023 09:25-0500 Body mass index (BMI) [Ratio] 32 kg/m2 Dr. Almaz Chavez Work Phone: [facility] 07-14-2023 09:25-0500 Body weight 79.[address] Almaz Chavez Work Phone: [facility] 09-30-2022 12:11-0400 Body height 157.5 cm Sanket Alonso Analytical Lab Technician [facility] 09-30-2022 12:11-0400 Body weight 77.7 kg Sanket Alonso Analytical Lab Technician [facility] 09-30-2022 12:11-0400 Diastolic blood pressure 66 mm[Hg] Sanket Alonso Analytical Lab Technician [facility] 09-30-2022 12:11-0400 Heart rate 54 /min Sanket Alonso Analytical Lab Technician [facility] 09-30-2022 12:11-0400 Systolic blood pressure 104 mm[Hg] Sanket Alonso Analytical Lab Technician [facility] 08-09-2022 08:53-0500 Body height 157.48 cm Flo Pretty Work Phone: [facility] [place] Work Phone: 08-09-2022 08:53-0500 Body mass index (BMI) [Ratio] 30.36 kg/m2 Flo Pretty Work Phone: [facility] [place] Work Phone: 08-09-2022 08:53-0500 Body surface area Derived from formula 1.77 m2 Flo Pretty Work Phone: -[facility] [place] Work Phone: 08-09-2022 08:53-0500 Body weight 75.3 kg Flo Pretty Work Phone: -[facility] [place] Work Phone: 07-19-2022 10:58-0500 Body height 157.5 cm Analytical Lab Technician Work Phone: [facility] 07-19-2022 10:58-0500 Body weight 74.44 kg Analytical Lab Technician Work Phone: [facility] 07-19-2022 10:58-0500 Diastolic blood pressure 98 mm[Hg] Analytical Lab Technician Work Phone: [facility] 07-19-2022 10:58-0500 Heart rate 73 /min Analytical Lab Technician Work Phone: [facility] 07-19-2022 10:58-0500 SaO2% (BldA) [Mass fraction] 99 % Analytical Lab Technician Work Phone: [facility] 07-19-2022 10:58-0500 Systolic blood pressure 152 mm[Hg] Analytical Lab Technician Work Phone: [facility] 06-06-2022 13:28-0500 Body height 157.5 cm Dulce Burrell PA-C Work Phone: [facility] 06-06-2022 13:28-0500 Body weight 72.58 kg Dulce Burrell PA-C Work Phone: [facility] 06-06-2022 13:28-0500 Diastolic blood pressure 74 mm[Hg] Dulce Burrell PA-C Work Phone: [facility] 06-06-2022 13:28-0500 Heart rate 82 /min Dulce Burrell PA-C Work Phone: [facility] 06-06-2022 13:28-0500 SaO2% (BldA) [Mass fraction] 100 % Dulce Burrell PA-C Work Phone: [facility] 06-06-2022 13:28-0500 Systolic blood pressure 136 mm[Hg] Dulce Burrell PA-C Work Phone: [facility] 05-23-2022 12:54-0500 Body height 152.4 cm Juan Manuel AMARAL-C Work Phone: [facility] 05-23-2022 12:54-0500 Body weight 73.03 kg Juan Manuel AMARAL-C Work Phone: [facility] 05-23-2022 12:54-0500 Diastolic blood pressure 85 mm[Hg] Juan Manuel Hoover PA-C Work Phone: [facility] 05-23-2022 12:54-0500 Heart rate 76 /min Juan Manuel AMARAL-C Work Phone: [facility] 05-23-2022 12:54-0500 SaO2% (BldA) [Mass fraction] 100 % Juan Manuel Hoover PA-C Work Phone: [facility] 05-23-2022 12:54-0500 Systolic blood pressure 134 mm[Hg] Juan Manuel Hoover PA-C Work Phone: [facility] 05-12-2022 14:51-0400 SaO2% (BldA) [Mass fraction] 99 % [facility] Comment on above: Order Comment: Specimen Type: ARTERIAL B LOOD SPECIMEN Ordering Facility: [facility] Address: [address] [place] [address] Performed By: #### A BG #### [facility] [id number] [place] [address] OF [facility] 05-06-2022 15:23-0400 Body height 152.4 cm Pacc 1 Work Phone: [facility] 05-06-2022 15:23-0400 Body temperature 98.4 [degF] Pacc 1 Work Phone: [facility] 05-06-2022 15:23-0400 Body weight 75.75 kg Pacc 1 Work Phone: [facility] 05-06-2022 15:23-0400 Respiratory rate 16 /min Pacc 1 Work Phone: [facility] 05-06-2022 15:23-0400 SaO2% (BldA) [Mass fraction] 97 % Pacc 1 Work Phone: [facility] 05-04-2022 14:52-0400 Diastolic blood pressure 84 mm[Hg] Jamison Loja MD Work Phone: [facility] 05-04-2022 14:52-0400 Systolic blood pressure 138 mm[Hg] Jamison Loja MD Work Phone: [facility] 05-04-2022 14:02-0400 Body height 157.5 cm Jamison Loja MD Work Phone: [facility] 05-04-2022 14:02-0400 Body weight 73.94 kg Jamison Loja MD Work Phone: [facility] 05-04-2022 14:02-0400 Heart rate 70 /min Jamison Loja MD Work Phone: [facility] 05-04-2022 14:02-0400 SaO2% (BldA) [Mass fraction] 99 % Jamison Loja MD Work Phone: [facility] 04-21-2022 15:15-0400 Body height 157.5 cm Shay Brenner MD Work Phone: [facility] 04-21-2022 15:15-0400 Body weight 73.48 kg Shay Brenner MD Work Phone: [facility] 04-21-2022 15:15-0400 Diastolic blood pressure 82 mm[Hg] Shay Brenner MD Work Phone: [facility] 04-21-2022 15:15-0400 Heart rate 57 /min Shay Brenner MD Work Phone: [facility] 04-21-2022 15:15-0400 SaO2% (BldA) [Mass fraction] 100 % Shay Brenner MD Work Phone: [facility] 04-21-2022 15:15-0400 Systolic blood pressure 152 mm[Hg] Shay Brenner MD Work Phone: [facility] 05-11-2021 10:44-0400 Body height 157.48 cm [employer] Work Phone: [facility] [place] Work Phone: 05-11-2021 10:44-0400 Body mass index (BMI) [Ratio] 29.45 kg/m2 [employer] Work Phone: [facility] [place] Work Phone: 05-11-2021 10:44-0400 Body surface area Derived from formula 1.74 m2 [employer] Work Phone: [facility] [place] Work Phone: 05-11-2021 10:44-0400 Body temperature 97 [degF] [employer] Work Phone: [facility] [place] Work Phone: 05-11-2021 10:44-0400 Body weight 73.03 kg [employer] Zamarripayal Work Phone: [facility] [place] Work Phone: 05-07-2019 [id number] BMI (Body Mass Index) 29.81 kg/m2 Scott Brasher [facility] [place] Work Phone: 05-07-2019 17:44-0400 Body weight 73.94 kg Scott Brasher [facility] [place] Work Phone: 05-07-2019 17:44-0400 BSA (Body Surface Area) 1.75 m2 Scott Brasher [facility] [place] Work Phone: 05-07-2019 17:44-0400 Height 157.48 cm Scott Brasher [facility] [place] Work Phone: Encounters Encounter Date Encounter Type Care Provider Facility Start: 12-30-2024 ambulatory Parisa Salinas Facility:[facility] Start: 12-13-2024 End: 12-13-[address] Wallace Rayo MD -[facility] Start: 12-13-2024 End: 12-13-[address] Almaz Chavez MD Work Phone: [facility] Work Phone: Start: 11-18-2024 End: 11-18-2024 ambulatory FLO PRETTY [facility] Start: 11-05-2024 End: 11-05-2024 ambulatory Kirt Butts PT Work Phone: [facility] Comment on above: Abnormality of gait (Primary Dx); Weakness of both hips; Imbalance Start: 11-05-2024 End: 11-05-2024 ambulatory FOL PRETTY [facility] Start: 10-23-2024 End: 10-23-2024 ambulatory FLO PRETTY MD Facility:[facility] Start: 10-18-2024 End: 10-18-2024 Office outpatient visit 25 minutes Amrit Malone MD Work Phone: [facility] Comment on above: Iron deficiency anem ia due to chronic blood loss Start: 10-18-2024 End: 10-18-2024 ambulatory [facility] Start: 10-08-2024 End: 10-08-2024 Office outpatient visit 15 minutes Scott Brasher MD Work Phone: [facility] Comment on above: 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); Acquired hypothyroidism Start: 10-08-2024 End: 10-08-2024 ambulatory [facility] Start: 10-08-2024 End: 10-08-2024 ambulatory [facility] Start: 04-26-2024 End: 04-26-2024 ambulatory [facility] Start: 04-23-2024 End: 04-23-2024 ambulatory ELZA YUSUF MD Facility:[facility] Start: 04-18-2024 End: 04-18-2024 Office outpatient visit 25 minutes Amrit Malone MD Work Phone: [facility] Comment on above: Iron deficiency anem ia due to chronic blood loss Start: 04-18-2024 End: 04-18-2024 ambulatory [facility] Start: 04-12-2024 End: 04-12-2024 ambulatory [facility] Facility[facility] Start: 02-20-2024 End: 02-20-2024 ambulatory Almaz [place] Facility:[facility] Start: 01-16-2024 End: 01-16-2024 ambulatory [facility] Facility:[facility] Start: 11-26-2023 End: 11-26-2023 Emergency department patient visit [facility] Start: 10-26-2023 Documentation procedure Mammog tierra Coordinator [facility] Start: 10-26-2023 Letter encounter Mammography Coordinator [facility] Department Start: 10-25-2023 ambulatory [facility] Facility:[facility] Start: 10-25-2023 End: 10-25-2023 Subsequent hospital visit by physician Screen/Diagnostic [facility]ammo [facility] Work Phone: Mammography Comment on above: Age-related osteopor osis without current pathological fracture [M81.0] Start: 10-10-2023 End: 10-10-2023 Office outpatient visit 15 minutes Scott Brasher MD Work Phone: [facility] Comment on above: Malignant neoplasm o f submandibular gland (CMS/HCC) (Primary Dx); Acquired hypothyroidism Start: 09-24-2023 Letter encounter [facility] Work Phone: Start: 09-15-2023 End: 09-15-2023 Office outpatient visit 25 minutes Amrit Malone MD Work Phone: [facility] Comment on above: Iron deficiency anem ia due to chronic blood loss (Primary Dx) Start: 07-21-2023 End: 07-21-[address] Almaz Chavez Work Phone: [facility] Work Phone: Start: 07-18-2023 End: 07-18-[address] Almaz Chavez Work Phone: [facility] Work Phone: Start: 07-18-2023 End: 07-18-[address] Almaz Chavez Work Phone: [facility] Work Phone: Start: 07-14-2023 End: 07-14-[address] Almaz Chavez Work Phone: [facility] Work Phone: Start: 07-12-2023 End: 07-12-2023 Emergency department patient visit [facility] Start: 06-17-2023 Letter encounter Shawanda ballard Start: 02-02-2023 ambulatory MD AMRIT MALONE Facilit [id number] Start: 09-30-2022 ambulatory Sanket Alonso Analytical Lab Technician [facility] Comment on above: Cardiac Rehab Start: 09-25-2022 Letter encounter Shawanda weldon Start: 09-05-2022 End: 09-05-2022 Patient encounter procedure Card Rehab Phase 2 [place] Work Phone: [facility] Comment on above: Hx of CABG (Primary Dx) Start: 08-31-2022 End: 08-31-2022 Patient encounter procedure Card Rehab Phase 2 [place] Work Phone: [facility] Comment on above: S/P CABG (coronary a rtery bypass graft) (Primary Dx) Start: 08-29-2022 End: 08-29-2022 Patient encounter procedure Card Rehab Phase 2 [place] Work Phone: [facility] Comment on above: S/P CABG (coronary a rtery bypass graft) (Primary Dx) Start: 08-24-2022 End: 08-24-2022 Patient encounter procedure Card Rehab Phase 2 [place] Work Phone: [facility] Comment on above: S/P CABG (coronary a rtery bypass graft) (Primary Dx) Start: 08-22-2022 End: 08-22-2022 Patient encounter procedure Card Rehab Phase 2 [place] Work Phone: [facility] Comment on above: Hx of CABG (Primary Dx) Start: 08-12-2022 ambulatory MD AMRIT MALONE Facilit [id number] Start: 08-09-2022 Office outpatient vi sit 15 minutes Flo Pretty Work Phone: [facility] Work Phone: Start: 08-09-[address] Flo Pretty Facili [id number] Start: 07-29-2022 End: 07-29-2022 Patient encounter procedure Card Pul Rehab Phase 2 Work Phone: [facility] Comment on above: Hx of CABG (Primary Dx) Start: 07-27-2022 End: 07-27-2022 Patient encounter procedure Card Pul Rehab Phase 2 Work Phone: [facility] Comment on above: S/P CABG (coronary a rtery bypass graft) (Primary Dx) Start: 07-20-2022 End: 07-20-2022 Patient encounter procedure Card Pul Rehab Phase 2 Work Phone: [facility] Comment on above: S/P CABG (coronary a rtery bypass graft) (Primary Dx) Start: 07-19-2022 End: 07-19-2022 Patient encounter procedure Analytical Lab Technician Work Phone: [facility] Comment on above: S/P CABG (coronary a rtery bypass graft) (Primary Dx) Start: 07-14-2022 End: 07-14-2022 Patient encounter procedure Analytical Lab Technician Work Phone: [facility] Comment on above: No Show Start: 06-19-2022 Letter encounter Shawanda weldon Start: 06-16-2022 Orders Only Juan Manuel velez PA-C Work Phone: Cardiology Comment on above: Acute post-operative pain (Primary Dx) Start: 06-15-2022 End: 06-15-2022 Subsequent hospital visit by physician [facility] Comment on above: S/P CABG (coronary a rtery bypass graft) [Z95.1] Start: 06-06-2022 End: 06-06-2022 Patient encounter procedure Dulce Burrell PA-C Work Phone: Cardiothoracic Comment on above: S/P CABG (coronary a rtery bypass graft) (Primary Dx) Start: 06-02-2022 Telephone encounter Shay Brenner MD Work Phone: Cardiothoracic Comment on above: Medication Problem Start: 05-27-2022 Telephone encounter Shay Brenner MD Work Phone: Cardiology Comment on above: Patient Update; Belem ent Question Start: 05-26-2022 Orders Only Golden Aviles PA-C Work Phone: Cardiothoracic Start: 05-23-2022 End: 05-23-2022 Orders Only Bon Vazquez PA-C Work Phone: Cardiothoracic Comment on above: Post-operative state (Primary Dx) Acute post-operative pain (Primary Dx) Start: 05-12-2022 End: 05-17-2022 Evaluation and management of inpatient [facility] Facility:[facility] Start: 05-06-2022 End: 05-06-2022 Preprocedural examination done [place] [phone] Work Phone: Pre Anesthesia Start: 05-06-2022 End: 05-06-2022 Orders Only Dulce Burrell PA-C Work Phone: Cardiothoracic Comment on above: Pre-operative cleara nce (Primary Dx) Pre-op evaluation (P rimary Dx); Anxiety; Gastroesophageal reflux disease, unspecified whether esophagitis present; Iron deficiency anemia, unspecified iron deficiency anemia type; Hyperlipidemia, unspecified hyperlipidemia type; Hypertension; Congestive heart failure, unspecified HF chronicity, unspecified heart failure type (HCC); Stenosis of carotid artery, unspecified laterality Start: 05-06-2022 Preoperative state Dulce Burrell PA-C Work Phone: Cardiothoracic Start: 05-04-2022 End: 05-04-2022 Patient encounter procedure Jamison Loja MD Work Phone: Vascular Surgery Comment on above: Subclavian artery st enosis, left (HCC) (Primary Dx) Start: 05-02-2022 End: 05-02-2022 Subsequent hospital visit by physician [facility] Work Phone: [facility] Comment on above: Atherosclerosis of a khoi (HCC) [I70.0] Start: 04-29-2022 Orders Only Golden Aviles PA-C Work Phone: Cardiothoracic Comment on above: Pre-operative cleara nce (Primary Dx) Atherosclerosis of a khoi (HCC) (Primary Dx) Subclavian artery st enosis, left (HCC) (Primary Dx) Start: 04-29-2022 Preoperative state Golden moreno PA-C Work Phone: Cardiothoracic Start: 04-27-2022 End: 04-27-2022 ambulatory Pulm Work Phone: Pulmonary Medicine Comment on above: Spirometry Start: 04-27-2022 End: 04-27-2022 Patient encounter procedure Pulm Fct Lab [facility] Work Phone: [facility] Start: 04-27-2022 End: 04-27-2022 Preoperative state Pulm Work Phone: Pulmonary Medicine Start: 04-22-2022 Orders Only Terry guidry PA-C Work Phone: Cardiothoracic Comment on above: Pre-operative cleara nce (Primary Dx) Patient Question; Pa tient Update Start: 04-22-2022 Preoperative state Terry owens PA-C Work Phone: Cardiothoracic Start: 04-21-2022 End: 04-21-2022 Patient encounter procedure Shay Brenner MD Work Phone: Cardiothoracic Comment on above: CAD in [place] artery (Primary Dx) Start: 04-18-2022 Chart abstracting Dulce OLIVARESC Work Phone: Cardiothoracic Start: 03-25-[address] Flo Pretty [facility] ty:[id number] Start: 05-11-2021 Office outpatient vi sit 15 minutes Flo Pretty Work Phone: [facility] Work Phone: Start: 05-07-2019 Patient encounter procedure Scott Brasher [facility] Work Phone: Start: 05-15-2018 Patient encounter procedure Scott Brasher XK[facility] Work Phone: Start: 05-30-2017 Patient encounter procedure Scott rBasher RL-[place]clhdlmwt[facility] Work Phone: Procedures Date Procedure Procedure Detail Performing Clinician Start: 10-25-2023 Mammography Amrit barrera MD Work Phone: Start: 07-21-2023 X-ray of lumbar spin e, two or three views Dr. Almaz Chavez Work Phone: Start: 07-18-2023 MRI of lumbar spine Dr. Almaz Chavez Work Phone: Start: 07-14-2023 X-ray of lumbar spin e, two or three views Dr. Almaz Chavez Work Phone: Start: 07-12-2023 History of coronary artery bypass grafting S/P CABG x 1 Amrit Malone MD Work Phone: Start: 07-12-2023 INSERT PERIPHERAL IV CAIN CARRASCOH SUKHWINDER Start: 07-12-2023 INITIATE REQUEST TO ANOTHER FACILITY FLO PRETTY Start: 07-12-2023 XR HIP RIGHT WITH PE LVIS WHEN PERFORMED 2 OR 3 VIEWS [facility] Start: 07-12-2023 CT LUMBAR SPINE WO I V CONTRAST [facility] Start: 06-15-2022 Radiologic exam ches t 2 views Dulce OLIVARESC Work Phone: Start: 04-27-2022 Co diffusing capacity N tenzin Mclain PA-C Work Phone: Start: 05-05-2020 Mammography Dulce AMARAL-C Work Phone: Start: 03-30-2017 Colonoscopy Dulce AMARAL-C Work Phone: Start: 08-02-2005 Lipid 1996 panel - S jacoby or Plasma Screen/Diagnostic Hosp Work Phone: Start: 07-17-1985 Surgery Excision Of Parotid Tumor/Gland Flo Pretty Work Phone: Start: 12-15-1984 Hysterectomy Flo mcnulty Work Phone: Start: 01-14-1977 Appendectomy Flo mcnulty Work Phone: Start: 01-14-1977 Gallbladder Surgery Reed divine Pretty Work Phone: End: 01-14-1977 Appendectomy Scott Brasher History of Cath Sten t Placement Scott Brasher History of coronary artery bypass grafting S/P CABG (coronary artery bypass graft) Dulce Burrell PA-C Work Phone: History of coronary artery bypass grafting S/P CABG (coronary artery bypass graft) Xr Hosp History of coronary artery bypass grafting S/P CABG (coronary artery bypass graft) Analytical Lab Technician Work Phone: History of coronary artery bypass grafting S/P CABG (coronary artery bypass graft) Card 2 Work Phone: History of coronary artery bypass grafting S/P CABG (coronary artery bypass graft) Card 2 Work Phone: History of coronary artery bypass grafting Hx of CABG Card 2 Work Phone: History of coronary artery bypass grafting Hx of CABG Card [facility] Work Phone: History of coronary artery bypass grafting S/P CABG (coronary artery bypass graft) Card [facility] Work Phone: History of coronary artery bypass grafting S/P CABG (coronary artery bypass graft) Card [facility] Work Phone: History of coronary artery bypass grafting S/P CABG (coronary artery bypass graft) Card [facility] Work Phone: History of coronary artery bypass grafting Hx of CABG Card [facility] Work Phone: End: 01-14-1977 History of Gallbladder Surgery Scott Brasher History of Surgery Excision Of Parotid Tumor/Gland Scott Brasher Comment on above: Completed: 1985 End: 12-15-1984 Hysterectomy Scott Brasher Tonsillectomy Scott Brasher Plan of Treatment Date Care Activity Detail Author Start: 10-09-2027 Diabetes Screening Diabetes Screening [facility] Start: 09-12-2026 Diabetes Screening Diabetes Screening [facility] Start: 05-15-2025 DIABETES SCREEN DIABETES SCREEN [facility] Start: 04-27-2025 DIABETES SCREEN DIABETES SCREEN [facility] Start: 04-26-2025 Creatinine measurement Creatinine Level [facility] Start: 04-26-2025 Potassium measurement Potassium Level [facility] Start: 04-19-2025 End: 10-18-2025 CBC W Auto Differential panel - Blood CBC and Auto Differential Lab Routine Iron deficiency anemia due to chronic blood loss Expected: 04/19/2025 (Approximate), Expires: 10/18/2025 [facility] Service Area Work Phone: Comment on above: Expected: 04/19/2025 (Approximate), Expi res: 10/18/2025 Start: 04-19-2025 End: 10-18-2025 Cobalamin (Vitamin B12) [Mass/volume] in Serum or Plasma Vitamin B12 Lab Routine Iron deficiency anemia due to chronic blood loss Expected: 04/19/2025 (Approximate), Expires: 10/18/2025 [facility] Work Phone: Comment on above: Expected: 04/19/2025 (Approximate), Expi res: 10/18/2025 Start: 04-19-2025 End: 10-18-2025 Comprehensive metabolic 2000 panel - Serum or Plasma Comprehensive Metabolic Panel Lab Routine Iron deficiency anemia due to chronic blood loss Expected: 04/19/2025 (Approximate), Expires: 10/18/2025 [facility] Work Phone: Comment on above: Expected: 04/19/2025 (Approximate), Expi res: 10/18/2025 Start: 04-19-2025 End: 10-18-2025 Ferritin [Mass/volume] in Serum or Plasma Ferritin Lab Routine Iron deficiency anemia due to chronic blood loss Expected: 04/19/2025 (Approximate), Expires: 10/18/2025 [facility] Work Phone: Comment on above: Expected: 04/19/2025 (Approximate), Expi res: 10/18/2025 Start: 04-19-2025 End: 10-18-2025 Folate [Mass/volume] in Serum or Plasma Folate Lab Routine Iron deficiency anemia due to chronic blood loss Expected: 04/19/2025 (Approximate), Expires: 10/18/2025 [facility] Work Phone: Comment on above: Expected: 04/19/2025 (Approximate), Expi res: 10/18/2025 Start: 04-19-2025 End: 10-18-2025 Iron and Iron binding capacity panel - Serum or Plasma Iron and TIBC Lab Routine Iron deficiency anemia due to chronic blood loss Expected: 04/19/2025 (Approximate), Expires: 10/18/2025 [facility] Work Phone: Comment on above: Expected: 04/19/2025 (Approximate), Expi res: 10/18/2025 Start: 04-19-2025 End: 10-18-2025 Parathyrin.intact [Mass/volume] in Serum or Plasma Parathyroid Hormone, Intact Lab Routine Iron deficiency anemia due to chronic blood loss Expected: 04/19/2025 (Approximate), Expires: 10/18/2025 [facility] Work Phone: Comment on above: Expected: 04/19/2025 (Approximate), Expi res: 10/18/2025 Start: 04-19-2025 End: 10-18-2025 TSH with reflex to Free T4 if abnormal TSH with reflex to Free T4 if abnormal Lab Routine Iron deficiency anemia due to chronic blood loss Expected: 04/19/2025 (Approximate), Expires: 10/18/2025 [facility] Work Phone: Comment on above: Expected: 04/19/2025 (Approximate), Expi res: 10/18/2025 Start: 03-22-2025 DIABETES SCREEN DIABETES SCREEN [facility] Start: 12-13-2024 X-ray of cervical spine Cerv Spine 4 or 5 Views [facility] Start: 12-13-2024 XR Cervical spine 4 or 5 Views [facility] Start: 12-13-2024 X-ray of lumbosacral spine L/S Spine Min 4 Views [facility] Start: 12-13-2024 XR Spine Lumbar and Sacrum GE 4 Views [facility] Start: 11-22-2024 End: 11-22-2024 Patient encounter procedure 11/22/2024 2:15 PM EDT OT/PT/Speech Visit [facility] [address] [place] [address] Arnaldo Loya, BEAD PICKER $25 consult [facility] Comment on above: $25 consult Start: 11-12-2024 End: 11-12-2024 Patient encounter procedure 11/12/2024 4:30 PM EDT OT/PT/Speech Visit [facility] [address] [place] [address] Tom Wang, BEAD PICKER [address] [place] [address] $25 consult [facility] Comment on above: $25 consult Start: 10-24-2024 Screening for malignant neoplasm of breast [facility] Start: 10-18-2024 End: 10-18-2024 Patient encounter procedure 10/18/2024 1:20 PM EDT Office Visit [facility] [address] [place] [id number] Amrit Malone MD [address] [facility] [place] [address] [facility] Start: 10-08-2024 End: 10-08-2024 Patient encounter procedure 10/08/2024 10:15 AM EDT Office Visit [facility] [address] [place] [id number] [place] [address] [place] [address] [facility] Start: 07-17-2024 Advance Directive Discussion Advance Directive Discussion [facility] Start: 03-17-2024 Covid-19 Vaccine ( season) Covid-19 Vaccine ( season) [facility] Start: 03-17-2024 COVID-19 Vaccine () COVID-19 Vaccine () [facility] Start: 03-17-2024 COVID-19 Vaccine ( season) COVID-19 Vaccine () [facility] Start: 03-17-2024 Influenza vaccination [facility] Start: 02-02-2024 End: 02-02-2024 Patient encounter procedure 02/02/2024 2:40 PM EDT Office Visit [facility] [address] [place] [id number] Amrit Malone MD [address] [facility] [place] [address] [facility] Start: 11-17-2023 Creatinine measurement Creatinine Level [facility] Start: 11-17-2023 Potassium measurement Potassium Level [facility] Start: 10-10-2023 End: 10-10-2023 Patient encounter procedure 10/10/2023 8:00 AM EDT Office Visit [facility] [address] [place] [address] [place] [address] [facility] [place] [address] [facility] Start: 08-08-2023 FUV, Provider: Scott Brasher, Status: Pen, Time: 8:00 AM FUV, Provider: Scott Brasher, Status: Pen, Time: 8:00 AM SF-Hcvngpufclcjgq-Te stlake Work Phone: Start: 07-17-2023 Advance Directive Discussion Advance Directive Discussion [facility] Start: 07-17-2023 Behavioral Health Screening Behavioral Health Screening [facility] Start: 05-06-2023 Diabetes mellitus screening Diabetes Screening [facility] Start: 03-17-2023 Covid-19 Vaccine ( season) Covid-19 Vaccine () [facility] Start: 03-17-2023 COVID-19 Vaccine ( season) COVID-19 Vaccine () [facility] Start: 03-17-2023 Influenza vaccination Influenza Vaccine (#1) [facility] Start: 07-17-2022 ADVANCE DIRECTIVE DISCUSSION ADVANCE DIRECTIVE DISCUSSION [facility] Start: 07-17-2022 DEPRESSION ASSESSMENT DEPRESSION ASSESSMENT [facility] Start: 06-07-2022 End: 07-06-2023 Radiologic exam chest 2 views XR CHEST 2V FRONTAL/LAT Radiology Routine S/P CABG (coronary artery bypass graft) Expected: 06/07/2022, Expires: 07/06/2023 [facility] Work Phone: Comment on above: Expected: 06/07/2022, Expires: 3 Start: 05-10-2022 FUV, Provider: Scott Brasher, Status: Pen, Time: 10:20 AM FUV, Provider: Scott Brasher, Status: Pen, Time: 10:20 AM NB-Yiqxlcwzvjirfw-Ez stlake Work Phone: Start: 05-06-2022 End: 07-06-2022 Hemoglobin A1c in Blood [facility] Work Phone: Comment on above: Expected: 05/06/2022, Expires: 2 Start: 04-29-2022 End: 04-29-2023 SARS-CoV-2 (COVID-19) RNA [Presence] in Respiratory specimen by CHIQUITA with probe detection PRE-PROCEDURE & PRE-OPERATIVE COVID Microbiology Routine Pre-operative clearance Expected: 04/29/2022, Expires: 04/29/2023 [facility] Work Phone: Comment on above: Expected: 04/29/2022, Expires: 3 Start: 04-22-2022 End: 06-22-2022 aPTT in Platelet poor plasma by Coagulation assay ACTIVATED PTT Lab Routine Pre-operative clearance Expected: 04/22/2022, Expires: 06/22/2022 [facility] Work Phone: Comment on above: Expected: 04/22/2022, Expires: 2 Start: 04-22-2022 End: 06-22-2022 CBC W Auto Differential panel - Blood CBC + DIFF Lab Routine Pre-operative clearance Expected: 04/22/2022, Expires: 06/22/2022 [facility] Work Phone: Comment on above: Expected: 04/22/2022, Expires: 2 Start: 04-22-2022 End: 06-22-2022 Comprehensive metabolic 2000 panel - Serum or Plasma COMP METABOLIC PANEL Lab Routine Pre-operative clearance Expected: 04/22/2022, Expires: 06/22/2022 [facility] Work Phone: Comment on above: Expected: 04/22/2022, Expires: 2 Start: 04-22-2022 End: 06-22-2022 Magnesium [Mass/volume] in Serum or Plasma MAGNESIUM BLD Lab Routine Pre-operative clearance Expected: 04/22/2022, Expires: 06/22/2022 [facility] Work Phone: Comment on above: Expected: 04/22/2022, Expires: 2 Start: 04-22-2022 End: 06-22-2022 Prealbumin [Mass/volume] in Serum or Plasma PREALBUMIN BLD Lab Routine Pre-operative clearance Expected: 04/22/2022, Expires: 06/22/2022 [facility] Work Phone: Comment on above: Expected: 04/22/2022, Expires: 2 Start: 04-22-2022 End: 06-22-2022 PT panel - Platelet poor plasma by Coagulation assay PROTHROMBIN TIME/PT Lab Routine Pre-operative clearance Expected: 04/22/2022, Expires: 06/22/2022 [facility] Work Phone: Comment on above: Expected: 04/22/2022, Expires: 2 Start: 04-22-2022 End: 04-22-2023 SARS-CoV-2 (COVID-19) RNA [Presence] in Respiratory specimen by CHIQUITA with probe detection PRE-PROCEDURE & PRE-OPERATIVE COVID Microbiology Routine Pre-operative clearance Expected: 04/22/2022, Expires: 04/22/2023 [facility] Work Phone: Comment on above: Expected: 04/22/2022, Expires: 3 Start: 04-22-2022 End: 06-22-2022 Thyrotropin [Units/volume] in Serum or Plasma TSH BLD Lab Routine Pre-operative clearance Expected: 04/22/2022, Expires: 06/22/2022 [facility] Work Phone: Comment on above: Expected: 04/22/2022, Expires: 2 Start: 04-22-2022 End: 06-22-2022 TYPE AND SCREEN,30 DAY TYPE AND SCREEN,30 DAY Blood Bank Routine Pre-operative clearance Expected: 04/22/2022, Expires: 06/22/2022 [facility] Work Phone: Comment on above: Expected: 04/22/2022, Expires: 2 Start: 04-22-2022 End: 06-22-2022 Urinalysis complete panel - Urine URINALYSIS, WITH MICROSCOPIC Lab Routine Pre-operative clearance Expected: 04/22/2022, Expires: 06/22/2022 [facility] Work Phone: Comment on above: Expected: 04/22/2022, Expires: 2 Start: 04-16-2022 Influenza vaccination Influenza Vaccine (#1) [facility] Start: 03-17-2022 Influenza vaccination INFLUENZA (#1) [facility] Start: 08-02-2021 COVID-19 VACCINE (4 - Booster for Moderna series) COVID-19 VACCINE (4 - Booster for Moderna series) [facility] Start: 07-17-2021 ADVANCE DIRECTIVE DISCUSSION ADVANCE DIRECTIVE DISCUSSION [facility] Start: 07-17-2021 DEPRESSION ASSESSMENT DEPRESSION ASSESSMENT [facility] Start: 05-05-2021 Mammography MAMMOGRAM [facility] Start: 05-05-2021 Screening for malignant neoplasm of [facility] Start: 12-04-2020 COVID-19 VACCINE (3 - Booster for Moderna series) COVID-19 VACCINE (3 - Booster for Moderna series) [facility] Start: 2020 Pneumococcal vaccination [facility] Start: 2020 PNEUMOCOCCAL: 65+ (1 - PCV) PNEUMOCOCCAL: 65+ (1 - PCV) [facility] Start: 2020 Screening for osteoporosis Bone Densitometry [facility] Start: 03-30-2018 Colonoscopy COLONOSCOPY [facility] Start: 03-30-2018 COLORECTAL CANCER SCREENING COLORECTAL CANCER SCREENING [facility] Start: 03-30-2018 Screening for malignant neoplasm of colon [facility] Start: 2015 Hepatitis B (HBV) Vaccine (optional start 60+ years) Hepatitis B (HBV) Vaccine (optional start 60+ years) [facility] Start: 2015 RSV High Risk: (Elderly (60+) or Population) (1 - Risk 60-74 years 1-dose series) RSV High Risk: (Elderly (60+) or Population) (1 - Risk 60-74 years 1-dose series) [facility] Start: 2015 RSV patients and/or patients aged 60+ years (1 - 1-dose 60+ series) RSV patients and/or patients aged 60+ years (1 - 1-dose 60+ series) [facility] Start: 2015 RSV Vaccine (1 - 1-dose 60+ series) RSV Vaccine (1 - 1-dose 60+ series) [facility] Start: 2015 RSV Vaccine (1 - Risk 60-74 years 1-dose series) RSV Vaccine (1 - Risk 60-74 years 1-dose series) [facility] Start: 2015 RSV vaccine (optional 60+ years) RSV vaccine (optional 60+ years) [facility] Start: 08-02-2010 Lipid panel Lipid Screening [facility] Start: 08-02-2010 LIPID SCREEN LIPID SCREEN [facility] Start: 08-02-2006 Hepatitis B surface antibody level LDL CHOLESTEROL [facility] Start: 2005 Measurement of occult blood in single stool specimen [facility] Start: 2005 Screening for malignant neoplasm of colon CRC Screening [facility] Start: 2005 Shingles (RZV) Vaccine (1 of 2) Shingles (RZV) Vaccine (1 of 2) [facility] Start: 2005 SHINGRIX VACCINE (1 of 2) SHINGRIX VACCINE (1 of 2) [facility] Start: 2005 Zoster Vaccines (1 of 2) Zoster Vaccines (1 of 2) [facility] Start: 2000 Cholesterol [Mass/volume] in Serum or Plasma Cholesterol [facility] Start: 2000 COLOGUARD (FIT-DNA) COLOGUARD (FIT-DNA) [facility] Start: [address] COLONOGRAPHY [facility] Start: 2000 FECAL OCCULT BLOOD FECAL OCCULT BLOOD [facility] Start: 2000 Screening for malignant neoplasm of colon [facility] Start: 2000 SIGMOIDOSCOPY SIGMOIDOSCOPY [facility] Start: 1995 Screening for malignant neoplasm of breast Mammography [facility] Start: 1977 DTaP/Tdap/Td Vaccines (1 - Tdap) DTaP/Tdap/Td Vaccines (1 - Tdap) [facility] Start: 1974 Hepatitis A (HAV) Vaccine (optional start 19+ years) Hepatitis A (HAV) Vaccine (optional start 19+ years) [facility] Start: 1974 Pneumococcal vaccination Pneumococcal Vaccine (1 of 2 - PCV) [facility] Start: 1974 Pneumococcal Vaccine: 50+ (1 of 2 - PCV) Pneumococcal Vaccine: 50+ (1 of 2 - PCV) [facility] Start: 1974 Tetanus vaccination Tetanus (Td or Tdap) Booster [facility] Start: 1974 Urine microalbumin profile [facility] Start: 1973 ANNUAL PCP TEAM CHRONIC DISEASE VISIT ANNUAL PCP TEAM CHRONIC DISEASE VISIT [facility] Start: 1973 Depression Screening Depression Screening [facility] Start: 1973 HEPATITIS C SCREENING HEPATITIS C SCREENING [facility] Start: 1973 Hepatitis C screening [facility] Start: 1973 Tetanus + diphtheria + acellular pertussis vaccine (product) Tdap Booster [facility] Start: 1961 Pneumococcal Vaccine: 65+ (1 of 2 - PCV) Pneumococcal Vaccine: 65+ (1 of 2 - PCV) [facility] Start: 1961 Pneumococcal Vaccine: 65+ Years (1 - PCV) Pneumococcal Vaccine: 65+ Years (1 - PCV) [facility] Start: 1961 Pneumococcal Vaccine: 65+ Years (1 of 2 - PCV) Pneumococcal Vaccine: 65+ Years (1 of 2 - PCV) [facility] Start: 1961 PNEUMOCOCCAL: 65+ (1 - PCV) PNEUMOCOCCAL: 65+ (1 - PCV) [facility] Start: 1955 COVID-19 VACCINE (#1) COVID-19 VACCINE (#1) [facility] Start: 1955 Echocardiography Echocardiogram [facility] Start: 1955 Lipid panel Lipid Panel [facility] Start: 1955 Medicare Annual Wellness Visit Medicare Annual Wellness Visit (AWV) [facility] Start: 1955 Screening for malignant neoplasm of colon [facility] Start: 1955 Thyroid stimulating hormone measurement TSH Level [facility] End: 09-14-2024 CBC W Auto Differential panel - Blood CBC and Auto Differential Lab Routine Iron deficiency anemia due to chronic blood loss q 4 months for 3 Occurrences starting 09/15/2023 until 09/14/2024 [facility] Service Area Work Phone: Comment on above: q 4 months for 3 Occurrences starting until 09/14/2024 End: 09-14-2024 Comprehensive metabolic 2000 panel - Serum or Plasma Comprehensive Metabolic Panel Lab Routine Iron deficiency anemia due to chronic blood loss q 4 months for 3 Occurrences starting 09/15/2023 until 09/14/2024 [facility] Work Phone: Comment on above: q 4 months for 3 Occurrences starting until 09/14/2024 End: 05-29-2023 Ct angiography chest w/contrast/noncontrast CTA CHEST (NONGATED) W IVCON Radiology Routine Atherosclerosis of aorta (HCC) 1 Occurrences starting 04/29/2022 until 05/29/2023 [facility] Work Phone: Comment on above: 1 Occurrences starting 04/29/2022 until 05/29/2023 End: 05-02-2022 Ct angiography chest w/contrast/noncontrast [facility] Work Phone: Comment on above: 1 Occurrences starting 05/02/2022 until 05/02/2022 End: 09-14-2024 Ferritin [Mass/volume] in Serum or Plasma Ferritin Lab Routine Iron deficiency anemia due to chronic blood loss q 4 months for 3 Occurrences starting 09/15/2023 until 09/14/2024 [facility] Work Phone: Comment on above: q 4 months for 3 Occurrences starting until 09/14/2024 End: 09-14-2024 Iron and Iron binding capacity panel - Serum or Plasma Iron and TIBC Lab Routine Iron deficiency anemia due to chronic blood loss q 4 months for 3 Occurrences starting 09/15/2023 until 09/14/2024 [facility] Work Phone: Comment on above: q 4 months for 3 Occurrences starting until 09/14/2024 End: 05-22-2023 LUNG DIFFUSION CAPACITY (DLCO) LUNG DIFFUSION CAPACITY (DLCO) PFT Routine Pre-operative clearance 1 Occurrences starting 04/22/2022 until 05/22/2023 [facility] Work Phone: Comment on above: 1 Occurrences starting 04/22/2022 until 05/22/2023 End: 05-22-2023 SPIROMETRY - BASELINE AND POST DILATOR SPIROMETRY - BASELINE AND POST DILATOR PFT Routine Pre-operative clearance 1 Occurrences starting 04/22/2022 until 05/22/2023 [facility] Work Phone: Comment on above: 1 Occurrences starting 04/22/2022 until 05/22/2023 STAPH AUREUS PCR STAPH AUREUS PC R Lab Routine Pre-operative clearance Ordered: 04/22/2022 [facility] Work Phone: Comment on above: Ordered: 04/22/2022 STAPH AUREUS PCR STAPH AUREUS PC R Lab Routine Pre-operative clearance Ordered: 05/06/2022 [facility] Work Phone: Comment on above: Ordered: 05/06/2022 End: 04-22-2023 US CAROTID ARTERIES [facility] US CAROTID [facility]ERIES [facility] Vascular Lab Routine Pre-operative clearance 1 Occurrences starting 04/22/2022 until 04/22/2023 [facility] Work Phone: Comment on above: 1 Occurrences starting 04/22/2022 until 04/22/2023 [facility] Immunizations Immunization Date Immunization Notes Care Provider Fa cili 04-04-2023 Flu vaccine, quadrivalent, high-dose, preservative free, age 65y+ (FLUZONE) Amrit Malone MD Work Phone: [facility] Work Phone: 04-04-2023 influenza virus vaccine, unspecified formulation Amrit Malone MD Work Phone: [facility] Work Phone: 04-04-2022 Flu vaccine, quadrivalent, high-dose, preservative free, age 65y+ (FLUZONE) Amrit Malone MD Work Phone: [facility] Work Phone: 04-12-2019 Influenza, injectabl e, Madin Penny Canine Kidney, quadrivalent with preservative Amrit Malone MD Work Phone: [facility] Work Phone: 04-12-2019 influenza virus vaccine, unspecified formulation Screen/Diagnostic Hosp Work Phone: [facility] Payers Date Payer Category Payer Self-pay 2022 Medicare (Managed Care) 1.2. [id number] 2020 Medicare [id number] 2020 Medicare [id number] 2008 Private Health Insurance 1955 Unknown [id number] [id number]. 2.356 1955 Unknown [id number] 2.16.840.1.622590.3.579. 2.356 1955 Unknown [id number] 2.16.840.1.448806.3.579. 2.356 1955 Unknown [id number] 2.16.840.1.058537.3.579. 2.356 1955 Unknown [id number] 2.16.840.1.490716.3.579. 2.902 1955 Unknown [id number] 2.16.840.1.774622.3.579. 2.1243 1955 Unknown [id number] 2.16840.1.467901.3.579. 2.1244 1955 Unknown [id number] 2.840.1.463162.3.579. 2.1245 1955 Unknown [id number] 2.840.1.039423.3.579. 2.1245 1955 Unknown [id number] 2.840.1.345424.3.579. 2.1245 1955 Unknown [id number] 2.16840.1.178348.3.579. 2.159 1955 Unknown [id number] 2.840.1.241204.3.579. 2.159 1955 Unknown [id number] 2.16840.1.483580.3.579. 2.159 Unknown [facility] Unknown [id number] 2.16840.1.822345.3.579. 2.462 Unknown [id number] 2.16840.1.539815.3.579. 2.462 Unknown [id number] 2.16840.1.335706.3.579. 2.462 Unknown [id number] 2.16840.1.413201.3.579. 2.462 Unknown [id number] 2.16.840.1.572377.3.579. 2.462 Unknown [id number] 2.16.840.1.489053.3.579. 2.462 Unknown [id number] 2.16.840.1.925617.3.579. 2.462 Social History Date Type Detail Facility Start: 04-21-2022 End: 10-24-2023 Being A Social Drinker Being A Social Drinker QG-Fbmauuxpzuundn-Nei tlake Work Phone: Comment on above: insurance; Start: 04-21-2022 End: 12-04-2023 Tobacco smoking status CAIS Ex-smoker [facility] Work Phone: End: 11-17-2003 History of tobacco use Current smoker [facility] Work Phone: End: 11-17-2003 History of tobacco use Cigarette Smoker [facility] Work Phone: Start: 04-18-2022 Alcohol intake Current non-dr grey goods marker of alcohol (finding) [facility] Start: 1955 Sex Assigned At Not on file [facility] Start: 03-12-2022 End: 10-18-2024 Exposure to SARS-CoV-2 (event) Not sure [facility] History of tobacco use Passive smoker [facility] Start: 04-21-2022 End: 10-10-2023 Tobacco use and exposure Smokeless tobacco non-user [facility] Start: 04-21-2022 End: 10-23-2023 Alcohol intake Current drinker of alcohol (finding) [facility] Start: 04-21-2022 History SDOH Alcohol Comment social [facility] Start: 05-13-2022 History SDOH Financial 5 [facility] Start: 05-13-2022 History SDOH Food Worry 1 [facility] Start: 05-13-2022 History SDOH Transport Med 2 [facility] Start: 07-21-2023 Tobacco smoking status [facility] Tobacco smoking consumption unknown [facility] Start: 1955 [facility] Start: 10-07-2022 Gender identity Identifies as female gender (finding) [facility] Start: 10-10-2023 End: 10-24-2023 Sexual orientation Not on file [facility] Start: 10-10-2023 Tobacco smoking status NHIS Never smoked tobacco [facility] How hard is it for you to pay for the very basics like food, housing, medical care, and heating Not hard at all [facility] (I/We) worried whether (my/our) food would run out before (I/we) got money to buy more. Never true [facility] In the past 12 months, was there a time when you were not able to pay the mortgage or rent on time? No [facility] NEGATED: Highlighted row - - ZP-Ddofxewggjfscb-Td angelina perez Work Phone: Medical Equipment Procedure Code Equipment Code Equipment Original Text Equipment Identifier Dates ORIF, ankle Arthrex 3.0 Lock ing Compression Screw FDA Start: 12-06-2023 ORIF, ankle Arthrex 3.5 Skip ical Screw FDA Start: 12-06-2023 ORIF, ankle Arthrex 3.5 Skip ical Screw FDA Start: 12-06-2023 ORIF, ankle Arthrex 3.5 Skip ical Screw FDA Start: 12-06-2023 ORIF, ankle Arthrex 4.0mm Qu ickFix Cannulated Screw FDA Start: 12-06-2023 ORIF, ankle Arthrex 4.0mm Qu ickFix Cannulated Screw FDA Start: 12-06-2023 ORIF, ankle Arthrex Locking Distal Fibula Plate, Left FDA Start: 12-06-2023 ORIF, ankle Synthes 2.7mm Cannulated Drill Bit, quick coupling, 160mm FDA Start: 12-06-2023 ORIF, ankle Arthrex 3.0 Lock ing Compression Screw FDA Start: 12-06-2023 ORIF, ankle Arthrex 3.5 Skip ical Screw FDA Start: 12-06-2023 ORIF, ankle Arthrex 3.5 Skip ical Screw FDA Start: 12-06-2023 ORIF, ankle Arthrex 3.5 Skip ical Screw FDA Start: 12-06-2023 ORIF, ankle Arthrex 4.0mm Qu ickFix Cannulated Screw FDA Start: 12-06-2023 ORIF, ankle Arthrex 4.0mm Qu ickFix Cannulated Screw FDA Start: 12-06-2023 ORIF, ankle Arthrex Locking Distal Fibula Plate, Left FDA Start: 12-06-2023 ORIF, ankle Synthes 2.7mm Cannulated Drill Bit, quick coupling, 160mm FDA Start: 12-06-2023 Kyphoplasty Orthopaedic ceme nt, non-antimicrobial [id number] FDA Start: 07-24-2023 Pledget Cardiova scular 3/16x.25in Thk1.65mm Rectangle Ptfe Crozier - [id number] Start: 05-12-2022 Crozier Thk1.65mm P tfe 2x2in Cardiovascular Pledget Sterile - [id number] Start: 05-12-2022 Plate Sternalock Cy Square Bone 4 Hole Sternum - [id number] Start: 05-12-2022 Screw Sternalock Cy Magenta 10mm Bone Self Drill Lock 2.7mm Primary - [id number] Start: 05-12-2022 Pledget Cardiova scular 3/16x.25in Thk1.65mm Rectangle Ptfe Crozier - [id number] Start: 05-12-2022 Crozier Thk1.65mm P tfe 2x2in Cardiovascular Pledget Sterile - [id number] Start: 05-12-2022 Plate Sternalock Cy Bone 8 Hole Straight Sternum - [id number] Start: 05-12-2022 Screw Sternalock Cy 2.4mm Gold 10mm Bone Self Drill Lock Primary Closure - [id number] Start: 05-12-2022 Screw Sternalock Cy 2.4mm Gold 12mm Bone Self Drill Lock Primary Closure - [id number] Start: 05-12-2022 Screw Sternalock Cy 2.7mm Magenta 12mm Bone Self Drill Lock Primary - [id number] Start: 05-12-2022 Screw Sternalock Cy 2.4mm Gold 14mm Bone Self Drill Lock Primary Closure - [id number] Start: 05-12-2022 Functional Status Date Assessment Result Facility 05-17-2022 Are you deaf, or do you have serious difficulty hearing No 05/17/2022 4:38 PM Nayely Francis, [facility] 05-17-2022 Are you blind, or do you have serious difficulty seeing, even when wearing glasses No 05/17/2022 4:38 PM Nayely Francis, CRYSTAL No [facility] 05-17-2022 Do you have serious difficulty walking or climbing stairs No 05/17/2022 4:38 PM Nayely Francis, CRYSTAL No [facility] 05-17-2022 Do you have difficul ty dressing or bathing No 05/17/2022 4:38 PM Nayely Francis, [facility]STAL [facility] 05-17-2022 Because of a physica l, mental, or emotional condition, do you have difficulty doing errands alone such as visiting a physician's office or shopping No 05/17/2022 4:38 PM Nayely Francis, CRYSTAL [facility] NEGATED: Highlighted row Functional performance Functional status health issues are not documented Disease OJ-Ceszgxrupntoco-Nz stlake Work Phone: Mental Status Date Assessment Result Facility 05-17-2022 Because of a physical, mental, or emotional condition, do you have serious difficulty concentrating, remembering, or making decisions No 05/17/2022 4:38 PM EDT Nayely Lopez, CRYSTAL [facility] NEGATED: Highlighted row Cognitive function [Interpretation] Cognitive status health issues are not documented Disease JO-Qgjkajxyestaeh-Hr stlake Work Phone: Clinical Notes 03-28-2017 to 11-05-2024 Kirt Butts, PT - 11/05/2024 6:05 PM Tammy Malone MD - 10/18/2024 1:20 PM Tammy Malone MD - 04/18/2024 3:30 PM EDBubba - Coordinator, Mammography - 10/26/2023 3:31 PM EDT Note Date & Type Note Facility 11-05-2024 Note HNO ID: [id number] Author: KIRT BUTTS, GLENNA Service: ? Author Type: Physical Therapist Type: Progress Notes Filed: 11/05/2024 18:17 Note Text: Episode Visit Count: 1 Therapist That Will Accept/Oversee The Plan Of Care: Maxi Butts Start of Care Date: 11/05/24 Onset Date: 08/17/23 Plan of Care Certification Date: 11/05/24 Next Certification Due Date: 02/03/25 Patient Identified by Name and Date of : Yes REHABILITATION AND SPORTS THERAPY PHYSICAL THERAPY EVALUATION PLAN OF CARE: Assessment: Lesley Dodson presents with chief complaint of gait and balance deficits that interferes with rising from a chair, standing, walking, physical activities, recreational activities . The patient presents with impairments in ADL's, balance, gait, independence in exercise, overall function, and strength. PROMIS? (Patient-Reported Outcomes Measurement Information System) scores were reviewed and identified as a rehabilitation concern. Prognosis for therapy is Good due to: positive past response to therapy, good support system/ coping skills Fair due to: clinical presentation, multiple co- morbidities, chronic nature of impairments, limited tolerance to activity, poor understanding of deficits . She is referred to PT by PCP for diagnosis of lumbar spondylosis but she presents with complaints AND deficits of LE weakness, impaired balance AND gait deficits with difficulty walking due to abnormal/ataxic gait. The patient will benefit from skilled therapy services to meet the goals established for this plan of care as noted below. She may also benefit from further assessment AND/or testing, neuro consult recommended. Goals for Episode of Care: established 11/05/24 Patient reported outcome of physical function and self-efficacy will increase T-score by a minimum 5 points. [place] in home exercise program. Patient will demonstrate increase in B LE strength to 5/5 during manual muscle testing in order to improve function for basic self-care tasks, home management tasks, leisure / recreation skills, and prior functional tasks. Normal gait. Patient will increase balance to Good/Normal with static/dynamic standing balance , 10 seconds for single limb stance on RLE and LLE, and allow patient to demonstrate appropriate balance strategies to reduce risk for falls. Patient will complete 12 reps on 30 second chair stand test to decrease risk of falls. Patient Goals: walk, get back to normal Time Frame for Goals and Treatment : 02/03/25 Planned Interventions, Frequency, and Duration: Current Frequency: 2x/week (1-2x/wk) Duration: 12 weeks Total Number of Visits Planned: 15 Planned Treatment Interventions: Therapeutic exercise (42519), Neuromuscular re-education (21387), Therapeutic activities (37432), Gait Training (85003), Patient/Family/Caregiver Education, General Conditioning PLAN FOR NEXT VISIT: address B hip strength, gait AND balance. further assess balance AND fxl performance tests Patient demonstrates good understanding of plan of care and treatment. The above goals and plan of care were discussed and agreed upon by patient/family. SUBJECTIVE: pt reports intermittent LBP with activity since last July when she strained her back AND suffered a compression fx, had vertebroplasty last July and did well. then she twisted AND broke L ankle in August (didn't know it was broke), got it checked in November and had surgery in December 2023 - was NWB for 8 weeks with [facility] (never had PT) but did well and denies ankle pain or deficits. pt says her main issue/complaint is difficulty walking AND imbalance. has been using WW/rollator for several months d/t being wobbly AND unstable. she denies dizziness or other neurological issues. 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 Pain: Pain Pain Level: 0 Pain Location: Back Description: Aching Frequency: Intermittent, Standing, Walking Detailed Pain Score: Yes Worst Pain Level: 8 PROMIS Scales 11/05/2024 Higher is Better Phys Func - T Score 30 (moderate dysfunction) Phys Func - Percentile 2 Self (more content not included)... [facility] 11-05-2024 History of Present illness Narrative Images from the original note were not included. Episode Visit Count: 1 Therapist That Will Accept/Oversee The Plan Of Care: Maxi Butts Start of Care Date: 11/05/24 Onset Date: 08/17/23 Plan of Care Certification Date: 11/05/24 Next Certification Due Date: 02/03/25 Patient Identified by Name and Date of : Yes REHABILITATION AND SPORTS THERAPY PHYSICAL THERAPY EVALUATION PLAN OF CARE: Assessment: Lesley Dodson presents with chief complaint of gait and balance deficits that interferes with rising from a chair, standing, walking, physical activities, recreational activities . The patient presents with impairments in ADL's, balance, gait, independence in exercise, overall function, and strength. PROMIS (Patient-Reported Outcomes Measurement Information System) scores were reviewed and identified as a rehabilitation concern. Prognosis for therapy is Good due to: positive past response to therapy, good support system/ coping skills Fair due to: clinical presentation, multiple co- morbidities, chronic nature of impairments, limited tolerance to activity, poor understanding of deficits . She is referred to PT by PCP for diagnosis of lumbar spondylosis but she presents with complaints & deficits of LE weakness, impaired balance & gait deficits with difficulty walking due to abnormal/ataxic gait. The patient will benefit from skilled therapy services to meet the goals established for this plan of care as noted below. She may also benefit from further assessment &/or testing, neuro consult recommended. Goals for Episode of Care: established 11/05/24 Patient reported outcome of physical function and self-efficacy will increase T-score by a minimum 5 points. [place] in home exercise program. Patient will demonstrate increase in B LE strength to 5/5 during manual muscle testing in order to improve function for basic self-care tasks, home management tasks, leisure / recreation skills, and prior functional tasks. Normal gait. Patient will increase balance to Good/Normal with static/dynamic standing balance , 10 seconds for single limb stance on RLE and LLE, and allow patient to demonstrate appropriate balance strategies to reduce risk for falls. Patient will complete 12 reps on 30 second chair stand test to decrease risk of falls. Patient Goals: walk, get back to normal Time Frame for Goals and Treatment : 02/03/25 Planned Interventions, Frequency, and Duration: Current Frequency: 2x/week (1-2x/wk) Duration: 12 weeks Total Number of Visits Planned: 15 Planned Treatment Interventions: Therapeutic exercise (35830), Neuromuscular re-education (32346), Therapeutic activities (13689), Gait Training (63126), Patient/Family/Caregiver Education, General Conditioning PLAN FOR NEXT VISIT: address B hip strength, gait & balance. further assess balance & fxl performance tests Patient demonstrates good understanding of plan of care and treatment. The above goals and plan of care were discussed and agreed upon by patient/family. SUBJECTIVE: pt reports intermittent LBP with activity since last July when she strained her back & suffered a compression fx, had vertebroplasty last July and did well. then she twisted & broke L ankle in August (didn't know it was broke), got it checked in November and had surgery in December 2023 - was NWB for 8 weeks with WW (never had PT) but did well and denies ankle pain or deficits. pt says her main issue/complaint is difficulty walking & imbalance. has been using WW/rollator for several months d/t being wobbly & unstable. she denies dizziness or other neurological issues. 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 Pain: Pain Pain Level: 0 Pain Location: Back Description: Aching Frequency: Intermittent, Standing, Walking Detailed Pain Score: Yes Worst Pain Level: 8 PROMIS Scales 11/05/2024 Higher is Better Phys Func - T Score 30 (moderate dysfunction) Phys Func - Percentile 2 Self-Eff Symptom - T Score 33 (Low) Self-Eff Symptom - Percentile 4 Proxy-reported T-scores: mean of general population = 50. 5 points is clinically meaningfully difference Percentiles provide an indication of how the patient's score ranks in relation to the general population. Higher percentile rankings indicate better function/quality of life. 50th percentile is the average of the general population and indicates half of respondents had a worse score. OBJECTIVE MEASURES WITH LEVEL OF FUNCTION: Sensory Sensory Deficits: (pt denies numbness or sensory deficits) LE AROM R LE AROM: wnl & painfree L LE AROM: wnl & painfree, L ankle symmetrical to R UE and Cervical Strength R UE Strength: grossly 4+ to 5/5 L UE Strength: grossly 4+ to 5/5 LE Strength R LE Strength: hip weakness as noted below L LE Strength: hip weakness as noted below R Hip Extension: 3+/5 R Hip Flexion (L2): 3+/5 R Hip ABduction: 3+/5 R Knee Extension (L3): 4+/5 R Knee Flexion: 4+/5 R Ankle Dorsiflexion (L4): 4+/5 R Ankle Plantar Flexion: 4+/5 L Hip Flexion (L2): 3+/5 L Hip ABduction: 3+/5 L Knee Extension (L3): 4+/5 L Knee Flexion: 4+/5 L Ankle Dorsiflexion (L4): 4+/5 L Ankle Plantar Flexion: 4+/5 Gait Gait: Modified Independent Gait Device: Rollator Gait Observation: ataxic, unsteady gait without AD & with SPC, CGA with LOB Balance Static Standing Balance: Narrow Base of Support, Tandem Stance, Single Leg Stance Narrow Base of Support: Fair-/Poor+ Tandem Stance: unable Single Leg Stance: unable R/L Functional Performance Test Results 30 Second Chair Stand Test: 5 reps Education: Education Barriers: Low activity tolerance/endurance Learning/educational needs: Safety, Home exercise program, Plan of Care, Gait Training, Body Mechanics Education Provided: Yes, see treatment interventions for education provided Education Provided To: Patient Education Mode/Type: Demonstration, Explanation/Discussion, Performance Response to Education/Teach Back: States/Identifies, Return Demonstration, Requires Review/Additional Education TREATMENT: PT Treatment Interventions: Therapeutic Exercise, Gait Training, Neuromuscular Re-Education Evaluation Therapeutic Exercise: 1: *s/l hip Abd 2#L 10x, *s/l hip ABd with orange TB 10xR 2: *ALSR 2#R/L 10xea 3: *prone SLR 2#R/L 10xea 4: discussed/demonstrated standing exercises for hip strengthening Skilled Intervention: Patient was educated in proper exercise technique and purpose for exercises. Reviewed and educated patient on additions/changes for home exercise program as above (*). Skilled judgment was used in selection of appropriate interventions. Correct performance of therapeutic exercises was facilitated with verbal and visual cuing. Educated patient on rationale for performing exercises in regards to including balance and ROM and function . Patient education as noted. Neuromuscular Re-Education: 1: static stance with perturbations, wide MELINDA 2: narrow MELINDA/feet together with difficulty/LOB 3: tandem & SLS attempted but unable 4: discussed balance deficits, recommended neuro consult Skilled Intervention: Skilled judgment used to assess appropriate program for balance and coordination activity. Patient education as noted. Gait Trainin: gait with rollator: S/mod Ind 2: gait with SPC R CGA, gait without AD: min/CGA. advised continued use of WW/rollator d/t decreased balance & safety (ataxic, unsteady gait both with/without cane) Skilled Intervention: Patient was provided contact guard assistance, supervision during pre-gait/gait training to prevent falls and insure safety. Facilitated proper gait cycle with the use of verbal and visual cues for correction of gait deviations identified in the objective section above. Skilled judgment used to assess selection, proper sizing, and proper use of assistive device. Billing * Evaluation High Complexity: 1 Unit Therapeutic Exercise Treatment Minutes: 10 Neuromuscular Re-Education Treatment Minutes: 5 Gait Training Treatment Minutes: 10 Skilled Treatment Time Minutes (timed and untimed codes): 65 Total Session Time (minutes): 65 Session Start Time : 1526 Session Stop Time : 1631 Kirt Butts PT documented in this encounter [facility] 10-18-2024 History of Present illness Narrative History of Present Illness: ID Statement: LESLEY DODSON is a 67 year old Female Chief Complaint: follow-up Interval History: The patient had come for a follow up on 04/18/24 regarding her history of LEYLA. She is on oral iron replacement therapy and is feeling better compared to previous evaluation. Denies any new symptoms. The patient is sad due to recent demise of her sister in a car accident. In June 2023 the patient fell backwards and sustained an L3 vertebral fracture. Cement was injected and the patient is feeling better. Today, the patient is asymptomatic. The patient had come for a follow up on 10/18/24 regarding her history of LEYLA. She is on oral iron replacement therapy and is feeling better compared to previous evaluation. Her DEXA scan revealed osteoporosis. The patient also has elevated parathyroid hormone levels and is being followed by endocrinology services. Denies any new symptoms. Past medical history: 1. Hypertension 2. Hyperlipidemia 3. Anemia 4. Coronary artery disease with anterior wall myocardial infarction, left ventricular ejection fraction 40-45%. Status post CABG in May 2022 5. 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 6. Elevated parathyroid hormone levels, followed up by endocrinology services. Past surgical history/procedure history 1. Coronary angiogram on May 23, 2016 at 60 years 2. Percutaneous coronary angioplasty on May 23, 2016 at 60 years 3. Drug eluting stent on May 23, 2016 at 60 years 4. Neck dissection 5. Appendectomy 6. Cholecystectomy 7. Hysterectomy 8. Right rotator cuff surgery 9. CABG on May 02, 2022. 10. Fractured left ankle in December 2023 requiring corrective surgery. Colonoscopy: January 30, 2023 Review of Systems: System Review All other systems have been reviewed and are negative for complaint. Constitutional NEGATIVE: Fever, Chills, Anorexia, Weight Loss, Malaise Eyes NEGATIVE: Blurry Vision, Drainage, Diploplia, Redness, Vision Loss/ Change ENMT NEGATIVE: Nasal Discharge, Nasal Congestion, Ear Pain, Mouth Pain, Throat Pain Respiratory NEGATIVE: Dry Cough, Productive Cough, Hemoptysis, Wheezing, Shortness of Breath Cardiology NEGATIVE: Chest Pain, Dyspnea on Exertion, Orthopnea, Palpitations, Syncope Gastrointestinal NEGATIVE: Abdominal Pain, Constipation, Diarrhea, Nausea, Vomiting Genitourinary NEGATIVE: Discharge, Dysuria, Flank Pain, Frequency, Hematuria Musculoskeletal NEGATIVE: Decreased ROM, Pain, Swelling, Stiffness, Weakness Neurological NEGATIVE: Dizziness, Confusion, Headache, Seizures, Syncope Psychiatric NEGATIVE: Mood Changes, Anxiety, Hallucinations, Sleep Changes, Suicidal Ideas Skin NEGATIVE: Mass, Pain, Pruritus, Rash, Ulcer Endocrine NEGATIVE: Heat Intolerance, Cold Intolerance, Sweat, Polyuria, Thirst Hematologic/Lymph NEGATIVE: Anemia, Bruising, Easy Bleeding, Night Sweats, Petechiae Allergic/Immunologic NEGATIVE: Anaphylaxis, Itchy/ Teary Eyes, Itching, Sneezing, Swelling Breast NEGATIVE: Pain, Mass, Discharge, Nipple Itching, Gynecomastia Allergies and Intolerances: Allergies: penicillin: Drug, Rash, Active Cipro: Drug, Swelling/Edema, Facial Swelling, Rash, Hives/Urticaria, Active Outpatient Medication Profile: * Patient Currently Takes Medications as of 12-Aug-2022 14:31 documented in Structured Notes Ferrex-150 oral capsule : 1 cap(s) orally 2 times a day 30 minutes after a meal , Start Date: 02-Dec-2021 Vitamin D3 2000 intl units (50 mcg) oral tablet: One tab, once a day. amLODIPine 2.5 mg oral tablet: 1 tab(s) orally once a day Zetia 10 mg oral tablet: 1 tab(s) orally once a day Lipitor 80 mg oral tablet: 1 tab(s) orally once a day (at bedtime) pantoprazole 40 mg oral delayed release tablet: 1 tab(s) orally once a day PARoxetine 10 mg oral tablet: 1 tab(s) orally once a day ramipril 10 mg oral capsule: 1 cap(s) orally once a day Boniva 150 mg oral tablet: 1 tab(s) orally once a month aspirin 81 mg oral tablet: 1 tab(s) orally once a day metoprolol tartrate 100 mg oral tablet: 1 tab(s) orally once a day Feraheme: 510 milligram(s) intravenous x2 doses Medical History: Hiatal hernia: ICD-10: K44.9, Status: Active CAD (coronary artery disease): ICD-10: I25.10, Status: Active HLD (hyperlipidemia): ICD-10: E78.5, Status: Active HTN (hypertension): ICD-10: I10, Status: Active Iron deficiency anemia: ICD-10: D50.9, Status: Active Surg History: H/O: hysterectomy: ICD-10: Z90.710, Status: Active History of appendectomy: ICD-10: Z90.49, Status: Active Social History: Social Substance History: Social History denies smoking, alcohol and drug use Smoking Status never smoker (1) Tobacco Use denies Alcohol Use denies Drug Use denies Physical Exam: Constitutional: Well developed, awake/alert/oriented x3, no distress, alert and cooperative Eyes: PERRL, EOMI, clear sclera ENMT: mucous membranes moist, no apparent injury, no lesions seen Head/Neck: Neck supple, no apparent injury, thyroid without mass or tenderness, No JVD, trachea midline, no bruits Respiratory/Thorax: Patent airways, CTAB, normal breath sounds with good chest expansion, thorax symmetric Cardiovascular: Regular, rate and rhythm, no murmurs, 2+ equal pulses of the extremities, normal S 1and S 2 Gastrointestinal: Nondistended, soft, non-tender, no rebound tenderness or guarding, no masses palpable, no organomegaly, +BS, no bruits Genitourinary: No Discharge, vesicles or other abnormalities Musculoskeletal: ROM intact, no joint swelling, normal strength Extremities: normal extremities, no cyanosis edema, contusions or wounds, no clubbing Neurological: alert and oriented x3, intact senses, motor, response and reflexes, normal strength Breast: No masses, tenderness, no discharge or discoloration Lymphatic: No significant lymphadenopathy Psychological: Appropriate mood and behavior Skin: Warm and dry, no lesions, no rashes Lab Results: Assessment and Plan: 1. ELYLA The patient had come for a follow up on 04/18/24.I reviewed the lab data with the patient. CBC revealed hemoglobin 13.8 g/dL. She is pleased. Continue oral iron Ferrex 150 mg p.o. bid for now. Return in 6 months. The patient had come for a follow up on 10/18/24 regarding her history of LEYLA. She is on oral iron replacement therapy and is feeling better compared to previous evaluation. Her DEXA scan revealed osteoporosis. The patient also has elevated parathyroid hormone levels and is being followed by endocrinology services. Denies any new symptoms. Previous parathyroid scan did not reveal any abnormality. May need further evaluation. Reviewed lab data with the patient. Hemoglobin on October 03, 2024 was 13.2 g/dL. To be followed clinically. Return in 6 months. 2. Hypercalcemia 3. HLD Continue Lipitor 80 mg. 4. HTN Continue amlodipine 5 mg and metoprolol 100 mg. 5. Right shoulder rotator cuff repair in 11/2018 6. Hiatal hernia 7. CAD documented in this encounter [facility] Work Phone: 04-18-2024 History of Present illness Narrative History of Present Illness: ID Statement: LESLEY DODSON is a 67 year old Female Chief Complaint: follow-up Interval History: The patient had come for a follow up on 04/18/24 regarding her history of LEYLA. She is on oral iron replacement therapy and is feeling better compared to previous evaluation. Denies any new symptoms. The patient is sad due to recent demise of her sister in a car accident. In June 2023 the patient fell backwards and sustained an L3 vertebral fracture. Cement was injected and the patient is feeling better. Today, the patient is asymptomatic. Past medical history: 1. Hypertension 2. Hyperlipidemia 3. Anemia 4. Coronary artery disease with anterior wall myocardial infarction, left ventricular ejection fraction 40-45%. Status post CABG in May 2022 Past surgical history/procedure history 1. Coronary angiogram on May 23, 2016 at 60 years 2. Percutaneous coronary angioplasty on May 23, 2016 at 60 years 3. Drug eluting stent on May 23, 2016 at 60 years 4. Neck dissection 5. Appendectomy 6. Cholecystectomy 7. Hysterectomy 8. Right rotator cuff surgery 9. CABG on May 02, 2022. 10. Fractured left ankle in December 2023 requiring corrective surgery. Colonoscopy: January 30, 2023 Review of Systems: System Review All other systems have been reviewed and are negative for complaint. Constitutional NEGATIVE: Fever, Chills, Anorexia, Weight Loss, Malaise Eyes NEGATIVE: Blurry Vision, Drainage, Diploplia, Redness, Vision Loss/ Change ENMT NEGATIVE: Nasal Discharge, Nasal Congestion, Ear Pain, Mouth Pain, Throat Pain Respiratory NEGATIVE: Dry Cough, Productive Cough, Hemoptysis, Wheezing, Shortness of Breath Cardiology NEGATIVE: Chest Pain, Dyspnea on Exertion, Orthopnea, Palpitations, Syncope Gastrointestinal NEGATIVE: Abdominal Pain, Constipation, Diarrhea, Nausea, Vomiting Genitourinary NEGATIVE: Discharge, Dysuria, Flank Pain, Frequency, Hematuria Musculoskeletal NEGATIVE: Decreased ROM, Pain, Swelling, Stiffness, Weakness Neurological NEGATIVE: Dizziness, Confusion, Headache, Seizures, Syncope Psychiatric NEGATIVE: Mood Changes, Anxiety, Hallucinations, Sleep Changes, Suicidal Ideas Skin NEGATIVE: Mass, Pain, Pruritus, Rash, Ulcer Endocrine NEGATIVE: Heat Intolerance, Cold Intolerance, Sweat, Polyuria, Thirst Hematologic/Lymph NEGATIVE: Anemia, Bruising, Easy Bleeding, Night Sweats, Petechiae Allergic/Immunologic NEGATIVE: Anaphylaxis, Itchy/ Teary Eyes, Itching, Sneezing, Swelling Breast NEGATIVE: Pain, Mass, Discharge, Nipple Itching, Gynecomastia Allergies and Intolerances: Allergies: penicillin: Drug, Rash, Active Cipro: Drug, Swelling/Edema, Facial Swelling, Rash, Hives/Urticaria, Active Outpatient Medication Profile: * Patient Currently Takes Medications as of 12-Aug-2022 14:31 documented in Structured Notes Ferrex-150 oral capsule : 1 cap(s) orally 2 times a day 30 minutes after a meal , Start Date: 02-Dec-2021 Vitamin D3 2000 intl units (50 mcg) oral tablet: One tab, once a day. amLODIPine 2.5 mg oral tablet: 1 tab(s) orally once a day Zetia 10 mg oral tablet: 1 tab(s) orally once a day Lipitor 80 mg oral tablet: 1 tab(s) orally once a day (at bedtime) pantoprazole 40 mg oral delayed release tablet: 1 tab(s) orally once a day PARoxetine 10 mg oral tablet: 1 tab(s) orally once a day ramipril 10 mg oral capsule: 1 cap(s) orally once a day Boniva 150 mg oral tablet: 1 tab(s) orally once a month aspirin 81 mg oral tablet: 1 tab(s) orally once a day metoprolol tartrate 100 mg oral tablet: 1 tab(s) orally once a day Feraheme: 510 milligram(s) intravenous x2 doses Medical History: Hiatal hernia: ICD-10: K44.9, Status: Active CAD (coronary artery disease): ICD-10: I25.10, Status: Active HLD (hyperlipidemia): ICD-10: E78.5, Status: Active HTN (hypertension): ICD-10: I10, Status: Active Iron deficiency anemia: ICD-10: D50.9, Status: Active Surg History: H/O: hysterectomy: ICD-10: Z90.710, Status: Active History of appendectomy: ICD-10: Z90.49, Status: Active Social History: Social Substance History: Social History denies smoking, alcohol and drug use Smoking Status never smoker (1) Tobacco Use denies Alcohol Use denies Drug Use denies Physical Exam: Constitutional: Well developed, awake/alert/oriented x3, no distress, alert and cooperative Eyes: PERRL, EOMI, clear sclera ENMT: mucous membranes moist, no apparent injury, no lesions seen Head/Neck: Neck supple, no apparent injury, thyroid without mass or tenderness, No JVD, trachea midline, no bruits Respiratory/Thorax: Patent airways, CTAB, normal breath sounds with good chest expansion, thorax symmetric Cardiovascular: Regular, rate and rhythm, no murmurs, 2+ equal pulses of the extremities, normal S 1and S 2 Gastrointestinal: Nondistended, soft, non-tender, no rebound tenderness or guarding, no masses palpable, no organomegaly, +BS, no bruits Genitourinary: No Discharge, vesicles or other abnormalities Musculoskeletal: ROM intact, no joint swelling, normal strength Extremities: normal extremities, no cyanosis edema, contusions or wounds, no clubbing Neurological: alert and oriented x3, intact senses, motor, response and reflexes, normal strength Breast: No masses, tenderness, no discharge or discoloration Lymphatic: No significant lymphadenopathy Psychological: Appropriate mood and behavior Skin: Warm and dry, no lesions, no rashes Lab Results: Assessment and Plan: 1. LEYLA The patient had come for a follow up on 04/18/24.I reviewed the lab data with the patient. CBC revealed hemoglobin 13.8 g/dL. She is pleased. Continue oral iron Ferrex 150 mg p.o. bid for now. Return in 6 months. 2. Hypercalcemia 3. HLD Continue Lipitor 80 mg. 4. HTN Continue amlodipine 5 mg and metoprolol 100 mg. 5. Right shoulder rotator cuff repair in 11/2018 6. Hiatal hernia 7. CAD documented in this encounter [facility] Work Phone: 10-26-2023 Miscellaneous Notes October 27, 2023 PID: [id number] Lesley Dodson [address] [place] [address] Dear Ms. Dodson, We are pleased to inform you that the results of your recent breast imaging exam on 10/25/2023 are normal. Early detection of cancer is very important. We also understand recommendations regarding breast cancer screening are controversial. Please discuss with your primary care provider which strategy is best for you and whether a mammogram is right for you. Your imaging studies and report will be kept on file at [facility] as part of your permanent medical record and are available for your continuing care. Thank you for allowing us to help in meeting your health care needs. Sincerely, Dr. Baez Interpreting Radiologist [facility] (Normal over 40) documented in this encounter [facility] 10-25-2023 Note HNO ID: [id number] Author: KIT LOJA CT Service: Radiology Author Type: Technologist Type: Progress Notes Filed: 10/25/2023 15:11 Note Text: Radiology Service Progress Note PATIENT NAME: Lesley Dodson DATE OF SERVICE: October 25, 2023 TIME: 3:11 PM PATIENT IDENTITY VERIFICATION COMPLETED USING TWO (2) IDENTIFIERS: Name and Date of confirmed by patient verbally. FALL SCREENING: Has the patient had 2 falls in the last year or 1 fall with injury or currently using an Ambulatory Assistive Device (Walker, Cane, Wheelchair, Crutches, etc.)? No PATIENT GENDER DATA: Female. status: : No status: NO. PATIENT RELEVANT IMPLANT DATA REVIEWED: Not Applicable PATIENT PRESENTS WITH AN IMPLANTABLE OR ATTACHED FRONT MAN: No RADIOLOGY DEPARTMENT: Bone Density and Mammography PERIPHERAL IV DATA: Not applicable SIGNED BY: RENA Jimenez October 25, 2023 3:11 PM [facility] 10-25-2023 History of Present illness Narrative Radiology Service Progress Note PATIENT NAME: Lesley Dodson DATE OF SERVICE: October 25, 2023 TIME: 3:11 PM PATIENT IDENTITY VERIFICATION COMPLETED USING TWO (2) IDENTIFIERS: Name and Date of confirmed by patient verbally. FALL SCREENING: Has the patient had 2 falls in the last year or 1 fall with injury or currently using an Ambulatory Assistive Device (Walker, Cane, Wheelchair, Crutches, etc.)? No PATIENT GENDER DATA: Female. status: : No status: NO. PATIENT RELEVANT IMPLANT DATA REVIEWED: Not Applicable PATIENT PRESENTS WITH AN IMPLANTABLE OR ATTACHED FRONT MAN: No RADIOLOGY DEPARTMENT: Bone Density and Mammography PERIPHERAL IV DATA: Not applicable SIGNED BY: RENA Jimenez October 25, 2023 3:11 PM documented in this encounter [facility] 10-10-2023 History of Present illness Narrative Provider Impressions No obvious evidence of any recurrence of the patient's previously treated submandibular gland cancer. Hypothyroidism for which she is on Synthroid. No significant dysphagia. I will see her in one year. 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 This was treated surgically followed by radiation therapy. She has no issues are related to the head neck. She is hypothyroid and takes Synthroid the 112 mcg. her TSH is being followed at home. She had a recent TSH at home. She had a chest x-ray in May 2022 which was negative. Since I last saw her she broke her back and seems to have recovered very nicely. She denies any significant issues with swallowing. Physical Exam On examination the oral cavity and oropharynx are within normal limits. She does have evidence of dryness. Palpation of the parotid and neck fails to show any worrisome masses or adenopathies. She does have weakness of the marginal branch of the facial which has been present all along. She is status post neck dissection on the left side. documented in this encounter [facility] Work Phone: 09-15-2023 History of Present illness Narrative History of Present Illness: ID Statement: LESLEY DODSON is a 67 year old Female Chief Complaint: follow-up Interval History: The patient had come for a follow up on 09/15/23 regarding her history of LEYLA. She is on oral iron replacement therapy and is feeling better compared to previous evaluation. Denies any new symptoms. The patient is sad due to recent demise of her sister in a car accident. Past medical history: 1. Hypertension 2. Hyperlipidemia 3. Anemia 4. Coronary artery disease with anterior wall myocardial infarction, left ventricular ejection fraction 40-45%. Status post CABG in May 2022 Past surgical history/procedure history 1. Coronary angiogram on May 23, 2016 at 60 years 2. Percutaneous coronary angioplasty on May 23, 2016 at 60 years 3. Drug eluting stent on May 23, 2016 at 60 years 4. Neck dissection 5. Appendectomy 6. Cholecystectomy 7. Hysterectomy 8. Right rotator cuff surgery 9. CABG on May 02, 2022. Colonoscopy: January 30, 2023 Review of Systems: System Review All other systems have been reviewed and are negative for complaint. Constitutional NEGATIVE: Fever, Chills, Anorexia, Weight Loss, Malaise Eyes NEGATIVE: Blurry Vision, Drainage, Diploplia, Redness, Vision Loss/ Change ENMT NEGATIVE: Nasal Discharge, Nasal Congestion, Ear Pain, Mouth Pain, Throat Pain Respiratory NEGATIVE: Dry Cough, Productive Cough, Hemoptysis, Wheezing, Shortness of Breath Cardiology NEGATIVE: Chest Pain, Dyspnea on Exertion, Orthopnea, Palpitations, Syncope Gastrointestinal NEGATIVE: Abdominal Pain, Constipation, Diarrhea, Nausea, Vomiting Genitourinary NEGATIVE: Discharge, Dysuria, Flank Pain, Frequency, Hematuria Musculoskeletal NEGATIVE: Decreased ROM, Pain, Swelling, Stiffness, Weakness Neurological NEGATIVE: Dizziness, Confusion, Headache, Seizures, Syncope Psychiatric NEGATIVE: Mood Changes, Anxiety, Hallucinations, Sleep Changes, Suicidal Ideas Skin NEGATIVE: Mass, Pain, Pruritus, Rash, Ulcer Endocrine NEGATIVE: Heat Intolerance, Cold Intolerance, Sweat, Polyuria, Thirst Hematologic/Lymph NEGATIVE: Anemia, Bruising, Easy Bleeding, Night Sweats, Petechiae Allergic/Immunologic NEGATIVE: Anaphylaxis, Itchy/ Teary Eyes, Itching, Sneezing, Swelling Breast NEGATIVE: Pain, Mass, Discharge, Nipple Itching, Gynecomastia Allergies and Intolerances: Allergies: penicillin: Drug, Rash, Active Cipro: Drug, Swelling/Edema, Facial Swelling, Rash, Hives/Urticaria, Active Outpatient Medication Profile: * Patient Currently Takes Medications as of 12-Aug-2022 14:31 documented in Structured Notes Ferrex-150 oral capsule : 1 cap(s) orally 2 times a day 30 minutes after a meal , Start Date: 02-Dec-2021 Vitamin D3 2000 intl units (50 mcg) oral tablet: One tab, once a day. amLODIPine 2.5 mg oral tablet: 1 tab(s) orally once a day Zetia 10 mg oral tablet: 1 tab(s) orally once a day Lipitor 80 mg oral tablet: 1 tab(s) orally once a day (at bedtime) pantoprazole 40 mg oral delayed release tablet: 1 tab(s) orally once a day PARoxetine 10 mg oral tablet: 1 tab(s) orally once a day ramipril 10 mg oral capsule: 1 cap(s) orally once a day Boniva 150 mg oral tablet: 1 tab(s) orally once a month aspirin 81 mg oral tablet: 1 tab(s) orally once a day metoprolol tartrate 100 mg oral tablet: 1 tab(s) orally once a day Feraheme: 510 milligram(s) intravenous x2 doses Medical History: Hiatal hernia: ICD-10: K44.9, Status: Active CAD (coronary artery disease): ICD-10: I25.10, Status: Active HLD (hyperlipidemia): ICD-10: E78.5, Status: Active HTN (hypertension): ICD-10: I10, Status: Active Iron deficiency anemia: ICD-10: D50.9, Status: Active Surg History: H/O: hysterectomy: ICD-10: Z90.710, Status: Active History of appendectomy: ICD-10: Z90.49, Status: Active Social History: Social Substance History: Social History denies smoking, alcohol and drug use Smoking Status never smoker (1) Tobacco Use denies Alcohol Use denies Drug Use denies Physical Exam: Constitutional: Well developed, awake/alert/oriented x3, no distress, alert and cooperative Eyes: PERRL, EOMI, clear sclera ENMT: mucous membranes moist, no apparent injury, no lesions seen Head/Neck: Neck supple, no apparent injury, thyroid without mass or tenderness, No JVD, trachea midline, no bruits Respiratory/Thorax: Patent airways, CTAB, normal breath sounds with good chest expansion, thorax symmetric Cardiovascular: Regular, rate and rhythm, no murmurs, 2+ equal pulses of the extremities, normal S 1and S 2 Gastrointestinal: Nondistended, soft, non-tender, no rebound tenderness or guarding, no masses palpable, no organomegaly, +BS, no bruits Genitourinary: No Discharge, vesicles or other abnormalities Musculoskeletal: ROM intact, no joint swelling, normal strength Extremities: normal extremities, no cyanosis edema, contusions or wounds, no clubbing Neurological: alert and oriented x3, intact senses, motor, response and reflexes, normal strength Breast: No masses, tenderness, no discharge or discoloration Lymphatic: No significant lymphadenopathy Psychological: Appropriate mood and behavior Skin: Warm and dry, no lesions, no rashes Lab Results: Assessment and Plan: 1. LEYLA The patient had come for a follow up on 09/15/23.I reviewed the lab data with the patient. CBC revealed hemoglobin 13.8 g/dL. She is pleased. Continue oral iron Ferrex 150 mg p.o. bid for now. Return in 6 months. 2. Hypercalcemia 3. HLD Continue Lipitor 80 mg. 4. HTN Continue amlodipine 5 mg and metoprolol 100 mg. 5. Right shoulder rotator cuff repair in 11/2018 6. Hiatal hernia 7. CAD documented in this encounter [facility] Work Phone: 07-21-2023 Note HNO ID: [id number] Author: ODALIS KOHLI PA-C Service: ? Author Type: Physician [place] Type: Progress Notes Filed: 07/21/2023 15:31 Note Text: Per Triage: Lesley Dodson is a 68 year old female that requests evaluation of spine. Per review, they have symptoms of lower back pain, right hip and right leg pain. Difficulty walking Request: First available Referring provider: TEODORO TOTH 07/12 [facility] Address: [address] [place] [address] Patient out of state: No 2nd opinion: No Prior spine surgery: No CMT: PT Oxycodone Studies (Reports unless indicated) MRI lumbar spine report 07-18-23: Findings consistent with a recent burst fracture of the L3 with small amount of fluid in the anterior epidural space possibly representing prominence of the epidural ring. Spinal stenosis at L4-5 secondary to disc disease and facet arthropathy CT lumbar spine report 07/12/2023: The alignment is anatomic. There is a burst fracture involving the L3 vertebral body with accompanying 40-50% loss of height centrally 4 to 5 mm of posterior retropulsion of the inferior endplate of L3 posteriorly.. Moderate to severe disc space narrowing at L4-5 and L1-2. No significant central canal stenosis is demonstrated. Broad-based disc bulges throughout the lumbar spine. Mild neuroforaminal narrowing at L4-5 bilaterally.. The paravertebral soft tissues are within normal limits. The visualized abdomen is unremarkable. Disposition: Based on triage, recommend patient be scheduled with surgeon first available for the burst fracture . If patient would like sooner appointment, is it okay to offer appointment with spine surgical LACHELLE No (If patient is okay to see first available surgeon, please specify dx to aid in appropriate scheduling, such as ?cervical degenerative disease,? ?scoliosis?) If VV, please advise pt to send or upload relevant outside images prior to appt so they will be available for review during the appt If office visit, please advise pt to hand carry relevant images on CD to the appt so they can be reviewed during the appt Odalis Kohli PA-C [facility] 07-12-2023 Note HNO ID: [id number] Author: ?, ?, ? Service: ? Author Type: ? Type: Progress Notes Filed: 07/21/2023 15:31 Note Text: Patient name: Lesley Dodson Are you being referred by a [place] for Spine Health Provider or Pain Management Provider at [facility]? No If answer is YES please schedule directly with surgeon, triage does not need to be completed. Is this a self-referral No If not, who is the Referring Provider ER WA 07/12 [facility] Address: [address] [place] [address] Is this a 2nd opinion from another spine surgeon? No Were you offered surgery? No MRI/CT/myelogram within 12 months? Yes If NO, please refer to medical spine or PCP to complete above imaging, triage does not need to be completed If YES,? please ask for the name/address of the facility where the MRI/CT/myelogram was completed: [facility] Address: [address] [place] [address] MRI/CT/myelogram viewable in Epic: No If not, please provide [phone] to fax in imaging reports for review. Also, please inform patient to hand carry imaging disc to appointment. XR (spine) within 12 months: Yes If YES,? please ask for the name/address of the facility where the XR was completed: Same Dr. Tiwari's patients: Have you had previous EMG/Nerve Conduction Study, Ultrasound, or MRI for these same symptoms? If YES,? please ask for the name/address of the facility where they were completed: Requested provider (First and Last name): [facility] Are you interested in a virtual visit if offered? No 1. Where are you having symptoms related to this visit? LBP Hip pain (R) Leg pain (R) Back pain Yes Leg pain Yes Arm pain No Neck pain No 2. Are you having any of the following symptoms: Difficulty walking Yes Numbness No Weakness No Trouble using your hands? No 3. Have you had any injections or physical therapy in the last 12 months? Yes If YES then please ask for the name/address of the facility where the injections and/or physical therapy was completed PT Card[facility] Have you tried any other kinds of non-surgical treatments in the last 12 months? (For example: NSAIDS, muscle relaxants, analgesics, oral steroids, Chiropractor, Acupuncture): No 4. Are you currently taking daily prescribed narcotic medications for your current symptoms (For example Oxycodone, Hydrocodone, Tramadol, Morphine, Other)? Yes Oxycodone 5. Have you had previous spinal surgery for this same symptoms? No If YES? please ask for the name of facility/address of where the surgery was completed: Additional Comments [phone] (Home Phone) [facility] 02-02-2023 Note Clinic Note: Education Assessment: Learning BarriersNo barriers TaughtPatient Primary Language of PatientEnglish Primary Language of Mike LearnerEnglish New Patient/Pre-treatment: Topic(s): New Patient Pre-Treatment Follow up plan MethodVerbal Nursing Note: Nursing NoteBP rechecked per flow sheet. Provider notified of elevated BP. Follow-up in 6 months with labs prior outside. Call back instructions reviewed. Patient verbalize understanding. Electronic Signatures: Mandie Elizabeth (CRYSTAL) (Signed 02-Feb-2023 15:47) Authored: Education Assessment, New Patient/Pre-treatment, Nursing Note Last Updated: 02-Feb-2023 15:47 by Mandie Elizabeth) [facility] 09-05-2022 History of Present illness Narrative Images from the original note were not included. Cardiac Rehabilitation Hospital Based Program Supervising Physician: Barbara Murillo Diagnosis: CABG Phase: 2 Monitor: Yes Session Number: 13 Today's exercise session was comprised of a warm-up, aerobic conditioning phase, aerobic cool-down, and free weight resistance training. Patient tolerated prescribed exercise workload. Tele SR-ST without ectopic beats. Vitals WNL for patient. No chest discomfort. No medication changes. This is a hospital based cardiac rehab program. Patient working towards exercise goals by increasing exercise duration. Patient working towards education goal by attending education sessions in cardiac rehabilitation. Patient has verbalized understanding of Diabetes education topic and the relation to disease managment. Patient's Daily Exercise Log will be scanned into [employer] once it is completed. These can be viewed by going under the Scanned Documents tab and looking for documents labeled Cardiac Rehabilitation. Daily Exercise Logs contain exercise data such as, but not limited to modality, intensity, duration and frequency of exercise, along with vital signs pre-, during, and post-exercise. Refer to patient's paper medical record for ECG rhythm strips, physician prescribed Individualized Treatment Plan, and education sessions covered. Radha Lopez informatics physician documented in this encounter [facility] 08-31-2022 History of Present illness Narrative Images from the original note were not included. Cardiac Rehabilitation [facility] Based Program Supervising Physician: Cooper Link Diagnosis: CABG Phase: 2 Monitor: Yes Session Number: 11 Today's exercise session was comprised of a warm-up, aerobic conditioning phase, aerobic cool-down, and free weight resistance training. Patient tolerated prescribed exercise workload. Tele SR-ST without ectopic beats. Vitals WNL for patient. No chest discomfort. No medication changes. This is a hospital based cardiac rehab program. Patient working towards exercise goals by sustaining exercise intensity and duration. Patient working towards education goal by attending education sessions in cardiac rehabilitation. Patient has verbalized understanding of blood pressure education topic and the relation to disease managment. Patient's Daily Exercise Log will be scanned into [employer] once it is completed. These can be viewed by going under the Scanned Documents tab and looking for documents labeled Cardiac Rehabilitation. Daily Exercise Logs contain exercise data such as, but not limited to modality, intensity, duration and frequency of exercise, along with vital signs pre-, during, and post-exercise. Refer to patient's paper medical record for ECG rhythm strips, physician prescribed Individualized Treatment Plan, and education sessions covered. Aristeo Callahan Analytical Lab Technician documented in this encounter [facility] 08-29-2022 History of Present illness Narrative Images from the original note were not included. Cardiac Rehabilitation Hospital Based Program Supervising Physician: Cooper Link Diagnosis: CABG Phase: 2 Monitor: Yes Session Number: 10 Today's exercise session was comprised of a warm-up, aerobic conditioning phase, aerobic cool-down, and free weight resistance training. Patient tolerated prescribed exercise workload. Tele SR-ST without ectopic beats. Vitals WNL for patient. No chest discomfort. No medication changes. This is a hospital based cardiac rehab program. Patient working towards exercise goals by increasing exercise duration. Patient working towards education goal by attending education sessions in cardiac rehabilitation. Patient has verbalized understanding of risk factors education topic and the relation to disease managment. Patient's Daily Exercise Log will be scanned into [employer] once it is completed. These can be viewed by going under the Scanned Documents tab and looking for documents labeled Cardiac Rehabilitation. Daily Exercise Logs contain exercise data such as, but not limited to modality, intensity, duration and frequency of exercise, along with vital signs pre-, during, and post-exercise. Refer to patient's paper medical record for ECG rhythm strips, physician prescribed Individualized Treatment Plan, and education sessions covered. Aristeo Callahan Analytical Lab Technician documented in this encounter [facility] 08-24-2022 History of Present illness Narrative Images from the original note were not included. Cardiac Rehabilitation [facility] Based Program Supervising Physician: Rodney Sarabia Diagnosis: CABG Phase: 2 Monitor: Yes Session Number: 8 Today's exercise session was comprised of a warm-up, aerobic conditioning phase, aerobic cool-down, and free weight resistance training. Patient tolerated prescribed exercise workload. Tele SR-ST without ectopic beats. Vitals WNL for patient. No chest discomfort. No medication changes. This is a hospital based cardiac rehab program. Patient working towards exercise goals by increasing exercise intensity. Patient working towards education goal by attending education sessions in cardiac rehabilitation. Patient has verbalized understanding of portion control education topic and the relation to disease managment. Patient's Daily Exercise Log will be scanned into [employer] once it is completed. These can be viewed by going under the Scanned Documents tab and looking for documents labeled Cardiac Rehabilitation. Daily Exercise Logs contain exercise data such as, but not limited to modality, intensity, duration and frequency of exercise, along with vital signs pre-, during, and post-exercise. Refer to patient's paper medical record for ECG rhythm strips, physician prescribed Individualized Treatment Plan, and education sessions covered. Aristeo Callahan Analytical Lab Technician documented in this encounter [facility] 08-22-2022 History of Present illness Narrative Images from the original note were not included. Cardiac Rehabilitation Hospital Based Program Supervising Physician: Rodney Sarabia Diagnosis: CABG Phase: 2 Monitor: Yes Session Number: 7 Today's exercise session was comprised of a warm-up, aerobic conditioning phase, aerobic cool-down, and free weight resistance training. Patient tolerated prescribed exercise workload. Tele SR-ST without ectopic beats. Vitals WNL for patient. No chest discomfort. No medication changes. This is a hospital based cardiac rehab program. Patient working towards exercise goals by sustaining exercise intensity and duration. Patient working towards education goal by attending education sessions in cardiac rehabilitation. Patient has verbalized understanding of Reading food labels education topic and the relation to disease managment. Patient's Daily Exercise Log will be scanned into [employer] once it is completed. These can be viewed by going under the Scanned Documents tab and looking for documents labeled Cardiac Rehabilitation. Daily Exercise Logs contain exercise data such as, but not limited to modality, intensity, duration and frequency of exercise, along with vital signs pre-, during, and post-exercise. Refer to patient's paper medical record for ECG rhythm strips, physician prescribed Individualized Treatment Plan, and education sessions covered. Fariha Cameron Analytical Lab Technician documented in this encounter [facility] 08-12-2022 Note Clinic Note: Education Assessment: Learning BarriersNo barriers TaughtPatient Primary Language of PatientEnglish Primary Language of Mike [facility] Visit: Topic(s): Clinic VisitFollow-up plan MethodVerbal, Teach-Back, Handout EvaluationTeaches back, States general concept Nursing Note: Nursing NotePatient saw Dr. Malone today. Patient will return to clinic in 4 months with labs prior. Patient instructed on follow up plan and understanding voiced. Call back instructions reviewed. Megan ROJAS Electronic Signatures: Buffy Joseph (RN) (Signed 12-Aug-2022 17:54) Authored: Education Assessment, Clinic Visit, Nursing Note Last Updated: 12-Aug-2022 17:54 by Buffy Joseph (RN) [facility] 07-28-2022 History of Present illness Narrative Images from the original note were not included. Cardiac Rehabilitation [facility] Supervising Physician: Rodney Sarabia Diagnosis: CABG Phase: 2 Monitor: Yes Session Number: 5 Today's exercise session was comprised of a warm-up, aerobic conditioning phase, aerobic cool-down, and free weight omitted due to surgical site tenderness. Patient tolerated prescribed exercise workload. Tele SR-ST without ectopic beats. Vitals WNL for patient. No chest discomfort. No medication changes. This is a hospital based cardiac rehab program. Patient working towards exercise goals by sustaining exercise intensity and duration. Patient working towards education goal by attending education sessions in cardiac rehabilitation. Patient has verbalized understanding of exercise education topic and the relation to disease managment. Patient's Daily Exercise Log will be scanned into [employer] once it is completed. These can be viewed by going under the Scanned Documents tab and looking for documents labeled Cardiac Rehabilitation. Daily Exercise Logs contain exercise data such as, but not limited to modality, intensity, duration and frequency of exercise, along with vital signs pre-, during, and post-exercise. Refer to patient's paper medical record for ECG rhythm strips, physician prescribed Individualized Treatment Plan, and education sessions covered. Jenny Sesay RN documented in this encounter [facility] 07-27-2022 History of Present illness Narrative Images from the original note were not included. Card[facility] Supervising Physician: Rodney Sarabia Diagnosis: CABG Phase: 2 Monitor: Yes Session Number: 4 Today's exercise session was comprised of a warm-up, aerobic conditioning phase, aerobic cool-down, and free weight resistance training. Patient tolerated prescribed exercise workload. Tele SR without ectopic beats. Vitals WNL for patient. No chest discomfort. No medication changes. This is a hospital based cardiac rehab program. Patient working towards exercise goals by increasing exercise intensity. Patient working towards education goal by attending education sessions in cardiac rehabilitation. Patient has verbalized understanding of Weight Management education topic and the relation to disease managment. Patient's Daily Exercise Log will be scanned into [employer] once it is completed. These can be viewed by going under the Scanned Documents tab and looking for documents labeled Cardiac Rehabilitation. Daily Exercise Logs contain exercise data such as, but not limited to modality, intensity, duration and frequency of exercise, along with vital signs pre-, during, and post-exercise. Refer to patient's paper medical record for ECG rhythm strips, physician prescribed Individualized Treatment Plan, and education sessions covered. Fariha Cameron Analytical Lab Technician documented in this encounter [facility] 07-20-2022 History of Present illness Narrative Images from the original note were not included. Card[facility] Rehabilitation [facility] Supervising Physician: Domo Crandall Diagnosis: CABG Phase: 2 Monitor: Yes Session Number: 1 Today's exercise session was comprised of a warm-up, aerobic conditioning phase, aerobic cool-down, and free weight resistance training. Patient tolerated prescribed exercise workload. Tele SR without ectopic beats. Vitals WNL for patient. No chest discomfort. No medication changes. This is a hospital based cardiac rehab program. Patient working towards exercise goals by increasing exercise frequency, intensity and duration. Patient working towards education goal by attending education sessions in cardiac rehabilitation. Patient has verbalized understanding of blood pressure education topic and the relation to disease managment. Patient's Daily Exercise Log will be scanned into [employer] once it is completed. These can be viewed by going under the Scanned Documents tab and looking for documents labeled Cardiac Rehabilitation. Daily Exercise Logs contain exercise data such as, but not limited to modality, intensity, duration and frequency of exercise, along with vital signs pre-, during, and post-exercise. Refer to patient's paper medical record for ECG rhythm strips, physician prescribed Individualized Treatment Plan, and education sessions covered. Aristeo Callahan Analytical Lab Technician documented in this encounter [facility] 07-19-2022 History of Present illness Narrative Patient missed appt and was rescheduled documented in this encounter [facility] 06-15-2022 History of Present illness Narrative Radiology Service Progress Note PATIENT NAME: Lesley Dodson DATE OF SERVICE: June 15, 2022 TIME: 1:44 PM PATIENT IDENTITY VERIFICATION COMPLETED USING TWO (2) IDENTIFIERS: Name and Date of confirmed by patient verbally. FALL SCREENING: Has the patient had 2 falls in the last year or 1 fall with injury or currently using an Ambulatory Assistive Device (Walker, Cane, Wheelchair, Crutches, etc.)? No PATIENT GENDER DATA: Female. status: : No status: NO. PATIENT RELEVANT IMPLANT DATA REVIEWED: Not Applicable RADIOLOGY DEPARTMENT: General X-ray: Exam(s) Completed: Chest X-Ray PERIPHERAL IV DATA: Not applicable SIGNED BY: RENA Elizondo June 15, 2022 1:44 PM documented in this encounter [facility] 06-06-2022 History of Present illness Narrative Images from the original note were not included. [facility] [place] SECTION OF CARDIOTHORACIC SURGERY OUTPATIENT VISIT DATE June 07, 2022 OUTPATIENT VISIT TYPE POSTOPERATIVE This is a 66 year old female who presents to the clinic for 3 week follow up visit s/p CABG on 05/12/[address] Brenner. Patient reports mild, intermittent sternal pain, but increases to 8/10 with movement/cough. No respiratory complaints. Using IS and ambulating often. Denies SOB, cough, wheeze. Sleeping on her back in recliner chair. Appetite improving, urinating without issue. She reports constipation - moving bowels but sometimes difficult. She is taking prescribed colace and plans to supplement with OTC stool softeners and prune juice. Denies F/C/N/V/CP, myalgia, abd pain, calf redness/pain/swelling. 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 She has an appointment with her PCP on 06/17/22. Patient did not have CXR taken prior to appointment - plans to go for imaging soon. BP 136/74 Pulse 82 Ht 157.5 cm (5' 2) Wt 72.6 kg (160 lb) SpO2 100% BMI 29.26 kg/m O2 stats on RA Pulse regular General: Alert and oriented x 3, in no acute distress Sternum: Stable. Sternotomy incision c/d/i and healing well, no sign of infection or dehiscence. Cardiovascular: RRR w/o murmur, rub, or gallop. No LE pitting edema. Lungs: CTA bilaterally. No rales, rhonchi, or wheeze. Abd: +BS, normoactive. Extremities: Warm, good capillary refill. A/P 1. Discussed with patient medications: Restart portion of home BP medication. Ramipril 2.5 mg PO daily. Continue others as prescribed 2. Discussed with patient pain medications: continue prn 3. Wound: No issues 4. Discussed with patient to increase ambulation as tolerated 5. Patient encouraged to increase PO intake and to begin heart healthy and low carbohydrate diet 6. Obtain 2V CXR 7. F/u with Cardiology 8. F/u with PCP 9. Counseled patient to schedule cardiac rehab appointment - order placed and contact information provided Dulce Burrell PA-C [facility] [place] [facility] Pager: [phone] June 07, 2022 8:54 AM documented in this encounter [facility] 06-02-2022 Miscellaneous Notes Patient called asking if she can get a refill on her pain medication. She is not due in for another visit until next week. Please advise if we can accommodate this request documented in this encounter [facility] 05-27-2022 Miscellaneous Notes I returned patients call in regards to her high BP but she states she spoke with MUNIR Franks yesterday 05/26/22 and was advised to take BP medications Amlodipine and she states this AM she has taken it and her BP in now better in the range of 120/80's. I did advise patient to make a follow up visit with her Mine Supervisor and make him aware of BP's and medication update. Aliya Johnston RN May 27, 2022 9:33 AM documented in this encounter [facility] 05-26-2022 History of Present illness Narrative TELEPHONE VISIT (audio only) PROGRESS NOTE This is a telephone encounter initiated for an established patient. The patient, parent or guardian is not originating from a related Evaluation & Management service provided within the previous 7 days nor leading to an Evaluation & Management service or procedure within the next 24 hours or soonest available appointment. Lesley Dodson has consented to this telephone encounter. Persons Present: patient and visiting nurse Chief Complaint/Reason: elevated BP HPI: 66 year old female underwent CABG x 1 05/12. Visiting nurse called as patient's BP is 160's systolic. Patient denies headaches, palpitations, chest pain, or dizzziness Assessment/plan: HTN in the settig of recent CABG -advised to take amlodipine 5 mg daily and record TID BP readings -call Dr. Brenner's office with recordings -follow up as scheduled Total Time Spent: 5-10 minutes Golden Aviles PA-C documented in this encounter [facility] 05-23-2022 History of Present illness Narrative Images from the original note were not included. [facility] [place] SECTION OF CARDIOTHORACIC SURGERY OUTPATIENT VISIT DATE May 23, 2022 OUTPATIENT VISIT TYPE POSTOPERATIVE This is a 66 year old female who presents to the clinic for 1 week follow up visit s/p Coronary artery bypass grafting x1 with BENAVIDES to LAD (on pump) on 05/12/[address] Brenner. Today pt states she is doing well overall. She endorses significant pain at the incision site which is well controlled with oxycodone and tylenol. She will need a refill shortly. She is sleeping well in a recliner. She is moving her around house with minimal SOB, although still lower than her baseline. She has no concerns aside from pain today. Current Outpatient Medications Medication Instructions acetaminophen (TYLENOL) 1,000 mg, ORAL/FEEDING TUBE, EVERY 6 HOURS NEEDED alendronate 70 mg aspirin 162 mg, ORAL, DAILY atorvastatin (LIPITOR) 80 mg docusate sodium (COLACE) 100 mg, ORAL, 2 TIMES DAILY NEEDED ferrous sulfate 325 mg, ORAL, DAILY levothyroxine (SYNTHROID) 112 mcg, ORAL, DAILY BEFORE BREAKFAST metoprolol tartrate (short acting) (LOPRESSOR) 25 mg, ORAL, EVERY 12 HOURS oxyCODONE IR (ROXICODONE) 5 mg, ORAL/FEEDING TUBE, EVERY [address] (PROTONIX) 40 mg, ORAL, DAILY PAXIL 10MG TABLET Take one(1) tablet daily. ZETIA 10 MG TAB Take one(1) tablet daily 05/23/22 1254 BP: 134/85 BP Site: Left Arm BP Position: Sitting BP Cuff Size: Regular Adult Pulse: 76 SpO2: 100% Weight: 73 kg (161 lb) Height: 152.4 cm (5') General: Alert and oriented x 3, in no acute distress Sternum: Stable. Sternotomy incision c/d/i and healing well, no sign of infection or dehiscence. Cardiovascular: RRR w/o murmur, rub, or gallop. no LE pitting edema. Lungs: CTA bilaterally. No rales, rhonchi, or wheeze. Abd: +BS, normoactive. Extremities: Warm, good capillary refill. 2V CXR Frontal/Lateral: 05/23/22 No pneumothorax is seen at this time. Small left pleural effusion. A/P 1. Discussed with patient medications: continue as prescribed 2. Discussed with patient pain medications: continue prn 3. Wound: No issues 4. Discussed with patient to increase ambulation as tolerated 5. Patient encouraged to increase PO intake and to begin heart healthy and low carbohydrate diet 6. F/u in 2 weeks Juan Manuel Hoover PA-C Thoracic Surgery [id number] DATE: May 23, 2022 TIME: 1:27 PM documented in this encounter [facility] 05-16-2022 Note HNO ID: [id number] Author: DARRICK Sagastume Service: Care Management Author Type: Vehicle Service Attendant Type: Care Mgt Progress Note Filed: 05/16/2022 10:35 AM Note Text: CARE MANAGEMENT PROGRESS NOTE SERVICE DATE: 05/16/2022 SERVICE TIME: 10:34 AM LOS: 4 days Needs Prior to Discharge: Accepting Facility;Home Care Order;Discharge Prescriptions Several referrals sent for [facility]. Pt lives with sig other Ed [phone] at home, he will transport. Anticipate d/c tomorrow, F2F needed for SN/PT/OT. Awaiting accepting agency. SW/CM to continue to follow. SIGNATURE: ANDREW Sagastume PATIENT NAME: Lesley Dodson DATE: May 16, 2022 TIME: 10:34 AM PAGER/CONTACT #: [phone] [facility] 05-16-2022 Note HNO ID: [id number] Author: Dulce Burrell PA-C Service: Cardiac Surgery Author Type: Physician Hardwood Sawyer Type: Progress Notes Filed: 05/16/2022 8:46 AM Note Text: [facility] POSTOP PROGRESS NOTE Day of Surgery:05/12/2022 S/P SURGERY: Coronary artery bypass grafting x1 with BENAVIDES to LAD (on pump). INTERVAL EVENTS / PERTINENT ROS: Coronary artery bypass grafting x1 with BENAVIDES to LAD (on pump). NAEO. AVSS. Thrombocytopenia has resolved. No recurrence of dysphagia throughout the day yesterday. Diet progressed throughout the day, now tolerating heart healthy diet without issue. She reports 4/10 sternotomy pain, but otherwise states she feels better than she did prior to surgery. No respiratory complaints. Using IS and ambulating with minimal assistance. Appetite fine, passing flatus, urinating without issue. No BM since surgery. Denies F/C/N/V/CP/SOB, myalgia, abd pain, calf redness/pain/swelling. Rhythm: NSR The following results were reviewed: EKG, TELE, and CXR PHYSICAL EXAM: BP 116/67 Pulse 77 Temp 37.2 ?C (98.9 ?F) (Oral) Resp 18 Ht 152.4 cm (5') Wt 78.6 kg (173 lb 4.8 oz) SpO2 98% BMI 33.85 kg/m? Invasive Hemodynamics: Most Recent Range Past 24hrs SVO2 No data recorded CVP No data recorded PA No data recorded PA Mean No data recorded CO No data recorded CI No data recorded SVR No data recorded General: AANDO x 3, NAD, cooperative Skin: Skin color and texture normal. No rashes or lesions Sternum: Stable. Sternotomy incision covered with Prevena dressing Cardiovascular: RRR w/o murmur, rub, or gallop. No LE pitting edema Pulmonary: Bibasilar rales. No rhonchi or wheeze Abd: Soft, non-tender, no distention, BS x 4 Extremities: Warm, good capillary refill Neuro: Grossly normal cognition, motor/sensory function Chest tube: No Pacer wires: No DATA: Tmax: 98.9F/24h Recent Labs 05/16/22 0557 05/15/22 0646 05/14/22 0413 WBC 4.84 7.51 8.44 HB 8.5* 8.6* 8.5* HCT 24.5* 25.6* 25.4* PLT 151 91* 81* NA -- 134* 135* K -- 4.2 4.2 CHLOR -- 103 104 CO2 -- 22 BUN -- 9 9 CREAT -- 0.76 0.71 GLUC -- 125* 127* CA -- 8.4* 8.2* MG -- 2.0 1.8 Recent Labs 05/15/22 2036 05/15/22 1708 05/15/22 1241 05/15/22 0730 05/15/22 0011 05/14/22 2243 05/14/22 1158 05/14/22 0745 PCGLUCOSE 117* 102* 110* 122* 128* 122* 119* 125* Intake/Output Summary (Last 24 hours) at 05/16/2022 0841 Last data filed at 05/16/2022 0400 Gross per 24 hour Intake 1260 ml Output 160 ml Net 1100 ml HISTORY, ASSESSMENT AND PLAN: 66 y/o female POD #4 s/p CABGx1 -AVSS -progress diet today as tolerated -continue CT to suction, likely remove today Acute Blood Loss Anemia -stable A-fib ppx -metoprolol -optimize electrolytes: K>4, Mg>2 Hyperlipidemia -Lipitor Hypertension -stable Post-operative Atelectasis -aggressive bronchopulmonary hygiene -oxygen management per RT protocol -incr IS use -OOB as tolerated Stress Hyperglycemia -lispro sliding scale Post-operative Pain -scheduled acetaminophen -oxycodone PRN Volume Overload -Lasix, Kdur, mag-ox GI Prophylaxis -Protonix Thrombocytopenia -resolved Thrombosis Prophylaxis -asa and subq heparin -compression stockings during the day -encourage ambulation Discharge tomorrow AM. DAILY STEP DOWN CHECKLIST FOR CATHETER RELATED INFECTION PREVENTION CVC, PICC, Flaquita and/or Permacath present? No Does the patient have a urinary catheter beyond POD 2? No VTE Risk Assessment: High risk VTE Mechanical and/or Pharmacologic Prophylaxis: asa, compression stockings, ambulation Labs and medications reviewed in Epic DRIPS: None Case discussed in depth with: Dr. Brenner Plan of care discussed with: Provider, RN, Patient. Dulce Burrell PA-C [facility] [place] [facility] Pager: [phone] May 16, 2022 8:46 AM [facility] 05-15-2022 Note HNO ID: [id number] Author: Dulce Burrell PA-C Service: Cardiac Surgery Author Type: Physician Hardwood Sawyer Type: Procedures Filed: 05/15/2022 12:33 PM Note Text: UNIVERSAL PROTOCOL / SAFETY CHECKLIST Procedure to be Performed: Chest Tube and Epicardial Pacing Wire Removal Sign In: A Moment of CARE was completed. Personnel directly involved with the procedure wore the appropriate PPE (Personal Protective Equipment). Patient/Surrogate Stated/Verified: PATIENT VERIFIED: Patient name, Date of , Relevant allergies and The intended procedure Time Out Communication: Intended patient and procedure match the source documents. Consent documented and matches the intended procedure. EPW Removal - Patient placed in supine position - Skin surrounding EP wires swabbed with betadine solution - Sutures affixing EPWs to skin were cut at level of the skin and removed - Skin swabbed again with betadine solution - Wires cut below skin surface at point of resistance - No complications, procedure well tolerated - Patient instructed to lay supine for 2 hours - VS to be monitored per protocol [address] Removal x 2 - Chest tube atrium removed from suction - Air leak check via patient valsalva - Area surrounding chest tube sutures swabbed with betadine solution - Sutures affixing chest tubes cut at level of the skin and freed from attachment to skin - Xeroform dressing placed over top of chest tubes in configuration to create seal - Xeroform covered in gauze pads and taped over at cephalic and lateral sides - Chest tubes removed under forced valsalva - Pressure placed on dressing during and immediately after pull to ensure air seal - Remaining side taped while holding pressure on dressing - Well-tolerated, no complications - CXR pending Sign Out: SIGN OUT: All instruments, equipment, possible retained foreign bodies accounted for. Dulce Burrell PA-C [facility] [place] [facility] Pager: [phone] May 15, 2022 12:15 PM [facility] 05-15-2022 Note HNO ID: [id number] Author: Dulce Burrell PA-C Service: Cardiac Surgery Author Type: Physician Hardwood Sawyer Type: Progress Notes Filed: 05/15/2022 10:18 AM Note Text: [facility] POSTOP PROGRESS NOTE Day of Surgery:05/12/2022 S/P SURGERY: Coronary artery bypass grafting x1 with BENAVIDES to LAD (on pump). INTERVAL EVENTS / PERTINENT ROS: Patient transferred from SICU to [facility] yesterday afternoon. Nursing reported an incident of dysphagia while drinking water. Patient attributes it acid reflux, as she felt a burning sensation in her throat just before taking a drink of water and was not able to swallow. She used her bedside Yankauer suction to removed the water from her mouth. Speech pathology consulted but not available until Monday. Patient trialed and able to swallow oral medications in applesauce without issue later in the day. She reports no issues swallowing water overnight or this morning, is hopeful to be able to eat solid foods today. Minimal sternal pain at rest, worsened with movement. No respiratory complaints. Denies cough, SOB, wheeze. Appetite fine, urinating without issue. Passing flatus, no BM since surgery. Of note, chest tube was found to be placed to water seal this morning. Chest tube placed to -20 mmHg. Denies F/C/N/V/CP, myalgia, abd pain, calf redness/pain/swelling. Rhythm: NSR The following results were reviewed: EKG, TELE, and CXR PHYSICAL EXAM: BP 124/75 Pulse 108 Temp 37.1 ?C (98.8 ?F) (Oral) Resp 16 Ht 152.4 cm (5') Wt 79.7 kg (175 lb 12.8 oz) SpO2 92% BMI 34.33 kg/m? General: AANDO x 3, NAD, cooperative Skin: Skin color and texture normal. No rashes or lesions Sternum: Stable. Sternotomy incision covered with Prevena dressing Cardiovascular: RRR w/o murmur, rub, or gallop. No LE pitting edema Pulmonary: Bibasilar rales. No rhonchi or wheeze Abd: Soft, non-tender, no distention, BS x 4 Extremities: Warm, good capillary refill Neuro: Grossly normal cognition, motor/sensory function Chest tube: Yes: Greater than 200 mL output per 24 hours Pacer wires: Yes DATA: Recent Labs 05/15/22 0646 05/14/22 0413 05/13/22 0320 05/12/22 1810 05/12/22 1349 WBC 7.51 8.44 5.58 < > 11.96* HB 8.6* 8.5* 9.0* < > 10.0* HCT 25.6* 25.4* 25.6* < > 29.2* PLT 91* 81* 121* < > 123* INR -- -- -- -- 1.1 APTT -- -- -- -- 22.6* NA 134* 135* 142 < > 141 K 4.2 4.2 4.0 < > 4.8 CHLOR 103 104 109* < > 108* CO2 23 22 21* < > 21* BUN 9 9 9 < > 12 CREAT 0.76 0.71 0.73 < > 0.74 GLUC 125* 127* 109* < > 118* CA 8.4* 8.2* 8.6 < > 8.9 MG 2.0 1.8 2.3 < > 2.9* < > = values in this interval not displayed. Recent Labs 05/12/22 1251 LACT 6.2* Recent Labs 05/12/22 1257 05/12/22 1251 05/12/22 1227 05/12/22 1221 PH 7.368 7.35 7.238* 7.237* PCO2 36.3 36 48.3* 43.4 PO2 247* 226* 276* 246* BE -4* -- -7* -9* HCO3 20.9* 19* 20.6* 18.5* CO2CT -- 20* -- -- O2HB -- 97 -- -- COHB -- <1.0 -- -- MHGB -- 1.6* -- -- Recent Labs 05/15/22 0730 05/15/22 0011 05/14/22 2243 05/14/22 1158 05/14/22 0745 05/14/22 0639 05/14/22 0002 05/13/22 1712 PCGLUCOSE 122* 128* 122* 119* 125* 110* 123* 141* Intake/Output Summary (Last 24 hours) at 05/15/2022 1011 Last data filed at 05/15/2022 0900 Gross per 24 hour Intake 250 ml Output 995 ml Net -745 ml UOP: Approximately 1100 mL/24h. CT output: Approximately 40 mL overnight, 440 mL/24h. Serosanguinous. No air leak. Intake/Output Summary (Last 24 hours) at 05/15/2022 1003 Last data filed at 05/15/2022 0900 Gross per 24 hour Intake 250 ml Output 995 ml Net -745 ml HISTORY, ASSESSMENT AND PLAN: 66 y/o female POD #3 s/p CABGx1 -AVSS -progress diet today as tolerated -continue CT to suction, likely remove today Acute Blood Loss Anemia -stable A-fib ppx -metoprolol -optimize electrolytes: K>4, Mg>2 Hyperlipidemia -Lipitor Hypertension -stable Post-operative Atelectasis -aggressive bronchopulmonary hygiene -oxygen management per RT protocol -incr IS use -OOB as tolerated Stress Hyperglycemia -lispro sliding scale Post-operative Pain -scheduled acetaminophen -oxycodone PRN Volume Overload -Lasix, Kdur, mag-ox GI Prophylaxis -Protonix Thrombocytopenia -improving, 91k today -asa 81mg PO daily -holding SQ heparin Thrombosis Prophylaxis -asa -compression stockings during the day -encourage ambulation DAILY STEP DOWN CHECKLIST FOR CATHETER RELATED INFECTION PREVENTION CVC, PICC, Flaquita and/or Permacath present? No Does the patient have a urinary catheter beyond POD 2? No VTE Risk Assessment: High risk VTE Mechanical and/or Pharmacologic Prophylaxis: asa, compression stockings, ambulation Labs and medications reviewed in Epic DRIPS: None Case discussed in depth with: Dr. Brenner Plan of care discussed with: Provider, RN, Patient. Dulce Burrell PA-C Heart[facility] [place] (more content not included)... [facility] 05-14-2022 Note HNO ID: [id number] Author: Brandon Cano DO Service: Critical Care Author Type: Anesthesiologist Type: Progress Notes Filed: 05/14/2022 11:44 AM Note Text: SURGICAL INTENSIVE CARE UNIT PROGRESS NOTE Patient Name: Lesley Dodson Admission Date: 05/12/2022 Date of Evaluation: May 14, 2022 Events from the last 12-24 hours reviewed. Registered Nurse, Pharmacist and Residents performed multidisciplinary rounds. 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 She underwent LHC 04/06/22 which was r/f single vessel disease in the proximal LAD with 80-90% stenosis immediately proximal to prior stents; a TTE from 05/10/22 was also r/f EF 30% with akinesis of the LV. On May 12, 2022 she underwent CABG x1 (BENAVIDES-LAD). HOSPITAL COURSE: - 05/13: admitted to SICU postoperatively for continuous hemodynamic and respiratory monitoring CURRENT CONDITION: Stable OVERNIGHT EVENTS/INTERVAL HISTORY: No acute overnight events Working on IS this AM Reports minimal pain Levo overnight weaned off Good UOP, Cr normal PHYSICAL EXAM: BP 110/76 Pulse 91 Temp 36.6 ?C (97.8 ?F) (Oral) Resp 14 Ht 152.4 cm (5') Wt 81 kg (178 lb 9.2 oz) SpO2 97% BMI 34.88 kg/m? Body mass index is 34.88 kg/m?. GENERAL: No acute distress NEURO: Alert and oriented with no gross focal deficits CARDIAC: Regular rate and rhythm LUNGS: Non labored breathing ABDOMEN: Soft EXTREMITIES: Warm and well perfused LABS: CBC, Coags, BMP, Mg, Phos Recent Labs 05/14/22 0413 05/13/22 0320 05/12/22 1810 05/12/22 1349 WBC 8.44 5.58 12.17* 11.96* HB 8.5* 9.0* 10.9* 10.0* HCT 25.4* 25.6* 30.8* 29.2* PLT 81* 121* 175 123* INR -- -- -- 1.1 APTT -- -- -- 22.6* NA 135* 142 136 141 K 4.2 4.0 4.2 4.8 CHLOR 104 109* 104 108* CO2 22 21* 19* 21* BUN 9 9 12 12 CREAT 0.71 0.73 0.79 0.74 GLUC 127* 109* 151* 118* CA 8.2* 8.6 8.7 8.9 MG 1.8 2.3 2.5* 2.9* Liver Function, Amylase, AND Lipase Recent Labs 05/12/22 1251 LACT 6.2* Cardiac Labs No results for input(s): CKTEST, CKMB, CKMBP, TROPT, PBNP in the last 168 hours. INTAKE/OUTPUT: Date 05/13/22699 - 05/14/2265805/14/22699 - 05/15/22 0659 Shift 0223-3369 2773-8054 5683-3400 24 Hour Total 6332-8268 0190-3525 1819-5718 24 Hour Total INTAKE IV 2501 2501 Volume (mL) (lactated ringers iv infusion) 2501 2501 Shift Total 2501 2501 OUTPUT Urine 615 173 445 9787 Output ( Indwelling Urinary Catheter 05/12/22 0903 Temperature Monitoring 16 Fr) 615 930 995 8165 Chest Tube 30 125 75 230 Chest Tube Output (Chest Tube 05/12/22 Mediastinal 32 Fr) 30 125 75 230 Shift Total 645 076 642 8272 Weight (kg) 79.1 79.1 81 81 81 81 81 81 CURRENT MEDS: Current Facility-Administered Medications Medication Dose Route Frequency levothyroxine 112 mcg tab(s) (SYNTHROID) 112 mcg ORAL BEFORE BREAKFAST DAILY heparin 5,000 Units injection 5,000 Units SUBCUTANEOUS q 12 H sodium chloride 0.9 % (flush) 3-5 mL (BD POSIFLUSH) 3-5 mL INTRAVENOUS q 12 H sodium chloride 0.9 % (flush) 10 mL (BD POSIFLUSH) 10 mL INTRAVENOUS q 12 H sodium chloride 0.9 % (flush) 20 mL (BD POSIFLUSH) 20 mL INTRAVENOUS PRN NaCl 0.9% iv flush bag 20 mL INTRAVENOUS PRN lactated ringers iv infusion 75 mL/hr INTRAVENOUS CONTINUOUS dextrose 10% iv bolus 12.5-25 g INTRAVENOUS PRN dextrose 40 % 15 g 15 g ORAL PRN Or glucagon 1 mg injection 1 mg INTRAMUSCULAR PRN Or dextrose 10% iv bolus 12.5 g INTRAVENOUS PRN albuterol 2.5 mg /3 mL (0.083 %) 2.5 mg (PROVENTIL) 2.5 mg INHALATION q 2 H PRN EPINEPHrine iv infusion 4 mg in D5W 250 mL 0.6-10 mcg/min INTRAVENOUS CONTINUOUS nitroglycerin 50 mg in D5W 250 mL 5-200 mcg/min INTRAVENOUS CONTINUOUS NORepinephrine 16 mg in D5W 250 mL (LEVOPHED) 0.6-15 mcg/min INTRAVENOUS CONTINUOUS docusate sodium 100 mg cap(s) (COLACE) 100 mg ORAL BID Or docusate 100 mg oral liquid (COLACE) 100 mg [address]OGASTRIC BID pantop[address]ole [address] 40 mg tab(s) (PROTONIX) 40 mg ORAL DAILY (6 AM) Or pantoprazole 40 mg oral liquid (PROTONIX) 40 mg ORAL/FEEDING TUBE DAILY (6 AM) ondansetron (PF) 4 mg injection (ZOFRAN) 4 mg INTRAVENOUS q 6 H PRN potassium chloride iv piggyback 20 mEq/100 mL 20 mEq INTRAVENOUS PRN magnesium sulfate 2 g in sterile water 50 ml 2 g INTRAVENOUS PRN(NO DISPENSE) acetaminophen 1,000 mg tab(s) (TYLENOL) 1,000 mg ORAL/FEEDING TUBE q 6 HR aspirin 162 mg chewable tab(s) 162 mg ORAL/FEEDING TUBE DAILY vancomycin iv piggyback 1 g in D5W 200 mL (VANCOCIN) 1 g INTRAVENOUS q 12 HR propofol infusion (DIPRIVAN) 5-60 mcg/kg/min (Order-Specific) INTRAVENOUS CONTINUOUS milrinone 20 mg in D5W 100 mL (PRIMACOR) 0.125 mcg/kg/min (Ord (more content not included)... [facility] 05-13-2022 Note HNO ID: [id number] Author: DARRICK Hong Service: Care Management Author Type: Vehicle Service Attendant Type: Care Mgt Initial Assessment Filed: 05/13/2022 1:43 PM Note Text: CARE MANAGEMENT: ASSESSMENT AND DISCHARGE PLAN SERVICE DATE: May 13, 2022 SERVICE TIME: 1:30 PM PRIMARY CARE PHYSICIAN: Flo Pretty MD Primary Contact: Extended Emergency Contact Information Primary Emergency Contact: Cara Rangel Mobile Relation: Daughter Secondary Emergency Contact: hunter parry Relation: Significant other ADMISSION STATUS: Inpatient Insurance Provider: UHC AARP MEDICARE HMO NEEDS PRIOR TO DISCHARGE Needs Prior to Discharge: To Be Determined POTENTIAL TRANSITION PLANS Home Care;To Be Determined Based on clinical judgement, Care Management will address the following needs: Medical Patient's perception of need for this admission: Agreeable to admission for CABG ADVANCE DIRECTIVES Current Advance Directive: Health Care Power of Stud Driver In Chart: No MS/BEHAVIOR Baseline Mental Status Prior to this Illness what was the patient's Baseline Mental Status?: Alert AND Oriented Prior to this illness, has anyone described the patient having any of the following behaviors?: Not Applicable Relationship of the informant to the patient:: Self;Significant Other Name of Informant: : Salud READMISSION Last Discharge Date: 04/23/21 Is this Within the Past 30 days? 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 scores in the EMR?: No Any potential risks related to substance abuse and/or behavioral health?: No Based on clinical judgement, Care Management will address the following needs: Medical CAREGIVER ASSESSMENT Caregiver is ready, willing and able to meet the patient's needs as recommended by the inter-professional team:: Yes Name of Caregiver: Family Patient's transition needs and plan for meeting these needs: [facility] at the minimum MEDICAL Medical Needs: Two or more chronic diseases Health Issues Impacting Discharge Plan: (CABG) Medication Adherance I am convinced of the importance of my prescription medication: 0 - Agree Completely I worry that my prescription medication will do more harm than good to me : 0 - Disagree Mostly I feel financially burdened by my [id number] expenses for my prescription medication:: 0 - Disagree Mostly Risk Score: 0 Patient is categorized as: Low risk < 2 SOCIAL Living Arrangements: Home Lives With: Partner/Significant Other Financial Resources: Retired Supportive Patient Contact:: Yes Contact Resources: Family Is Patient Psychosocially Complex?: No Contact Resources: Family Health Literacy How often do you need to have someone help you when you read instructions, pamphlets, or other written material from your doctor or pharmacy? : 1 - Never How confident are you filling out medical forms by yourself?: 2 - Quite a bit Food Insecurity: No Food Insecurity Worried About Running Out of Food in the Last Year: Never true Ran Out of Food in the Last Year: Never true Financial Resource Strain: Low Risk Difficulty of Paying Living Expenses: Not hard at all Transportation Needs: No Transportation Needs Lack of Transportation (Medical): No Lack of Transportation (Non-Medical): No Housing Stability: Unknown Unable to Pay for Housing in the Last Year: No Number of Places Lived in the Last Year: Not on file Unstable Housing in the Last Year: No BEHAVIORAL/COGNITIVE Psychosocial Psychosocial Needs: None FUNCTIONAL How do you manage to accomplish the following: Independent: Ambulation;Transportation to appointments/community;Bathe/Show er;Dress;Meals/Meal Prep;Going to the bathroom;Medication Management Services/Needs//Equipment Does Patient Currently Receive Any Community Services or Home Care?: None Equipment Prior to Admission: None Has the Patient Been in a Senior Living Facility in the Past 30 days?: No FREEDOM OF CHOICE EXPLAINED: [place] of Choice Given: Yes Level of Care Discussed: Home Care Financial Disclosure Provided: Yes Provider List: Home Care Provider list within the patient's requested geographic area shared with the patient/family: Yes within: 10 miles of zip code: [address] Quality and resource use metrics shared with the patient that are relevant to the patient's goals of care and treatment prefere (more content not included)... [facility] 05-13-2022 Note HNO ID: [id number] Author: Brandon Cano DO Service: Critical Care Author Type: Anesthesiologist Type: Progress Notes Filed: 05/13/2022 2:37 PM Note Text: SURGICAL INTENSIVE CARE UNIT PROGRESS NOTE Patient Name: Lesley Dodson Admission Date: 05/12/2022 Date of Evaluation: May 13, 2022 Events from the last 12-24 hours reviewed. Registered Nurse, Pharmacist and Residents performed multidisciplinary rounds. 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 She underwent LHC 04/06/22 which was r/f single vessel disease in the proximal LAD with 80-90% stenosis immediately proximal to prior stents; a TTE from 05/10/22 was also r/f EF 30% with akinesis of the LV. On May 12, 2022 she underwent CABG x1 (BENAVIDES-LAD). HOSPITAL COURSE: - 05/13: admitted to SICU postoperatively for continuous hemodynamic and respiratory monitoring CURRENT CONDITION: Stable OVERNIGHT EVENTS/INTERVAL HISTORY: No acute overnight events Stable hemodynamics with milrinone weaned off this am CI: 2-2.5 Prop increased to 60 this am due to overbreathing vent Excellent uop overnight PHYSICAL EXAM: BP 92/64 Pulse 94 Temp 37.4 ?C (99.3 ?F) (Core) Resp 16 Ht 152.4 cm (5') Wt 79.1 kg (174 lb 6.1 oz) SpO2 94% BMI 34.06 kg/m? Body mass index is 34.06 kg/m?. GENERAL: No acute distress NEURO: Alert and oriented with no gross focal deficits CARDIAC: Regular rate and rhythm LUNGS: Non labored breathing ABDOMEN: Soft EXTREMITIES: Warm and well perfused LABS: CBC, Coags, BMP, Mg, Phos Recent Labs 05/13/22 0320 05/12/22 1810 05/12/22 1349 WBC 5.58 12.17* 11.96* HB 9.0* 10.9* 10.0* HCT 25.6* 30.8* 29.2* PLT 121* 175 123* INR -- -- 1.1 APTT -- -- 22.6* NA 142 136 141 K 4.0 4.2 4.8 CHLOR 109* 104 108* CO2 21* 19* 21* BUN 9 12 12 CREAT 0.73 0.79 0.74 GLUC 109* 151* 118* CA 8.6 8.7 8.9 MG 2.3 2.5* 2.9* Liver Function, Amylase, AND Lipase Recent Labs 05/12/22 1251 LACT 6.2* Cardiac Labs No results for input(s): CKTEST, CKMB, CKMBP, TROPT, PBNP in the last 168 hours. INTAKE/OUTPUT: Date 05/12/22699 - 05/13/22 0659 05/13/22 07 - 05/14/22 0659 Shift 5900-8476 7245-1201 6286-0014 24 Hour Total 1470-9270 3951-6876 8102-4270 24 Hour Total INTAKE IV 3567.5 984.6 4552.1 Volume (mL) 43.5 43.5 Volume (mL) 105 105 Volume (mL) 14.8 14.8 Volume (mL) 8 8 Volume (mL) 6.3 6.3 Volume (mL) (albumin (5%) 25 g infusion) 500 500 Volume (mL) (vancomycin iv piggyback 1 g in D5W 200 mL (VANCOCIN)) 200 200 Volume (mL) (tranexamic acid (CYKLOKAPRON) in NaCl 0.7%) 45.5 45.5 Volume (mL) (magnesium sulfate 2 g in NaCl 0.9% 100 mL) 100 100 Volume (mL) (prime solution for cardiopulmonary bypass) 472 472 Volume (mL) (potassium chloride iv piggyback 20 mEq/100 mL) 100 100 Volume (mL) (lactated ringers iv infusion) 800 800 Volume (mL) (electrolyte-a iv infusion (PLASMA-LYTE A)) 1600 1600 Volume (mL) (NaCl 0.9% iv infusion) 250 250 Volume (mL) (lactated ringers iv infusion) 307 307 Blood Products 316 316 Cell Saver Returned Volume 316 316 Bolus 344 344 Cardioplegia Crystalloid Delivered Volume 344 344 Shift Total 4227.5 984.6 5212.1 OUTPUT Urine 345 257 6767 2315 555 555 OR Urine Output 440 440 Output ( Indwelling Urinary Catheter 05/12/22 0903 Temperature Monitoring 16 Fr) 865 1010 1875 555 555 Chest Tube 50 130 140 320 30 30 Chest Tube Output (Chest Tube 05/12/22 Mediastinal 32 Fr) 50 130 140 320 30 30 # of BMs Number of BMs 0 x 0 x Blood 150 150 RAP 150 150 Shift Total 553 082 5374 2785 585 585 Weight (kg) 79.1 79.1 79.1 79.1 79.1 79.1 79.1 79.1 CURRENT MEDS: Current Facility-Administered Medications Medication Dose Route Frequency levothyroxine 112 mcg tab(s) (SYNTHROID) 112 mcg ORAL BEFORE BREAKFAST DAILY heparin 5,000 Units injection 5,000 Units SUBCUTANEOUS q 12 H sodium chloride 0.9 % (flush) 3-5 mL (BD POSIFLUSH) 3-5 mL INTRAVENOUS q 12 H sodium chloride 0.9 % (flush) 10 mL (BD POSIFLUSH) 10 mL INTRAVENOUS q 12 H sodium chloride 0.9 % (flush) 20 mL (BD POSIFLUSH) 20 mL INTRAVENOUS PRN NaCl 0.9% iv flush bag 20 mL INTRAVENOUS PRN lactated ringers iv infusion 75 mL/hr INTRAVENOUS CONTINUOUS dextrose 10% iv bolus 12.5-25 g INTRAVENOUS PRN dextrose 40 % 15 g 15 g ORAL PRN Or glucagon 1 mg injection 1 mg INTRAMUSCULAR PRN Or dextrose 10% iv bolus 12.5 g INTRAVENOUS PRN albuterol 2.5 mg /3 mL (0.083 %) 2.5 mg (PROVENTIL) 2.5 mg INHALATION q 2 H PRN EPINEPHrine iv infusion 4 mg in D5W 250 mL 0.6-10 mcg/min INTRAVENOUS CONTINUOUS nitroglycerin 50 mg in D5W 250 mL 5-200 mcg/min INTRAVENOUS CONTINUOUS NORepinephrine 16 mg i (more content not included)... [facility] 05-12-2022 Note HNO ID: [id number] Author: Lorena Streeter APRN.CNP Service: Critical Care Author Type: Nurse Practitioner Type: Progress Notes Filed: 05/12/2022 7:01 PM Note Text: Non- Violent / Non- Self Destructive Restraint Assessment Patient assessed by a COMMUTATOR PRESSER. Assessment must include all areas listed below: Patient's immediate situation: Confused Patient's reaction to restraint: Cooperative Patient's medical condition: Stable Evaluation and assessment of the need to : Continue restraint while confused and pulling at lines. Lorena Streeter APRN.CNP 7:01 PM [facility] 05-12-2022 Note HNO ID: [id number] Author: Mithc Ladd APRN.CRNA Service: Anesthesiology Author Type: Nurse Card Painter Type: Anesthesia Procedure Notes Filed: 05/12/2022 10:09 AM Note Text: ANESTHESIOLOGY PROCEDURE NOTE PA Catheter General Information Procedure Start Time/Medication Administration: 05/12/2022 9:00 AM Patient location during procedure: OR Consent Obtained: Yes Staffing Anesthesiologist: Wilbert Nazario MD SRNA: VITOR Calloway Performed by: VITOR Preparation Sterility Preparation: gown used during line insertion, sterile drape used during line insertion, skin prep agent completely dried prior to procedure Site Prep: Chloraprep Procedure Details New Introducer Placed: Yes Introducer Details Catheter Size: 8.5 Fr Number of Lumens: Single lumen Ultrasound Guided: Yes Image in Chart: Yes Sites: potential access sites evaluated, selected vessel patent, concurrent real time ultrasound visualization of vascular needle entry Vessel: target vessel identified and guidewire advanced into vessel Number of Attempts: 1 Number of Guidewires Used: 1 Number of Guidewires Removed Intact: 1 Post Insertion Ports and Catheter: all ports aspirate easily, all ports flush easily and ports flushed with saline Catheter Secured: suture(s) and antimicrobial dressing applied Events Events: patient tolerated procedure well with no complications PA Catheter Size: 7 Fr PA Catheter Length: 110 cm PA Catheter Side: right PA Catheter Site: internal jugular Indications: cardiac surgery Ports Flushed: Yes Distance inserted prior to balloon inflation: 20 cm Ballon inflated with: air PA waveform obtained: 45 cm Events PA Catheter events: patient tolerated procedure well with no complications and balloon deflated at conclusion of procedure SIGNATURE: Mitch Ladd APRN.CRNA PATIENT NAME: Lesley Dodson DATE: May 12, 2022 TIME: 10:07 AM CSN: [id number] [facility] 05-12-2022 Note HNO ID: [id number] Author: Mitch Ladd APRN.CRNA Service: Anesthesiology Author Type: Nurse Card Painter Type: Anesthesia Procedure Notes Filed: 05/12/2022 9:27 AM Note Text: ANESTHESIOLOGY PROCEDURE NOTE PIV General Information Procedure Start Time/Medication Administration: 05/12/2022 8:38 AM Patient Location: OR Staffing GENERAL SUPERINTENDENT: Mitch Ladd APRN.GENERAL SUPERINTENDENT Performed by: TALIB Preparation Sterility Preparation: hand hygiene performed prior to procedure Site Prep: chlorhexidine Procedure Details Indication: need for IV access Needle Size/Type: 16 gauge angiocath Orientation: Right Location: Forearm Imaging Guidance Used: No SIGNATURE: Mitch Ladd APRN.CRNA PATIENT NAME: Lesley Dodson DATE: May 12, 2022 TIME: 9:26 AM CSN: [id number] [facility] 05-12-2022 Note HNO ID: [id number] Author: Mitch Ladd APRN.GENERAL SUPERINTENDENT Service: Anesthesiology Author Type: Nurse Card Painter Type: Anesthesia Procedure Notes Filed: 05/12/2022 9:26 AM Note Text: ANESTHESIOLOGY PROCEDURE NOTE A-Line General Information Procedure Start Time/Medication Administration: 05/12/2022 8:33 AM Consent Obtained: Yes Indications: continuous blood pressure monitoring Staffing SRNA: VITOR Calloway Performed by: VITOR Preparation Sterility Preparation: sterile drape used during line insertion, skin prep agent completely dried prior to procedure Site Prep: Chlorhexidine Procedure Details Catheter Type: arterial line Catheter Size: 20 G Catheter Length: 12 cm Guidewire Used: Yes Guidewire Removed Intact: Yes Laterality: left Site: radial artery Ultrasound Guided: No Line Secured: occlusive biodressing Events Events: patient tolerated procedure well with no complications SIGNATURE: Mitch Ladd APRN.CRNA PATIENT NAME: Lesley Dodson DATE: May 12, 2022 TIME: 9:25 AM CSN: [id number] [facility] 05-12-2022 Note HNO ID: [id number] Author: Mitch Ladd APRN.CRNA Service: Anesthesiology Author Type: Nurse Card Painter Type: Anesthesia Procedure Notes Filed: 05/12/2022 9:24 AM Note Text: ANESTHESIOLOGY PROCEDURE NOTE Airway General Information Procedure Start Time/Medication Administration: 05/12/2022 8:38 AM Patient location during procedure: OR Timeout Performed Pre-procedure: timeout performed Consent Obtained: Yes Patient identity confirmed: arm band, care stationary steam engineer and patient Staffing GENERAL SUPERINTENDENT: Mitch Ladd APRN.GENERAL SUPERINTENDENT SRNA: VITOR Calloway Performed by: VITOR Indications and Patient Condition Indications for airway management: anesthesia Preoxygenated: yes anesthesia circuit Patient position: sniffing Method: asleep Cricoid Pressure: No Manual In-Line Stabilization: No Difficult Mask: No Final Airway Details Final airway type: endotracheal airway Final Endotracheal Airway: ETT Cuffed: yes Successful intubation technique: video laryngoscopy Devices used: Trustribe Endotracheal tube insertion site: oral Blade: Annalee Blade size: #4 ETT size (mm): 7.5 Measured from: gums Measurement (cm): 21 Placement verified by: chest auscultation and capnometry Cormack-Lehane Classification: grade I - full view of glottis Number of attempts at approach: 1 Airway not difficult SIGNATURE: Mitch Ladd APRN.CRNA PATIENT NAME: Lesley Dodson DATE: May 12, 2022 TIME: 9:23 AM CSN: [id number] [facility] 05-10-2022 Note HNO ID: [id number] Author: Golden Aviles PA-C Service: Cardiac Surgery Author Type: Physician Hardwood Sawyer Type: Progress Notes Filed: 05/10/2022 12:09 PM Note Text: STS SCORE: Risk of Mortality: 0.511% Renal Failure: 0.383% Permanent Stroke: 0.533% Prolonged Ventilation: 2.363% DSW Infection: 0.091% Reoperation: 1.093% Morbidity or Mortality: 4.110% Short Length of Stay: 69.269% Long Length of Stay: 1.086% [facility] 05-06-2022 Instructions Isabel Oconnell APRN.GAS OR WATER METER INSTALLER - 05/06/2022 4:27 PM EDT PATIENT PREOPERATIVE INSTRUCTIONS Dr.Gill anthony lee MD has scheduled you for your procedure at this surgery center: [facility]: [phone] --[id number] [address]. Please check in on the 1st floor at registration desk 6. Please read below carefully for your personalized instructions. Dietary Restrictions: - No solid food after midnight. - You may have 12 ounces of clear liquids (water, clear juices such as apple juice or gatorade, carbonated beverages, clear tea, black coffee, jello) until 2 hours before scheduled arrival at facility. - Do not drink any alcohol after midnight the night before your surgery. Medications: Unless instructed differently below, stay on all of your medications until your surgery. Approved medications to take the morning of surgery with a sip of water: amlodipine (norvasc), aspirin, atorvastatin (lipitor), levothyroxine (synthoid), pantoprazole (protonix), paxil, toprol, and zetia If you start any new medications after today's visit, please contact the surgeon's office. Blood Thinning Medications: - Stop NSAIDS (Ibuprofen, Advil, Aleve, Motrin, Celebrex, Mobic, etc.) 7 days before surgery, as directed by your surgeon. - Stop Vitamin E, ALL multi-vitamins, herbals and dietary supplements 7 days before surgery. - You may take Tylenol (Acetaminophen) or any of your pain medications that do not contain aspirin or NSAIDS as needed. Important Reminders: - Candy, mints, and tobacco products are NOT permitted the morning of surgery. - Hearing aids, dentures and glasses may be worn the morning of surgery. - NO jewelry, body piercings, makeup, hairpins or contacts are to be worn the day of surgery. If you develop symptoms such as a fever, cold, or flu, or have other changes to your health within TWO DAYS of scheduled surgery or the morning of surgery, please contact the surgery center above. Personal Belongings: -Please have photo ID and insurance cards. -If you do not have a copy of advance directives on file with us, please bring a copy with you on the day of surgery. - Leave ALL valuables and money at home or with family members. For Outpatient Procedures: - YOU MUST HAVE A RESPONSIBLE TORTS LAW PROFESSOR TAKE YOU HOME. A MIDDLE SCHOOL READING TEACHER OR PAPERHANGER SUPERVISOR CANNOT BE MADE A RESPONSIBLE TORTS LAW PROFESSOR. - We recommend that a responsible person stays with you overnight to take care of you. - You cannot stay in a hotel alone after outpatient surgery. You will not be permitted to have your surgery, if you do not have someone to take care of you. Arrival Time for Surgery: - The Surgery Center or hospital where you are having surgery will call the afternoon before surgery (or Monday for Monday surgery) with a scheduled arrival time. - If you have not heard by 4 pm, please contact the surgery center above. Please be aware that emergency situations arise, which may delay or change your surgical time. If this happens, we will notify you as soon as possible and regret any inconvenience. If you already have an Advance Directive, please fax a copy to [phone] or email to for it to be added to your chart. If you do not have an Advance Directive, you can find the appropriate form and more information at [email or web address]. We recommend that you complete the Advance Directive form found on the website and bring it with you the day of your surgery. It can be witnessed and scanned into your chart that day. Isabel Oconnell APRN.NIECY documented in this encounter [facility] [facility] 05[facility] History and physical note Images from the original note were not included. HISTORY AND PHYSICAL EXAMINATION SERVICE DATE: 05/06/2022 SERVICE TIME: 4:12 PM PRIMARY CARE PHYSICIAN: Flo Pretty MD REASON FOR VISIT: Lesley Dodson is a 66 year old female who is scheduled for Procedure(s) with comments: BYPASS GRAFT ARTERY CORONARY ON-PUMP SINGLE CORONARY ARTERIAL GRAFT (N/A) - CABG x 1 Rx: O.H. kit needed at the request of Dr. Shay Brenner MD for consultation. My final recommendation will be communicated back to the requesting physician by way of shared medical record or letter. Subjective The patient has the following: ACTIVE PROBLEM LIST Acute Myocardial Infarction, Unspecified Site Chf (Congestive Heart Failure) (Hcc) Coronary Artery Disease Hld (Hyperlipidemia) GERD Hx of Tobacco Abuse Hypertension Anxiety Leyla (Iron Deficiency Anemia) Carotid Artery Stenosis COVID-19 Immunization Status Overdue - COVID-19 VACCINE (4 - Booster for Moderna series) Overdue since 08/02/2021 06/07/2021 Outside Immunization: SARS-CoV-2 (COVID-19, MODERNA) [id number] 10/09/2020 Outside Immunization: SARS-CoV-2 (COVID-19, MODERNA) [id number] 09/08/2020 Outside Immunization: SARS-CoV-2 (COVID-19, MODERNA) [id number] CHIEF COMPLAINT: Pre-op evaluation HPI: 66 year old female here for pre-op evaluation. H/o cardiac stent placement in 2003 and 2015. Patient follows with with recent chest pressure and SOB. With recent abnormal stress test and LHC showing LAD 80-90% occluded and EF of 30%. Patient has a very active job and overall is doing very well. She is status post L radical neck dissection and XRT for throat cancer in 2008. Continues to follow with her oncologist yearly. Carotid US 04/27 with right and left ICA 20-39% stenosis and Left subclavian 50-99% stenosis and had recent vascular consult. REVIEW OF SYSTEMS: General: No weight loss, malaise or fevers. Neurological: No history of TIA's, stroke, INSPECTOR CLIP ON SUNGLASSES tumor, impaired sensorium, hemiplegia, paraplegia or quadraplegia. No neurological symptoms or problems. Respiratory: Positive for: dyspnea. Negative for: asthma, COPD, orthopnea, tobacco use and obstructive sleep apnea. Cardiovascular: Carotid stenosis Positive for: angina, CAD, CHF, hyperlipidemia and hypertension Negative for: arrhythmia, atrial fibrillation, DVT/PE and murmur/valvular heart disease. GI: Positive for: GERD Negative for: abdominal pain, dysphagia, liver disease, nausea and vomiting. : No history of dysuria, frequency or incontinence, stones or chronic kidney disease. No difficulty urinating, nocturia > 1 time per night or hematuria. DECK MOLDER: Negative for abnormal vaginal bleeding, abnormal vaginal discharge. Endocrine: No history of diabetes. Has not taken steroids within the past 30 days. No history of endocrinological symptoms or problems. Hematology: Positive for: anemia. Negative for: bruises/bleeds easily. Oncology: H/o cancer of submandibular gland Psych: Positive for: anxiety. Negative for: depression. Musculoskeletal: Negative for joint pain or swelling, back pain or muscle pain. Skin: Negative for lesions, rash and itching. PAST MEDICAL HISTORY Diagnosis Date Acute myocardial infarction, unspecified site 12/24/2003 Myocardial Infarction CAD (coronary artery disease) Carcinoma of submandibular gland (HCC) CHF (congestive heart failure) (HCC) Disorder of bladder Esophageal reflux Gastroesophageal reflux Former smoker Gastrointestinal hemorrhage 2017 Generalized anxiety disorder GERD (gastroesophageal reflux disease) HLD (hyperlipidemia) HTN (hypertension) Hypothyroidism Intestinal malabsorption Iron deficiency anemia PAST SURGICAL HISTORY Procedure Laterality Date ANGIOPLASTY PCI 2016 LAD - HECTOR CHOLECYSTECTOMY 07/17/1976 Cholecystectomy CHOLECYSTECTOMY HX HYSTERECTOMY HX PAST SURGICAL HISTORY OF 07/17/1987 removal of parotid gland tumor PERC TRANSL COR ANGIO o stenting x2 LAD and first diagn TOTAL ABDOMINAL HYSTERECT W/WO RMVL TUBE OVARY Hysterectomy, partial FAMILY HISTORY Problem Relation Age of Onset other (other) Mother 79 bowel obstruction Heart Father [place] Age 63 Cancer Father 70 esophageal Stroke Sister 45 Drug abuse Sister 63 Drug abuse Brother No Known Problems Brother No Known Problems Brother Social History Tobacco Use Smoking status: Former Packs/day: 0.50 Types: Cigarettes Quit date: 11/17/2003 Years since quittin.4 Passive exposure: Past Smokeless tobacco: Never Substance Use Topics Alcohol use: Yes Comment: social Prior to Admission medications as of 05/06/22 1607 Medication Sig Last Dose Taking atorvastatin (LIPITOR) 80 mg tablet 80 mg. Taking Yes alendronate 70 mg tbef 70 mg. Taking Yes amLODIPine (NORVASC) 5 mg tablet Take 2.5 mg by mouth once daily. Taking Yes pantoprazole DR (PROTONIX) 40 mg tablet Take 40 mg by mouth once daily. Taking Yes aspirin 81 mg chewable tablet Take 81 mg by mouth once daily. Taking Yes nitroglycerin (NITROLINGUAL) 400 mcg/spray spray Dissolve 1 Allison under the tongue every 5 minutes as needed for Chest Pain. Taking Yes levothyroxine (SYNTHROID) 125 mcg tablet Take 112 mcg by mouth daily before breakfast. Taking Yes ALTACE 10 MG CAP Take one (1) capsule daily Taking Yes ZETIA 10 MG TAB Take one(1) tablet daily Taking Yes PAXIL 10MG TABLET Take one(1) tablet daily. Taking Yes LIPITOR 80MG TABLET po qd Taking Yes TOPROL XL 100MG TABLET SA Take one(1) tablet daily. Taking Yes No medication comments found. ALLERGIES Allergen Reactions Cashew Nut Hives Ciprofloxacin Unknown Corticosteroids (Gl* Hives Penicillins Hives Objective PHYSICAL EXAM: General: alert and oriented and obese. Pertinent negatives noted - not distressed. Skin: normal color, no rash or lesions. HEENT: pupils equal round and pupils reactive to light. Pertinent negatives noted - no carotid bruit. Cardiovascular: regular rate and rhythm, normal S1 and S2, no rub, murmurs, or gallop. Respiratory: normal breath sounds, no wheezes or crackles. Abdomen: soft. Pertinent negatives noted - not tender. Extremities: no deformity, no edema or tenderness, no joint swelling or clubbing. Neurological: normal cognition and motor skills. Gait normal. No weakness or sensory deficit. PAIN ASSESSMENT: VITALS: Temp (Src) 98.4 (Temporal) Resp 16 Ht 5' 0 (1.52m) Wt 167 lb (75.8kg) SpO2 97% BMI 32.62 kg/(m^2). Diagnostic tests reviewed for today's visit: Lab Value Units Date High Low HB 15.2 g/dL 04/27/2022 15.5 11.5 HCT 45.3 % 04/27/2022 46.0 36.0 WBC 6.45 k/uL 04/27/2022 11.00 3.70 PLT 274 k/uL 04/27/2022 400 150 NA 140 mmol/L 04/27/2022 144 136 K 4.6 mmol/L 04/27/2022 5.1 3.7 GLUC 111 mg/dL 04/27/2022 99 74 BUN 13 mg/dL 04/27/2022 21 7 CREAT 0.94 mg/dL 04/27/2022 0.96 0.58 PTSEC 9.8 sec 04/27/2022 13.0 9.7 INR 1.0 no uni* 04/27/2022 1.3 0.9 APTT 23.6 sec 04/27/2022 32.4 23.0 ALT 23 U/L 04/27/2022 38 7 AST 23 U/L 04/27/2022 35 13 TBILI 0.4 mg/dL 04/27/2022 1.3 0.2 TSH 1.200 mIU/L 04/27/2022 4.200 0.270 Lab Value Units Date High Low HCGQT No results within date range. UHCG No results within date range. HCG, BODY* No results within date range. Lab Value Units Date High Low ABORHD No results within date range. ABSCREEN No results within date range. Hemoglobin A1C (%) Date Value 12/24/2003 5.2 No results found for this or any previous visit (from the past 8760 hour(s)). No results found for this or any previous visit (from the past 18412 hour(s)). Assessment Anxiety Assessment: Stable on rx, anxiety related to health issues. GERD Assessment: Stable on rx. LEYLA (iron deficiency anemia) Assessment: Labs on 04/27/22. Hemoglobin 15.2 %, hematocrit 45.3. Treated with oral iron. HLD (hyperlipidemia) Assessment: on rx Hypertension Assessment: on rx Last 3 Encounter BP Readings: Date: BP: 05/04/2022 138/84 04/21/2022 152/82 04/23/2021 105/57 CHF (congestive heart failure) (HCC) Assessment: Recent heart cath: EF of 30%. Intermittent chest pain and MOCTEZUMA. Denies any swelling in her LE or orthopnea. Carotid artery stenosis Assessment: . Carotid US 04/27 with right and left ICA 20-39% stenosis and Left subclavian 50-99% stenosis. Had recent vascular consult with Dr. Loja, no recommendation to treat. [place] Activity Status Index: METS: Climb a flight of stairs or walk up a hill (5.50 METs) DASI Score: 5.5 Patient denies any chest pain or undue shortness of breath with the above physical activity. Clinical Frailty Scale: 3. Well, with treated comorbid disease STOP-Bang Score: Has or is being treated for high blood pressure Patient over 50 years old Denies snoring loudly Denies feeling tired, fatigued, or sleepy during the daytime Has not been observed to stop breathing or choking/gasping during sleep BMI less than or equal to 35 kg/m^2 Does not have a large neck Non-male patient STOP-Bang Score: 2 [id number] Score: Age: 65-74 Sex: female CHF history: Yes Hypertension history: Yes Stroke/TIA/thromboembolism history: No Vascular disease history: Yes Diabetes history: No [id number] Score: 5 ARISCAT Score: Age: 51-80 ARISCAT Score: ASA Class: 3 ANESTHESIA FINDINGS: Intubation History: No history of difficult intubation. No abnormal airway history Significant Anesthesia Considerations: none Airway History: No history of difficult airway No abnormal airway history I - PHYSICAL EVALUATION AIRWAYTracheostomy tube not present Mallampati: III. TM distance: >3 FB. Neck ROM: full ROM without neurological symptoms. Mouth opening: adequate. Short neck: no. Thick neck: no DENTAL Dentures, upper: complete. Dentures, lower: complete. II - ANESTHESIA PLAN ASA Score: 3 Anesthetic Plan: general Prepared for Surgery: optimally prepared for surgery. CONSULTS: Patient does not require consults for optimization at this time Planned Anesthetic: general The Following Tests/Procedures Have Been Initiated: No orders of the defined types were placed in this encounter. Instructions Given to Patient: Instructions located in the after visit summary. Patient given verbal and written preop instructions and voices comprehension and compliance. SIGNATURE: Isabel Oconnell APRN.CNP PATIENT NAME: Lesley Dodson DATE: May 06, 2022 TIME: 4:06 PM PAGER/CONTACT #: documented in this encounter [facility] 05-04-2022 History of Present illness Narrative Images from the original note were not included. Heart , [facility] [place] DEPARTMENT OF VASCULAR SURGERY OUTPATIENT VISIT DATE May 04, 2022 OUTPATIENT VISIT TYPE CONSULTATION SERVICE DATE: 05/04/2022 SERVICE TIME: 2:02 PM PRIMARY CARE PHYSICIAN: Flo Pretty MD REFERRING PROVIDER: Golden Aviles [address] [place] [address], [address] Floor [place] [id number] Consult requested for an opinion regarding the evaluation and treatment of the above. My final impression and recommendations will be communicated back to the requesting physician by way of the shared medical record or letter via [place] mail. CHIEF COMPLAINT: Subclavian artery stenosis HISTORY OF PRESENT ILLNESS: Vascular consultation at the request of Dr. Golden Aviles. A copy of this consultation note will be provided to the requesting physician by way of shared Medical record or letter to requesting physician via [place] mail. Ms. Dodson is a 66 year old female who is seen today for Evaluation of left subclavian artery stenosis. The patient needs coronary bypass graft to the LAD using a BENAVIDES graft. She underwent carotid duplex which indicated left subclavian artery stenosis with elevated peak systolic flow velocities.She has no symptoms of claudication in the arms. No syncope or near syncope. She is quite active at her job lifting things quite frequently and clearly denies no provokable fatigue or pain in the upper extremities.She is status post L radical neck dissection and XRT for throat cancer many years ago. PAST MEDICAL HISTORY Diagnosis Date Acute myocardial infarction, unspecified site 12/24/2003 Myocardial Infarction CAD (coronary artery disease) Carcinoma of submandibular gland (HCC) CHF (congestive heart failure) (HCC) Disorder of bladder Esophageal reflux Gastroesophageal reflux Former smoker Gastrointestinal hemorrhage 2016 Generalized anxiety disorder GERD (gastroesophageal reflux disease) HLD (hyperlipidemia) HTN (hypertension) Hypothyroidism Intestinal malabsorption Iron deficiency anemia PAST SURGICAL HISTORY Procedure Laterality Date ANGIOPLASTY PCI 2015 LAD - HECTOR CHOLECYSTECTOMY 07/17/1976 Cholecystectomy CHOLECYSTECTOMY HX HYSTERECTOMY HX PAST SURGICAL HISTORY OF 07/17/1987 removal of parotid gland tumor PERC TRANSL COR ANGIO o stenting x2 LAD and first diagn TOTAL ABDOMINAL HYSTERECT W/WO RMVL TUBE OVARY Hysterectomy, partial SOCIAL HISTORY: Social History Tobacco Use Smoking status: Former Packs/day: 0.50 Types: Cigarettes Quit date: 11/17/2003 Years since quittin.4 Passive exposure: Past Smokeless tobacco: Never Substance Use Topics Alcohol use: Yes Comment: social FAMILY HISTORY Problem Relation Age of Onset other (other) Mother 79 bowel obstruction Heart Father [place] Age 63 Cancer Father 70 esophageal Stroke Sister 45 Drug abuse Sister 63 Drug abuse Brother No Known Problems Brother No Known Problems Brother MEDICATIONS: atorvastatin (LIPITOR) 80 mg tablet 80 mg. alendronate 70 mg tbef 70 mg. amLODIPine (NORVASC) 5 mg tablet Take 2.5 mg by mouth once daily. pantoprazole DR (PROTONIX) 40 mg tablet Take 40 mg by mouth once daily. aspirin 81 mg chewable tablet Take 81 mg by mouth once daily. nitroglycerin (NITROLINGUAL) 400 mcg/spray spray Dissolve 1 Allison under the tongue every 5 minutes as needed for Chest Pain. levothyroxine (SYNTHROID) 125 mcg tablet Take 125 mcg by mouth daily before breakfast. Indications: HYPOTHYROIDISM ZETIA 10 MG TAB Take one(1) tablet daily LIPITOR 80MG TABLET po qd TOPROL XL 100MG TABLET SA Take one(1) tablet daily. ALTACE 10 MG CAP Take one (1) capsule daily PAXIL 10MG TABLET Take one(1) tablet daily. ALLERGIES: ALLERGIES Allergen Reactions Cashew Nut Hives Ciprofloxacin Unknown Corticosteroids (Gl* Hives Penicillins Hives REVIEW OF SYSTEM: Constitutional: No weight loss, malaise or fevers. HEENT: Negative for frequent or significant headaches, No changes in hearing or vision, no nose bleeds or other nasal problems Respiratory: Negative for cough, wheezing, positive shortness of breath Cardiovascular: Negative for chest pain, leg swelling or palpitations Gatrointestinal: Negative for abdominal discomfort, blood in stools or black stools or change in bowel habits Genitourinary: No history of dysuria, frequency, or incontinence Musculoskeletal: Negative for joint pain or swelling, back pain or muscle pain Endocrine: Negative for cold or heat intolerance, polyuria, polydipsia and goiter Hematology/Lymphatic: Negative for prolonged bleeding and Positive for bruises easily Neurologic: No history or headaches, syncope, paralysis, seizures or tremors Integumentary: Negative for lesions, rash, and itching. PHYSICAL EXAM: VITALS: There were no vitals taken for this visit. Upper extremity blood pressures were taken contemporaneously. Right arm blood pressure is 138/84. Left arm blood pressure is 148/86. General: Alert and oriented, No acute distress Integumentary: Normal color, no rash, no lesions. HEENT: EOM, pupils equal, round and reactive., No carotid bruits, left infraclavicular bruit. Left neck scar with chronic woody induration of the skin consistent with prior surgery and XRT. Cardiovascular: Pulse regular. Extremities: No deformity, no edema or tenderness, no joint swelling or clubbing. Neurological: Normal cognition and motor skills. Gait normal. No weakness or sensory deficit. Speech fluent. Vascular: 2+ bilateral brachial, radial and PT pulses. Diagnostic tests reviewed for today's visit: Carotid duplex and CT angiogram were both visualized and reviewed. IMPRESSION: Ms. Dodson is a 66 year old female with nonhemodynamically significant left subclavian artery stenosis. I do not think it is necessary to prophylactically treat this mild left subclavian artery stenosis of approximately 30% prior to proceeding with BENAVIDES graft to the LAD. Medical Decision Making: Medical Decision Making Level: 1 - N/A SIGNATURE: Jamison Loja MD PATIENT NAME: Lesley Dodson DATE: May 04, 2022 TIME: 2:02 PM documented in this encounter [facility] 05-02-2022 History of Present illness Narrative Radiology Service Progress Note DATE OF SERVICE: May 02, 2022 TIME: 9:33 AM PATIENT IDENTITY VERIFICATION COMPLETED USING TWO (2) STANDARD IDENTIFIERS: Name and Date of confirmed by patient verbally. FALL SCREENING: Has the patient had 2 falls in the last year or 1 fall with injury or currently using an Ambulatory Assistive Device (Walker, Cane, Wheelchair, Crutches, etc.)? No PATIENT GENDER DATA: Female. status: : No status: N/A PATIENT RELEVANT IMPLANT DATA REVIEWED: Not Applicable ALLERGIES: Reviewed and unchanged CONTRAST ALLERGY: NO. EXAM: CT -CONTRAST INDUCED NEPHROPATHY RISK FACTORS: Patient age > 60 years CREATININE: Creatinine Date Value Ref Range Status 04/27/2022 0.94 0.58 - 0.96 mg/dL Final 03/22/2022 0.80 0.58 - 0.96 mg/dL Final 11/30/2021 1.12 (H) 0.58 - 0.96 mg/dL Final Estimated Glomerular Filtration Rate Date Value Ref Range Status 04/27/2022 67 >=60 mL/min/1.73m Final Comment: Estimated Glomerular Filtration Rate (eGFR) is calculated using the 2020 CKD-EPI creatinine equation. This equation utilizes serum creatinine, sex, and age as parameters. The creatinine assay has traceable calibration to isotope dilution-mass spectrometry. Refer to KDIGO guidelines for clinical interpretation. In patients with unstable renal function, e.g. those with acute kidney injury, the eGFR may not accurately reflect actual GFR. eGFR- Date Value Ref Range Status 07/27/2021 >60 Final P.O.C.T. RESULTS: POC done: Yes, See Lab Tab May 02, 2022 TREATMENT: N/A PERIPHERAL IV DATA: Ambulatory: A peripheral IV was started in the Right antecubital site with a Angio cath: 20 gauge. RADIOLOGY DEPARTMENT: CT; Exam(s) Completed: CTA Chest SIGNATURE: RT Aundrea(R) PATIENT NAME: Lesley Dodson DATE: May 02, 2022 TIME: 9:33 AM documented in this encounter [facility] 04-27-2022 History of Present illness Narrative PULM FUNCTION SMARTBLOCK: Provider: Terry Mclain PA-C Assisting Tech: Kannan Velazquez RRT Spirometry w/BD: 1 DLCO: 1 documented in this encounter [facility] 04-22-2022 Miscellaneous Notes Confirmed pulmonary and vascular appt with patient for 04/27, informed her that once we have received the films for her card. Cath/ echo/ ekg from [facility] for Dr. Brenner to review we can schedule a f/up with him and surgery. documented in this encounter [facility] 04-18-2022 History of Present illness Narrative CARDIOTHORACIC SURGERY PATIENT SUMMARY HPI: Limited patient information available within [facility] and Care Everywhere. Patient seen by cardiology on 03/02/22 at [facility] in [place] for chest pain/pressure. 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 She reported an increased amount of stress due to family issues, and that it had been causing her to have chest pressure and pain. She reported that it seemed to happen mostly when she feels emotionally stressed and will dissipate when she rests or lays down. The chest pain does not occur at night or while she is resting. She denied any specific correlation with physical activity. She denied any SOB, diaphoresis, radiation of of pain or pressure to her jaw, neck, or arms. EKG in office demonstrated new finding of t-wave inversion, but no ST changes noted. No labs results available. Plan for patient to go for cardiac stress testing - no report found. Patient subsequently underwent coronary angiogram on 04/[address] Yusuf at [facility]. Last catheterization was in 2016 for completely occluded LAD, for which two HECTOR were placed. Former smoker, 9 pack years. No history of anticoagulation per medication list on 03/02/22 encounter, but was previously on Plavix for HECTOR of LAD. Patient underwent cardiac stress test in 03/2020 for new onset chest pain - which was unremarkable. PAST MEDICAL HISTORY: PAST MEDICAL HISTORY Diagnosis Date Acute myocardial infarction, unspecified site 12/24/2003 Myocardial Infarction CAD (coronary artery disease) Carcinoma of submandibular gland (HCC) CHF (congestive heart failure) (HCC) Disorder of bladder Esophageal reflux Gastroesophageal reflux Former smoker Gastrointestinal hemorrhage 2016 Generalized anxiety disorder GERD (gastroesophageal reflux disease) HLD (hyperlipidemia) HTN (hypertension) Hypothyroidism Intestinal malabsorption Iron deficiency anemia PAST SURGICAL HISTORY: PAST SURGICAL HISTORY Procedure Laterality Date ANGIOPLASTY PCI 2015 LAD - HECTOR CHOLECYSTECTOMY 07/17/1976 Cholecystectomy CHOLECYSTECTOMY HX HYSTERECTOMY HX PAST SURGICAL HISTORY OF 07/17/1987 removal of parotid gland tumor PERC TRANSL COR ANGIO o stenting x2 LAD and first diagn TOTAL ABDOMINAL HYSTERECT W/WO RMVL TUBE OVARY Hysterectomy, partial FAMILY HISTORY: FAMILY HISTORY Problem Relation Age of Onset Heart Father [place] Age 63 SOCIAL HISTORY: Social History Tobacco Use Smoking status: Former Packs/day: 0.50 Types: Cigarettes Quit date: 11/17/2003 Years since quittin.4 Substance Use Topics Alcohol use: No MEDICATIONS: Prior to Admission Medications: amLODIPine (NORVASC) 5 mg tablet Take 2.5 mg by mouth once daily. pantoprazole DR (PROTONIX) 40 mg tablet Take 40 mg by mouth once daily. aspirin 81 mg chewable tablet Take 81 mg by mouth once daily. nitroglycerin (NITROLINGUAL) 400 mcg/spray spray Dissolve 1 Allison under the tongue every 5 minutes as needed for Chest Pain. levothyroxine (SYNTHROID) 125 mcg tablet Take 125 mcg by mouth daily before breakfast. Indications: HYPOTHYROIDISM ALTACE 10 MG CAP Take one (1) capsule daily ZETIA 10 MG TAB Take one(1) tablet daily PAXIL 10MG TABLET Take one(1) tablet daily. LIPITOR 80MG TABLET po qd TOPROL XL 100MG TABLET SA Take one(1) tablet daily. No current facility-administered medications for this visit. ALLERGIES: ALLERGIES Allergen Reactions Ciprofloxacin Unknown Corticosteroids (Gl* Hives Penicillins Hives Labs: Invalid input(s): MBP Cholesterol, Total 143 08/02/2005 HDL Cholesterol 54 08/02/2005 LDL Cholesterol 71 08/02/2005 DATA: Coronary Angiogram: Severe single-vessel coronary artery disease LAD 80-90% proximally to LAD stent Severe LV dysfunction with EF approximated at 30% Dulce Burrell PA-C Heart, Vascular [facility] Thor[facility] [place] [facility] Pager: [phone] April 18, 2022 3:57 PM documented in this encounter [facility] 04-16-2022 History of Present illness Narrative 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 This was treated surgically followed by radiation therapy. She has no issues are related to the head neck. She is hypothyroid and takes Synthroid the 112 mcg. her TSH is being followed at home. The last TSH in April 2022 was normal. She had a chest x-ray in May 2022 which was negative. Since I last saw her she had heart surgery. She seems to be recovering well. BN-Gbhbwzsjzsjgnu-Lkiqhm ke Work Phone: 03-25-2022 Note Clinic Note: Education Assessment: Learning BarriersNo barriers Primary Language of PatientEnglish Primary Language of Mike LearnerEnglish Clinic Visit: Topic(s): Clinic VisitFollow-up plan MethodVerbal, Teach-Back, Handout EvaluationTeaches back, States general concept Nursing Note: Nursing NotePatient saw Dr. Malone today. Patient will return to clinic in 4 months with labs prior at [facility] Patient instructed on follow up plan and understanding voiced. Call back instructions reviewed. Megan ROJAS Electronic Signatures: Buffy Joseph (RN) (Signed 25-Mar-2022 16:47) Authored: Education Assessment, Clinic Visit, Nursing Note Last Updated: 25-Mar-2022 16:47 by Buffy Joseph (RN) [facility] 03-25-2022 Note Clinic Note: Education Assessment: Learning BarriersNo barriers TaughtPatient Primary Language of PatientEnglish Primary Language of Mike LearnerEnglish Clinic Visit: Topic(s): Clinic VisitFollow-up plan MethodVerbal, Teach-Back, Handout EvaluationTeaches back, States general concept Nursing Note: Nursing NotePatient saw Dr. Malone today. Patient will return to clinic in 4 months with labs prior at [facility]. Patient instructed on follow up plan and understanding voiced. Call back instructions reviewed. 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 This was treated surgically followed by radiation therapy. She has no issues are related to the head neck. She is hypothyroid and takes Synthroid the 112 mcg. her TSH is being followed at home. She had a chest x-ray in March 2021 which was negative. I do not have access to these results. She just went back to work. To stay at home was not for her. [id number]Tioet[facility] ke Work Phone: 03-28-2017 History of Past i llness Narrative Problem Noted Date Resolved Date GI bleeding 03/28/2017 05/06/2022 Obesity 07/28/2005 05/06/2022 documented as of this encounter (statuses as of 05/06/2022) [facility] History of Past illness Narrative* Problem Noted Date Resolved Date GI bleeding 03/28/2017 05/06/2022 Obesity 07/28/2005 05/06/2022 documented as of this encounter (statuses as of 05/06/2022) [facility] History of Past illness Narrative* Problem Noted Date Resolved Date GI bleeding 03/28/2017 05/06/2022 Obesity 07/28/2005 05/06/2022 documented as of this encounter (statuses as of 05/19/2022) [facility] History of Past illness Narrative* Problem Noted Date Resolved Date GI bleeding 03/28/2017 05/06/2022 Obesity 07/28/2005 05/06/2022 documented as of this encounter (statuses as of 05/23/2022) [facility] History of Past illness Narrative* Problem Noted Date Resolved Date GI bleeding 03/28/2017 05/06/2022 Obesity 07/28/2005 05/06/2022 documented as of this encounter (statuses as of 05/23/2022) [address]12-2017 History of Past illness Narrative* Problem Noted Date Resolved Date GI bleeding 03/28/2017 05/06/2022 Obesity 07/28/2005 05/06/2022 documented as of this encounter (statuses as of 05/26/2022) [address]12-2017 History of Past illness Narrative* Problem Noted Date Resolved Date GI bleeding 03/28/2017 05/06/2022 Obesity 07/28/2005 05/06/2022 documented as of this encounter (statuses as of 05/27/2022) [address]12-2017 History of Past illness Narrative* Problem Noted Date Resolved Date GI bleeding 03/28/2017 05/06/2022 Obesity 07/28/2005 05/06/2022 documented as of this encounter (statuses as of 06/02/2022) [facility] History of Past illness Narrative* Problem Noted Date Resolved Date GI bleeding 03/28/2017 05/06/2022 Obesity 07/28/2005 05/06/2022 documented as of this encounter (statuses as of 06/07/2022) [address]12-2017 History of Past illness Narrative* Problem Noted Date Resolved Date GI bleeding 03/28/2017 05/06/2022 Obesity 07/28/2005 05/06/2022 documented as of this encounter (statuses as of 06/16/2022) [address]12-2017 History of Past illness Narrative* Problem Noted Date Resolved Date GI bleeding 03/28/2017 05/06/2022 Obesity 07/28/2005 05/06/2022 documented as of this encounter (statuses as of 06/16/2022) [address]12-2017 History of Past illness Narrative* Problem Noted Date Resolved Date GI bleeding 03/28/2017 05/06/2022 Obesity 07/28/2005 05/06/2022 documented as of this encounter (statuses as of 07/21/2022) [address]-2017 History of Past illness Narrative* Problem Noted Date Resolved Date GI bleeding 03/28/2017 05/06/2022 Obesity 07/28/2005 05/06/2022 documented as of this encounter (statuses as of 07/21/2022) [address]-2017 History of Past illness Narrative* Problem Noted Date Resolved Date GI bleeding 03/28/2017 05/06/2022 Obesity 07/28/2005 05/06/2022 documented as of this encounter (statuses as of 07/22/2022) [facility] History of Past illness Narrative* Problem Noted Date Resolved Date GI bleeding 03/28/2017 05/06/2022 Obesity 07/28/2005 05/06/2022 documented as of this encounter (statuses as of 07/27/2022) [address]-2017 History of Past illness Narrative* Problem Noted Date Resolved Date GI bleeding 03/28/2017 05/06/2022 Obesity 07/28/2005 05/06/2022 documented as of this encounter (statuses as of 07/29/2022) [facility] History of Past illness Narrative* Problem Noted Date Resolved Date GI bleeding 03/28/2017 05/06/2022 Obesity 07/28/2005 05/06/2022 documented as of this encounter (statuses as of 08/22/2022) [facility] History of Past illness Narrative* Problem Noted Date Resolved Date GI bleeding 03/28/2017 05/06/2022 Obesity 07/28/2005 05/06/2022 documented as of this encounter (statuses as of 08/24/2022) [facility] History of Past illness Narrative* Problem Noted Date Resolved Date GI bleeding 03/28/2017 05/06/2022 Obesity 07/28/2005 05/06/2022 documented as of this encounter (statuses as of 08/29/2022) [address]-2017 History of Past illness Narrative* Problem Noted Date Resolved Date GI bleeding 03/28/2017 05/06/2022 Obesity 07/28/2005 05/06/2022 documented as of this encounter (statuses as of 08/31/2022) [address]-2017 History of Past illness Narrative* Problem Noted Date Resolved Date GI bleeding 03/28/2017 05/06/2022 Obesity 07/28/2005 05/06/2022 documented as of this encounter (statuses as of 09/05/2022) [facility] History of Past illness Narrative* Problem Noted Date Resolved Date GI bleeding 03/28/2017 05/06/2022 Obesity 07/28/2005 05/06/2022 documented as of this encounter (statuses as of 09/30/2022) [facility] History of Past illness Narrative* Problem Noted Date Diagnosed Date Resolved Date GI bleeding 03/28/2017 05/06/2022 Obesity 07/28/2005 05/06/2022 documented as of this encounter (statuses as of 10/26/2023) [facility] History of Past illness Narrative* Problem Noted Date Diagnosed Date Resolved Date GI bleeding 03/28/2017 05/06/2022 Obesity 07/28/2005 05/06/2022 documented as of this encounter (statuses as of 10/26/2023) [facility] History of Past illness Narrative* Problem Noted Date Diagnosed Date Resolved Date GI bleeding 03/28/2017 05/06/2022 Obesity 07/28/2005 05/06/2022 documented as of this encounter (statuses as of 10/28/2023) [facility] note* Diagnosis Pre-operative clearance- Primary Preoperative examination, unspecified [facility] Diagnosis Pre-operative clearance- Primary Preoperative examination, unspecified [facility] Diagnosis Pre-operative clearance Preoperative examination, unspecified [facility] Diagnosis Pre-operative clearance Preoperative examination, unspecified [facility] Diagnosis Pre-operative clearance- Primary Preoperative examination, unspecified [facility] Diagnosis Atherosclerosis of aorta (HCC)- Primary Atherosclerosis of aorta [facility] Diagnosis Subclavian artery stenosis, left (HCC)- Primary Atherosclerosis of other specified arteries [facility] Diagnosis Atherosclerosis of aorta (HCC) Atherosclerosis of aorta [facility] Diagnosis Subclavian artery stenosis, left (HCC)- Primary Atherosclerosis of other specified arteries documented in this encounter [facility] note* Diagnosis Pre-operative clearance- Primary Preoperative examination, unspecified CAD (coronary artery disease) Coronary atherosclerosis of unspecified type of vessel, quileute or graft documented in this encounter [facility] note* Diagnosis Pre-op evaluation- Primary Preoperative examination, unspecified Anxiety Anxiety state, unspecified Gastroesophageal reflux disease, unspecified whether esophagitis present Iron deficiency anemia, unspecified iron deficiency anemia type Hyperlipidemia, unspecified hyperlipidemia type Hypertension Benign hypertensive heart disease without heart failure Congestive heart failure, unspecified HF chronicity, unspecified heart failure type (HCC) Stenosis of carotid artery, unspecified laterality CAD (coronary artery disease) Coronary atherosclerosis of unspecified type of vessel, quileute or graft documented in this encounter [facility] note* Diagnosis CAD in quileute artery- Primary Coronary atherosclerosis of quileute coronary artery documented in this encounter [facility] note* Diagnosis Post-operative state- Primary Other postprocedural status documented in this encounter [facility] note* Diagnosis Acute post-operative pain- Primary documented in this encounter [facility] note* Diagnosis Acute post-operative pain- Primary documented [facility]* Diagnosis S/P CABG (coronary artery bypass graft)- Primary Postsurgical aortocoronary bypass status documented in this encounter [facility] note* Diagnosis S/P CABG (coronary artery bypass graft) Postsurgical aortocoronary bypass status documented in this encounter [facility] note* Diagnosis Acute post-operative pain- Primary documented in [facility]* Diagnosis S/P CABG (coronary artery bypass graft)- Primary Postsurgical aortocoronary bypass status documented in this encounter [facility] note* Diagnosis S/P CABG (coronary artery bypass graft)- Primary Postsurgical aortocoronary bypass status documented in this encounter [facility] note* Diagnosis S/P CABG (coronary artery bypass graft)- Primary Postsurgical aortocoronary bypass status documented in this encounter [facility] note* Diagnosis Hx of CABG- Primary Postsurgical aortocoronary bypass status documented in this encounter [facility] note* Diagnosis Hx of CABG- Primary Postsurgical aortocoronary bypass status documented in this encounter [facility] note* Diagnosis S/P CABG (coronary artery bypass graft)- Primary Postsurgical aortocoronary bypass status documented [facility]* Diagnosis S/P CABG (coronary artery bypass graft)- Primary Postsurgical aortocoronary bypass status documented in this encounter [facility]* Diagnosis S/P CABG (coronary artery bypass graft)- Primary Postsurgical aortocoronary bypass status documented [facility]* Diagnosis Hx of CABG- Primary Postsurgical aortocoronary bypass status documented in this encounter [facility]* Diagnosis Onset Date Resolution Status Compression fracture of third lumbar vertebra acute Compression fracture of third lumbar vertebra acute [facility] Work Phone: Evaluation note* Diagnosis Iron deficiency anemia due to chronic blood loss- Primary Iron deficiency anemia secondary to blood loss (chronic) documented in this encounter [facility] Work Phone: Evaluation note* Diagnosis Malignant neoplasm of submandibular gland (CMS/HCC)- Primary Malignant neoplasm of submandibular gland Acquired hypothyroidism Unspecified hypothyroidism documented in this encounter [facility] Work Phone: Evaluation note* Diagnosis Iron deficiency anemia due to chronic blood loss Iron deficiency anemia secondary to blood loss (chronic) documented in this encounter [facility] Work Phone: Evaluation note* Diagnosis 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 Acquired hypothyroidism Unspecified hypothyroidism documented in this encounter [facility] Work Phone: Evaluation note* Diagnosis Iron deficiency anemia due to chronic blood loss Iron deficiency anemia secondary to blood loss (chronic) documented in this encounter [facility] Work Phone: Evaluation note* Diagnosis Pre-op evaluation- Primary Preoperative examination, unspecified Anxiety Anxiety state, unspecified Gastroesophageal reflux disease, unspecified whether esophagitis present Iron deficiency anemia, unspecified iron deficiency anemia type Hyperlipidemia, unspecified hyperlipidemia type Hypertension Benign hypertensive heart disease without heart failure Congestive heart failure, unspecified HF chronicity, unspecified heart failure type (HCC) Stenosis of carotid artery, unspecified laterality Abnormality of gait- Primary Weakness of both hips Imbalance Abnormality of gait [facility] information availableH[facility] Work Phone: History of Present illness Narrative* Scott Brasher MD - 10/08/2024 10:15 AM EDT Provider Impressions No obvious evidence of any recurrence of the patient's previously treated submandibular gland cancer. I really do not need to follow-up with her any further. Hypothyroidism for which she is on Synthroid. This is followed at home. No significant dysphagia. I will see her on a as needed basis. 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 This was treated surgically followed by radiation therapy. She has no issues are related to thehead neck. She is hypothyroid and takes Synthroid the 112 mcg. her TSH is being followed at home. She had a recent TSH at home. 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 There was some concern about her parathyroid function but her numbers are looking good. She has had a lot of joint issues. She has osteoporosis. Physical Exam On examination the oral cavity and oropharynx are within normal limits. She does have evidence of dryness. Palpation of the parotid and neck fails to show any worrisome masses or adenopathies. She does have weakness of the marginal branch of the facial which has been present all along. She is status post neck dissection on the left side. [facility] Reason for referral (narrative)* Outpatient Procedure (Routine) - Authorized Specialty Diagnoses / Procedures Referred By Laurie t Referred To [facility] Diagnoses Pre-operative clearance Procedures US CAROTID ARTERIES BOBBY VAS LAB DUPLEX SCAN EXTRACRANIAL ART COMPL BI STUDY Terry Mclain PA-C [id number] [place] [address] [facility] [place] [address] [place] [id number] Referral ID Status Reason Start Date Expiration Date Visits Requested Visits Authorized [id number] Authorized Auto-Generat ed Referral 04/22/2022 07/16/2022 1 1 * Outpatient Procedure (Routine) - Authorized Specialty Diagnoses / Procedures Referred By Contac t Referred To Contact [facility] Diagnoses Pre-operative clearance Procedures SPIROMETRY - BASELINE AND POST DILATOR BRNCDILAT RSPSE SPMTRY PRE&POST-BRNCDILAT ADMN Terry Mclain PA-C [id number] [place] [address] [facility] [place] [address] [place] [id number] Referral ID Status Reason Start Date Expiration Date Visits Requested Visits Authorized [id number] Authorized Auto-Generat ed Referral 04/22/2022 05/22/2023 1 1 [facility] for referral (narrative)* Outpatient Procedure (Routine) - Authorized Specialty Diagnoses / Procedures Referred By Contac t Referred To Contact [facility] Diagnoses Pre-operative clearance Procedures LUNG DIFFUSION CAPACITY (DLCO) DIFFUSING CAPACITY Terry Mclain PA-C [id number] [place] [address] [address] Referral ID Status Reason Start Date Expiration Date Visits Requested Visits Authorized [id number] Authorized Auto-Generat ed Referral 04/22/2022 05/22/2023 1 1 [facility] for referral (narrative)No reason for referral information availableC[facility] Services Work Phone: Family History No Family History Records FoundUnknown Family Member Name Dates Details Family history of Family Hea lth Status Of Mother - Comments:Family History Status:Active Family history of Family Hea lth Status Of Father - Comments:Family History Status:Active Family history of Family Hea lth Status Of Sister - Comments:Family History Status:Active Mother Name Dates Details Family history of Gastric Ru pture Status:Active Family history of Respirator y Arrest Status:Active Family history of Arthritis( V17.7) Status:Active Father Name Dates Details Family history of Laryngeal Cancer(V16.2) Status:Active Sister Name Dates Details Family history of Alcohol Status:Active Family history of Stroke Syn drome(V17.1) Status:Active Family history of Drug Use Status:Active Family history of Systemic L upus Erythematosus Status:Active Family history of Fibromyalg ia Status:Active Family history of Arthritis( V17.7) Status:Active Unknown Family Member Name Dates Details Family Health Status Of Moth er - : Family History Status:Active Family Health Status Of Fath er - : Family History Status:Active Family Health Status Of Sist er - : Family History Status:Active Laryngeal Cancer: Father(V16 .2) Status:Active Gastric Rupture: Mother Status:Active Respiratory Arrest: Mother Status:Active Arthritis: Mother(V17.7) Status:Active Alcohol: Sister Status:Active Stroke Syndrome: Sister(V17. 1) Status:Active Drug Use: Sister Comments:prescription drugs; Status:Active Systemic Lupus Erythematosus : Sister Status:Active Fibromyalgia: Sister Status:Active Arthritis: Sister(V17.7) Status:Active Unknown Family Member Name Dates Details Family Health Status Of Moth er - : Family History Status:Active Family Health Status Of Fath er - : Family History Status:Active Family Health Status Of Sist er - : Family History Status:Active Laryngeal Cancer: Father(V16 .2) Status:Active Gastric Rupture: Mother Status:Active Respiratory Arrest: Mother Status:Active Arthritis: Mother(V17.7) Status:Active Alcohol: Sister Status:Active Stroke Syndrome: Sister(V17. 1) Status:Active Drug Use: Sister Comments:prescription drugs; Status:Active Systemic Lupus Erythematosus : Sister Status:Active Fibromyalgia: Sister Status:Active Arthritis: Sister(V17.7) Status:Active Summary Purpose Advance Directives No Advanced Directives Records Found Advance Directive Response Recorded Date/ Time Living Will Yes July 21 4 1:35pm Power of Stud Driver Yes July 21 1:35pm Chief Complaint Follow-up status post treatment of a submandibular gland cancerFollow-up status post treatment of a submandibular gland cancer Reason for Referral Specialty Diagnoses / Procedures Referred By Contac t Referred To Contact CT IMAGING Diagnoses Atherosclerosis of aorta (HCC) Procedures CTA CHEST (NONGATED) W IVCON CT ANGIOGRAPHY CHEST W/CONTRAST/NONCONTRAST Golden Aviles PA-C [id number] [facility] [place] [address] Ct Imaging Referral ID Status Reason Start Date Expiration Date Visits Requested Visits Authorized [id number] Authorized Auto-Generat ed Referral 05/29/2023 1 1 Specialty Diagnoses / Procedures Referred By Contac t Referred To Contact Vascular Surgery Diagnoses Subclavian artery stenosis, left (HCC) Procedures CONSULT TO VASCULAR SURGERY OFFICE/OUTPATIENT [facility] 60-74 MINUTES Golden Aviles PA-C [id number] [facility], [place] [address] Referral ID Status Reason Start Date Expiration Date Visits Requested Visits Authorized [id number] Pending Review PCP Requested Referral 2 04/29/2023 1 1 Referral ID Status Reason Start Date Expiration Date V isits Requested Visits Authorized [id number] Closed Auto-Generate d Referral 04/29/2022 05/29/2023 1 1 Chief Complaint and Reason for Visit Chief Complaint LUMBAR SPINE xray room 1 VERTEBRAL FX LUMBAR SPINE RM 3 Reason for Visit Compression fracture of third lumbar vertebra Compression fracture of third lumbar vertebra Chief Complaint Admit Date LUMBAR SPINE December 13, 2024 12:45 pm RM 1 December 13, 2024 1:03p m Additional Source Comments INFORMATION SOURCE (unrecogn ized section and content) DATE CREATED AUTHOR 03/20/2020 [facility] DATE CREATED AUTHOR AUTHOR'S ORGANIZ ATION 05/06/2020 [facility] DATE CREATED AUTHOR AUTHOR'S ORGANIZ ATION 05/22/2022 [facility] DATE CREATED AUTHOR AUTHOR'S ORGANIZ ATION 11/18/2022 [employer] DATE CREATED AUTHOR AUTHOR'S ORGANIZ ATION 02/03/2023 [facility] [place] DATE CREATED AUTHOR AUTHOR'S ORGANIZ ATION 10/26/2023 [facility] DATE CREATED AUTHOR AUTHOR'S ORGANIZ ATION 10/29/2023 [facility] DATE CREATED AUTHOR AUTHOR'S ORGANIZ ATION 12/04/2023 [facility] DATE CREATED AUTHOR AUTHOR'S ORGANIZ ATION 04/06/2024 [facility] DATE CREATED AUTHOR AUTHOR'S ORGANIZ ATION 10/09/2024 [facility] DATE CREATED AUTHOR AUTHOR'S ORGANIZ ATION 10/23/2024 [facility] DATE CREATED AUTHOR AUTHOR'S ORGANIZ ATION 10/30/2024 [facility] DATE CREATED AUTHOR AUTHOR'S ORGANIZ ATION 11/24/2024 [facility] DATE CREATED AUTHOR AUTHOR'S ORGANIZ ATION 12/28/2024 [facility] Source Comments (unrecognize d section and content) In the event this informatio n is protected by the Federal Confidentiality of Alcohol and Drug Abuse Patient Records regulations: The Federal rules restrict any use of the information to criminally investigate or prosecute any alcohol or drug abuse patient.[facility] Center[facility] the event this information is protected by the Federal Confidentiality of Alcohol and Drug Abuse Patient Records regulations: The Federal rules restrict any use of the information to criminally investigate or prosecute any alcohol or drug abuse patient.[facility] Center[facility] the event this information is protected by the Federal Confidentiality of Alcohol and Drug Abuse Patient Records regulations: The Federal rules restrict any use of the information to criminally investigate or prosecute any alcohol or drug abuse patient.[facility] Center[facility] the event this information is protected by the Federal Confidentiality of Alcohol and Drug Abuse Patient Records regulations: The Federal rules restrict any use of the information to criminally investigate or prosecute any alcohol or drug abuse patient.[facility] CenterIn the event this information is protected by the Federal Confidentiality of Alcohol and Drug Abuse Patient Records regulations: The Federal rules restrict any use of the information to criminally investigate or prosecute any alcohol or drug abuse patient.[facility] CenterIn the event this information is protected by the Federal Confidentiality of Alcohol and Drug Abuse Patient Records regulations: The Federal rules restrict any use of the information to criminally investigate or prosecute any alcohol or drug abuse patient.[facility] Center[facility] the event this information is protected by the Federal Confidentiality of Alcohol and Drug Abuse Patient Records regulations: The Federal rules restrict any use of the information to criminally investigate or prosecute any alcohol or drug abuse patient.[facility] [facility] the event this information is protected by the Federal Confidentiality of Alcohol and Drug Abuse Patient Records regulations: The Federal rules restrict any use of the information to criminally investigate or prosecute any alcohol or drug abuse patient.[facility] Center[facility] the event this information is protected by the Federal Confidentiality of Alcohol and Drug Abuse Patient Records regulations: The Federal rules restrict any use of the information to criminally investigate or prosecute any alcohol or drug abuse patient.[facility] CenterIn the event this information is protected by the Federal Confidentiality of Alcohol and Drug Abuse Patient Records regulations: The Federal rules restrict any use of the information to criminally investigate or prosecute any alcohol or drug abuse patient.[facility] CenterIn the event this information is protected by the Federal Confidentiality of Alcohol and Drug Abuse Patient Records regulations: The Federal rules restrict any use of the information to criminally investigate or prosecute any alcohol or drug abuse patient.[facility] CenterIn the event this information is protected by the Federal Confidentiality of Alcohol and Drug Abuse Patient Records regulations: The Federal rules restrict any use of the information to criminally investigate or prosecute any alcohol or drug abuse patient.[facility] Center[facility] the event this information is protected by the Federal Confidentiality of Alcohol and Drug Abuse Patient Records regulations: The Federal rules restrict any use of the information to criminally investigate or prosecute any alcohol or drug abuse patient.[facility] CenterIn the event this information is protected by the Federal Confidentiality of Alcohol and Drug Abuse Patient Records regulations: The Federal rules restrict any use of the information to criminally investigate or prosecute any alcohol or drug abuse patient.[facility] CenterIn the event this information is protected by the Federal Confidentiality of Alcohol and Drug Abuse Patient Records regulations: The Federal rules restrict any use of the information to criminally investigate or prosecute any alcohol or drug abuse patient.[facility] CenterIn the event this information is protected by the Federal Confidentiality of Alcohol and Drug Abuse Patient Records regulations: The Federal rules restrict any use of the information to criminally investigate or prosecute any alcohol or drug abuse patient.[facility] CenterIn the event this information is protected by the Federal Confidentiality of Alcohol and Drug Abuse Patient Records regulations: The Federal rules restrict any use of the information to criminally investigate or prosecute any alcohol or drug abuse patient.[facility] CenterIn the event this information is protected by the Federal Confidentiality of Alcohol and Drug Abuse Patient Records regulations: The Federal rules restrict any use of the information to criminally investigate or prosecute any alcohol or drug abuse patient.[facility] CenterIn the event this information is protected by the Federal Confidentiality of Alcohol and Drug Abuse Patient Records regulations: The Federal rules restrict any use of the information to criminally investigate or prosecute any alcohol or drug abuse patient.[facility] CenterIn the event this information is protected by the Federal Confidentiality of Alcohol and Drug Abuse Patient Records regulations: The Federal rules restrict any use of the information to criminally investigate or prosecute any alcohol or drug abuse patient.[facility] CenterIn the event this information is protected by the Federal Confidentiality of Alcohol and Drug Abuse Patient Records regulations: The Federal rules restrict any use of the information to criminally investigate or prosecute any alcohol or drug abuse patient.[facility] CenterIn the event this information is protected by the Federal Confidentiality of Alcohol and Drug Abuse Patient Records regulations: The Federal rules restrict any use of the information to criminally investigate or prosecute any alcohol or drug abuse patient.[facility] CenterIn the event this information is protected by the Federal Confidentiality of Alcohol and Drug Abuse Patient Records regulations: The Federal rules restrict any use of the information to criminally investigate or prosecute any alcohol or drug abuse patient.[facility] CenterIn the event this information is protected by the Federal Confidentiality of Alcohol and Drug Abuse Patient Records regulations: The Federal rules restrict any use of the information to criminally investigate or prosecute any alcohol or drug abuse patient.[facility] CenterIn the event this information is protected by the Federal Confidentiality of Alcohol and Drug Abuse Patient Records regulations: The Federal rules restrict any use of the information to criminally investigate or prosecute any alcohol or drug abuse patient.[facility] CenterIn the event this information is protected by the Federal Confidentiality of Alcohol and Drug Abuse Patient Records regulations: The Federal rules restrict any use of the information to criminally investigate or prosecute any alcohol or drug abuse patient.[facility] CenterIn the event this information is protected by the Federal Confidentiality of Alcohol and Drug Abuse Patient Records regulations: The Federal rules restrict any use of the information to criminally investigate or prosecute any alcohol or drug abuse patient.[facility]In the event this information is protected by the Federal Confidentiality of Alcohol and Drug Abuse Patient Records regulations: The Federal rules restrict any use of the information to criminally investigate or prosecute any alcohol or drug abuse patient.[facility] CenterIn the event this information is protected by the Federal Confidentiality of Alcohol and Drug Abuse Patient Records regulations: The Federal rules restrict any use of the information to criminally investigate or prosecute any alcohol or drug abuse patient.[facility] CenterIn the event this information is protected by the Federal Confidentiality of Alcohol and Drug Abuse Patient Records regulations: The Federal rules restrict any use of the information to criminally investigate or prosecute any alcohol or drug abuse patient.[facility] CenterIn the event this information is protected by the Federal Confidentiality of Alcohol and Drug Abuse Patient Records regulations: The Federal rules restrict any use of the information to criminally investigate or prosecute any alcohol or drug abuse patient.[facility] CenterIn the event this information is protected by the Federal Confidentiality of Alcohol and Drug Abuse Patient Records regulations: The Federal rules restrict any use of the information to criminally investigate or prosecute any alcohol or drug abuse patient.[facility] CenterIn the event this information is protected by the Federal Confidentiality of Alcohol and Drug Abuse Patient Records regulations: The Federal rules restrict any use of the information to criminally investigate or prosecute any alcohol or drug abuse patient.[facility] CenterIn the event this information is protected by the Federal Confidentiality of Alcohol and Drug Abuse Patient Records regulations: The Federal rules restrict any use of the information to criminally investigate or prosecute any alcohol or drug abuse patient.[facility] CenterIn the event this information is protected by the Federal Confidentiality of Alcohol and Drug Abuse Patient Records regulations: The Federal rules restrict any use of the information to criminally investigate or prosecute any alcohol or drug abuse patient.[facility] CenterIn the event this information is protected by the Federal Confidentiality of Alcohol and Drug Abuse Patient Records regulations: The Federal rules restrict any use of the information to criminally investigate or prosecute any alcohol or drug abuse patient.[facility] CenterIn the event this information is protected by the Federal Confidentiality of Alcohol and Drug Abuse Patient Records regulations: The Federal rules restrict any use of the information to criminally investigate or prosecute any alcohol or drug abuse patient.[facility] CenterIn the event this information is protected by the Federal Confidentiality of Alcohol and Drug Abuse Patient Records regulations: The Federal rules restrict any use of the information to criminally investigate or prosecute any alcohol or drug abuse patient.[facility] Care Teams (unrecognized sec tion and content) Team Status: Active Member Role Status Dates Dr. Almaz Chavez MD Primary Care Provider Active Team Status: Inactive Member Role Status Dates Dr. Almaz Chavez MD Primary Care Provider Active Start: December 13, 2024 End: December 13, 2024 Dr. Almaz Chavez MD Referring Provider Active Start: December 13, 2024 End: December 13, 2024 MUNIR Macias Attending Provider Active Star t: December 13, 2024 End: December 13, 2024 Team Status: Inactive Member Role Status Dates Dr. Almaz Chavez MD Primary Care Provider Active Start: December 13, 2024 End: December 13, 2024 Dr. Wallace Rayo MD Attending Provider Active S tart: December 13, 2024 End: December 13, 2024 Team Status: Active Member Role Status Dates Dr. Almaz Chavez MD Primary Care Provider Active Start: December 13, 2024 Dr. Almaz Chavez MD Referring Provider Active Start: December 13, 2024 MUNIR Macias Attending Provider Active Star t: December 13, 2024 [employer] Relationship Specialty Start Date End Date Flo Pretty MD PCP - General Internal Medicine 10/03/12 [employer] Teacher Relationship Specialty Start Date End Date Flo Pretty MD PCP - General Internal Medicine 10/03/12 [employer] Teacher Relationship Specialty Start Date End Date lFo Pretty MD PCP - General Internal Medicine 10/03/12 [employer] Teacher Relationship Specialty Start Date End Date Flo Pretty MD PCP - General Internal Medicine 10/03/12 [employer] Teacher Relationship Specialty Start Date End Date Flo Pretty MD PCP - General Internal Medicine 10/03/12 [employer] Physical Education Teacher Relationship Specialty Start Date End Date Flo Pretty MD PCP - General Internal Medicine 10/03/12 [employer] Physical [employer] Teacher Relationship Specialty Start Date End Date Flo Pretty MD PCP - General Internal Medicine 10/03/12 [employer] Physical Education Teacher Relationship Specialty Start Date End Date Flo Pretty MD PCP - General Internal Medicine 10/03/12 [employer] Physical Education Teacher Relationship Specialty Start Date End Date Flo Pretty MD PCP - General Internal Medicine 10/03/12 [employer] Teacher Relationship Specialty Start Date End Date Flo Pretty MD PCP - General Internal Medicine 10/03/12 [employer] Education Teacher Relationship Specialty Start Date End Date Flo Pretty MD PCP - General Internal Medicine 10/03/12 [employer] Teacher Relationship Specialty Start Date End Date Flo Pretty MD PCP - General Internal Medicine 10/03/12 [employer] Physical Education Teacher Relationship Specialty Start Date End Date Flo Pretty MD PCP - General Internal Medicine 10/03/12 [employer] Physical Education Teacher Relationship Specialty Start Date End Date Flo Pretty MD PCP - General Internal Medicine 10/03/12 [employer] Physical Education Teacher Relationship Specialty Start Date End Date Flo Pretty MD PCP - General Internal Medicine 10/03/12 [employer] Physical Education Teacher Relationship Specialty Start Date End Date Flo Pretty MD PCP - General Internal Medicine 10/03/12 [employer] Physical Education Teacher Relationship Specialty Start Date End Date Flo Pretty MD PCP - General Internal Medicine 10/03/12 [employer] Physical Education Teacher Relationship Specialty Start Date End Date Flo Pretty MD PCP - General Internal Medicine 10/03/12 [employer] Physical Education Teacher Relationship Specialty Start Date End Date Flo Pretty MD PCP - General Internal Medicine 10/03/12 [employer] Physical Education Teacher Relationship Specialty Start Date End Date Flo Pretty MD PCP - General Internal Medicine 10/03/12 [employer] Physical Education Teacher Relationship Specialty Start Date End Date Flo Pretty MD PCP - General Internal Medicine 10/03/12 [employer] Physical Education Teacher Relationship Specialty Start Date End Date Flo Pretty MD PCP - General Internal Medicine 10/03/12 [employer] Physical Education Teacher Relationship Specialty Start Date End Date Flo Pretty MD PCP - General Internal Medicine 10/03/12 [employer] Education Teacher Relationship Specialty Start Date End Date Flo Pretty MD PCP - General Internal Medicine 10/03/12 Team Status: Inactive Member Role Status Dates Dr. Valente Willis MD Attending Provider Active Team Status: Inactive Member Role Status Dates Dr. Wallace Rayo MD Attending Provider Active Team Status: Inactive Member Role Status Dates Dr. Almaz Chavez MD Primary Care Provider, Referri ng Provider Active Dr. Valente Willis MD Attending Provider Active Team Status: Inactive Member Role Status Dates Dr. Almaz Chavez MD Primary Care Provider Active Dr. Wallace Raoy MD Attending Provider Active Team Status: Inactive Member Role Status Dates Dr. Valente Willis MD Attending Provider, Referring Pr ovider Active Dr. 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 Relationship Specialty Start Date End Date Flo Pretty MD [address] [place] [id number] PCP - General Internal Medicine 07/12/23 Jovanni Mccartney MD [address] [place] [address] Referring Physician Radiology 07/21/23 Amrit Malone MD [address] [facility], [place] [address] Consulting Physician Hematology and Oncology 09/15/23 [employer] Physical Education Teacher Relationship Specialty Start Date End Date Flo Pretty MD PCP - General Internal Medicine 10/03/12 [employer] Physical Education Teacher Relationship Specialty Start Date End Date Flo Pretty MD PCP - General Internal Medicine 10/03/12 [employer] Physical Education Teacher Relationship Specialty Start Date End Date Flo Pretty MD [address] [place] [address] PCP - General Internal Medicine 07/12/23 Flo Pretty MD [address] [address] PCP - [employer] PCP 09/15/23 Jovanni Mccartney MD [address] [place] [address] Referring Physician Radiology 07/21/23 Amrit Malone MD [address] [facility], [address] [address] Consulting Physician Hematology and Oncology 09/15/23 [employer] Physical Education Teacher Relationship Specialty Start Date End Date Flo Pretty MD PCP - General Internal Medicine 07/12/23 Flo Pretty MD [address] [place] [address] PCP - [employer] PCP 09/15/23 Jovanni Mccartney MD [address] [place] [address] Referring Physician Radiology 07/21/23 Amrit Malone MD [address] [facility], [address] [address] Consulting Physician Hematology and Oncology 09/15/23 [employer] Physical Education Teacher Relationship Specialty Start Date End Date Flo Pretty MD PCP - General Internal Medicine 07/12/23 Flo Pretty MD [address] [place] [address] PCP - [employer] PCP 09/15/23 Jovanni Mccartney MD [address] [place] [address] Referring Physician Radiology 07/21/23 Amrit Malone MD [address] [facility] [place] [address] [place] [address] Consulting Physician Hematology and Oncology 09/15/23 [employer] Physical Education Teacher Relationship Specialty Start Date End Date Flo Pretty MD PCP - General Internal Medicine 10/03/12 Reason for Visit (unrecogniz ed section and content) Reason Comments Patient Question Patient Update Reason Comments Spirometry Specialty Diagnoses / Procedures Referred By Contac t Referred To Contact [facility] Diagnoses Pre-operative clearance Procedures LUNG DIFFUSION CAPACITY (DLCO) DIFFUSING CAPACITY Terry Mclain PA-C [id number] [id number] [facility] [place] [facility] [place] [address] Referral ID Status Reason Start Date Expiration Date V isits Requested Visits Authorized [id number] Closed Auto-Generate d Referral 04/22/2022 05/22/2023 1 1 Specialty Diagnoses / Procedures Referred By Contac t Referred To Contact [facility] Diagnoses Pre-operative clearance Procedures SPIROMETRY - BASELINE AND POST DILATOR BRNCDILAT RSPSE SPMTRY PRE&POST-BRNCDILAT ADMN Terry Mclain PA-C [address] [place] [address] [facility] [place] [facility] [place] [id number] Referral ID Status Reason Start Date Expiration Date V isits Requested Visits Authorized [id number] Closed Auto-Generate d Referral 04/22/2022 05/22/2023 1 1 Specialty Diagnoses / Procedures Referred By Contac t Referred To Contact CT IMAGING Diagnoses Atherosclerosis of aorta (HCC) Procedures CTA CHEST (NONGATED) W IVCON CT ANGIOGRAPHY CHEST W/CONTRAST/NONCONTRAST Golden Aviles PA-C [id number] [facility] [place] [address] Ct Imaging Referral ID Status Reason Start Date Expiration Date V isits Requested Visits Authorized [id number] Closed Auto-Generate d Referral 04/29/2022 05/29/2023 1 1 Reason Comments New Patient Specialty Diagnoses / Procedures Referred By Contac t Referred To Contact Vascular Surgery Diagnoses Subclavian artery stenosis, left (HCC) Procedures CONSULT TO VASCULAR SURGERY OFFICE/OUTPATIENT NEW HIGH MDM 60-74 MINUTES Golden Aviles PA-C [address] [facility], [place] [address] Referral ID Status Reason Start Date Expiration Date Visits Requested Visits Authorized [id number] Pending Review PCP Requested Referral 2 04/29/2023 1 1 Reason Comments Anesthesia Consult Reason Comments Consult CABG Reason Comments Post Op 1 week f/u surgery 1 CXR done Reason Comments Patient Update Patient Question Reason Comments Medication Problem Reason Comments Post Op 2 weeks / Surgery wi Dr. Brenner 05/12/22 Reason Comments Cardiac Rehab Initial Assessment Reason Comments Cardiac Rehab Reason Comments Follow-up Reason Comments PT Eval Specialty Diagnoses / Procedures Referred By Contac t Referred To Contact Physical Therapy / PHYSICAL THERAPY Diagnoses Other spondylosis, lumbar region Procedures Physical Therapy eval & follow ups Flo Pretty MD [address] [facility] [address] [place] [address] Phone: tel: fax: Kirt Butts [address] [place] [phone] Phone: tel: Referral ID Status Reason Start Date Expiration Date V isits Requested Visits Authorized [id number] Authorized 10/31/2024 12/31/2024 6 6 Goals (unrecognized section and content) Goals may be documented in a n alternate sectionGoals may be documented in an alternate sectionGoals may be documented in an alternate section FOR RECORDS PERTAINING TO PATIENTS WHO ARE OR HAVE BEEN ENROLLED IN A CHEMICAL DEPENDENCY/SUBSTANCEABUSE PROGRAM, SOME INFORMATION MAY BE OMITTED. This clinical summary was aggregated from multiple sources. Caution should be exercised in using it in the provision of clinical care. This summary normalizes information from multiple sources, and as a consequence, information in this document may materially change the coding, format and clinical context of patient data. In addition, data may be omitted in some cases. CLINICAL DECISIONS SHOULD BE BASED ON THE PRIMARY CLINICAL RECORDS. [facility] [employer] [facility]. provides no warranty or guarantee of the accuracy or completeness of information in this document.
--- NOTE | 2024-12-30 06:55 | MRI_ITS ---
PROCEDURE: SPINE CERVICAL (ROUTINE) 12/30/2024 REASON FOR EXAM: MYELOPATHY, DECREASED BALANCE TECHNIQUE: Multiplanar and multisequence images were obtained without IV contrast administration. COMPARISON: None FINDINGS: Vertebrae: Cervical vertebral body heights are preserved. Bone marrow signal is unremarkable. Alignment: There is maintenance of the normal cervical lordosis. Spinal Cord: Cervical spinal cord is of normal size and signal intensities. The visualized cerebellum and brainstem are unremarkable. C2-3: There is a broad-based central disc protrusion. There is no significant facet arthropathy. There is no central canal stenosis, lateral recess stenosis or foraminal narrowing. C3-4: There is a broad-based central disc protrusion. There is bilateral facet arthropathy with ligamentum flavum bulging. There is bilateral uncinate joint arthropathy. There is central canal stenosis with the AP dimension of the spinal canal measuring 9 mm. There is no lateral recess stenosis. There is mild foraminal narrowing bilaterally. C4-5: There is a broad-based central disc protrusion. There is bilateral facet arthropathy with ligamentum flavum bulging. There is left uncinate joint arthropathy. There is no central canal stenosis. There is mild lateral recess stenosis and moderate foraminal narrowing, on the left. There is 3 mm of degenerative anterolisthesis of C4 on C5. C5-6: There is a broad-based central disc protrusion. There is bilateral facet arthropathy with ligamentum flavum bulging. There is no central canal stenosis. There is no lateral recess stenosis. There is moderate foraminal narrowing, on the right. There is 4 mm of degenerative anterolisthesis of C5 on C6. C6-7: There is a broad-based central disc/osteophyte complex. There is bilateral facet arthropathy with ligamentum flavum bulging. There is 5 mm of degenerative anterolisthesis of C6 on C7. There is no central canal stenosis, lateral recess stenosis or foraminal narrowing. C7-T1: There is bilateral facet arthropathy. There is 3 mm of degenerative anterolisthesis of C7 on T1. There is no central canal stenosis, lateral recess stenosis or foraminal narrowing. The visualized paravertebral soft tissues appear unremarkable. MRI/Spine Cervical (Routine) IMPRESSION: 1. Degenerative disc disease, C2-3 through C6-7, with central canal stenosis a t C3-4. 2. There is bilateral facet arthropathy C3-4 through C7-T1. There is degenera tive anterolisthesis of C4 on C5, C5 on C6 and C6 on C7. 3. There is neural foraminal narrowing at multiple levels as described. Reading Location: [id number]
== END | disposition home or self-care (01) ==
PROVIDERS: PCP Internal Medicine; Referring Provider Student in an Organized Health Care Education/Training Program; Visit Provider Student in an Organized Health Care Education/Training Program
DX: G95.9 Disease of spinal cord, unspecified (principal)
CPT/HCPCS: 72141

== ENCOUNTER → 2025-02-27 | Outpatient (CLI) | payer MEDICARE, SELFPAY ==
--- NOTE | 2025-02-27 09:42 | MRI_ITS ---
PROCEDURE: SPINE LUMBAR (ROUTINE) 02/27/2025 REASON FOR EXAM: PAIN, RADICULOPATHY TECHNIQUE: SPINE LUMBAR (ROUTINE) FINDINGS: Normal lumbar vertebral body height. Compression deformity with prior vertebroplasty at L3. The marrow signal in the remainder of the vertebra is normal. Chronic concavity inferior aspect L2 vertebral body. The L3 vertebral body in the inferior aspect of L2 both demonstrate a small amount of edema which may indicate ongoing microfracture. Normal conus without impingement. No paravertebral mass lesions. At L1-2, there is no central or foraminal stenosis. At L2-3 there is a central and right paracentral protrusion resulting in mild canal narrowing without direct nerve root impingement. At L3-4 concentric disc bulge results in mild canal narrowing. At L4-5, mild facet degeneration is seen with inferior foraminal narrowing on the right side from bulging disc. L5-S1 demonstrates degenerative facet arthrosis MRI/Spine Lumbar (Routine) IMPRESSION: 1. Prior compression deformity and vertebroplasty at L3. 2. No acute compressive deformity. There is some residual edema within the L3 vertebral body in the inferior aspect of the L2 vertebral body. 3. Additional degenerative changes as above. Reading [facility]
== END | disposition home or self-care (01) ==
LOC: OPMRI 09:40
PROVIDERS: PCP Internal Medicine; Referring Provider Student in an Organized Health Care Education/Training Program; Visit Provider Student in an Organized Health Care Education/Training Program
DX: M51.360 Other intervertebral disc degeneration, lumbar region with discogenic back pain only (principal); M48.062 Spinal stenosis, lumbar region with neurogenic claudication
CPT/HCPCS: 72148

== ENCOUNTER 2025-04-29 13:00 | Outpatient (RCR) | payer MEDICARE, SELFPAY ==
--- NOTE | 2025-04-07 12:30 | HP.PTEVAL ---
Patient's Visit Information Visit Information Visit Information: LESLEY DODSON is a 69 year old F referred to Physical Therapy by Dr. Joshua Alejandro MD with a diagnosis of Lumbar stenosis with claudication. Date of Evaluation: 03/27/25 Physical Therapist: Willis Argueta DPT Visit Plan Frequency: 2x /Week Duration: 6 Weeks Plan: 1) BLE strengthening, core strengthening 2) balance activities to increase stability in stance. Progress core exercises to HEP. Subjective Subjective: Pt. is here today for her initial evaluation with diagnosis of lumbar stenosis with claudication. Pt. reports having difficulty with standing and walking. She reports that her legs are very weak especially with standing for longer periods of time. She has to sit frequently to reduce her symptoms. Pt. has back fractures and a broken ankle. Pt. use wc to get back to PT room this date. Pt. uses FWW to ambulate in home and short distances in community. Pt. has not done much exercises. pt. did meet with ortho whom did not recommend surgical interventions at this point in time. Pt. reports having a constant back pain of 5/10, that increases to 8-9/10 with standing and walking. She reports only being able to stand for 5-10 minutes with use of FWW. pt. is hopeful to reduce symptoms in order to get back to all household activities and walking with decreased pain Pain Lumbar spine: Pain Intensity (Out of 10): 5 Pain Intensity Range: 3 and 8 Objective Objective: POSTURE: Pt. has a general flexed posture. Increased with attempts to improve erect posture. PALPATION: Pt. has marked pain with palpation of lumbar spine, both erector spinae and spinous process. NEURO: Normal throughout., ROM: LUMBAR SPINE: flexion min loss increase NW, ext mod/max loss increase NW, SB mod loss bilat increase NW, rotation min/mod loss bilat increase NW. Pt. has tightness in B HS. MMT: Pt. has 5/5 distal LE strength, 4/5 B hip strength, poor core strength. No marked myotomal weakness noted. GAIT: Pt. has a general flexed posture with gait. Pt. needs FWW for stability with walking. Increased pain in stance compared to sitting, worse with walking. TUG: with FWW 18.2sec 30sec sit to stand with use of UEs: 4 Balance/Special Test Scores CATSIB Score (Max score 120 seconds): 32 Tinetti Balance Score: 8 Tinetti Gait Score: 4 Tinetti Balance & Gait Score: 12 Oswestry Low Back Score: 27 Goals Goal 1:: LTG: Pt. to have increased core and B hip strength to 5/5 throughout in order to reduce stress to spine with all standing/walking. Goal Time Frame: 4-6 Weeks Goal 2:: LTG: Pt. to be able to stand and complete all IADLs for 15-20min with low back pain under 3/10 allowing for increased tolerance. Goal Time Frame: 4-6 Weeks Goal 3:: LTG: Pt. to complete TUG with time less than 12sec with use of FWW. Goal Time Frame: 4-6 Weeks Goal 4:: LTG: Pt. to ambulate distance of at least 150' with FWW with low back pain less than 3/10. Goal Time Frame: 6-8 Weeks Rehabilitation Potential Physical Therapy Diagnosis: Pt. has signs and symptoms consistent with lumbar stenosis with claudication. Pt. has marked weakness in BLE and core. Pt. has increased pain with all standing and walking activities. Pt. would benefit from PT to address the above limitations. Rehabilitation Potential: Fair Anticipated Interventions Patient/Client Instruction: Educate patient on: Condition, Plan of Care, Risk Factors and Benefits of Fitness Program For the Purpose of:: To improve health and function, To foster healthy habits, To improve decision making, To facilitate caregiver knowledge, To improve self management, To prevent re-injury and To improve ability to perform tasks related to life management Therapeutic Exercise to Include: Strength training, Power training, Balance training, Body mechanics, Postural training, Flexibilty training, Gait and locomotor training, Passive ROM, Active ROM, Dynamic Lumbar Stabilization and Hoang Exercises For the Purpose of:: To decrease pain, To increase ROM, To improve nutrient delivery to tissue, To improve muscle performance and motor function, To improve ability to perform ADL's, To improve performance and independence with ADL's, To improve gait and locomotor functions, To improve health of tissue, To decrease soft tissue restriction, To increase flexibility/ROM and To improve balance Text: Thank you for the opportunity to evaluate your patient. For Medicare and Medicare HMO plans, please review the plan of care and approve it. It will need to be FAXED BACK to us at [phone] for Medicare purposes. For Medicare only, by signing this I certify the plan of care. Please let me know if there are questions or concerns regarding this plan of care. Physician Signature: Date:
== END 2025-04-29 19:00 | disposition home or self-care (01) ==
LOC: PT 13:00
PROVIDERS: PCP Internal Medicine; Referring Provider Anesthesiology; Visit Provider Anesthesiology
DX: M48.062 Spinal stenosis, lumbar region with neurogenic claudication (principal)
CPT/HCPCS: 97110; 97113; 97161

== ENCOUNTER → 2025-04-29 | Outpatient (CLI) | payer MEDICARE, SELFPAY ==
--- NOTE | 2025-04-29 14:52 | MRI_ITS ---
PROCEDURE: BRAIN W/WO CONTRAST 04/29/2025 REASON FOR EXAM: HX OF ESOPHAGEAL CANCER TECHNIQUE: Procedure Code: [id number] Modality: MR Procedure: BRAIN W/WO CONTRAST Multiplanar and multisequence images were obtained. CONTRAST: Clariscan VOLUME: 15 mL COMPARISON: none FINDINGS: No acute or hyperacute infarcts. No intracerebral or extra-axial acute hemorrhage. No obvious enhancing masses. Bilateral cerebral periventricular and subcortical high T2/FLAIR WI signal. Normal MRI signal of the cerebellar hemispheres and brain stem. Dilated ventricular system, cortical sulci and extra-axial CSF spaces. No shift of midline structures. Left otomastoiditis. Normal MRI appearance of orbital structures, both globes, optic nerves, optic chiasm, optic tracts and optic radiations. Scanned paranasal sinuses are unremarkable. MRI/Brain W/WO Contrast IMPRESSION: No acute infarcts. No intracerebral or extra-axial hematomas. No enhancing mass es. Bilateral cerebral microvascular ischemic changes with brain involutional philip es. Left otomastoiditis. Reading [facility]
== END | disposition home or self-care (01) ==
LOC: MRI 14:13
PROVIDERS: PCP Internal Medicine; Referring Provider Anesthesiology; Visit Provider Anesthesiology
DX: R26.89 Other abnormalities of gait and mobility (principal); Z85.01 Personal history of malignant neoplasm of esophagus
CPT/HCPCS: 70553; A9575; A4216